=== PATIENT | female | born 1950 | race Caucasian/White ===

== ENCOUNTER 2023-03-29 20:49 | Inpatient (IN) ==
--- OUTSIDE RECORDS SUMMARY | 2023-03-29 20:54 | External Medical Summary | Summary of Care ---
Author Name Unknown Organization [facility] Address [address] [place] [address] Phone [phone] Care Team Providers Care Pharmacovigilance Safety Expert Name Role Phone Ishaan Gomez MD Primary Care Provide r Reason for Visit * Auth/Cert Specialty Diagnoses / Procedures Referred By Contalisa t Referred To Contact Diagnoses History of colonic polyps History of colonic polyps [Z86.010] Procedures COLONOSCOPY WITH SUBMUCOSAL DISSECTION (ESD) Colonoscopy with Submucosal Dissection (ESD) Referral ID Status Reason Start Date Expiration Date Visits Re quested Visits Authorized [id number] Encounter Details Date Type Department Care Team (Latest Contact Info) Description 03/06/2023 6:08 AM EDT - 03/06/2023 1:40 PM EDT Hospital Encounter OR [facility], Operating Room, [facility] - 4th Floor [address] [facility] [place] [address] Fátima Lopez MD [address] [facility] [place] [address] Various: BRYON MASON Discharge Disposition: Home - Self Care Allergies No known active allergiesdocumented as of this encounter (statuses as of 03/07/2023) Medications Medication Sig Dispensed Refills Start Date End Date Status omeprazole (PRILOSEC) 20 MG CPDR 0 04/07/2017 Active aspirin enteric coated 81 MG TBEC Take 1 Tablet by mouth in the morning. 100 Tab 3 05/14/2017 Active Albuterol Sulfate HFA 108 (90 Base) MCG/ACT Inhalation Aerosol SolutionIndication s:COPD, moderate (HCC) Inhale 2 Puffs by mouth every 4 hours as needed for Wheezing. 18 g 5 10/11/2022 Active Citalopram Hydrobromide 40 MG Oral Tablet (CeleXA)Indication s:Anxiety Take 1 Tablet by mouth in the morning. 30 Tablet 5 10/11/2022 Active traZODone HCl 50 MG Oral Tablet (Desyrel)Indicatio ns:Insomnia, unspecified type Take 1 Tablet by mouth at bedtime as needed for Sleep. 30 Tablet 0 10/11/2022 Active Sutab 4651-109-098 MG Oral Tablet (Sodium Sulfate-Mag Sulfate-KCl) Take according to colonoscopy prep instructions. 24 Tablet 0 11/07/2022 Active Trelegy Ellipta 200-62.5-25 MCG/ACT Aerosol Powder Breath Activated (Fluticasone-Umecl idinium-Vilanterol )Indications:COPD, moderate (HCC) INHALE 1 PUFF BY MOUTH DAILY IN THE AM 60 Blister Dosing Unit 2 01/21/2023 Active documented as of this encounter (statuses as of 03/07/2023) Active Problems Problem Noted Date Diagnosed Date Hepatic steatosis 11/08/2022 Alcohol abuse 10/11/2022 Anxiety 10/11/2022 COPD, moderate 10/11/2022 Insomnia 10/11/2022 Generalized anxiety disorder 11/24/2010 Tobacco use disorder 11/25/2007 documented as of this encounter (statuses as of 03/07/2023) Resolved Problems Problem Noted Date Diagnosed Date Resolved Date Alcohol dependence 10/27/2010 2 Overview: ICD-10 update of inactive term NO KNOWN PROBLEMS 10/10/2007 01/26/2019 documented as of this encounter (statuses as of 03/07/2023) Immunizations Name Administration Dates Next Due COVID-19 mRNA, LNP-s, No Pre serve, 2-Dose Series (Moderna) 07/11/2020,06/13/2020 Pneumococcal Polysaccharide PPV23 (Pneumovax) TDAP (age 11 and older)(Adacel) 02/23/2008 documented as of this encounter Social History Tobacco Use Types Packs/Day Years Used Date Smoking Tobacco: Every Day Cigarettes 1 53 Smokeless Tobacco: Never Alcohol Use Standard Drinks/Week Comments Yes 6 (1 standard drink = 0.6 oz pur e alcohol) daily PHQ-2 Answer Date Recorded PHQ-2 Score 0 01/29/2019 Hunger Vital Sign Answer Date Recorded Worried About Running Out of Food in the Last Ye ar Never true 12/21/2020 Ran Out of Food in the Last Year Never true 12/21/2020 Sex and Gender Information Value Date Recorded Sex Assigned at Female 02/24/2023 9:14 PM EDT Gender Identity Female 02/24/2023 9:14 PM EDT Sexual Orientation Straight 02/24/2023 9: 14 PM EDT Job Start Date Occupation Industry Not on file Not on file Not on file documented as of this encounter Last Filed Vital Signs Vital Sign Reading Time Taken Comments Blood Pressure 120/57 03/06/2023 1:28 PM EDT Pulse 80 03/06/2023 1:28 PM EDT Temperature 36.3 C (97.3 F) 03/06/2023 1:28 PM ED T Respiratory Rate 19 03/06/2023 1:28 PM EDT Oxygen Saturation 98% 03/06/2023 1:28 PM EDT Inhaled Oxygen Concentration - - Weight 43.5 kg (96 lb) 03/06/2023 7:18 AM EDT Height 152.4 cm (5') 03/06/2023 7:18 AM EDT Body Mass Index 18.75 03/06/2023 7:18 AM EDT documented in this encounter H&P Notes * Fátima Lopez MD - 03/06/2023 8:03 AM EDT Endoscopy Pre-Procedure Assessment Name: Donna Brooke Date: 03/06/2023 Time: 8:03 AM Procedure(s): Colonoscopy; with Indication(s) of resection of colon polyp Endoscopy Pre-Procedure Assessment: Prior to the procedure, the patient was identified. The patient's history, medications and allergies were reviewed as per the Anesthesia Assessment. The patient is competent. The risks and benefits of the proposed procedure and the planned sedation were discussed with the patient. All questions were answered and informed consent for the procedure was obtained. BP 157/73 | Pulse 92 | Temp 36.5 C (97.7 F) (Temporal Artery) | Resp 18 | Ht 1.524 m (5') | Wt 43.5 kg (96 lb) | SpO2 100% | BMI 18.75 kg/m | BSA 1.36 m Review of patient's allergies indicates: No Known Allergies Prior to Admission medications Medication Sig Last Dose Discont. Trelegy Ellipta 200-62.5-25 MCG/ACT Aerosol Powder Breath Activated (Twtwsjoeulx-Ejmcnatyfdlv-Ewfvbxtaec) INHALE 1 PUFF BY MOUTH DAILY IN THE AM 03/05/2023 Sutab 3811-182-947 MG Oral Tablet (Sodium Sulfate-Mag Sulfate-KCl) Take according to colonoscopy prep instructions. 03/05/2023 Citalopram Hydrobromide 40 MG Oral Tablet (CeleXA) Take 1 Tablet by mouth in the morning. 03/05/2023 traZODone HCl 50 MG Oral Tablet (Desyrel) Take 1 Tablet by mouth at bedtime as needed for Sleep. Past Month aspirin enteric coated 81 MG TBEC Take 1 Tablet by mouth in the morning. 03/05/2023 omeprazole (PRILOSEC) 20 MG CPDR 03/05/2023 Chantix Starting Month Mauricio 0.5 MG X 11 & 1 MG X 42 Tablet Therapy Pack (Varenicline Tartrate (Starter)) As directed in the box Patient not taking: Reported on 03/06/2023 Not Taking Albuterol Sulfate HFA 108 (90 Base) MCG/ACT Inhalation Aerosol Solution Inhale 2 Puffs by mouth every 4 hours as needed for Wheezing. Over 30 Days Physical Exam: Mental Status Examination: alert and oriented. Airway Examination: normal oropharyngeal airway and neck mobility. Respiratory Examination: clear to auscultation. CV Examination: Regular rate and rythm, no murmurs. ASA Grade: III - A patient with severe systemic disease. After reviewing the risks and benefits, the patient was deemed in satisfactory condition to undergothe procedure. The anesthesia plan was to use general anesthesia. Patient was explained in detail regarding risks, benefits, limitations and alternatives of the above endoscopic procedure. Risks of intravenous sedation used for procedure were also explained. Risks include, but not limited to perforation, bleeding, infection, respiratory distress, cardiac arrest and . Risk of acute pancreatitis and necrosis if ERCP is done. Patient is also aware about the possibility of missed lesion. Patient's questions were answered. The patient verbalized understandingthe information and agreed to undergo the procedure. Discussed with the patient that he/she is at an explicit higher risk for complications in comparison to other patients Fátima Lopez MD 03/06/2023 documented in this encounter Procedure Notes * Willem Tinajero MD - 03/06/2023 8:16 AM EDTAssociated Order(s): COLONOSCOPY [facility] Patient Name: Donna Brooke Procedure Date: 03/06/2023 8:16 AM Date of : 1950 Admit Type: Outpatient Note Status: Finalized Date of : 1950 Admit Type: Outpatient Age: 72 Room: OR 5 Gender: Female Note Status: Finalized Procedure: Colonoscopy Indications: Therapeutic procedure for colon polyps Providers: Fátima Lopez MD (Doctor), Ninoska Urbina RN Referring MD: Willem Tinajero MD, Ishaan [facility] Medicines: General Anesthesia, Cipro 400 mg IV Complications: No immediate complications. Procedure: Pre-Anesthesia Assessment: - Prior to the procedure, a History and Physical was performed, and patient medications, allergies and sensitivities were reviewed. The patient's tolerance of previous anesthesia was reviewed. - The risks and benefits of the procedure and the sedation options and risks were discussed with the patient. All questions were answered and informed consent was obtained. - Patient identification and proposed procedure were verified prior to the procedure by the physician and the nurse. The procedure was verified in the procedure room. - Pre-procedure physical examination revealed no contraindications to sedation. After I obtained informed consent, the scope was passed under direct vision. All instruments were visually inspected immediately before and after removal from the patient to ensure they are fully intact. Throughout the procedure, the patient's blood pressure, pulse, and oxygen saturations were monitored continuously. The [id number] Colonoscope ([id number]) was introduced through the anus and advanced to the cecum, identified by appendiceal orifice and ileocecal valve. The colonoscopy was performed without difficulty. The patient tolerated the procedure well. The quality of the bowel preparation was good. Findings & Specimens: A 60 mm polyp was found in the ascending colon. The polyp was flat, sessile, Josette classification IIa (superficial, elevated) and non-granular lateral spreading and found to be Kudo Pit Pattern Type IV(as viewed with Narrow Band Imaging). Preparations were made for endoscopic submucosal dissection. DiLumen was used. Chromoscopy with indigo carmine using irrigation chromoendoscopy technique was done to travis the borders of the lesion. Demarcation of the lesion was performed to clearly identify boundaries of the lesion. 70 mL of saline with indigo carmine was injected with adequate lift of the lesion from the muscularis propria. A circumferential incision around the lesion into the submucosa was performed with a 1.5mm Pro knife. The lesion was then dissected from the underlying deep layers with the electrocautery knife and retrieved with a Barrera net. Rubber band and clip for traction was used. Resection and retrieval were complete. The decision was made to use sutures to close a defect after mucosal resection. The endoscope was removed, the OverStitch device was attached to the proximal and distal ends of the endoscope. The device was loaded with 2.0 polypropylene suture. A total of one sutures in a running fashion were placed with cinches on both ends. Excellent tissue approximation was noted. Verification of patient identification for the specimen was done by the physician and nurse using the patient's name and date. The pathology specimen was placed into Bottle A. Impression: - One 60 mm polyp in the ascending colon, removed with endoscopic submucosal dissection. Resected and retrieved. Endoscopic suturing performed to close the defect. Recommendation: - Discharge patient to home. - Await pathology results. - Repeat colonoscopy for surveillance based on pathology results. - Full liquid diet today, then advance as tolerated to soft diet for 2 days. - No aspirin, ibuprofen, naproxen, or other non-steroidal anti-inflammatory drugs for 5 days. - Return to referring physician. Fátima Lopez MD 03/06/2023 10:33:25 AM This report has been signed electronically. Estimated Blood Loss: Estimated blood loss: none. documented in this encounter Nursing Notes * Gemma Guardado RN - 03/06/2023 10:10 AM EDT Colonoscopy with ESD completed in [facility] OR. Pt alisson procedure well. Sedated by [employer]. See anesthesia record for VS and medications given. Abd soft. Airway patent. Pt to recovery on L side with HOB elevated. Report to recovery room nurse. Specimen and location verified with physician. Bedside cleaning done by Charles Urbina RN. * Gemma Guardado RN - 03/06/2023 9:44 AM EDT Room temperature decreased to [address] Lopez's request. * Sandra Castañeda RN - 03/05/2023 2:08 PM EDT Called received from endo office. It is okay that she did not stop ASA just to hold morning of . Called patient and let her know. * Munira Melendez RN - 03/05/2023 1:56 PM EDT Pt states she did not stop her ASA as instructed; last dose was 03/04. Pt and daughter instructed to call Dr Lopez office to report no hold on ASA; this nurse contacted office at [phone] to make them aware pt did not stop ASA. Gemma (office) will make Dr. Lopez aware. documented in this encounter Miscellaneous Notes * Pt Handout (on AVS) - Araceli Silver RN - 03/06/2023 10:43 AM EDT Images from the original note were not included. [id number] Soft Diet Your healthcare provider has prescribed a soft diet. This means eating foods that are soft, low in fiber, and easy to digest. This diet is for people with digestive problems. This should not be confused with a soft diet that is prescribed for people with issues chewing and swallowing. A soft diet provides foods that are easy to chew and swallow. It will reduce or prevent stomach pain or discomfort. Foods should be bite-sized and very soft or moist. Follow your healthcare provider?s specific instructions about what foods and drinks you may have. The general guidelines below can help you get started on this diet. Beverages OK: Milk, tea, coffee, fruit juices, carbonated beverages, nutrition shakes, and drinks (Note: Thinliquids may be hard to swallow. They may need to be thickened.) Don't have: All are OK, unless they need to be thickened Breads and crackers OK: Refined white, wheat, or seedless rye bread; kerwin or soda crackers that have been moistened; plain rolls or bagels; very soft tortillas Don't have: Whole-grain breads, rolls, or bagels with nuts, raisins, or seeds; crackers, croutons, taco shells Cereals and grains OK: Cooked cereals, plain dry cereals that have been moistened, plain macaroni, spaghetti, noodles,rice Don't have: Whole-grain cereals and granola, or cereals containing bran, raisins, seeds or nuts; coconut; brown or wild rice Desserts and sweets OK: Moist cake; soft fruit pie with bottom crust only; soft cookies moistened in milk or other liquid; gelatin, custard, pudding, plain ice cream, plain sherbet, sugar, honey, clear jelly Don't have: Pastries, desserts, and ice cream that have nuts, coconut, seeds, or dried fruit; popcorn; chips of any kind, including potato chips and tortilla chips; jam, marmalade Eggs and cheese OK: Poached, soft boiled, or scrambled eggs; cottage cheese, ricotta cheese, cream cheese, cheese sauces, or cheese melted in other dishes Don't have: Gosper fried eggs, cheese slices and cubes Fruits OK: Avocado, banana, baked peeled apple, applesauce, peeled ripe peaches or pears, canned fruit (apricots, cherries, peaches, pears), melons Don't have: Raw apple, dried fruits, coconut, corby, pineapple, grapes, fruit mitchel, fruit snacks Meat and fish OK: All fresh meat, poultry, or fish that is cooked until tender Don't have: Meat, fish, or poultry that is fried; tough or stringy meat, including ashton, sausage, bratwurst, jerky, corned beef Other protein foods OK: Tofu, baked beans, Don't have: Deep-fried tofu; crunchy peanut or other nut or seed butters; nuts or seeds that are whole or chopped Soups OK: All soups, but they may need to be thickened. Thin liquid may be too hard to swallow. Don't have: Soups made with stringy meat pieces or chunky vegetables Vegetables OK: Peeled and well-cooked potatoes or sweet potatoes; fresh, cooked, canned, or frozen vegetables without seeds, skin, or coarse fiber Don't have: Raw vegetables, deep-fried vegetables (such as tempura), and corn Last Reviewed Date: 12/04/202119995663-1947 [employer]. All rights reserved. This information is not intended as a substitute for professional medical care. Always follow your healthcare professional's instructions. * Pt Handout (on AVS) - Araceli Silver RN - 03/06/2023 10:41 AM EDT Images from the original note were not included. [id number] Full Liquid Diet A full liquid diet is a middle step between a clear liquid diet and eating solid foods. A clear liquid diet allows only liquids you can see through. A full liquid diet allows thicker liquid foods, aslisted below. It can be anything that is liquid at room temperature. The full liquid diet may be used before or after surgery. Or it may be used if you have a digestive illness. It's also used beforesome medical tests. It's easy to digest and leaves little food in the stomach and intestines. A full liquid diet meets calorie and protein needs for your body with liquids only. If it's to be used for more than 5 days, your healthcare provider or dietitian may also order high-protein, high-calorie liquid supplements. These will give you extra vitamins and minerals. You may include the itemsbelow on a full liquid diet. Adults Adults should drink a total of 2 to 3 quarts of liquid per day. It may be easier to drink small frequent servings rather than a few large ones. People with severe kidney or heart disease may need to limit the amount of fluid they take in. Check with your provider. Cereals and soups. Creamy hot breakfast cereals (wheat or rice) thinned with milk, pureed soups (including pureed meats, bland vegetables, and white potatoes), tomato puree. Desserts. Gelatin, whipped topping, custard-style yogurt, pudding, custard, plain ice cream, sherbet, sorbet, frozen fruit juice bars. Drinks. Coffee, tea, cream, milk, milkshakes, fruit and vegetable juices, sodas, mineral water (plain or flavored), liquid gelatin, electrolyte replacement sports drinks. Other items. Salt, mild-flavored seasonings, chocolate flavoring, gravy, margarine, sugar, syrup, jelly, honey, hard candy (to suck on). Children Follow the healthcare provider?s instructions. Young children who are eating solid foods may be able to have the items listed above without problems. Be sure to follow these safety measures: Don't give hard candies to young children. The candies may cause choking. Children under 1 year old. Don't give cow's milk or honey. It may cause illness. Children under 2 years old. Ask your child?s provider if you should supplement your child?s dietwith oral rehydration solutions, which have electrolytes. You can buy these drinks at pharmacies and grocery stores. You don?t need a prescription. Children over 1 year old. Limit milk to 2 or 3 cups per day. Too much milk can make your child less hungry for other foods. Last Reviewed Date: 10/04/202119995751-5988 [employer]. All rights reserved. This information is not intended as a substitute for professional medical care. Always follow your healthcare professional's instructions. documented in this encounter Plan of Treatment Upcoming Encounters Date Type Department Care Team (Late st Contact Info) Description 04/08/2023 4:20 PM EST Office Visit Family Medicine [address] [place] [phone] Ishaan Gomez MD [address] [place] [address] [place] [id number] 04/11/2023 10:30 AM EST Office Visit Ophthalmology, [facility] [address] [place] [address] Herberth Welsh DO [address] [place] [address] Pending Results Name Type Priority Associated Diagnoses Date /Time SURGICAL PATHOLOGY Pathology Routine 2022 10:09 AM EDT Scheduled Orders Name Type Priority Associated Diagnoses Orde r Schedule SURGICAL PATHOLOGY Pathology Routine One Ti me for 1 Occurrences starting 03/06/2023 until 03/06/2023, 1 completed Health Maintenance Due Date Last Done Comments DISCUSS TOBACCO CESSATION (REFER TO SMARTSET #[id number]) 1950 DXA Scan 1950 Alpha-1 Antitrypsin 1970 Hepatitis C Screening 1970 Zoster Vaccines (1 of 2) 1971 Cologuard 1997 Fecal Occult Blood Test 1997 Sigmoidoscopy 1997 LUNG CANCER SCREENING - USE SMARTSET [id number] 2002 Pneumococcal Vaccine: 65+ Years (2 - PCV) 06/27/2013 06/27/2012 Mammogram 03/01/2016 03/01/2015, 02/04, 02/17/2013, Additional history exists DTaP,Tdap,and Td Vaccines (2 - Td or Tdap) 02/22/2018 02/23/2008 Depression Screening 01/30/2020 01/29/2019 COVID-19 Vaccine (3 - Moderna risk series) 08/08/2020 07/11/2020, 06/13/2020 Influenza Vaccine (FLU shot) (#1) 2023 O2 ASSESSMENT COMPLETED IN PAST YEAR FOR COPD 03/06/2024 03/06/2023 Lipid Panel 10/13/2027 10/12/2022, 07/05, 01/26/2008 Colonoscopy 03/06/2033 03/06/2023, 10/04, 10/15/2022 Colorectal Cancer Screening 03/06/2033 GARDASIL-HPV IMMUNIZATION SERIES Aged Out No longer eligible based on patient's age to complete this topic Hepatitis B Aged Out No longer eligi ble based on patient's age to complete this topic MENINGOCOCCAL (MENACTRA/MENVEO) Aged Out No longer eligible based on patient's age to complete this topic documented as of this encounter Medical Devices Implanted Type Area Lumber Piler Device Identifier Shelf Expiration Date Model / Serial / Lot Duraclip 11mm Repositionable - [id number] Implanted:Qty: 1 on 03/06/2023 by Fátima Lopez MD at OR [facility] Colon [email or web address] [id number] 07/05/2024 [id number] / / [id number] documented as of this encounter Procedures Procedure Name Priority Date/Time Associated Diagnosis Comments GLUCOSE METER, POINT OF CARE [facility] 03/06/2023 10:44 AM EDT COLONOSCOPY 03/06/2023 8:16 AM EDT GLUCOSE METER, POINT OF CARE [facility] 03/06/2023 7:34 AM EDT documented in this encounter Results * GLUCOSE METER, POINT OF CARE (03/06/2023 10:44 AM EDT) Glucose Meter 94 70 - 120 mg/dL 03/06/2023 10:47 AM EDT [facility] Blood Whole blood specimen / Unknown 03/06/2023 10:44 AM EDT 03/06/2023 10:47 AM EDT Fátima Lopez MD LAB POINT OF CARE T EST DOCKED DEVICE UNSOLICITED RESULTS [facility] [address] [place] [address] * COLONOSCOPY (03/06/2023 8:16 AM EDT) 03/06/2023 8:16 AM EDT Narrative Procedure Note Willem Tinajero MD - 03/06/2023 8:16 AM EDT [facility] Patient Name: Donna Brooke Procedure Date: 03/06/2023 8:16 AM Date of : 1950 Admit Type: Outpatient Note Status:Finalized Date of : 1950 Admit Type: Outpatient Age: 72 Room: OR 5 Gender: Female Note Status: Finalized Procedure: Colonoscopy Indications: Therapeutic procedure for colon polyps Providers: Fátima Lopez MD (Doctor), Ninoska Urbina RN Referring MD: Willem Tinajero MD, Ishaan Gomez Medicines: General Anesthesia, Cipro 400 mg IV Complications: No immediate complications. Procedure: Pre-Anesthesia Assessment: - Prior to the procedure, a History and Physicalwas performed, and patient medications, allergies and sensitivities werereviewed. The patient's tolerance of previous anesthesia was reviewed. - The risks and benefits of the procedure and thesedation options and risks were discussed with the patient. All questions wereanswered and informed consent was obtained. - Patient identification and proposed procedurewere verified prior to the procedure by the physician and the nurse. The procedure wasverified in the procedure room. - Pre-procedure physical examination revealed nocontraindications to sedation. After I obtained informed consent, the scope waspassed under direct vision. All instruments were visually inspected immediatelybefore and after removal from the patient to ensure they are fully intact. Throughout the procedure, the patient's bloodpressure, pulse, and oxygen saturations were monitored continuously. The [id number] ([id number]) was introduced through the anus and advanced to the cecum,identified by appendiceal orifice and ileocecal valve. The colonoscopy was performedwithout difficulty. The patient tolerated the procedure well. The quality of thebowel preparation was good. Findings & Specimens: A 60 mm polyp was found in the ascending colon. The polyp was flat,sessile, Josette classification IIa (superficial, elevated) and non-granular lateral spreading and foundto be Kudo Pit Pattern Type IV (as viewed with Narrow Band Imaging). Preparations were made forendoscopic submucosal dissection. DiLumen was used. Chromoscopy with indigo carmine using irrigationchromoendoscopy technique was done to travis the borders of the lesion. Demarcation of the lesion was performed toclearly identify boundaries of the lesion. 70 mL of saline with indigo carmine was injected withadequate lift of the lesion from the muscularis propria. A circumferential incision around the lesion intothe submucosa was performed with a 1.5mm Pro knife. The lesion was then dissected from the underlyingdeep layers with the electrocautery knife and retrieved with a Barrera net. Rubber band andclip for traction was used. Resection and retrieval were complete. The decision was made to usesutures to close a defect after mucosal resection. The endoscope was removed, the OverStitch devicewas attached to the proximal and distal ends of the endoscope. The device was loaded with 2.0polypropylene suture. A total of one sutures in a running fashion were placed with cinches on both ends.Excellent tissue approximation was noted. Verification of patient identification for the specimen wasdone by the physician and nurse using the patient's name and date. The pathology specimen wasplaced into Bottle A. Impression: - One 60 mm polyp in the ascending colon, removedwith endoscopic submucosal dissection. Resected and retrieved. Endoscopicsuturing performed to close the defect. Recommendation: - Discharge patient to home. - Await pathology results. - Repeat colonoscopy for surveillance based onpathology results. - Full liquid diet today, then advance as toleratedto soft diet for 2 days. - No aspirin, ibuprofen, naproxen, or othernon-steroidal anti-inflammatory drugs for 5 days. - Return to referring physician. Fátima Lopez MD 03/06/2023 10:33:25 AM This report has been signed electronically. Estimated Blood Loss: Estimated blood loss: none. Willem Tinajero MD GASTRO LOWER * (ABNORMAL) GLUCOSE METER, POINT OF CARE (03/06/2023 7:34 AM EDT) Glucose Meter 68(L) 70 - 120 mg/dL 03/06/2023 7:40 AM EDT [facility] Blood Whole blood specimen / Unknown 03/06/2023 7:34 AM EDT 03/06/2023 7:40 AM EDT Fátima Lopez MD LAB POINT OF CARE T EST DOCKED DEVICE UNSOLICITED RESULTS [facility] [address] [place] [address] documented in this encounter Administered Medications Inactive Administered Medications - up to 3 most recent administrations Medication Order MAR Action Action Date Dose Rate Site albuterol-ipratropium (Duoneb) inhalation solution 3 mL 3 mL, Nebulizer, ONCE, On Sat03/06/23 at 0830, For 1 dose, 3 mL = 0.5 mg ipratropium/ 2.5 mg albuterol, Pre-Op Given 03/06/2023 8:01 AM EDT 3 mL ciprofloxacin (Cipro) in D5W ivpb 400 mg IV Piggyback, 400 mg, ONCE, 1 dose, On Sat03/06/23 at 0845, Administer over 60 Minutes, PROTECT FROM LIGHT New Bag 03/06/2023 8:11 AM EDT 400 mg 200 mL/hr isolyte-S pH 7.4 infusion Intravenous, at 10 mL/hr, Plasma-LYTE 148, isolyte-S, and isolyte-S pH 7.4 are considered equivalent - including for MAR barcode scanning., CONTINUOUS, Starting on Sat03/06/23 at 0815, Until Sat03/06/23 at 1740, Pre-Op Restarted 03/06/2023 8:28 AM EDT Continue from Pre-Op 03/06/2023 8:13 AM EDT 10 mL/hr New Bag 03/06/2023 7:35 AM EDT 10 mL/hr documented in this encounter Active and Recently Administered Medications Times are shown in EDT. Scheduled Medication Order 03/04/2023 03/05/2023 03/06/2023 albuterol-ipratropium (Duoneb) inhalation solution 3 mL (COMPLETED) 3 mL, Nebulizer, ONCE, On Sat03/06/23 at 0830, For 1 dose, 3 mL = 0.5 mg ipratropium/ 2.5 mg albuterol, Pre-Op 0801 (Given - Provid er: Padmini Doss, CHIEF ENGINEER PRODUCTION) ciprofloxacin (Cipro) in D5W ivpb 400 mg (COMPLETED) IV Piggyback, 400 mg, ONCE, 1 dose, On Sat03/06/23 at 0845, Administer over 60 Minutes, PROTECT FROM LIGHT 0811 (New Bag - Prov ider: Araceli Silver, RN) Continuous Medication Order 03/04/2023 03/05/2023 03/06/2023 isolyte-S pH 7.4 infusion Intravenous, at 10 mL/hr, Plasma-LYTE 148, isolyte-S, and isolyte-S pH 7.4 are considered equivalent - including for MAR barcode scanning., CONTINUOUS, Starting on Sat03/06/23 at 0815, Until Sat03/06/23 at 1740, Pre-Op 0735 (New Bag - Prov ider: Araceli Silver, NA)0813 (Continue from Pre-Op - Provider: Latesha Liu CRNA)0827 (Paused - Provider: Latesha Liu CRNA - Comment: Switch to gravity)0828 (Restarted - Provider: Latesha Liu CRNA)0941 (Anes Intra-Op Fluid - Provider: Latesha Liu CRNA) documented in this encounter Care Teams Pharmacovigilance Safety Expert Relationship Specialty Start Date End Date Ishaan Gomez MD [address] [place] [address] [place] [phone] PCP - General Family Medicine 10/12/22 documented as of this encounter"
--- OUTSIDE RECORDS SUMMARY | 2023-03-29 20:54 | External Medical Summary | Summary of Care ---
Author Name Unknown Organization [facility] Address [address] [place] [address] Phone [phone] Care Team Providers Care Art Gallery Internship Name Role Phone Ishaan Gomez MD Primary Care Provide r Reason for Visit * Reason Onset Date Comments Order Request 03/22/2023 Encounter Details Date Type Department Care Team ([facility] st Contact Info) Description 03/22/2023 Telephone Family Medicine [address] [phone] Ishaan Gomez MD [address] [place] [address] [place] [address] Order Request Allergies No known active allergiesdocumented as of this encounter (statuses as of 03/26/2023) Medications Medication Sig Dispensed Refills Start Date [...] Sleep. 30 Tablet 0 10/11/2022 Active Sutab 5346-700-590 MG Oral Tablet (Sodium Sulfate-Mag Sulfate-KCl) Take according to colonoscopy prep instructions. 24 Tablet 0 11/07/2022 Active Chantix Starting Month Mauricio 0.5 MG X 11 & 1 MG X 42 Tablet Therapy Pack (Varenicline Tartrate (Starter))Indicati ons:Tobacco use disorder As directed in the box 1 Each 0 11/19/2022 Active Additional Information Patient not taking.Reported on 03/06/2023 Trelegy Ellipta 200-62.5-25 MCG/ACT Aerosol Powder Breath Activated (Fluticasone-Umecl idinium-Vilanterol )Indications:COPD, moderate (HCC) INHALE 1 PUFF BY MOUTH DAILY IN THE AM 60 Blister Dosing Unit 2 01/21/2023 Active Hospital, Clinic, or Other Facility Administered Medication Ordered Dose Route Frequency Start Date End Date Status Albuterol Sulfate (Proventil) (2.5 MG/3ML) 0.083% inhalation solution 2.5 mgIndications:COPD, moderate (HCC) 2.5 mg NEBULIZER ONCE PRN 10/11/2022 10/11/2023 Active bevaCIZumab (Avastin) inj 1.25 mgIndications: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 1.25 mg IZ PRN 01/21/2023 01/21/2024 Active ROPivacaine (Naropin) inj 1.5 mgIndications: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 1.5 mg IJ PRN 01/21/2023 01/21/2024 Active documented as of this encounter (statuses as of 03/26/2023) Active Problems Problem Noted Date Diagnosed Date Hepatic steatosis 11/08/2022 Alcohol abuse 10/11/2022 Anxiety 10/11/2022 COPD, moderate 10/11/2022 Insomnia 10/11/2022 Generalized anxiety disorder 11/24/2010 Tobacco use disorder 11/25/2007 documented as of this encounter (statuses as of 03/26/2023) Resolved Problems Problem Noted Date Diagnosed Date Resolved Date Alcohol dependence 10/27/2010 2 Overview: ICD-10 update of inactive term NO KNOWN PROBLEMS 10/10/2007 01/26/2019 documented as of this encounter (statuses as of 03/26/2023) Immunizations Name Administration Dates Next Due COVID-19 [...] on file documented as of this encounter Miscellaneous Notes * Telephone Encounter - Flor Strickland LPN - 03/26/2023 1:11 PM EST Noted. * Telephone Encounter - Moon Lechuga OSA - 03/22/2023 3:14 PM EST Anew plan of care will be faxed this coming week adding nursing back on. Please sign and fax back to [phone]. documented in this encounter Plan of Treatment Upcoming Encounters Date Type Department Care Team (Late st Contact Info) Description 04/08/2023 4:20 PM EST Office Visit Family Medicine [facility] [place] [phone] Ishaan Gomez MD [address] [place] [address] [place] [id number] 04/11/2023 10:30 AM EST Office Visit Ophthalmology, [facility] [address] [place] [address] Herberth Welsh DO [address] [place] [address] Scheduled Procedures Name Priority Associated Diagnoses Date/Ti me COLONOSCOPY FLEXIBLE PROXIMA L DIAGNOSTIC Recall History of colonic polyps Health Maintenance Due Date Last Done Comments DISCUSS TOBACCO CESSATION (REFER TO SMARTSET #0938) 1950 DXA Scan 1950 Alpha-1 Antitrypsin 1970 Hepatitis C Screening 1970 Zoster Vaccines (1 of 2) 1971 LUNG CANCER SCREENING - USE SMARTSET 50973 2002 Pneumococcal Vaccine: 65+ Years (2 - PCV) 06/27/2013 06/27/2012 Mammogram 03/01/2016 03/01/2015, 02/04, 02/17/2013, Additional history exists DTaP,Tdap,and Td Vaccines (2 - Td or Tdap) 02/22/2018 02/23/2008 Depression Screening 01/30/2020 01/29/2019 COVID-19 Vaccine (3 - Moderna risk series) 08/08/2020 07/11/2020, 06/13/2020 Influenza Vaccine (FLU shot) (#1) 2023 COLONOSCOPY-ANNUAL AGES 18-100 03/06/2024 03/06/2023, 10/15/2022, 10/15/2022 O2 ASSESSMENT COMPLETED IN PAST YEAR FOR COPD 03/06/2024 03/06/2023 Lipid Panel 10/13/2027 10/12/2022, 07/05, 01/26/2008 Colonoscopy Discontinued 03/06/2023, 10/04, 10/15/2022 Colorectal Cancer Screening Discontinued Cologuard Discontinued Fecal Occult Blood Test Discontinued GARDASIL-HPV IMMUNIZATION SERIES Aged Out No longer eligible based on patient's age to complete this topic Hepatitis B Aged Out No longer eligi ble based on patient's age to complete this topic MENINGOCOCCAL (MENACTRA/MENVEO) Aged Out No longer eligible based on patient's age to complete this topic Sigmoidoscopy Discontinued documented as of this encounter Medical Devices Implanted Type Area Fire Lieutenant Device Identifier Shelf Expiration Date Model / Serial / Lot Duraclip 11mm Repositionable - [id number] Implanted:Qty: 1 on 03/06/2023 by Fátima Lopez MD at OR [facility] Colon Met[employer]ana LICHA [id number] 07/05/2024 [id number] / / [id number] documented as of this encounter Care Teams Art Gallery Internship Relationship Specialty Start Date End Date Ishaan Gomez MD [address] [place] [address] [place] [phone] PCP - General Family Medicine 10/12/22 documented as of this encounter
--- OUTSIDE RECORDS SUMMARY | 2023-03-29 20:54 | External Medical Summary | Summary of Care ---
Author Name Unknown Organization [facility] Address [address] [facility] [address] Phone [phone] Care Team Providers Care Jute Bag Clipper Name Role Phone Ishaan Gomez MD Primary Care Provide r Reason for Visit * Reason Onset Date Comments Home Health 01/22/2023 Fall 01/22/2023 Encounter Details Date Type Department Care Team Description 01/22/2023 Telephone Family Medicine [address] [place] [address] Ishaan Gomez MD [address] [place] [address] [place] [phone] Home Health; Fall Allergies No known active allergiesdocumented as of this encounter (statuses as of 01/23/2023) Medications Medication Sig Dispensed Refills Start Date [...] Sleep. 30 Tablet 0 10/11/2022 Active Sutab 4357-639-307 MG Oral Tablet (Sodium Sulfate-Mag Sulfate-KCl) Take according to colonoscopy prep instructions. 24 Tablet 0 11/07/2022 Active Chantix Starting Month Mauricio 0.5 MG X 11 & 1 MG X 42 Tablet Therapy Pack (Varenicline Tartrate (Starter))Indicati ons:Tobacco use disorder As directed in the box 1 Each 0 11/19/2022 Active Trelegy Ellipta 200-62.5-25 MCG/ACT Aerosol Powder [...] as of this encounter (statuses as of 01/23/2023) Active Problems Problem Noted Date Hepatic steatosis 11/08/2022 Alcohol abuse 10/11/2022 Anxiety 10/11/2022 COPD, moderate 10/11/2022 Insomnia 10/11/2022 Generalized anxiety disorder 11/24/2010 Tobacco use disorder 11/25/2007 documented as of this encounter (statuses as of 01/23/2023) Resolved Problems Problem Noted Date Resolved Date Alcohol dependence 10/27/2010 10/29/2011 Overview: ICD-10 update of inactive term NO KNOWN PROBLEMS 10/10/2007 01/26/2019 documented as of this encounter (statuses as of 01/23/2023) Immunizations Name Administration Dates Next Due COVID-19 [...] = 0.6 oz pur e alcohol) daily Food Insecurity Answer Date Recorded Within the past 12 months, y ou worried that your food would run out before you got money to buy more. Never true 01/29/2019 Within the past 12 months, t he food you bought just didn't last and you didn't have money to get more. Never true 01/29/2019 Sex Assigned at Date Recorded Not on file Job Start Date Occupation Industry Not on file Not on file Not on file documented as of this encounter Miscellaneous Notes * Telephone Encounter - Cande Greenwood LPN - 01/23/2023 9:50 AM EDT ED Follow Up GROUP TEACHER Documentation Did patient call the office before going to ER: Yes When was patient seen: 01/22/23 Which ED: [facility] What were they seen for: Fall What testing did they have done: ct scan and echocardiogram What was the diagnosis(s) at discharge? Fall with laceration to head ( left back ) 5 sutures placed Any new medications prescribed: No How is patient feeling today: Daughter is calling, she has not checked on pt yet today Does patient have concerns today: No Was patient scheduled for a follow up appointment: Yes, date 02/01/23 * Telephone Encounter - Valery García LPN - 01/22/2023 3:06 PM EDT Provider to address: fall Reason for Call: Home Health Contact: Telephone Call Contact Type: Information HH Concerns Elida PT, Calling from: Niraj Report/Concerns of: Fall Symptoms: dizziness Vitals: T 98.2 P 92 RR 18 BP 114/66 SP O2 97 Lung sounds clear, diminished Weight n/a Blood sugar n/a Narrative: Outcome: Fell last night. Watching football got up tripped over her walker and hit her head. Later on, going to bed. Went to bathroom. Fell and hit her head. Seeing her for balance and gait efforts. But patient was at the eye doctor and had 4 shots in her eye yesterday. Feels that threw her off. Gash is about 2 inches long. 1/4 inch deep, but not the whole length. Not bleeding. Has a little trouble with finger to nose and can't stand tandum. Patient has some dizziness. Off and on. Denies chest pain, sob. No other symptoms. Daughter will be bringing her to urgent care after done working. Call back patient with any advice or orders. Total Time including non face to face (minutes): 15 documented in this encounter Plan of Treatment Upcoming Encounters Date Type Specialty Care Team Description 02/01/2023 Office Visit Family Ishaan Boudreaux MD [address] [place] [address] [place] [phone] 02/28/2023 Office Visit Ophthalmology Herberth Welsh DO [address] [place] [address] 03/06/2023 Hospital Encounter Surgery Fátima Lopez MD [address] [place] [address] 03/06/2023 Surgery Surgery Fátima Lopez MD [address] [place] [address] Colonoscopy with Submucosal Dissection (ESD) 04/08/2023 Office Visit Family Ishaan Boudreaux MD [address] [place] [address] [place] [address] Scheduled Procedures Name Priority Associated Diagnoses Date/Ti me Colonoscopy with Submucosal Dissection (ESD) History of colonic polyps 03/06/2023 8:33 AM EDT Health Maintenance Due Date Last Done Comments DISCUSS TOBACCO CESSATION (REFER TO SMARTSET #2556) 1950 DXA Scan 1950 Alpha-1 Antitrypsin 1970 Hepatitis C Screening 1970 Zoster Vaccines (1 of 2) 1971 Cologuard 1997 Fecal Occult Blood Test 1997 Sigmoidoscopy 1997 LUNG CANCER SCREENING - USE SMARTSET 47107 2002 Pneumococcal Vaccine: 65+ Years (2 - PCV) 06/27/2013 06/27/2012 Mammogram 03/01/2016 03/01/2015, 02/04, 02/17/2013, Additional history exists DTaP,Tdap,and Td Vaccines (2 - Td or Tdap) 02/22/2018 02/23/2008 Depression Screening 01/30/2020 01/29/2019 COVID-19 Vaccine (3 - Moderna risk series) 08/08/2020 07/11/2020, 06/13/2020 Influenza Vaccine (FLU shot) (#1) 2023 O2 ASSESSMENT COMPLETED IN PAST YEAR FOR COPD 10/16/2023 10/15/2022 Lipid Panel 10/13/2027 10/12/2022, 07/05, 01/26/2008 Colonoscopy 10/15/2032 10/15/2022, 10/15/2022 Colorectal Cancer Screening 10/15/2032 GARDASIL-HPV IMMUNIZATION SERIES Aged Out No longer eligible based on patient's age to complete this topic Hepatitis B Aged Out No longer eligi ble based on patient's age to complete this topic MENINGOCOCCAL (MENACTRA/MENVEO) Aged Out No longer eligible based on patient's age to complete this topic documented as of this encounter Medical Devices Not on filedocumented as of this encounter Care Teams Jute Bag Clipper Relationship Specialty Start Date End Date Ishaan Gomez MD [address] [place] [address] [place] [phone] PCP - General Family Medicine 10/12/22 documented as of this encounter
--- OUTSIDE RECORDS SUMMARY | 2023-03-29 20:54 | External Medical Summary | Summary of Care ---
Author Name Unknown Organization [facility] Address [address] [place] [address] Phone [phone] Care Team Providers Care Land Development Project Manager Name Role Phone Ishaan Gomez MD Primary Care Provide r Reason for Visit * Reason Onset Date Comments Referral 02/28/2023 EPIC 178 Referra l Encounter Details Date Type Department Care Team ([facility] Contact Info) Description 02/28/2023 Telephone BEHAVIORAL HEALTH SAND MIXER OPERATOR [address] [place] [address] [facility] Referral (EPIC 178 Referral ) Allergies No known active allergiesdocumented as of this encounter (statuses as of 02/28/2023) Medications Medication Sig Dispensed Refills Start Date [...] Sleep. 30 Tablet 0 10/11/2022 Active Sutab [id number] MG Oral Tablet (Sodium Sulfate-Mag Sulfate-KCl) Take [...] as of this encounter (statuses as of 02/28/2023) Active Problems Problem Noted Date Diagnosed Date Hepatic steatosis 11/08/2022 Alcohol abuse 10/11/2022 Anxiety 10/11/2022 COPD, moderate 10/11/2022 Insomnia 10/11/2022 Generalized anxiety disorder 11/24/2010 Tobacco use disorder 11/25/2007 documented as of this encounter (statuses as of 02/28/2023) Resolved Problems Problem Noted Date Diagnosed Date Resolved Date Alcohol dependence 10/27/2010 2 Overview: ICD-10 update of inactive term NO KNOWN PROBLEMS 10/10/2007 01/26/2019 documented as of this encounter (statuses as of 02/28/2023) Immunizations Name Administration Dates Next Due COVID-19 [...] encounter Miscellaneous Notes * Telephone Encounter - MEGAN Velazquez - 02/28/2023 1:48 PM EDT Referring Provider: Rut Lorenzo DO [facility] Reason for referral: DX notes Alcohol abuse, reviewed note further, Wisam Majano [phone] sent MyG message to provider around concerns of mothers alcohol consumption, member is falling and becoming a danger to himself. With Family intervention member has agreed to have a home health attendant come into the home and to see an OP ALMA counselor, will not consider Rehab. Looking for virtual counseling as a first step. Referral is for [facility]/ [facility], member needing OP ALMA resources as well. Outcome of referral: Contacted wisam Majano at [phone], left VM with [facility] callback information we will attempt 2nd outreach on 03/05/23. Member can be directed to [facility] M- F 8am to5 pm at [phone] documented in this encounter Plan of Treatment Upcoming Encounters Date Type Department Care Team (Late st Contact Info) Description 03/06/2023 8:00 AM EDT Hospital Encounter [facility], Operating Room, [facility] - 4th Floor [address] [place] [address] Fátima Lopez MD [address] [place] [address] 03/06/2023 8:00 AM EDT - 03/06/2023 10:13 AM EDT Surgery OR [facility], Operating Room, [facility] - 4th Floor [address] [place] [address] Fátima Lopez MD [address] [place] [address] Colonoscopy with Submucosal Dissection (ESD) 04/08/2023 4:20 PM EST Office Visit Family Medicine [address] [place] [address] Ishaan Gomez MD [address] [place] [address] [place] [address] 04/11/2023 10:30 AM EST Office Visit Ophthalmology, [facility] [address] [place] [address] Herberth Welsh DO [address] [place] [address] Scheduled Procedures Name Priority Associated Diagnoses Date/Ti me Colonoscopy with Submucosal Dissection (ESD) History of colonic polyps 03/06/2023 8:00 AM EDT Health Maintenance Due Date Last Done Comments DISCUSS TOBACCO CESSATION (REFER TO SMARTSET #6637) 1950 DXA Scan 1952 Alpha-1 Antitrypsin 1970 Hepatitis C Screening 1970 Zoster Vaccines (1 of 2) 1971 Cologuard 1997 Fecal Occult Blood Test 1997 Sigmoidoscopy 1997 LUNG CANCER SCREENING - USE SMARTSET 53864 2002 Pneumococcal Vaccine: 65+ Years (2 - [...] filedocumented as of this encounter Care Teams Land Development Project Manager Relationship Specialty Start Date End Date Ihsaan Gomez MD [address] [place] [address] [place] [phone] PCP - General Family Medicine 10/12/22 documented as of this encounter
--- OUTSIDE RECORDS SUMMARY | 2023-03-29 20:54 | External Medical Summary | Summary of Care ---
Author Name Unknown Organization [facility] Address [address] [facility] [address] Phone [phone] Care Team Providers Care Rn Orthopedic Name Role Phone Ishaan Gomez MD Primary Care Provide r Reason for Visit * Reason Onset Date Comments FYI 01/21/2023 Encounter Details Date Type Department Care Team Description 01/21/2023 Telephone Ophthalmology, [facility] [address] [place] [address] Herberth Welsh DO [address] [place] [address] FY Allergies No known active allergiesdocumented as of this encounter (statuses as of 01/21/2023) Medications Medication Sig Dispensed Refills Start Date [...] Sleep. 30 Tablet 0 10/11/2022 Active Sutab 7727-944-924 MG Oral Tablet (Sodium Sulfate-Mag Sulfate-KCl) Take [...] mg NEBULIZER ONCE PRN 10/11/2022 10/11/2023 Active documented as of this encounter (statuses as of 01/21/2023) Active Problems Problem Noted Date Hepatic steatosis 11/08/2022 Alcohol abuse 10/11/2022 Anxiety 10/11/2022 COPD, moderate 10/11/2022 Insomnia 10/11/2022 Generalized anxiety disorder 11/24/2010 Tobacco use disorder 11/25/2007 documented as of this encounter (statuses as of 01/21/2023) Resolved Problems Problem Noted Date Resolved Date Alcohol dependence 10/27/2010 10/29/2011 Overview: ICD-10 update of inactive term NO KNOWN PROBLEMS 10/10/2007 01/26/2019 documented as of this encounter (statuses as of 01/21/2023) Immunizations Name Administration Dates Next Due COVID-19 [...] encounter Miscellaneous Notes * Telephone Encounter - TIFFANIE Aldana - 01/21/2023 2:08 PM EDT Patient did not want to schedule cataract evaluation with Dr. Abbasi at this time. She was given their phone number. Office notes sent to him for scheduling in the future when she is ready. TIFFANIE Aldana 01/21/2023 2:08 PM documented in this encounter Plan of Treatment Upcoming Encounters Date Type Specialty Care Team Description 02/28/2023 Office Visit Ophthalmology Herberth Welsh DO [address] [place] [address] 03/06/2023 Hospital Encounter Surgery Fátima Lopez MD [address] [place] [address] 03/06/2023 Surgery Surgery Fátima Lopez MD [address] [place] [address] Colonoscopy with Submucosal Dissection (ESD) 04/08/2023 Office Visit Family Medicine Ishaan Gomez MD [address] [place] [address] [place] [address] Scheduled Procedures Name Priority Associated Diagnoses Date/Ti me Colonoscopy with Submucosal Dissection (ESD) History of colonic polyps 03/06/2023 8:33 AM EDT Health Maintenance Due Date Last Done Comments DISCUSS TOBACCO CESSATION (REFER TO SMARTSET #3291) 1950 DXA Scan 1952 Alpha-1 Antitrypsin 1970 Hepatitis C Screening 1970 Cologuard 1997 Fecal Occult Blood Test 1997 Sigmoidoscopy 1997 LUNG CANCER SCREENING - USE SMARTSET 25777 2002 Zoster Vaccines (1 of 2) 2002 Pneumococcal Vaccine: 65+ Years (2 - PCV) 06/27/2013 06/27/2012 Mammogram 03/01/2016 03/01/2015, 02/04, 02/17/2013, Additional history exists DTaP,Tdap,and Td Vaccines (2 - Td or Tdap) 02/22/2018 02/23/2008 Depression Screening 01/30/2020 01/29/2019 COVID-19 Vaccine (3 - Moderna series) 09/05/2020 07/11/2020, 06/13/2020 Influenza Vaccine (FLU shot) (#1) [...] filedocumented as of this encounter Care Teams Rn Orthopedic Relationship Specialty Start Date End Date Ishaan Gomez MD [address] [place] [address] [place] [address] PCP - General Family Medicine 10/12/22 documented as of this encounter
--- OUTSIDE RECORDS SUMMARY | 2023-03-29 20:54 | External Medical Summary | Summary of Care ---
Author Name Unknown Organization [facility] Address [address] [place] [address] Phone [phone] Care Team Providers Care Director Retail Brand Development Name Role Phone Ishaan Gomez MD Primary Care Provide r Reason for Visit * Reason Comments eRx-Medication Refill Encounter Details Date Type Department Care Team Description 01/20/2023 Refill Family Medicine [address] [address] Ishaan Gomez MD [address] [place] [address] [place] [address] COPD, moderate (HCC) Allergies No known active allergiesdocumented as of this encounter (statuses as of 01/21/2023) Medications Medication Sig Dispensed Refills Start Date End Date Status omeprazole (PRILOSEC) 20 MG CPDR 0 7 Active aspirin enteric coated 81 MG TBEC Take 1 Tablet by mouth in the morning. 100 Tab 3 8 Active Albuterol Sulfate HFA 108 (90 Base) MCG/ACT Inhalation Aerosol SolutionIndicati ons:COPD, moderate (HCC) Inhale 2 Puffs by mouth every 4 hours as needed for Wheezing. 18 g 5 3 Active Citalopram Hydrobromide 40 MG Oral Tablet (CeleXA)Indicati ons:Anxiety Take 1 Tablet by mouth in the morning. 30 Tablet 5 3 Active traZODone HCl 50 MG Oral Tablet (Desyrel)Indicat ions:Insomnia, unspecified type Take 1 Tablet by mouth at bedtime as needed for Sleep. 30 Tablet 0 3 Active Sutab 9245-012-949 MG Oral Tablet (Sodium Sulfate-Mag Sulfate-KCl) Take according to colonoscopy prep instructions. 24 Tablet 0 3 Active Chantix Starting Month Mauricio 0.5 MG X 11 & 1 MG X 42 Tablet Therapy Pack (Varenicline Tartrate (Starter))Indica tions:Tobacco use disorder As directed in the box 1 Each 0 3 Active Trelegy Ellipta 200-62.5-25 MCG/ACT Aerosol Powder Breath Activated (Fluticasone-Ume clidinium-Vilant susy)Indications :COPD, moderate (HCC) INHALE 1 PUFF BY MOUTH DAILY IN THE AM 60 Blister Dosing Unit 2 3 Active Fluticasone-Salm eterol 100-50 MCG/ACT Inhalation Aerosol Powder Breath Activated (Advair Diskus) 0 3 01/22/20 23 Discontinued(Med ication/Dose Changed) Fluticasone-Umec lidin-Vilant 200-62.5-25 MCG/ACT Aerosol Powder Breath Activated (Trelegy Ellipta)Indicati ons:COPD, moderate (HCC) Inhale 1 Puff by mouth in the morning. 60 Blister Dosing Unit 2 3 01/22/20 23 Discontinued Hospital, Clinic, or Other Facility Administered Medication [...] Never Alcohol Use Standard Drinks/Week Comments Yes 0 (1 standard drink = 0.6 oz pur e alcohol) Food Insecurity Answer Date Recorded Within the [...] encounter Miscellaneous Notes * Telephone Encounter - Taras Brown RPh - 01/21/2023 1:50 PM EDTSigned Prescriptions: Disp Refills Trelegy Ellipta 200-62.5-25 MCG/ACT Aeroso*60 Bli*2 Sig: INHALE 1 PUFF BY MOUTH DAILY IN THE AMAuthorizing Provider: Markel GOMEZ User: TARAS BROWN documented in this encounter Plan of Treatment Upcoming Encounters Date Type Specialty Care Team Description 02/28/2023 Office Visit Ophthalmology Herberth Welsh, DO [address] [place] [address] 03/06/2023 Hospital Encounter Surgery Fátima Lopez MD [address] [place] [address] 03/06/2023 Surgery Surgery Fátima Lopez MD [address] [place] [address] Colonoscopy with Submucosal Dissection (ESD) 04/08/2023 Office Visit Family Medicine Ishaan Gomez MD [address] [place] [address] [place] [address] Scheduled Procedures Name Priority Associated Diagnoses Date/Ti me Colonoscopy with Submucosal Dissection (ESD) History of colonic polyps 03/06/2023 8:33 AM EDT Health Maintenance Due Date Last Done Comments DISCUSS TOBACCO CESSATION (REFER TO SMARTSET #3291) 1950 DXA Scan 1952 Alpha-1 Antitrypsin 1970 Hepatitis C Screening 1970 Cologuard 1997 Fecal Occult Blood Test 1997 Sigmoidoscopy 1997 LUNG CANCER SCREENING - USE SMARTSET 62789 2002 Zoster Vaccines (1 of 2) 2002 [...] Not on filedocumented as of this encounter Visit Diagnoses Diagnosis COPD, moderate (HCC) Chronic airway obstruction, not elsewhere classified History of colonic polyps Personal history of colonic polyps documented in this encounter Care Teams Director Retail Brand Development Relationship Specialty Start Date End Date Ishaan Gomez MD [address] [place] [address] [place] [address] PCP - General Family Medicine 10/12/22 documented as of this encounter
--- OUTSIDE RECORDS SUMMARY | 2023-03-29 20:54 | External Medical Summary | Summary of Care ---
Author Name Unknown Organization [facility] Address [address] [place] [place] [place] [address] Phone [phone] Care Team Providers Care Home Day Care Provider Name Role Phone Ishaan Gomez MD Primary Care Provide r Reason for Visit * Reason Comments Follow Up 4-6 week f/u; pt has no complaints since ADAM * Precert (Within 10 days (routine)) - Authorized Specialty Diagnoses / Procedures Referred By Gregory bowman Referred To Contact Ophthalmology Diagnoses Tributary (branch) retinal vein occlusion, left eye, with macular edema Procedures OH BEVACIZUMAB INJECTION OH INTRAVITREAL NJX PHARMACOLOGIC AGT SPX Herberth Welsh DO [address] [place] [address] Referral ID Status Reason Start Date Expiration Date V isits Requested Visits Authorized [id number] Authorized Precert 01/21/2023 05/05/2099 [id number] Encounter Details Date Type Department Care Team (Late st Contact Info) Description 02/28/2023 1:00 PM EDT Office Visit Ophthalmology, [facility] [address] [place] [address] Herberth Welsh DO [address] [place] [address] 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* Allergies No known active allergiesdocumented as of [...] Sleep. 30 Tablet 0 10/11/2022 Active Sutab [id number] MG Oral Tablet (Sodium Sulfate-Mag Sulfate-KCl) Take [...] on file documented as of this encounter Progress Notes * DO Jess Macdonald 02/28/2023 1:00 PM [address] [place] Nursing notes reviewed. Eye vitals reviewed. Mood and Affect: normal HPI: Donna Brooke is a 72 year old female who presents for evaluation of BRVO No other eye complaints. Denies significant pain. Base Eye Exam Visual Acuity (Snellen - Linear) Right Left Dist cc 20/40 +2 HMO Dist ph cc NI Tonometry Unable to obtain, pt kept eyes tightly closed Pupils Pupils Right PERRL Left PERRL Visual Kincaid Right Left Full Full Extraocular Movement Right Left Full, Ortho Full, Ortho Neuro/Psych Oriented x3: Yes Mood/Affect: Normal Dilation Both eyes: 0.5% Proparacaine @ 1:10 PM Dilation #2 Both eyes: 1.0% Mydriacyl, 2.5% Phenylephrine @ 1:12 PM Dilation Comments Patient cautioned that effects of dilation may last 2-7 hours dependant upon individual reaction. It was discussed that driving while dilated is not recommended. EXTERNAL: The ocular adnexae are unremarkable. SLE: Lids/Lashes: wnl OU Conjunctiva/Sclera: quiet OU Cornea: clear OU Anterior Chamber: deep and quiet OU Iris: normal OU; no NVI OU Lens: 3-4+NSC OU Dilated fundus exam OD: 02/28/2023 vitreous: clear optic nerve: 0.3, no edema/pallor/NVD macula: wn vessels: wnl periphery: wnl, no RT/RD Dilated fundus exam OS: vitreous: asteroid optic nerve: 0.3, no edema/pallor/NVD macula: heme vessels: inferior brvo periphery: inferior brvo, no RT/RD OCT Interpretation: OD: 02/28/2023: no irf/srf, no pvd OS: shrm, irf--improved A/P: 1. Branch Retinal Vein Occlusion OS -onset: unknown -+smoker -Avastin OS 01/21/23 -5 weeks 2. Cataracts OU -visually significant -retina stable for CE w/ Dr. Abbasi as scheduled; pt understands BCVA OS will be limited by underlying retinal pathology F/u 4-6 weeks, OCT OS -needs CE w/ Dr. Ayleen Welsh DO CC: Fariha Curyr, OD CC: PCP: Ishaan Gomez MD TIMEOUT PROCEDURE: correct patient identity-YES correct procedure and consent-YES verified side and site-YES correct patient position-YES all necessary equipment/prior studies present-YES reviewed special requirements of this patient-YES PROCEDURE: Intravitreal injection of Avastin 1.25mg OS INFORMED CONSENT: Patient is aware that this is an off-label use of Avastin and that Avastin is not FDA approved for this use. Risks, benefits and alternatives have been discussed with the patient. Risks include, but are not limited to: retinal tears, detachments, hemorrhage, glaucoma, infection, cataracts, need formore procedures and the potential risk of arterial thromboembolic events following use of intravitreal VEGF inhibitors defined as nonfatal stroke, nonfatal myocardial infarction or vascular . Patient is aware of these risks and consents to the procedure. DESCRIPTION OF PROCEDURE: The procedure site was confirmed. Topical proparacaine was applied to the surface of the eye after which subconjunctival anesthetic was administered. The area was prepped in the standard aseptic manner with 5% Betadine solution. An eyelid speculum was placed and 0.05 ml of a 25mg/ml solution of Avastin was injected 3.75 mm posterior to the limbus into the midvitreous cavity with a 30 gauge short needle. The Betadine was flushed from the eye, the eye speculum was removed and optic nerve perfusion was insured. The patient tolerated the procedure without difficulty and was given followup instructions and instructed to use ophthalmic ointment 3x/day as needed. Herberth Welsh DO, performed the procedure in its entirety. documented in this encounter Nursing Notes * ARAVIND Ge - 02/28/2023 1:33 PM EDT Donna Brooke to receive second Avastin 1.25mg Injection of the Left eye. Correct eye confirmed with patient and marked by Herberth Welsh DO Avastin 1.25mg lot # [id number] Exp. Date: 03/12/23 * ARAVIND Ge - 02/28/2023 1:05 PM EDT Donna Brooke is a 72 year old year old female who presents for BRVO OS. Last Office Visit: 01/21/2023 (in office), Visit date not found (telemedicine) Patient currently states no change in vision. Are you diabetic? No Do you drive? no OCT image(s) of both eyes acquired and filed/scanned into chart. documented in this encounter Plan of Treatment Upcoming Encounters Date Type Department Care Team (Late st Contact Info) Description 03/06/2023 8:00 AM EDT Hospital Encounter OR [facility], Operating Room, [facility] - 4th Floor [address] [place] [address] Fátima Lopez MD [address] [place] [address] 03/06/2023 8:00 AM EDT - 03/06/2023 10:13 AM EDT Surgery OR [facility], Operating Room, [facility] - 4th Floor [address] [place] [address] Fátima Lopez MD [address] [place] [address] Colonoscopy with Submucosal Dissection (ESD) 04/08/2023 4:20 PM EST Office Visit Family Medicine [address] [place] [address] Ishaan Gomez MD [address] [place] [address] [place] [address] 04/11/2023 10:30 AM EST Office Visit Ophthalmology, [facility] [address] [place] [address] Herberth Welsh DO [address] [place] [address] Scheduled Procedures Name Priority Associated Diagnoses Date/Ti me Colonoscopy with Submucosal Dissection (ESD) History of colonic polyps 03/06/2023 8:00 AM EDT Health Maintenance Due Date Last Done Comments DISCUSS TOBACCO CESSATION (REFER TO SMARTSET #9444) 1950 DXA Scan 1952 Alpha-1 Antitrypsin 1970 Hepatitis C Screening 1970 Zoster Vaccines (1 of 2) 1971 Cologuard 1997 Fecal Occult Blood Test 1997 Sigmoidoscopy 1997 LUNG CANCER SCREENING - USE SMARTSET 87532 2002 Pneumococcal Vaccine: 65+ Years (2 - [...] as of this encounter Visit Diagnoses Diagnosis 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- Primary History of colonic polyps Personal history of colonic polyps documented in this encounter Administered Medications Active Administered Medications - up to 3 most recent administrations Medication Order MAR Action Action Date Dose Rate Site bevaCIZumab (Avastin) inj 1.25 mg 1.25 mg, Intravitreal, PRN Other, Starting on Sat01/21/23 at 1429, Until Sat01/21/24 at 1428, For 365 days Given 02/28/2023 1:34 PM EDT 1.25 mg Eye Left Given 01/21/2023 2:59 PM EDT 1.25 mg Ey e Left ROPivacaine (Naropin) inj 1.5 mg 1.5 mg, Injection, PRN Other, Starting on Sat01/21/23 at 1429, Until Sat01/21/24 at 1428, For 365 days Given 02/28/2023 1:33 PM EDT 1.5 mg Eye Left Given 01/21/2023 3:00 PM EDT 1.5 mg Ey e Left documented in this encounter Care Teams Home Day Care Provider Relationship Specialty Start Date End Date Ishaan Gomez MD [address] [place] [address] [place] [address] PCP - General Family Medicine 10/12/22 documented as of this encounter
--- OUTSIDE RECORDS SUMMARY | 2023-03-29 20:54 | External Medical Summary | Summary of Care ---
Author Name Unknown Organization [facility] Address [address] [place] [address] Phone [phone] Care Team Providers Care Central Supply Technician Name Role Phone Ishaan Gomez MD Primary Care Provide r Reason for Referral * Evaluate & Treat - Unlimited Visits (Within 30 days (routine)) - Authorized Specialty Diagnoses / Procedures Referred By Gregory bowman Referred To Contact HOME CARE / Home Care Diagnoses History of recent fall Ishaan Gomez MD [address] [place] [address] [place] [address] Referral ID Status Reason Start Date Expiration Date Visits Requested Visits Authorized [id number] Authorized Specialty Services Required 3 999 [id number] Question Answer Referral Priority Within 30 days (routine) Where should this appointment be scheduled? External Comments Documentation of [id number] Encounter Addendum Patient Name: Donna Brooke I certify that this patient is under my care and that I, or a nurse practitioner or physician's community relations assistant working with me, had a [id number] encounter that meets the physician zqje-[id number] encounter requirements with this patient on: The encounter with the patient was in whole, or in part, for the following medical condition, which is the primary reason for home health care (List medical condition): Gait dysfunction I certify that, based on my findings, the following services are medically necessary home health services: Nursing, Physical Therapy, and OT To provide the following care/treatments: (All hospitalists not following the patient after discharge should complete this section): improvement of Ambulation Primary Care Physician to follow home care plan of care after discharge: My clinical findings support the need for the above services because: recent fall Further, I certify that my clinical findings support that this patient is homebound (i.e. Absences from home require considerable and taxing effort and are for medical reasons or caodaism services or infrequently or of short duration when for other reason) because: 02/01/23 Physician Signature: Date of Signature: Physician Printed Name: Ishaan Gomez MD Reason for Visit * Reason Onset Date Comments Home Health 03/19/2023 Encounter Details Date Type Department Care Team (Late st Contact Info) Description 03/19/2023 Telephone Family Medicine [address] [place] [address] Ishaan Gomez MD [address] [place] [address] [place] [address] Home Health Allergies No known active allergiesdocumented as of this encounter (statuses as of 03/20/2023) Medications Medication Sig Dispensed Refills Start Date [...] Sleep. 30 Tablet 0 10/11/2022 Active Sutab [id number] MG Oral Tablet (Sodium Sulfate-Mag Sulfate-KCl) Take [...] as of this encounter (statuses as of 03/20/2023) Active Problems Problem Noted Date Diagnosed Date Hepatic steatosis 11/08/2022 Alcohol abuse 10/11/2022 Anxiety 10/11/2022 COPD, moderate 10/11/2022 Insomnia 10/11/2022 Generalized anxiety disorder 11/24/2010 Tobacco use disorder 11/25/2007 documented as of this encounter (statuses as of 03/20/2023) Resolved Problems Problem Noted Date Diagnosed Date Resolved Date Alcohol dependence 10/27/2010 2 Overview: ICD-10 update of inactive term NO KNOWN PROBLEMS 10/10/2007 01/26/2019 documented as of this encounter (statuses as of 03/20/2023) Immunizations Name Administration Dates Next Due COVID-19 [...] encounter Miscellaneous Notes * Telephone Encounter - Ishaan Gomez MD - 03/20/2023 12:12 PM EST Home RN and OT ordered * Telephone Encounter - Cande Greenwood LPN - 03/19/2023 2:33 PM EST Concerns Latesha MONZON, Calling from: Niraj Report/Concerns of: Fall Symptoms: none Vitals: Done Available - HH has not seen patient since the fall, daughter called in and reported incident Narrative: Latesha states that patient is only receiving PT services at this time. She would like to add on Fci and OT for evals due to patient had a fall Saturday night, she was on the floor all night until her. daughter found her Saturday morning, no injuries noted. Daughter was able to assist patient off the floor. Patient told her that she was using her Rolator walker, sitting on the seat of it and scooting herself around when she slipped off it and fell to the floor. Daughter is going to look into getting patient life alert. Latesha is going to have PT assess patient for a wheelchair and call back with details for a DME orderto be placed. Patient has an upcoming appt with PCP on 04/08/2023 for office note to be done for need of wheel chair [place] to add on fci and OT for evals Please advise Call back Latesha with any advice or orders at [phone] Please fax new orders to [phone] documented in this encounter Plan of Treatment Upcoming Encounters Date Type Department Care Team (Late st Contact Info) Description 04/08/2023 4:20 PM EST Office Visit Family Medicine [address] [place] [address] Ishaan Gomez MD [address] [place] [address] [place] [phone] 04/11/2023 10:30 AM EST Office Visit Ophthalmology, [facility] [address] [place] [address] Herberth Welsh, [address] [place] [address] Scheduled Procedures Name Priority Associated Diagnoses Date/Ti me COLONOSCOPY FLEXIBLE PROXIMA L DIAGNOSTIC Recall History of colonic polyps Scheduled Referrals Name Type Priority Associated Diagnoses Orde r Schedule HOME HEALTH REFERRAL OP Referral Within 30 days (routine) History of recent fall Ordered: 03/20/2023 Health Maintenance Due Date Last Done Comments DISCUSS TOBACCO CESSATION (REFER TO SMARTSET #6944) 1950 DXA Scan 1952 Alpha-1 Antitrypsin 1970 Hepatitis C Screening 1970 Zoster Vaccines (1 of 2) 1971 LUNG CANCER SCREENING - USE SMARTSET 69597 2002 Pneumococcal Vaccine: 65+ Years (2 - [...] this encounter Medical Devices Implanted Type Area Program Clerk Device Identifier Shelf Expiration Date Model / Serial / Lot Duraclip 11mm Repositionable - [id number] Implanted:Qty: 1 on 03/06/2023 by Fátmia Lopez MD at OR [facility] LICHA [id number] 07/05/2024 [id number] / / [id number] documented as of this encounter Visit Diagnoses Diagnosis History of recent fall- Primary documented in this encounter Care Teams Central Supply Technician Relationship Specialty Start Date End Date Ishaan Gomez MD [address] [place] [address] [place] [id number] PCP - General Family Medicine 10/12/22 documented as of this encounter
--- OUTSIDE RECORDS SUMMARY | 2023-03-29 20:54 | External Medical Summary | Summary of Care ---
Author Name Unknown Organization [facility] Address [address] [place] [address] Phone [phone] Care Team Providers Care Engine Repair Supervisor Name Role Phone Ishaan Gomez MD Primary Care Provide r Reason for Visit * Reason Onset Date Comments Home Health 03/29/2023 Encounter Details Date Type Department Care Team (Late st Contact Info) Description 03/29/2023 Telephone Family Medicine [address] [address] Ishaan Gomez MD [address] [place] [address] [place] [address] Home Health Allergies No known active allergiesdocumented as of this encounter (statuses as of 03/29/2023) Medications Medication Sig Dispensed Refills Start Date [...] Sleep. 30 Tablet 0 10/11/2022 Active Sutab 0241-759-636 MG Oral Tablet (Sodium Sulfate-Mag Sulfate-KCl) Take [...] as of this encounter (statuses as of 03/29/2023) Active Problems Problem Noted Date Diagnosed Date Hepatic steatosis 11/08/2022 Alcohol abuse 10/11/2022 Anxiety 10/11/2022 COPD, moderate 10/11/2022 Insomnia 10/11/2022 Generalized anxiety disorder 11/24/2010 Tobacco use disorder 11/25/2007 documented as of this encounter (statuses as of 03/29/2023) Resolved Problems Problem Noted Date Diagnosed Date Resolved Date Alcohol dependence 10/27/2010 2 Overview: ICD-10 update of inactive term NO KNOWN PROBLEMS 10/10/2007 01/26/2019 documented as of this encounter (statuses as of 03/29/2023) Immunizations Name Administration Dates Next Due COVID-19 [...] Telephone Encounter - Ishaan Gomez MD - 03/29/2023 4:41 PM EST If pt does not have any BEST, Nausea/Vomiting or dizziness I recommend a clinic visit - if any symptoms then ER visit * Telephone Encounter - Juliette Clinton LPN - 03/29/2023 4:26 PM EST Concerns darryl PT, Calling from: Niraj Report/Concerns of: Fall Symptoms: none Vitals: T97.7 P88 RR18 BP 102/60 SP O2 93 RA Lung sounds diminished pt is smoking Narrative: pt had a fall at 3:45 today, she fell on her right side. She was moving her laptop out to the kitchen table. Darryl believes the laptop was still plugged into the wall so when cord caught it threw her off balance. No injury, she denies hitting her head. No change in ROM or ambulation. Caregiver was able to get her up off the floor. Pt has been having lightheadedness with standing. All pt drinks is coffee and beer, no water. Pt reports she drinks coffee until 3 or 4pm then switches tobeer. She has at least 6 beers a day. Call back Ashley with any advice or orders at [phone] documented in this encounter Plan of Treatment Upcoming Encounters Date Type Department Care Team (Late st Contact Info) Description 04/08/2023 4:20 PM EST Office Visit Family Medicine [address] [place] [address] Ishaan Gomez MD [address] [place] [address] [place] [address] 04/11/2023 10:30 AM EST Office Visit Ophthalmology, [facility] [address] [place] [address] Herberth Welsh DO [address] [place] [address] Scheduled Procedures Name Priority Associated Diagnoses Date/Ti me COLONOSCOPY FLEXIBLE PROXIMA L DIAGNOSTIC Recall History of colonic polyps Health Maintenance Due Date Last Done Comments DISCUSS TOBACCO CESSATION (REFER TO SMARTSET #3291) 1952 DXA Scan 1952 Alpha-1 Antitrypsin 1970 Hepatitis C Screening 1970 Zoster Vaccines (1 of 2) 1971 LUNG CANCER SCREENING - USE SMARTSET 42113 2002 Pneumococcal Vaccine: 65+ Years (2 - [...] this encounter Medical Devices Implanted Type Area Ict Trainer Device Identifier Shelf Expiration Date Model / Serial / Lot Duraclip 11mm Repositionable - [id number] Implanted:Qty: 1 on 03/06/2023 by Fátima Lopez MD at OR [facility] Colon hoohbe LICHA [id number] 07/05/2024 [id number] / / [id number] documented as of this encounter Care Teams Engine Repair Supervisor Relationship Specialty Start Date End Date Ishaan Gomez MD [address] [place] [address] [place] [phone] PCP - General Family Medicine 10/12/22 documented as of this encounter
--- OUTSIDE RECORDS SUMMARY | 2023-03-29 20:54 | External Medical Summary | Summary of Care ---
Author Name Unknown Organization [facility] Address [address] [place] [place] [address] Phone [phone] Care Team Providers Care Chrome Worker Name Role Phone Ishaan Gomez MD Primary Care Provide r Reason for Referral * Precert (Within 10 days (routine)) - Authorized Specialty Diagnoses / Procedures Referred By Gregory bowman Referred To Contact Ophthalmology Diagnoses 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 Procedures INJECTION OF EYE DRUG Herberth Welsh DO [address] [place] [address] Referral ID Status Reason Start Date Expiration Date V isits Requested Visits Authorized [id number] Authorized Precert 01/21/2023 999 999 Reason for Visit * Reason Comments NEW PATIENT " I can't see, its b lurry and cloudy especially with my left eye" BRVO OS Dr. Curry Encounter Details Date Type Department Care Team Description 01/21/2023 Office Visit Ophthalmology, [facility] [address] [place] [address] Herberth Welsh DO [address] [place] [address] 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*; Mixed type age-related cataract, both eyes; Asteroid hyalosis of left eye; Retinal edema Allergies No known active allergiesdocumented as of [...] Sleep. 30 Tablet 0 3 Active Sutab [id number] MG Oral Tablet (Sodium Sulfate-Mag Sulfate-KCl) Take according to colonoscopy prep instructions. 24 Tablet 0 3 Active Chantix Starting Month Mauricio 0.5 MG X 11 & 1 MG X 42 Tablet Therapy Pack (Varenicline Tartrate (Starter))Indica tions:Tobacco use disorder As directed in the box 1 Each 0 3 Active Fluticasone-Salm eterol 100-50 MCG/ACT Inhalation [...] Day Cigarettes 1 53 Smokeless Tobacco: Never Tobacco Cessation:Ready to Q uit: No; Counseling Given: No Alcohol Use Standard Drinks/Week Comments Yes 6 [...] as of this encounter Progress Notes * Herberth Welsh, - 01/21/2023 12:45 PM EDT [facility] [place] Nursing notes reviewed. Eye vitals reviewed. Mood and Affect: normal HPI: Donna Brooke is a 72 year old female who presents for evaluation of BRVO CC: 'my vision is blurry' Vision: decreased Location (of CC): OS Quality/Severity: moderate Duration: months-year Timing: gradual Context: nonspecific Associated Signs/Symptoms: none Modifying Factors: none No other eye complaints. Denies significant pain. Base Eye Exam Visual Acuity (Snellen - Linear) Right Left Dist sc 20/50 -1 CF at 3' Dist ph sc 20/40 Tonometry (Tonopen, 12:50 PM) Right Left Pressure 7 8 Pupils Pupils Light Shape React APD Right PERRL 3 Round Brisk None Left PERRL 4 Irregular Slow None Visual Kincaid (Counting fingers) Right Left Full Full Extraocular Movement Right Left Full Full Neuro/Psych Oriented x3: Yes Dilation Both eyes: 0.5% Proparacaine @ 12:50 PM Dilation #2 Both eyes: 1.0% Mydriacyl, 2.5% Phenylephrine @ 12:50 PM Dilation Comments Patient cautioned that effects of dilation may last 2-7 hours dependant upon individual reaction. It was discussed that driving while dilated is not recommended. EXTERNAL: The ocular adnexae are unremarkable. SLE: Lids/Lashes: wnl OU Conjunctiva/Sclera: quiet OU Cornea: clear OU Anterior Chamber: deep and quiet OU Iris: normal OU; no NVI OU Lens: 3-4+NSC OU Dilated fundus exam OD: vitreous: clear optic nerve: 0.3, no edema/pallor/NVD macula: wn vessels: wnl periphery: wnl, no RT/RD Dilated fundus exam OS: vitreous: asteroid optic nerve: 0.3, no edema/pallor/NVD macula: heme vessels: inferior brvo periphery: inferior brvo, no RT/RD OCT Interpretation: OD: no irf/srf, no pvd OS: shrm, irf A/P: 1. Branch Retinal Vein Occlusion OS -onset: unknown -+smoker -Avastin today 2. Cataracts OU -visually significant -retina stable for CE w/ Dr. Abbasi as scheduled F/u 4-6 weeks, OCT OU Herberth Welsh DO CC: Fariha Curry, OD CC: PCP: Ishaan Gomez MD TIMEOUT [...] documented in this encounter Nursing Notes * Celia Gallego RN - 01/21/2023 1:38 PM EDT Donna Brooke to receive first Avastin 1.25mg Injection of the Left eye. Correct eye confirmed with patient and marked by Herberth Welsh DO Avastin 1.25mg lot # [id number] Exp. Date: 02/19/23 * Celia Gallego RN - 01/21/2023 12:53 PM EDT Donna Brooke is a 72 year old year old female referred by Dr. Curry to evaluate for possible BRVOOS. Patient's name preference, 'Donna'. Patient currently states " I can't see, its blurry and cloudy especially with my left eye" Have you ever had any major surgery of serious injury of or around the eyes- no Are you diabetic? no FAMILY HISTORY: Family History Problem Relation Age of Onset Arthritis Mother Eye Problems Father cataracts Other (Prostate Cancer [Other]) Father Other (Hyperlipidemia [Other]) Father Alzheimers No Past Hx Sister No Past Hx Brother No Past Hx Daughter No Past Hx Son SOCIAL HISTORY: Social History Tobacco Use Smoking status: Every Day Packs/day: 1.00 Years: 53.00 Pack years: 53.00 Types: Cigarettes Smokeless tobacco: Never Substance Use Topics Alcohol use: Yes Alcohol/week: 6.0 standard drinks Types: 6 12 oz of beer per week Comment: daily Drug use: Never PMH: Past Medical History: Diagnosis Date Alcohol dependence, pending assessment 10/27/2010 Hepatic steatosis 11/01/2022 Patient Active Problem List Diagnosis Code Tobacco use disorder F17.200 Generalized anxiety disorder F41.1 Alcohol abuse F10.10 Anxiety F41.9 COPD, moderate (HCC) J44.9 Insomnia G47.00 Hepatic steatosis K76.0 History obtained from: Patient Do you drive? yes OCT image(s) of both eyes acquired and filed/scanned into chart. documented in this encounter Plan of Treatment Upcoming Encounters Date Type Specialty Care Team Description 02/28/2023 Office Visit Ophthalmology Herberth Welsh DO [address] [place] [address] 03/06/2023 Hospital Encounter Surgery Fátima Lopez MD [address] [place] [address] 03/06/2023 Surgery Surgery Fátima Lopez MD [address] [place] [address] Colonoscopy with Submucosal Dissection (ESD) 04/08/2023 Office Visit Family Medicine Ishaan Gomez MD [address] [place] [address] [place] [address] Scheduled Orders Name Type Priority Associated Diagnoses Orde r Schedule FUNDUS PHOTOGRAPHY Procedures Routine 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 Ordered: 01/21/2023 RETINA SCAN DIAGNOSTIC IMAGE, POSTERIOR Procedures Routine 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 Ordered: 01/21/2023 INJECTION OF EYE DRUG Procedures Routine 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 Ordered: 01/21/2023 Scheduled Procedures Name Priority Associated Diagnoses Date/Ti me Colonoscopy with Submucosal Dissection (ESD) History of colonic polyps 03/06/2023 8:33 AM EDT Health Maintenance Due Date Last Done Comments DISCUSS TOBACCO CESSATION (REFER TO SMARTSET #3291) 1950 DXA Scan 1952 Alpha-1 Antitrypsin 1970 Hepatitis C Screening 1970 Cologuard 1997 Fecal Occult Blood Test 1997 Sigmoidoscopy 1997 LUNG CANCER SCREENING - USE SMARTSET 65298 2002 Zoster Vaccines (1 of 2) 2002 [...] of left eye with macular edema- Primary Mixed type age-related cataract, 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
--- OUTSIDE RECORDS SUMMARY | 2023-03-29 20:54 | External Medical Summary | Summary of Care ---
Author Name Unknown Organization [facility] Address [address] [facility] [place] [address] Phone [phone] Care Team Providers Care Missing Persons Investigator Name Role Phone Ishaan Gomez MD Primary Care Provide r Reason for Visit * Reason Onset Date Comments Precert Not Needed 01/21/2023 Encounter Details Date Type Department Care Team Description 01/21/2023 Telephone Ophthalmology, [facility] [address] [place] [address] Herberth Welsh DO [address] [place] [address] Precert Not Needed Allergies No known active allergiesdocumented as of [...] Sleep. 30 Tablet 0 10/11/2022 Active Sutab 4079-849-208 MG Oral Tablet (Sodium Sulfate-Mag Sulfate-KCl) Take [...] Telephone Encounter - TIFFANIE Aldana - 01/21/2023 1:41 PM EDT New Medication Insurance: Medicare Provider: Herberth Welsh DO Tax ID: [id number] Office Address: [address] [place] [address] [place] [address] Office Office Drug Name/CPT: Avastin ICD 10: H34.8320 Dosage: 1.25mg Eye Treated: Left Frequency: 4-6wks Prior Eye medications received: None Specialty Pharmacy/Buy and bill? Office stock documented in this encounter Plan of Treatment Upcoming Encounters Date Type Specialty Care Team Description 02/28/2023 Office Visit Ophthalmology Herberth Welsh DO [address] [place] [address] [place] [address] 03/06/2023 Hospital Encounter Surgery Fátima Lopez MD [address] [place] [address] 03/06/2023 Surgery Surgery Fátima Lopez MD [address] [place] [address] Colonoscopy with Submucosal Dissection (ESD) 04/08/2023 Office Visit Family Medicine Ishaan Gomez MD [address] [place] [address] [place] [address] Scheduled Procedures Name Priority Associated Diagnoses Date/Ti me Colonoscopy with Submucosal Dissection (ESD) History of colonic polyps 03/06/2023 8:33 AM EDT Health Maintenance Due Date Last Done Comments DISCUSS TOBACCO CESSATION (REFER TO SMARTSET #3312) 1952 DXA Scan 1952 Alpha-1 Antitrypsin 1970 Hepatitis C Screening 1970 Cologuard 1997 Fecal Occult Blood Test 1997 Sigmoidoscopy 1997 LUNG CANCER SCREENING - USE SMARTSET 55089 2002 Zoster Vaccines (1 of 2) 2002 [...] COPD 10/16/2023 10/15/2022 Lipid Panel 10/13/2027 10/12/2022, 03/2 05/2022, 01/26/2008 Colonoscopy 10/15/2032 10/15/2022, 10/15/2022 Colorectal Cancer [...] filedocumented as of this encounter Care Teams Missing Persons Investigator Relationship Specialty Start Date End Date Ishaan Gomez MD [address] [place] [address] [place] [address] PCP - General Family Medicine 10/12/22 documented as of this encounter
--- OUTSIDE RECORDS SUMMARY | 2023-03-29 20:54 | External Medical Summary | Summary of Care ---
Author Name Unknown Organization [facility] Address [address] [place] [address] Phone [phone] Care Team Providers Care Manager Of Compliance Name Role Phone Ishaan Gomez MD Primary Care Provide r Reason for Referral * Evaluate & Treat - Unlimited Visits (Within 30 days (routine)) - Authorized Specialty Diagnoses / Procedures Referred By Gregory bowman Referred To Contact HOME CARE / Home Care Diagnoses History of recent fall Ishaan Gomez MD [address] [place] [address] [place] [address] Referral ID Status Reason Start Date Expiration Date Visits Requested Visits Authorized [id number] Authorized Specialty Services Required 3 999 999 Question Answer Referral Priority Within 30 days (routine) Where should this appointment be scheduled? External Comments Documentation of Kjrn-at-Xkvp Encounter Addendum Patient Name: Donna Brooke I certify that this patient is under my care and that I, or a nurse practitioner or physician's home health assistant working with me, had a [id number] encounter that meets the physician epyh-jo-evkz encounter requirements with this patient on: The [...] Contact Info) Description 03/19/2023 Telephone Family Medicine [address] [place] [address] Ishaan Gomez MD [address] [place] [address] [place] [address] Home Health Allergies No [...] Sleep. 30 Tablet 0 10/11/2022 Active Sutab [id number] MG Oral Tablet (Sodium Sulfate-Mag Sulfate-KCl) Take [...] encounter Miscellaneous Notes * Telephone Encounter - Rose Marie Valverde LPN - 03/20/2023 3:18 PM EST Order faxed. * Telephone Encounter - Ishaan Gomez MD - 03/20/2023 12:12 PM EST Home RN and OT ordered * Telephone Encounter - Cande Greenwood LPN - 03/19/2023 2:33 PM EST HH Concerns Latesha RN, Calling from: Niraj Report/Concerns of: Fall Symptoms: none Vitals: Done Available - HH has not seen patient since the fall, daughter called in and reported incident Narrative: Latesha states that patient is only receiving PT services at this time. She would like to add on Senior Living and OT for evals due to patient [...] of wheel chair Ok to add on group home and OT for evals Please advise Call back Latesha with any advice or orders at [phone] Please fax new orders to [phone] documented in this encounter Plan of Treatment Upcoming Encounters Date Type Department Care Team (Late st Contact Info) Description 04/08/2023 4:20 PM EST Office Visit Family Medicine [address] [place] [address] Ishaan Gomez MD [address] [place] [address] [place] [address] 04/11/2023 10:30 AM EST Office Visit Ophthalmology, [facility] [address] [place] [address] Herberth Welsh DO [address] [place] [address] Scheduled Procedures Name Priority Associated Diagnoses Date/Ti me COLONOSCOPY FLEXIBLE PROXIMA L DIAGNOSTIC Recall History of colonic polyps Scheduled Referrals Name Type Priority Associated Diagnoses Orde r Schedule HOME HEALTH REFERRAL OP Referral Within 30 days (routine) History of recent fall Ordered: 03/20/2023 Health Maintenance Due Date Last Done Comments DISCUSS TOBACCO CESSATION (REFER TO SMARTSET #2446) 1950 DXA Scan 1952 Alpha-1 Antitrypsin 1970 Hepatitis C Screening 1970 Zoster Vaccines (1 of 2) 1971 LUNG CANCER SCREENING - USE SMARTSET 52079 2002 Pneumococcal Vaccine: 65+ Years (2 - [...] this encounter Medical Devices Implanted Type Area Chicken Boner Device Identifier Shelf Expiration Date Model / Serial / Lot Duraclip 11mm Repositionable - [id number] Implanted:Qty: 1 on 03/06/2023 by Fátima Lopez MD at OR [facility] Mero[employer] LICHA [id number] 07/05/2024 [id number] / / [id number] documented as of this encounter Visit Diagnoses Diagnosis History of recent fall- Primary documented in this encounter Care Teams Manager Of Compliance Relationship Specialty Start Date End Date Ishaan Gomez MD [address] [place] [address] [place] [address] PCP - General Family Medicine 10/12/22 documented as of this encounter
--- OUTSIDE RECORDS SUMMARY | 2023-03-29 20:54 | External Medical Summary | Summary of Care ---
Author Name Unknown Organization [facility] Address [address] [place] [address] Phone [phone] Care Team Providers Care Senior Government Program Analyst Name Role Phone Ishaan Gomez MD Primary Care Provide r Reason for Visit * Reason Onset Date Comments case management 03/07/2023 Encounter Details Date Type Department Care Team (Late st Contact Info) Description 03/07/2023 Financial Systems Analyst Telephone Care Coordination [address] [place], [place] [phone] Sherry Christianson LCSW case management Allergies No known active allergiesdocumented as of [...] Sleep. 30 Tablet 0 10/11/2022 Active Sutab [id number] MG Oral Tablet (Sodium Sulfate-Mag Sulfate-KCl) Take according to colonoscopy prep instructions. 24 Tablet 0 11/07/2022 Active Chantix Starting Month Mauricio 0.5 MG X 11 & 1 MG X 42 Tablet Therapy Pack (Varenicline Tartrate (Starter))Indicati ons:Tobacco use disorder As directed in the box 1 Each 0 11/19/2022 Active Additional Information Patient not taking.Reported on 03/06/2023 Vimal Ellipta 200-62.5-25 MCG/ACT Aerosol Powder Breath Activated [...] encounter Miscellaneous Notes * Telephone Encounter - Sherry Christianson LCSW - 03/07/2023 3:58 PM EDT AC Referral UTx1 Called [phone] Called [phone] Follow-up Routine Attempted Phone Call First Attempt Call Outcome Left Voicemail/Message Plan To attempt another outreach Sherry Christianson LCSW Behavioral Health Financial Systems Analyst - [facility] [facility] [phone] [email or web address] documented in this encounter Plan of Treatment Upcoming Encounters Date Type Department Care Team (Late st Contact Info) Description 04/08/2023 4:20 PM EST Office Visit Family [address] [address] Ishaan Gomez MD [address] [place] [address] [place] [address] 04/11/2023 10:30 AM EST Office Visit Ophthalmology, [facility] [address] [place] [address] Herberth Welsh, [address] [place] [address] Health Maintenance Due Date Last Done Comments DISCUSS TOBACCO CESSATION (REFER TO SMARTSET #7750) 1952 DXA Scan 1952 Alpha-1 Antitrypsin 1970 Hepatitis C Screening 1970 Zoster Vaccines (1 of 2) 1971 Cologuard 1997 Fecal Occult Blood Test 1997 Sigmoidoscopy 1997 LUNG CANCER SCREENING - USE SMARTSET 84311 2002 Pneumococcal Vaccine: 65+ Years (2 - [...] this encounter Medical Devices Implanted Type Area Viscose Department Worker Device Identifier Shelf Expiration Date Model / Serial / Lot Duraclip 11mm Repositionable - [id number] Implanted:Qty: 1 on 03/06/2023 by Fátima Lopez MD at [facility] [employer] [facility] [id number] 07/05/2024 [id number] / / [id number] documented as of this encounter Care Teams Senior Government Program Analyst Relationship Specialty Start Date End Date Ishaan Gomez MD [address] [place] [address] [place] [address] PCP - General Family Medicine 10/12/22 documented as of this encounter
--- OUTSIDE RECORDS SUMMARY | 2023-03-29 20:54 | External Medical Summary ---
Author Name Unknown Address Unknown Organization : Laboratory Report Ordering Provider Test Date Status SILAS FOSTER 03/06/2023 07:34:17 Final Observation Date Value Abnormality Reference (Units ) Status Glucose Point of Care 03/06/2023 07:34:17 68 Below low normal 70-120 (mg/dL) Final Performing Location
--- OUTSIDE RECORDS SUMMARY | 2023-03-29 20:54 | External Medical Summary | Summary of Care ---
Author Name Unknown Organization [facility] Address [address] [place] [address] Phone [phone] Care Team Providers Care Rotary Cutter Feeder Name Role Phone Ishaan Gomez MD Primary Care Provide r Reason for Visit * Reason Comments Hospital Follow-Up Encounter Details Date Type Department Care Team Description 02/01/2023 Office Visit Family Medicine [address] [phone] Ishaan Gomez MD [address] [place] [address] [place] [address] Fall, subsequent encounter*; Laceration of scalp, subsequent encounter; Encounter for removal of sutures Allergies No known active allergiesdocumented as of this encounter (statuses as of 02/01/2023) Medications Medication Sig Dispensed Refills Start Date [...] Sleep. 30 Tablet 0 10/11/2022 Active Sutab 7743-568-775 MG Oral Tablet (Sodium Sulfate-Mag Sulfate-KCl) Take [...] as of this encounter (statuses as of 02/01/2023) Active Problems Problem Noted Date Hepatic steatosis 11/08/2022 Alcohol abuse 10/11/2022 Anxiety 10/11/2022 COPD, moderate 10/11/2022 Insomnia 10/11/2022 Generalized anxiety disorder 11/24/2010 Tobacco use disorder 11/25/2007 documented as of this encounter (statuses as of 02/01/2023) Resolved Problems Problem Noted Date Resolved Date Alcohol dependence 10/27/2010 10/29/2011 Overview: ICD-10 update of inactive term NO KNOWN PROBLEMS 10/10/2007 01/26/2019 documented as of this encounter (statuses as of 02/01/2023) Immunizations Name Administration Dates Next Due COVID-19 mRNA, LNP-s, No Pre serve, 2-Dose Series (Moderna) 07/11/2020,06/13/2020 Pneumococcal Polysaccharide PPV23 (Pneumovax) TDAP (age 11 and older)(Adacel) 02/23/2008 documented as of this encounter Social History Tobacco Use Types Packs/Day Years Used Date Smoking Tobacco: Every Day Cigarettes 1 53 Smokeless Tobacco: Never Tobacco Cessation:Ready to Q uit: No; Counseling Given: Yes Alcohol Use Standard Drinks/Week Comments Yes 6 [...] Sign Reading Time Taken Comments Blood Pressure 122/88 02/01/2023 3:49 PM EDT Pulse 102 02/01/2023 3:49 PM EDT Temperature 36.8 C (98.2 F) 02/01/2023 3:49 PM ED T Respiratory Rate 16 02/01/2023 3:49 PM EDT Oxygen Saturation 97% 02/01/2023 3:49 PM EDT Inhaled Oxygen Concentration - - Weight 43.7 kg (96 lb 6.4 oz) 02/01/2023 3:49 PM EDT Height 150 cm (4' 11.06") 02/01/2023 3:49 PM EDT Body Mass Index 19.43 02/01/2023 3:49 PM EDT documented in this encounter Progress Notes * Ishaan Gomez MD - 02/01/2023 3:52 PM EDTAssociated Order(s): Staple Removal Post-Procedure Diagnose(s): Encounter for removal of sutures; Laceration of scalp, subsequent encounter Subjective: HPI: Donna Brooke is a 72 year old female with hx of ETOH abuse, COPD, anxiety, GERD, Colonic polyp, Insomnia seen for for Pt went to ER on 01/22/23 - after scalp laceration -- happened after a fall from ETOH consumption - CT head and C spine: no acute finding - pt had 5 juve placed Today: - denied vomiting, nausea - denied any BEST - eating well - still drinking 1 pitcher a day Patient Active Problem List Diagnosis Code Tobacco use disorder F17.200 Generalized anxiety disorder F41.1 Alcohol abuse F10.10 Anxiety F41.9 COPD, moderate (HCC) J44.9 Insomnia G47.00 Hepatic steatosis K76.0 Current Outpatient Medications Medication Sig Dispense Refill omeprazole (PRILOSEC) 20 MG CPDR aspirin enteric coated 81 MG TBEC Take 1 Tablet by mouth in the morning. 100 Tab 3 Albuterol Sulfate HFA 108 (90 Base) MCG/ACT Inhalation Aerosol Solution Inhale 2 Puffs by mouth every 4 hours as needed for Wheezing. 18 g 5 Citalopram Hydrobromide 40 MG Oral Tablet (CeleXA) Take 1 Tablet by mouth in the morning. 30 Tablet5 traZODone HCl 50 MG Oral Tablet (Desyrel) Take 1 Tablet by mouth at bedtime as needed for Sleep. 30Tablet 0 Sutab 6066-656-875 MG Oral Tablet (Sodium Sulfate-Mag Sulfate-KCl) Take according to colonoscopy prep instructions. 24 Tablet 0 Chantix Starting Month Mauricio 0.5 MG X 11 & 1 MG X 42 Tablet Therapy Pack (Varenicline Tartrate (Starter)) As directed in the box 1 Each 0 Trelegy Ellipta 200-62.5-25 MCG/ACT Aerosol Powder Breath Activated (Pwulwyzmjby-Wrcfgmqkaciu-Ftemdqbswf) INHALE 1 PUFF BY MOUTH DAILY IN THE AM 60 Blister Dosing Unit 2 Current Facility-Administered Medications Medication Dose Route Frequency Provider Last Rate Last Admin Albuterol Sulfate (Proventil) (2.5 MG/3ML) 0.083% inhalation solution 2.5 mg 2.5 mg Nebulizer Once PRN Ishaan Gomez MD 2.5 mg at 11/16/22 1303 bevaCIZumab (Avastin) inj 1.25 mg 1.25 mg Intravitreal PRN Herberth Welsh DO 1.25 mg at 01/21/23 1459 ROPivacaine (Naropin) inj 1.5 mg 1.5 mg Injection PRN Herberth Welsh, DO 1.5 mg at 01/21/23 1500 Past Medical History: Diagnosis Date Alcohol dependence, pending assessment 10/27/2010 Hepatic steatosis 11/01/2022 Past Surgical History: Procedure Laterality Date COLONOSCOPY, DIAGNOSTIC (RECTUM) 10/15/2022 benign adenomatous polyps, diverticulosis, poor prep / COLONOSCOPY FLEXIBLE PROXIMAL DIAGNOSTIC performed by Willem Tinajero MD at ENDOSCOPY [facility] INFORMATION 1979 D&E. perforated part of her uterus and pulled out part of her bowel. INJECTION OF EYE DRUG Left 01/21/2023 # 1 Avastin OS, Dr. Welsh OTHER (INFORMATION) ACT [address] Welsh (01-21-23) OTHER (INFORMATION) AVASTIN OU CONSENT SIGNED Dr. Welsh/Ash (exp 01/22/24) REMOVE TONSILS & ADENOIDS, UNDER 12 US ABDOMEN LIMITED 11/01/2022 hepatic steatosis Review of patient's allergies indicates: No Known Allergies Family History Problem Relation Age of Onset Arthritis Mother Eye Problems Father cataracts Other (Prostate Cancer [Other]) Father Other (Hyperlipidemia [Other]) Father Alzheimers No Past Hx Sister No Past Hx Brother No Past Hx Daughter No Past Hx Son Social History Tobacco Use Smoking status: Every Day Packs/day: 1.00 Years: 53.00 Pack years: 53.00 Types: Cigarettes Smokeless tobacco: Never Substance Use Topics Alcohol use: Yes Alcohol/week: 6.0 standard drinks Types: 6 12 oz of beer per week Comment: daily Vaping/E-Cigarette Use Vaping/E-Cigarette Substances Vaping/E-Cigarette Devices ROS: -Per HPI OBJECTIVE: BP 122/88 | Pulse 102 | Temp 36.8 C (98.2 F) (Tympanic) | Resp 16 | Ht 1.5 m (4' 11.06") | Wt 43.7 kg (96 lb 6.4 oz) | SpO2 97% | BMI 19.43 kg/m | BSA 1.35 m PHYSICAL EXAM: MSK: no TTP of the C spine Scalp: laceration healing well, 5 juve removed ASSESSMENT/PLAN: Reviewed the ER notes, CT head and CT C spine Fall, subsequent encounter (Primary) &Laceration of scalp, subsequent encounter - pt is doing well - no s/s of concussion - pt continues to drink ETOH ---- not interested in rehab Encounter for removal of sutures - removed all the juve (#5) - pt tolerated the procedure well Staple Removal Date/Time: 02/01/2023 4:10 PM Performed by: Ishaan Gomez MD Authorized by: Ishaan Gomez MD Body area: head/neck Location details: scalp Wound Appearance: clean [place] Removed: 5 Patient tolerance: patient tolerated the procedure well with no immediate complications Ishaan Gomez MD 02/01/2023 Ishaan Gomez MD Family medicine, [address] [address] documented in this encounter Nursing Notes * Kaelyn Cheng LPN - 02/01/2023 3:49 PM EDT Pt here for ER follow up and to have juve removed No concerns noted documented in this encounter Plan of Treatment Upcoming Encounters Date Type Specialty Care Team Description 02/28/2023 Office Visit Ophthalmology Herberth Welsh, [address] [place] [address] 03/06/2023 Hospital Encounter Surgery Fátima Lopez MD [address] [place] [address] 03/06/2023 Surgery Surgery Fátima Lopez MD [address] [place] [address] Colonoscopy with Submucosal Dissection (ESD) 04/08/2023 Office Visit Family Medicine Ishaan Gomez MD [address] [place] [address] [place] [address] Scheduled Procedures Name Priority Associated Diagnoses Date/Ti [...] 1997 LUNG CANCER SCREENING - USE SMARTSET 74695 2002 Pneumococcal Vaccine: 65+ Years (2 - PCV) 06/27/2013 06/27/2012 Mammogram 03/01/2016 03/01/2015, 02/04, 02/17/2013, Additional history exists DTaP,Tdap,and Td Vaccines (2 - Td or Tdap) 02/22/2018 02/23/2008 Depression Screening 01/30/2020 01/29/2019 COVID-19 Vaccine (3 - Moderna risk series) 08/08/2020 07/11/2020, 06/13/2020 Influenza Vaccine (FLU shot) (#1) 2023 O2 ASSESSMENT COMPLETED IN PAST YEAR FOR COPD 10/16/2023 10/15/2022 Lipid Panel 10/13/2027 10/12/2022, 03/05/2022, 01/26/2008 Colonoscopy 10/15/2032 10/15/2022, 10/15/2022 Colorectal Cancer [...] Not on filedocumented as of this encounter Procedures Procedure Name Priority Date/Time Associated Diagnosis Comments PROCDOC SUTURE REMOVAL Routine 02/01/2023 4:10 PM EDT Laceration of scalp, subsequent encounter Encounter for removal of sutures documented in this encounter Results * Staple Removal (02/01/2023 4:10 PM EDT) Narrative Ishaan Gomez MD - 02/01/2023 4:10 PM EDT Ishaan Gomez MD 02/01/2023 4:11 PM Staple Removal Date/Time: 02/01/2023 4:10 PM Performed by: Ishaan Gomez MD Authorized by: Ishaan Gomez MD Body area: head/neck Location details: scalp Wound Appearance: clean Juve Removed: 5 Patient tolerance: patient tolerated the procedure well with no immediate complications Ishaan Gomez MD PROCDOC FORM documented in this encounter Visit Diagnoses Diagnosis Fall, subsequent encounter- Primary Laceration of scalp, subsequent encounter Encounter for removal of sutures History of colonic polyps Personal history of colonic polyps documented in this encounter Care Teams Rotary Cutter Feeder Relationship Specialty Start Date End Date Ishaan Gomez MD [address] [place] [address] [place] [address] PCP - General Family Medicine 10/12/22 documented as of this encounter
--- OUTSIDE RECORDS SUMMARY | 2023-03-29 20:54 | External Medical Summary | Summary of Care ---
Author Name Unknown Organization [facility] Address [address] [place] [address] Phone [phone] Care Team Providers Care Special Police Name Role Phone Ishaan Gomez MD Primary Care Provide r Reason for Visit * Reason Onset Date Comments case management 03/12/2023 Encounter Details Date Type Department Care Team (Late st Contact Info) Description 03/12/2023 Real Estate Services Coordinator Telephone Care Coordination [address], [place] [id number] Sherry Christianson, RECTANGULAR T[employer]OPER [address] [place] [address] case management Allergies No known active allergiesdocumented as of this encounter (statuses as of 03/12/2023) Medications Medication Sig Dispensed Refills Start Date [...] Sleep. 30 Tablet 0 10/11/2022 Active Sutab 8562-190-363 MG Oral Tablet (Sodium Sulfate-Mag Sulfate-KCl) Take [...] as of this encounter (statuses as of 03/12/2023) Active Problems Problem Noted Date Diagnosed Date Hepatic steatosis 11/08/2022 Alcohol abuse 10/11/2022 Anxiety 10/11/2022 COPD, moderate 10/11/2022 Insomnia 10/11/2022 Generalized anxiety disorder 11/24/2010 Tobacco use disorder 11/25/2007 documented as of this encounter (statuses as of 03/12/2023) Resolved Problems Problem Noted Date Diagnosed Date Resolved Date Alcohol dependence 10/27/2010 2 Overview: ICD-10 update of inactive term NO KNOWN PROBLEMS 10/10/2007 01/26/2019 documented as of this encounter (statuses as of 03/12/2023) Immunizations Name Administration Dates Next Due COVID-19 [...] Telephone Encounter - Sherry Christianson LCSW - 03/12/2023 2:52 PM EST AC [facility] Called [phone] Called [phone] Called son Melecio [phone] Follow-up Routine Attempted Phone Call Second Attempt Call Outcome Left Voicemail/Message Plan To attempt another outreach Sherry Christianson LCSW Behavioral Health Real Estate Services Coordinator - Anay (she, her, hers) [facility] Plan Behavioral Health [phone] documented in this encounter Plan of Treatment Upcoming Encounters Date Type Department Care Team (Late st Contact Info) Description 04/08/2023 4:20 PM EST Office Visit Family Medicine [address] [place] [phone] Ishaan Gomez MD [address] [place] [address] [place] [address] 04/11/2023 10:30 AM EST Office Visit Ophthalmology, [facility] [address] [place] [address] Herberth Welsh DO [address] [place] [address] Health Maintenance Due Date Last Done Comments DISCUSS TOBACCO CESSATION (REFER TO SMARTSET #2517) 1952 DXA Scan 1952 Alpha-1 Antitrypsin 1970 Hepatitis C Screening 1970 Zoster Vaccines (1 of 2) 1971 Cologuard 1997 Fecal Occult Blood Test 1997 Sigmoidoscopy 1997 LUNG CANCER SCREENING - USE SMARTSET 76354 2002 Pneumococcal Vaccine: 65+ Years (2 - [...] this encounter Medical Devices Implanted Type Area Meat Boner Device Identifier Shelf Expiration Date Model / Serial / Lot Duraclip 11mm Repositionable - [id number] Implanted:Qty: 1 on 03/06/2023 by Fátima Lopez MD at Pending sale to [facility] [employer] [facility] [id number] 07/05/2024 [id number] / / [id number] documented as of this encounter Care Teams Special Police Relationship Specialty Start Date End Date Ishaan Gomez MD [address] [place] [address] [place] [phone] PCP - General Family Medicine 10/12/22 documented as of this encounter
--- OUTSIDE RECORDS SUMMARY | 2023-03-29 20:54 | External Medical Summary | Summary of Care ---
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 Curry Encounter Details Date Type Department Care Team Description 01/21/2023 Office Visit Ophthalmology, [facility] [address] [place] [address] Herberth Welsh DO [address] [place] [address] Branch retinal vein occlusion of left eye [...] Sleep. 30 Tablet 0 3 Active Sutab [id number] MG Oral Tablet (Sodium Sulfate-Mag Sulfate-KCl) Take [...] - 01/21/2023 12:45 PM EDT [facility] [place] Nursing notes reviewed. Eye vitals reviewed. [...] Herberth Welsh DO Avastin 1.25mg lot # [id number] Exp. Date: 02/19/23 * Celia Gallego RN [...] Welsh DO [address] [place] [address] 03/06/2023 Hospital Encounter Surgery Fátima Lopez MD [address] [place] [address] 03/06/2023 Surgery Surgery Fátima Lopez MD [address] [place] [address] Colonoscopy with Submucosal Dissection (ESD) 04/08/2023 Office Visit Family Medicine Ishaan Gomez MD [address] [place] [address] [place] [address] Scheduled Orders Name Type Priority Associated Diagnoses [...] 1997 LUNG CANCER SCREENING - USE SMARTSET 48623 2002 Zoster Vaccines (1 of 2) 2002 [...] Sat01/21/24 at 1428, For 365 days Given 01/21/2023 2:59 PM EDT 1.25 mg Eye Left ROPivacaine (Naropin) inj 1.5 mg 1.5 mg, Injection, PRN Other, Starting on Sat01/21/23 at 1429, Until Sat01/21/24 at 1428, For 365 days Given 01/21/2023 3:00 PM EDT 1.5 mg Eye Left documented in this encounter Care Teams Cellophane Press Operator Relationship Specialty Start Date End Date Ishaan Gomez MD [address] [place] [address] [place] [address] PCP - General Family Medicine 10/12/22 documented as of this encounter
--- OUTSIDE RECORDS SUMMARY | 2023-03-29 20:54 | External Medical Summary | Summary of Care ---
Author Name Unknown Organization [facility] Address [address] [place] [address] Phone [phone] Care Team Providers Care Retention Manager Name Role Phone Ishaan Gomez MD Primary Care Provide r Reason for Visit * Reason Onset Date Comments FYI 02/28/2023 Encounter Details Date Type Department Care Team (Late st Contact Info) Description 02/28/2023 Telephone Ophthalmology, [facility] [address] [place] [address] Herberth Welsh, [address] [place] [address] FYI Allergies No known active allergiesdocumented as of [...] Sleep. 30 Tablet 0 10/11/2022 Active Sutab [id number] MG Oral Tablet (Sodium Sulfate-Mag Sulfate-KCl) Take [...] * Telephone Encounter - TIFFANIE Aldana - 02/28/2023 1:53 PM EDT Patient scheduled to see Dr. Jean-Paul Abbasi for a cataract evaluation on Saturday05/17/23 @ 11:30am on [employer]. Patient aware and agreeable. TIFFANIE Aldana 02/28/2023 1:57 PM documented in this encounter Plan of Treatment Upcoming Encounters Date Type Department Care Team (Late st Contact Info) Description 03/06/2023 8:00 AM EDT Hospital Encounter OR GL, Operating Room, [facility] - 4th Floor [address] [place] [address] [place] [phone] Fátima Lopez MD [address] [place] [address] 03/06/2023 8:00 AM EDT - 03/06/2023 10:13 AM EDT Surgery OR GL, Operating Room, [facility] - 4th Floor [address] [place] [address] Fátima Lopez MD [address] [place] [address] Colonoscopy with Submucosal Dissection (ESD) 04/08/2023 4:20 PM EST Office Visit Family [address] [place] [phone] Ishaan Gomez MD [address] [place] [address] [place] [address] 04/11/2023 10:30 AM EST Office Visit Ophthalmology, [facility] [address] [place] [address] Herberth Welsh DO [address] [place] [address] Scheduled Procedures Name Priority Associated Diagnoses Date/Ti [...] 1997 LUNG CANCER SCREENING - USE SMARTSET 20968 2002 Pneumococcal Vaccine: 65+ Years (2 - [...] filedocumented as of this encounter Care Teams Retention Manager Relationship Specialty Start Date End Date Ishaan Gomez MD [address] [place] [address] [place] [phone] PCP - General Family Medicine 10/12/22 documented as of this encounter
--- OUTSIDE RECORDS SUMMARY | 2023-03-29 20:54 | External Medical Summary | Summary of Care ---
Author Name Unknown Organization [facility] Address [address] [facility] [address] Phone [phone] Care Team Providers Care Farmworker Dairy Name Role Phone Ishaan Gomez MD Primary Care Provide r Reason for Visit * Reason Onset Date Comments Home Health 01/22/2023 Fall 01/22/2023 Encounter Details Date Type Department Care Team Description 01/22/2023 Telephone Family Medicine [address] [place] [phone] Ishaan Gomez MD [address] [place] [address] [place] [phone] Home Health; Fall Allergies No known active [...] Sleep. 30 Tablet 0 10/11/2022 Active Sutab [id number] MG Oral Tablet (Sodium Sulfate-Mag Sulfate-KCl) Take [...] Telephone Encounter - Ishaan Gomez MD - 01/23/2023 10:40 AM EDT Noted and will address the fall during clinic visit * Telephone Encounter - Cande Greenwood LPN - 01/23/2023 9:50 AM EDT ED Follow Up WATER SOFTENER INSTALLER Documentation Did patient call the office before going to ER: Yes When was patient seen: 01/22/23 Which ED: [facility] What were they seen for: Fall What [...] Team Description 02/01/2023 Office Visit Family Medicine Ishaan Gomez MD [address] [place] [address] [place] [phone] 02/28/2023 Office Visit Ophthalmology Herberth Welsh DO [address] [place] [address] 03/06/2023 Hospital Encounter Surgery Fátima Lopez MD [address] [place] [address] 03/06/2023 Surgery Surgery Fátima Lopez MD [address] [place] [address] Colonoscopy with Submucosal Dissection (ESD) 04/08/2023 Office Visit Family Medicine Ishaan Gomez MD [address] [place] [address] [place] [address] Scheduled Procedures Name Priority Associated Diagnoses Date/Ti [...] 1997 LUNG CANCER SCREENING - USE SMARTSET 65556 2002 Pneumococcal Vaccine: 65+ Years (2 - PCV) 06/27/2013 06/27/2012 Mammogram 03/01/2016 03/01/2015, 02/04, 02/17/2013, Additional history exists DTaP,Tdap,and Td Vaccines (2 - Td or Tdap) 02/22/2018 02/23/2008 Depression Screening 01/30/2020 01/29/2019 COVID-19 Vaccine (3 - Moderna risk series) 08/08/2020 07/11/2020, 06/13/2020 Influenza Vaccine (FLU shot) (#1) 2023 O2 ASSESSMENT COMPLETED IN PAST YEAR FOR COPD 10/16/2023 10/15/2022 Lipid Panel 10/13/2027 10/12/2022, /05/2022, 01/26/2008 Colonoscopy 10/15/2032 10/15/2022, 10/15/2022 Colorectal Cancer [...] filedocumented as of this encounter Care Teams Farmworker Dairy Relationship Specialty Start Date End Date Ishaan Gomez MD [address] [place] [address] [place] [address] PCP - General Family Medicine 10/12/22 documented as of this encounter
--- OUTSIDE RECORDS SUMMARY | 2023-03-29 20:54 | External Medical Summary | Summary of Care ---
Author Name Unknown Organization [facility] Address [address] [place] [address] Phone [phone] Care Team Providers Care Diamond Mounter Name Role Phone Ishaan Gomez MD Primary Care Provide r Reason for Visit * Reason Onset Date Comments Referral 02/28/2023 EPIC 178 Referra l Encounter Details Date Type Department Care Team ([facility] Contact Info) Description 02/28/2023 Telephone BEHAVIORAL HEALTH VEGETABLE [employer]ARMING SUPERVISOR [address] [place] [address] [facility] Referral (EPIC 178 Referral ) Allergies No [...] Sleep. 30 Tablet 0 10/11/2022 Active Sutab 3817-201-451 MG Oral Tablet (Sodium Sulfate-Mag Sulfate-KCl) Take [...] Telephone Encounter - MEGAN Velazquez - 02/28/2023 3:43 PM EDT Did speak to wisam Majano Callback: [phone], did speak to him directly, he stated they would like OP ALMA counselor telehealth option preferred will do Medicare provider search, telehealth only and email to him at: email: [email or web address] was interested in AC/ CRS referral as well, will place on behalf , closing referral member can be directed to [facility] M- F 8am to 5pm at [phone] * Telephone Encounter - MEGAN Velazquez - 02/28/2023 1:48 PM EDT Referring Provider: Rut Lorenzo DO [facility] Reason for referral: DX notes Alcohol abuse, reviewed note further, Wisam Majano [phone] sent MyG message to provider around concerns of mothers alcohol consumption, member is falling and becoming a danger to himself. With Family intervention member has agreed to have a personal care home administrator come into the home and to see an OP ALMA counselor, will not consider Rehab. Looking for virtual counseling as a first step. Referral is for [facility]/ AC, member needing OP ALMA resources as well. Outcome of referral: Contacted son Melecio at [phone], left VM with [facility] callback information we will attempt 2nd outreach on 03/05/23. Member can be directed to [facility] M- F 8am to5 pm at [phone] documented in this encounter Plan of Treatment Upcoming Encounters Date Type Department Care Team (Late st Contact Info) Description 03/06/2023 8:00 AM EDT Hospital Encounter OR [facility], Operating Room, [facility] Floor [address] [place] [address] Fátima Lopez MD [address] [place] [address] 03/06/2023 8:00 AM EDT - 03/06/2023 10:13 AM EDT Surgery OR [facility], Operating Room, [facility] Floor [address] [place] [address] Fátima Lopez MD [address] [place] [address] Colonoscopy with Submucosal Dissection (ESD) 04/08/2023 4:20 PM EST Office Visit Family [address] [place] [phone] Ishaan Gomez MD [address] [place] [address] [place] [address] 04/11/2023 10:30 AM EST Office Visit Ophthalmology, [facility] [address] [place] [address] Herberth Welsh, DO [address] [place] [address] Scheduled Procedures Name Priority Associated Diagnoses Date/Ti me Colonoscopy with Submucosal Dissection (ESD) History of colonic polyps 03/06/2023 8:00 AM EDT Health Maintenance Due Date Last Done Comments DISCUSS TOBACCO CESSATION (REFER TO SMARTSET #9001) 1950 DXA Scan 1952 Alpha-1 Antitrypsin 1970 Hepatitis C Screening 1970 Zoster Vaccines (1 of 2) 1971 Cologuard 1997 Fecal Occult Blood Test 1997 Sigmoidoscopy 1997 LUNG CANCER SCREENING - USE SMARTSET 18099 2002 Pneumococcal Vaccine: 65+ Years (2 - [...] filedocumented as of this encounter Care Teams Diamond Mounter Relationship Specialty Start Date End Date Ishaan Gomez MD [address] [place] [address] [place] [phone] PCP - General Family Medicine 10/12/22 documented as of this encounter
--- OUTSIDE RECORDS SUMMARY | 2023-03-29 20:54 | External Medical Summary ---
Author Name Unknown Address Unknown Organization : Laboratory Report Ordering Provider Test Date Status SILAS FOSTER 03/06/2023 10:44:41 Final Observation Date Value Abnormality Reference (Units ) Status Glucose Point of Care 03/06/2023 10:44:41 94 70-120 (mg/dL) Final Performing Location
--- OUTSIDE RECORDS SUMMARY | 2023-03-29 20:54 | External Medical Summary | Summary of Care ---
Author Name Unknown Organization [facility] Address [address] [place] [facility] [place] [address] Phone [phone] Care Team Providers Care Ballistics Expert Forensic Name Role Phone Ishaan Gomez MD Primary Care Provide r Reason for Visit * Reason Comments Follow Up 4-6 week f/u; pt has no complaints since ADAM * Precert (Within 10 days (routine)) - Authorized Specialty Diagnoses / Procedures Referred By Gregory bowman Referred To Contact Ophthalmology Diagnoses Tributary (branch) retinal vein occlusion, left eye, with macular edema Procedures MI BEVACIZUMAB INJECTION MI INTRAVITREAL NJX PHARMACOLOGIC AGT SPX Herberth Welsh DO [address] [place] [address] Referral ID Status Reason Start Date Expiration Date V isits Requested Visits Authorized [id number] Authorized Precert 01/21/2023 05/05/2099 [id number] Encounter Details Date Type Department Care Team (Late st Contact Info) Description 02/28/2023 1:00 PM EDT Office Visit Ophthalmology, [facility] [address] [place] [address] Herberth Welsh DO [address] [place] [address] 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* Allergies No known active allergiesdocumented as of this encounter (statuses as of 03/04/2023) Medications Medication Sig Dispensed Refills Start Date [...] Sleep. 30 Tablet 0 10/11/2022 Active Sutab [id number] MG Oral Tablet (Sodium Sulfate-Mag Sulfate-KCl) Take [...] as of this encounter (statuses as of 03/04/2023) Active Problems Problem Noted Date Diagnosed Date Hepatic steatosis 11/08/2022 Alcohol abuse 10/11/2022 Anxiety 10/11/2022 COPD, moderate 10/11/2022 Insomnia 10/11/2022 Generalized anxiety disorder 11/24/2010 Tobacco use disorder 11/25/2007 documented as of this encounter (statuses as of 03/04/2023) Resolved Problems Problem Noted Date Diagnosed Date Resolved Date Alcohol dependence 10/27/2010 2 Overview: ICD-10 update of inactive term NO KNOWN PROBLEMS 10/10/2007 01/26/2019 documented as of this encounter (statuses as of 03/04/2023) Immunizations Name Administration Dates Next Due COVID-19 [...] of this encounter Progress Notes * Herberth Welsh DO - 02/28/2023 1:00 PM EDT [facility] [place] Nursing [...] w/ Dr. Ayleen Welsh DO CC: Fariha Curry, OD CC: [...] documented in this encounter Nursing Notes * Leora Griffin MED ASSIST - 02/28/2023 1:33 PM EDT Donna Brooke to receive second Avastin 1.25mg Injection of the Left eye. Correct eye confirmed with patient and marked by Herberth Welsh DO Avastin 1.25mg lot # [id number] Exp. Date: 03/12/23 * Leora Griffin MED ASSIST - 02/28/2023 1:05 PM EDT Donna Brooke [...] 03/06/2023 8:00 AM EDT Hospital Encounter OR [facility], Operating Room, [facility] - 4th Floor [address] [place] [address] Fátima Lopez MD [address] [place] [address] 03/06/2023 8:00 AM EDT - 03/06/2023 10:13 AM EDT Surgery OR [facility], Operating Room, [facility] - 4th Floor [address] [place] [address] Fátima Lopez MD [address] [place] [address] Colonoscopy with Submucosal Dissection (ESD) 04/08/2023 4:20 PM EST Office Visit Family Medicine [address] [place] [phone] Ishaan Gomez MD [address] [place] [address] [place] [address] 04/11/2023 10:30 AM EST Office Visit Ophthalmology, [facility] [address] [place] [address] Herberth Welsh DO [address] [place] [address] Scheduled Procedures Name Priority Associated Diagnoses Date/Ti me Colonoscopy with Submucosal Dissection (ESD) History of colonic polyps 03/06/2023 8:00 AM EDT Health Maintenance Due Date Last Done Comments DISCUSS TOBACCO CESSATION (REFER TO SMARTSET #9849) 1950 DXA Scan 1952 Alpha-1 Antitrypsin 1970 Hepatitis C Screening 1970 Zoster Vaccines (1 of 2) 1971 Cologuard 1997 Fecal Occult Blood Test 1997 Sigmoidoscopy 1997 LUNG CANCER SCREENING - USE SMARTSET 89171 2002 Pneumococcal Vaccine: 65+ Years (2 - [...] 1.25 mg, Intravitreal, PRN Other, Starting on 01/21/23 at 1429, Until Tu01/21/24 at 1428, For 365 days Given 02/28/2023 1:34 PM EDT 1.25 mg Eye Left Given 01/21/2023 2:59 PM EDT 1.25 mg Ey e Left ROPivacaine (Naropin) inj 1.5 mg 1.5 mg, Injection, PRN Other, Starting on 01/21/23 at 1429, Until Sat01/21/24 at 1428, For 365 days Given 02/28/2023 1:33 PM EDT 1.5 mg Eye Left Given 01/21/2023 3:00 PM EDT 1.5 mg Ey e Left documented in this encounter Care Teams Ballistics Expert Forensic Relationship Specialty Start Date End Date Ishaan Gomez MD [address] [place] [address] [place] [address] PCP - General Family Medicine 10/12/22 documented as of this encounter
--- OUTSIDE RECORDS SUMMARY | 2023-03-29 20:55 | External Medical Summary | Summary of Care ---
Author Name Unknown Organization [facility] Address [address] [place] [address] Phone [phone] Care Team Providers Care Color Checker Roving Or Yarn Name Role Phone Ishaan Gomez MD Primary Care Provide r Reason for Visit * Reason Comments Re-Check Encounter Details Date Type Department Care Team Description 01/03/2023 Office Visit Family Medicine [address] [phone] Ishaan Gomez MD [address] [place] [address] [place] [phone] Pain of left lower leg*; COPD, moderate (HCC); Anxiety; Other insomnia Allergies No known active allergiesdocumented as of this encounter (statuses as of 01/03/2023) Medications Medication Sig Dispensed Refills Start Date End Date Status omeprazole (PRILOSEC) 20 MG CPDR 0 04/07/2017 Active aspirin enteric coated 81 MG TBEC Take 1 Tablet by mouth in the morning. 100 Tab 3 05/14/2017 Active Fluticasone-Salmet susy 100-50 MCG/ACT Inhalation Aerosol Powder Breath Activated (Advair Diskus) 0 08/20/2022 Active Albuterol Sulfate HFA 108 (90 Base) MCG/ACT Inhalation Aerosol SolutionIndication s:COPD, moderate (HCC) Inhale 2 Puffs by mouth every 4 hours as needed for Wheezing. 18 g 5 10/11/2022 Active Fluticasone-Umecli din-Vilant 200-62.5-25 MCG/ACT Aerosol Powder Breath Activated (Trelegy Ellipta)Indication s:COPD, moderate (HCC) Inhale 1 Puff by mouth in the morning. 60 Blister Dosing Unit 2 10/11/2022 Active Citalopram Hydrobromide 40 MG Oral Tablet (CeleXA)Indication s:Anxiety Take 1 Tablet by mouth in the morning. 30 Tablet 5 10/11/2022 Active traZODone HCl 50 MG Oral Tablet (Desyrel)Indicatio ns:Insomnia, unspecified type Take 1 Tablet by mouth at bedtime as needed for Sleep. 30 Tablet 0 10/11/2022 Active Sutab 1736-146-501 MG Oral Tablet (Sodium Sulfate-Mag Sulfate-KCl) Take according to colonoscopy prep instructions. 24 Tablet 0 11/07/2022 Active Chantix Starting Month Mauricio 0.5 MG X 11 & 1 MG X 42 Tablet Therapy Pack (Varenicline Tartrate (Starter))Indicati ons:Tobacco use disorder As directed in the box 1 Each 0 11/19/2022 Active Hospital, Clinic, or Other Facility Administered Medication Ordered Dose Route Frequency Start Date End Date Status Albuterol Sulfate (Proventil) (2.5 MG/3ML) 0.083% inhalation solution 2.5 mgIndications:COPD, moderate (HCC) 2.5 mg NEBULIZER ONCE PRN 10/11/2022 10/11/2023 Active documented as of this encounter (statuses as of 01/03/2023) Active Problems Problem Noted Date Hepatic steatosis 11/08/2022 Alcohol abuse 10/11/2022 Anxiety 10/11/2022 COPD, moderate 10/11/2022 Insomnia 10/11/2022 Generalized anxiety disorder 11/24/2010 Tobacco use disorder 11/25/2007 documented as of this encounter (statuses as of 01/03/2023) Resolved Problems Problem Noted Date Resolved Date Alcohol dependence 10/27/2010 10/29/2011 Overview: ICD-10 update of inactive term NO KNOWN PROBLEMS 10/10/2007 01/26/2019 documented as of this encounter (statuses as of 01/03/2023) Immunizations Name Administration Dates Next Due COVID-19 [...] Yes Alcohol Use Standard Drinks/Week Comments Yes 0 [...] Sign Reading Time Taken Comments Blood Pressure 108/82 01/03/2023 3:57 PM EDT Pulse 92 01/03/2023 3:57 PM EDT Temperature 36.9 C (98.4 F) 01/03/2023 3:57 PM ED T Respiratory Rate 16 01/03/2023 3:57 PM EDT Oxygen Saturation - - Inhaled Oxygen Concentration - - Weight 43.5 kg (95 lb 12.8 oz) 01/03/2023 3:57 P M EDT Height 150 cm (4' 11.06") 01/03/2023 3:57 PM EDT Body Mass Index 19.31 01/03/2023 3:57 PM EDT documented in this encounter Progress Notes * Ishaan Gomez MD - 01/03/2023 4:04 PM EDT Subjective: HPI: Donna Brooke is a 72 year old female with hx of ETOH abuse, COPD, anxiety, GERD, Colonic polyp, Insomnia seen for for For 1 month - pt is having intermittent tightness in the L calf - denied any swelling - pt is getting PT at home ---- only notices tighness after PT session COPD: - on advair - breathing as been better Anxiety: - on celexa - doing better Takes prn trazodone for insomnia Still drinking 1 pitcher of beer/day Patient Active Problem List Diagnosis Code Tobacco use disorder F17.200 Generalized anxiety disorder F41.1 Alcohol abuse F10.10 Anxiety F41.9 COPD, moderate (HCC) J44.9 Insomnia G47.00 Hepatic steatosis K76.0 Current Outpatient Medications Medication Sig Dispense Refill omeprazole (PRILOSEC) 20 MG CPDR aspirin enteric coated 81 MG TBEC Take 1 Tablet by mouth in the morning. 100 Tab 3 Fluticasone-Salmeterol 100-50 MCG/ACT Inhalation Aerosol Powder Breath Activated (Advair Diskus) Albuterol Sulfate HFA 108 (90 Base) MCG/ACT Inhalation Aerosol Solution Inhale 2 Puffs by mouth every 4 hours as needed for Wheezing. 18 g 5 Hfkskraelag-Fyxsmyvyx-Aycbuy 200-62.5-25 MCG/ACT Aerosol Powder Breath Activated (Trelegy Ellipta) Inhale 1 Puff by mouth in the morning. 60 Blister Dosing Unit 2 Citalopram Hydrobromide 40 MG Oral Tablet (CeleXA) Take 1 Tablet by mouth in the morning. 30 Tablet5 traZODone HCl 50 MG Oral Tablet (Desyrel) Take 1 Tablet by mouth at bedtime as needed for Sleep. 30Tablet 0 Sutab 7257-543-309 MG Oral Tablet (Sodium Sulfate-Mag Sulfate-KCl) Take according to colonoscopy prep instructions. 24 Tablet 0 Chantix Starting Month Mauricio 0.5 MG X 11 & 1 MG X 42 Tablet Therapy Pack (Varenicline Tartrate (Starter)) As directed in the box 1 Each 0 Current Facility-Administered Medications Medication Dose Route Frequency Provider Last Rate Last Admin Albuterol Sulfate (Proventil) (2.5 MG/3ML) 0.083% inhalation solution 2.5 mg 2.5 mg Nebulizer Once PRN Ishaan Gomez MD 2.5 mg at 11/16/22 1303 Past Medical History: Diagnosis Date Alcohol dependence, pending assessment 10/27/2010 Hepatic steatosis 11/01/2022 Past Surgical History: Procedure Laterality Date COLONOSCOPY, DIAGNOSTIC (RECTUM) 10/15/2022 benign adenomatous polyps, diverticulosis, poor prep / COLONOSCOPY FLEXIBLE PROXIMAL DIAGNOSTIC performed by Willem Tinajero MD at ENDOSCOPY [facility] INFORMATION 1979 D&E. perforated part of her uterus and pulled out part of her bowel. REMOVE TONSILS & ADENOIDS, UNDER 12 US ABDOMEN LIMITED 11/01/2022 hepatic steatosis Review of patient's allergies indicates: No Known Allergies Family History Problem Relation Age of Onset Arthritis Mother Other (Prostate Cancer [Other]) Father Other (Hyperlipidemia [Other]) Father Alzheimers No Past Hx Brother No Past Hx Sister No Past Hx Daughter No Past Hx Son Social History Tobacco Use Smoking status: Every Day Packs/day: 1.00 Years: 53.00 Pack years: 53.00 Types: Cigarettes Smokeless tobacco: Never Substance Use Topics Alcohol use: Yes Vaping/E-Cigarette Use Vaping/E-Cigarette Substances Vaping/E-Cigarette Devices ROS: -Per HPI OBJECTIVE: BP 108/82 | Pulse 92 | Temp 36.9 C (98.4 F) (Tympanic) | Resp 16 | Ht 1.5 m (4' 11.06") | Wt 43.5 kg (95 lb 12.8 oz) | BMI 19.31 kg/m | BSA 1.35 m PHYSICAL EXAM: MSK: Trace b/l LE pitting edema, no warmth to touch of the b/l LE, no erythema ASSESSMENT/PLAN: Pain of left lower leg (Primary) - 2/2 muscle fatigue from walking/PT - not suspecting DVT - recommended frequent stretching COPD, moderate (HCC) - stable on current inhaler Anxiety & Other insomnia - stable on current meds Follow Up: Return in about 3 months (around 04/04/2023). Ishaan Gomez MD Family medicine, [address] [address] documented in this encounter Nursing Notes * Kaelyn Cheng LPN - 01/03/2023 3:54 PM EDT Pt was 13 minutes late to appointment Pt here for check up No concerns noted documented in this encounter Plan of Treatment Upcoming Encounters Date Type Specialty Care Team Description 01/21/2023 Office Visit Ophthalmology Herberth Welsh DO [address] [place] [address] 03/06/2023 Hospital Encounter Surgery Fátima Lopez MD [address] [place] [address] 03/06/2023 Surgery Surgery Fátima Lopez MD [address] [place] [address] Colonoscopy with Submucosal Dissection (ESD) 04/08/2023 Office Visit Family Medicine Ishaan Gomez MD [address] [place] [address] [place] [address] Scheduled Procedures Name Priority Associated Diagnoses Date/Ti me Colonoscopy with Submucosal Dissection (ESD) History of colonic polyps 03/06/2023 8:33 AM EDT Health Maintenance Due Date Last Done Comments DISCUSS TOBACCO CESSATION (REFER TO SMARTSET #4105) 1950 DXA Scan 1950 Alpha-1 Antitrypsin 1970 Hepatitis C Screening 1970 Cologuard 1997 Fecal Occult Blood Test 1997 Sigmoidoscopy 1997 LUNG CANCER SCREENING - USE SMARTSET 33617 2002 Zoster Vaccines (1 of 2) 2002 Pneumococcal Vaccine: 65+ Years (2 - PCV) 06/27/2013 06/27/2012 Mammogram 03/01/2016 03/01/2015, 02/04, 02/17/2013, Additional history exists DTaP,Tdap,and Td Vaccines (2 - Td or Tdap) 02/22/2018 02/23/2008 Depression Screening, Annual for Pts 12 and Over 01/30/2020 01/29/2019 COVID-19 Vaccine (3 - Moderna [...] as of this encounter Visit Diagnoses Diagnosis Pain of left lower leg- Primary Pain in limb COPD, moderate (HCC) Chronic airway obstruction, not elsewhere classified Anxiety Anxiety state, unspecified Other insomnia History of colonic polyps Personal history of colonic polyps documented in this encounter Care Teams Color Checker Roving Or Yarn Relationship Specialty Start Date End Date Ishaan Gomez MD [address] [place] [address] [place] [address] PCP - General Family Medicine 10/12/22 documented as of this encounter
--- OUTSIDE RECORDS SUMMARY | 2023-03-29 20:55 | External Medical Summary | Summary of Care ---
Author Name Unknown Organization [facility] Address [address] [place] [address] Phone [phone] Care Team Providers Care Counselor At Law Name Role Phone Ishaan Gomez MD Primary Care Provide r Reason for Visit * Reason Onset Date Comments Appointment 10/15/2022 Dissection of la rge ascending colon polyp. Encounter Details Date Type Department Care Team Description 10/15/2022 Telephone Gastroenterology, [facility] [address] [place] [address] Willem Tinajero MD [address] [place] [address] Appointment (Dissection of large ascending... Allergies No known active allergiesdocumented as of this encounter (statuses as of 10/31/2022) Medications Medication Sig Dispensed Refills Start Date End Date Status omeprazole (PRILOSEC) 20 MG CPDR 0 04/07/2017 Active aspirin enteric coated 81 MG TBEC Take 1 Tablet by mouth in the morning. 100 Tab 3 05/14/2017 Active Fluticasone-Salmeter ol 100-50 MCG/ACT Inhalation Aerosol Powder Breath Activated (Advair Diskus) 0 08/20/2022 Active Albuterol Sulfate HFA 108 (90 Base) MCG/ACT Inhalation Aerosol SolutionIndications: COPD, moderate (HCC) Inhale 2 Puffs by mouth every 4 hours as needed for Wheezing. 18 g 5 10/11/2022 Active Fluticasone-Umeclidi n-Vilant 200-62.5-25 MCG/ACT Aerosol Powder Breath Activated (Trelegy Ellipta)Indications: COPD, moderate (HCC) Inhale 1 Puff by mouth in the morning. 60 Blister Dosing Unit 2 10/11/2022 Active Citalopram Hydrobromide 40 MG Oral Tablet (CeleXA)Indications: Anxiety Take 1 Tablet by mouth in the morning. 30 Tablet 5 10/11/2022 Active traZODone HCl 50 MG Oral Tablet (Desyrel)Indications :Insomnia, unspecified type Take 1 Tablet by mouth at bedtime as needed for Sleep. 30 Tablet 0 10/11/2022 Active documented as of this encounter (statuses as of 10/31/2022) Active Problems Problem Noted Date Alcohol abuse 10/11/2022 Anxiety 10/11/2022 COPD, moderate 10/11/2022 Insomnia 10/11/2022 Generalized anxiety disorder 11/24/2010 Tobacco use disorder 11/25/2007 documented as of this encounter (statuses as of 10/31/2022) Resolved Problems Problem Noted Date Resolved Date Alcohol dependence 10/27/2010 10/29/2011 Overview: ICD-10 update of inactive term NO KNOWN PROBLEMS 10/10/2007 01/26/2019 documented as of this encounter (statuses as of 10/31/2022) Immunizations Name Administration Dates Next Due COVID-19 mRNA, LNP-s, No Pre serve, 2-Dose Series (Moderna) 07/11/2020,06/13/2020 Pneumococcal Polysaccharide PPV23 (Pneumovax) TDAP (age 11 and older)(Adacel) 02/23/2008 documented as of this encounter Social History Tobacco Use Types Packs/Day Years Used Date Smoking Tobacco: Every Day Cigarettes 0.5 40 Smokeless Tobacco: Never Alcohol Use Standard Drinks/Week [...] encounter Miscellaneous Notes * Telephone Encounter - Fátima Lopez MD - 10/31/2022 8:02 AM EDT We have many other preps that we can do for her instead of Miralax prep. Please call her and offer her Suprep or Sutab prep. Please let me know if she agrees and I will send it to her pharmacy. If she wants me to talk to her I am happy to do so. * Telephone Encounter - TIFFANIE Patel - 10/30/2022 11:49 AM EDT Called pt to move up 03/06 ESD. She wanted to cancel due to not wanting to do miralax prep. I told her we can try a alternative prep. Please advise. * Telephone Encounter - TIFFANIE Butler - 10/17/2022 9:09 AM EDT Pt scheduled TIFFANIE Butler 10/17/2022 9:09 AM * Telephone Encounter - TIFFANIE Patel - 10/16/2022 9:24 AM EDT lmm for pt to call back. * Telephone Encounter - Fátima Lopez MD - 10/16/2022 8:21 AM EDT Please schedule colonoscopy with me at [facility] for ESD of colon polyp, time per average, next available. 2 days prep. * Telephone Encounter - TIFFANIE Patel - 10/16/2022 8:[address] Lopez, please review and advise * Telephone Encounter - Jocy Og - 10/15/2022 2:37 PM EDT Irena from post endo called to see about having patient scheduled in [place] with Jessica for Recommendation:- Await pathology results. - I will refer for endoscopic dissection of large ascending colon polyp. Patient will need a 2 day prep for this procedure. documented in this encounter Plan of Treatment Upcoming Encounters Date Type Specialty Care Team Description 11/01/2022 Office Visit Family Medicine Ishaan Gomez MD [address] [place] [address] [place] [address] 11/16/2022 Pulm[facility]ostic [facility], [facility] [address] [place] [address] 03/06/2023 Hospital Encounter Surgery Fátima Lopez MD [address] [place] [address] 03/06/2023 Surgery Surgery Fátima Lopez MD [address] [address] Colonoscopy with Submucosal Dissection (ESD) Scheduled Procedures Name Priority Associated Diagnoses Date/Ti me Colonoscopy with Submucosal Dissection (ESD) History of colonic polyps 03/06/2023 9:14 AM EDT Health Maintenance Due Date Last Done Comments DISCUSS TOBACCO CESSATION (REFER TO SMARTSET #3291) 1950 DXA Scan 1950 Alpha-1 Antitrypsin 1970 Hepatitis C Screening 1970 Cologuard 1997 Fecal Occult Blood Test 1997 Sigmoidoscopy 1997 LUNG CANCER SCREENING - USE SMARTSET 10777 2002 Zoster Vaccines (1 of 2) 2002 Pneumococcal Vaccine: 65+ Years (2 - PCV) 06/27/2013 06/27/2012 Mammogram 03/01/2016 03/01/2015, 02/04, 02/17/2013, Additional history exists DTaP,Tdap,and Td Vaccines (2 - Td or Tdap) 02/22/2018 02/23/2008 Depression Screening, Annual for Pts 12 and Over 01/30/2020 01/29/2019 COVID-19 Vaccine (3 - Moderna series) 09/05/2020 07/11/2020, 06/13/2020 *COPD SEVERITY VERIFIED BY PFT 10/13/2022 Influenza Vaccine (FLU shot) (Season Ended) 2023 O2 ASSESSMENT COMPLETED IN PAST YEAR [...] filedocumented as of this encounter Care Teams Counselor At Law Relationship Specialty Start Date End Date Ishaan Gomez MD [address] [place] [address] [place] [address] PCP - General Family Medicine 10/12/22 documented as of this encounter
--- OUTSIDE RECORDS SUMMARY | 2023-03-29 20:55 | External Medical Summary | Summary of Care ---
Author Name Unknown Organization [facility] Address [address] [place] [address] Phone [phone] Care Team Providers Care Electric System Operator Name Role Phone Ishaan Gomez MD Primary Care Provide r Reason for Visit * Reason Onset Date Comments Appointment 10/15/2022 Dissection of la rge ascending colon polyp. Encounter Details Date Type Department Care Team Description 10/15/2022 Telephone Gastroenterology, [facility] [address] [place] [address] Willem Tinajero MD [address] [place] [address] Appointment (Dissection of large ascending... Allergies No known active allergiesdocumented as of this encounter (statuses as of 10/17/2022) Medications Medication Sig Dispensed Refills Start Date [...] as of this encounter (statuses as of 10/17/2022) Active Problems Problem Noted Date Alcohol abuse 10/11/2022 Anxiety 10/11/2022 COPD, moderate 10/11/2022 Insomnia 10/11/2022 Generalized anxiety disorder 11/24/2010 Tobacco use disorder 11/25/2007 documented as of this encounter (statuses as of 10/17/2022) Resolved Problems Problem Noted Date Resolved Date Alcohol dependence 10/27/2010 10/29/2011 Overview: ICD-10 update of inactive term NO KNOWN PROBLEMS 10/10/2007 01/26/2019 documented as of this encounter (statuses as of 10/17/2022) Immunizations Name Administration Dates Next Due COVID-19 [...] Miscellaneous Notes * Telephone Encounter - TIFFANIE Butler - 10/17/2022 9:09 AM EDT Pt scheduled TIFFANIE Butler 10/17/2022 9:09 AM * Telephone Encounter - TIFFANIE Patel - 10/16/2022 9:24 AM EDT lmm for pt to call back. * Telephone Encounter - Fátima Lopez MD - 10/16/2022 8:21 AM EDT Please schedule colonoscopy with me at [facility] for ESD of colon polyp, time per average, next available. 2 days prep. * Telephone Encounter - TIFFANIE Patel - 10/16/2022 8:[address] Lopez, please review and advise * Telephone Encounter - Jocy Foley - 10/15/2022 2:37 PM EDT Irena from post end[facility] called to see about having patient scheduled in [place] with Jessica for Recommendation:- Await pathology results. - I will refer for endoscopic dissection of large ascending colon polyp. Patient will need a 2 day prep for this procedure. documented in this encounter Plan of Treatment Upcoming Encounters Date Type Specialty Care Team Description 11/01/2022 Office Visit Family Medicine Ishaan Gomez MD [address] [place] [address] [place] [address] 11/16/2022 [facility] [address] [place] [address] 03/06/2023 Hospital Encounter Surgery Fátima Lopez MD [address] [place] [address] 03/06/2023 Surgery Surgery Fátima Lopez MD [address] [place] [address] Colonoscopy with Submucosal Dissection (ESD) Scheduled Procedures [...] 1997 LUNG CANCER SCREENING - USE SMARTSET 68563 2002 Zoster Vaccines (1 of 2) 2002 [...] filedocumented as of this encounter Care Teams Electric System Operator Relationship Specialty Start Date End Date Ishaan Gomez MD [address] [place] [address] [place] [address] PCP - General Family Medicine 10/12/22 documented as of this encounter
--- OUTSIDE RECORDS SUMMARY | 2023-03-29 20:55 | External Medical Summary | Summary of Care ---
Author Name Unknown Organization [facility] Address [address] [place] [address] Phone [phone] Care Team Providers Care Screen Room Operator Name Role Phone Ishaan Gomez MD Primary Care Provide r Reason for Visit * Reason Onset Date Comments Med Request 11/19/2022 Encounter Details Date Type Department Care Team Description 11/19/2022 Telephone Family Medicine [address] [place] [address] Ishaan Gomez MD [address] [place] [address] [place] [id number] Med Request Allergies No known active allergiesdocumented as of this encounter (statuses as of 11/19/2022) Medications Medication Sig Dispensed Refills Start Date [...] Sleep. 30 Tablet 0 10/11/2022 Active Sutab [id number] MG Oral Tablet (Sodium Sulfate-Mag Sulfate-KCl) Take [...] as of this encounter (statuses as of 11/19/2022) Active Problems Problem Noted Date Hepatic steatosis 11/08/2022 Alcohol abuse 10/11/2022 Anxiety 10/11/2022 COPD, moderate 10/11/2022 Insomnia 10/11/2022 Generalized anxiety disorder 11/24/2010 Tobacco use disorder 11/25/2007 documented as of this encounter (statuses as of 11/19/2022) Resolved Problems Problem Noted Date Resolved Date Alcohol dependence 10/27/2010 10/29/2011 Overview: ICD-10 update of inactive term NO KNOWN PROBLEMS 10/10/2007 01/26/2019 documented as of this encounter (statuses as of 11/19/2022) Immunizations Name Administration Dates Next Due COVID-19 [...] encounter Miscellaneous Notes * Telephone Encounter - Lashonda Cloud RN - 11/19/2022 5:02 PM EDT Pt aware * Telephone Encounter - Ishaan Gomez MD - 11/19/2022 3:30 PM EDT chantix sent - please advised the pt that she should not be using alcohol with chantix * Telephone Encounter - TIFFANIE Dukes - 11/19/2022 11:28 AM EDT Patient requesting medication for smoking cessation. She states she has tried everything OTC and nothing seems to help her. She would like to quit. Please advise: [phone] documented in this encounter Plan of Treatment Upcoming Encounters Date Type Specialty Care Team Description 01/03/2023 Office Visit Family Medicine Ishaan Gomez MD [address] [place] [address] [place] [address] 03/06/2023 Hospital Encounter Surgery Fátima Lopez MD [address] [place] [address] 03/06/2023 Surgery Surgery Fátima Lopez MD [address] [place] [address] Colonoscopy with Submucosal Dissection (ESD) Scheduled Procedures [...] 1997 LUNG CANCER SCREENING - USE SMARTSET 36982 2002 Zoster Vaccines (1 of 2) 2002 [...] as of this encounter Visit Diagnoses Diagnosis Tobacco use disorder- Primary History of colonic polyps Personal history of colonic polyps documented in this encounter Care Teams Screen Room Operator Relationship Specialty Start Date End Date Ishaan Gomez MD [address] [place] [address] [place] [address] PCP - General Family Medicine 10/12/22 documented as of this encounter
--- OUTSIDE RECORDS SUMMARY | 2023-03-29 20:55 | External Medical Summary | Summary of Care ---
Author Name Unknown Organization [facility] Address [address] [place] [address] Phone [phone] Care Team Providers Care Automobile Accessories Salesperson Name Role Phone Ishaan Gomez MD Primary Care Provide r Reason for Visit * Reason Comments Re-Check Encounter Details Date Type Department Care Team Description 11/01/2022 Office Visit Family Medicine [address] [address] Ishaan Gomez MD [address] [place] [address] [place] [address] Alcohol abuse*; Elevated liver enzymes; Polyp of colon, unspecified part of colon, unspecified type; Hyponatremia Allergies No known active allergiesdocumented as of this encounter (statuses as of 11/01/2022) Medications Medication Sig Dispensed Refills Start Date [...] for Sleep. 30 Tablet 0 10/11/2022 Active Hospital, Clinic, or Other Facility Administered Medication Ordered Dose Route Frequency Start Date End Date Status Albuterol Sulfate (Proventil) (2.5 MG/3ML) 0.083% inhalation solution 2.5 mgIndications:COPD, moderate (HCC) 2.5 mg NEBULIZER ONCE PRN 10/11/2022 10/11/2023 Active documented as of this encounter (statuses as of 11/01/2022) Active Problems Problem Noted Date Alcohol abuse 10/11/2022 Anxiety 10/11/2022 COPD, moderate 10/11/2022 Insomnia 10/11/2022 Generalized anxiety disorder 11/24/2010 Tobacco use disorder 11/25/2007 documented as of this encounter (statuses as of 11/01/2022) Resolved Problems Problem Noted Date Resolved Date Alcohol dependence 10/27/2010 10/29/2011 Overview: ICD-10 update of inactive term NO KNOWN PROBLEMS 10/10/2007 01/26/2019 documented as of this encounter (statuses as of 11/01/2022) Immunizations Name Administration Dates Next Due COVID-19 mRNA, LNP-s, No Pre serve, 2-Dose Series (Moderna) 07/11/2020,06/13/2020 Pneumococcal Polysaccharide PPV23 (Pneumovax) TDAP (age 11 and older)(Adacel) 02/23/2008 documented as of this encounter Social History Tobacco Use Types Packs/Day Years Used Date Smoking Tobacco: Every Day Cigarettes 0.5 40 Smokeless Tobacco: Never Tobacco Cessation:Ready to Q [...] Sign Reading Time Taken Comments Blood Pressure 110/72 11/01/2022 4:14 PM EDT Pulse 106 11/01/2022 4:14 PM EDT Temperature 37.2 C (99 F) 11/01/2022 4:14 PM EDT Respiratory Rate 16 11/01/2022 4:14 PM EDT Oxygen Saturation 96% 11/01/2022 4:14 PM EDT Inhaled Oxygen Concentration - - Weight 46.5 kg (102 lb 9.6 oz) 11/01/2022 4:14 P M EDT Height 152.4 cm (5') 11/01/2022 4:14 PM EDT Body Mass Index 20.04 11/01/2022 4:14 PM EDT documented in this encounter Progress Notes * Ishaan Gomez MD - 11/01/2022 4:09 PM EDT Subjective: HPI: Donna Brooke is a 72 year old female with hx of ETOH abuse, COPD, anxiety, GERD, Colonic polyp seen for for HypoNa+: - pt is a daily ETOH drinker - still drinking pitcher of beer and 2 shots - pt does not want to go to rehab Colonic polyps: - there was a One 40 mm polyp in the ascending colon ---- sched to undergo colonoscopy again on 03/2023 - denied any constipation Patient Active Problem List Diagnosis Code Tobacco use disorder F17.200 Generalized anxiety disorder F41.1 Alcohol abuse F10.10 Anxiety F41.9 COPD, moderate (HCC) J44.9 Insomnia G47.00 Current Outpatient Medications Medication Sig Dispense Refill omeprazole (PRILOSEC) 20 MG CPDR aspirin enteric coated 81 MG TBEC Take 1 Tablet by mouth in the morning. 100 Tab 3 Fluticasone-Salmeterol 100-50 MCG/ACT Inhalation Aerosol Powder Breath Activated (Advair Diskus) Albuterol Sulfate HFA 108 (90 Base) MCG/ACT Inhalation Aerosol Solution Inhale 2 Puffs by mouthevery 4 hours as needed for Wheezing. 18 g 5 Gzgclhghskk-Vemuiexdo-Qozrsw 200-62.5-25 MCG/ACT Aerosol Powder Breath Activated (Trelegy Ellipta) Inhale 1 Puff by mouth in the morning. 60 Blister Dosing Unit 2 Citalopram Hydrobromide 40 MG Oral Tablet (CeleXA) Take 1 Tablet by mouth in the morning. 30 Tablet 5 traZODone HCl 50 MG Oral Tablet (Desyrel) Take 1 Tablet by mouth at bedtime as needed for Sleep. 30 Tablet 0 Current Facility-Administered Medications Medication Dose Route Frequency Provider Last Rate Last Admin Albuterol Sulfate (Proventil) (2.5 MG/3ML) 0.083% inhalation solution 2.5 mg 2.5 mg Nebulizer Once PRN Ishaan Gomez MD Past Medical History: Diagnosis Date Alcohol dependence, pending assessment 10/27/2010 Past Surgical History: Procedure Laterality Date COLONOSCOPY, DIAGNOSTIC (RECTUM) 10/15/2022 benign adenomatous polyps, diverticulosis, poor prep / COLONOSCOPY FLEXIBLE PROXIMAL DIAGNOSTIC performed by Willem Tinajero MD at [facility] 1979 D&E. perforated part of her uterus and pulled out part of her bowel. REMOVE TONSILS & ADENOIDS, UNDER 12 Review of patient's allergies indicates: No Known Allergies Family History Problem Relation Age of Onset Arthritis Mother Other (Prostate Cancer [Other]) Father Other (Hyperlipidemia [Other]) Father Alzheimers No Past Hx Brother No Past Hx Sister No Past Hx Daughter No Past Hx Son Social History Tobacco Use Smoking status: Every Day Packs/day: 0.50 Years: 40.00 Pack years: 20.00 Types: Cigarettes Smokeless tobacco: Never Substance Use Topics Alcohol use: Yes Vaping/E-Cigarette Use Vaping/E-Cigarette Substances Vaping/E-Cigarette Devices RECENT LABS: Results for orders placed or performed during the hospital encounter of 10/15/22 SURGICAL PATHOLOGY Result Value Ref Range Final Diagnosis A. Colon, cecum, polyp, polypectomy: Tubular adenoma. B. Colon, polyp removed from 60 cm proximal to anus, polypectomy: Tubular adenoma. C. Colon, polyp removed from 50 cm proximal to anus, polypectomy: Tubular adenoma. D. Colon, polyp removed from 40 cm proximal to anus, polypectomy: Tubular adenoma. Gross Description A. Colon, Cecum. Polyp, colon Received in formalin with a container labeled with "Donna Edwardo", "[id number]" and "1950" and "polyp cecum". Received is a fragment of burgess tissue measuring 0.9 cm in greatest dimension. Specimenis bisected and entirely submitted in cassette A1. Gross By: MIN B. Colon, Unspecified. Polyp, colon Received in formalin with a container labeled with "Donna Edwardo", "[id number]" and "1950" and "polyp removed from 60 cm proximal to anus". Received are multiple fragments of burgess tissue measuringfrom 0.2 up to 0.3 cm in greatest dimension. Also present is debris. Specimen is entirely submittedin cassette B1. Gross By: MIN C. Colon, Unspecified. Polyp, colon Received in formalin with a container labeled with "Donna Edwardo", "[id number]" and "1950" and "polyp removed from 50 cm proximal to anus". Received are multiple fragments of burgess tissue measuringfrom 0.4 up to 0.6 cm in greatest dimension. Specimen is entirely submitted in cassette C1. Gross By: MIN D. Colon, Unspecified. Polyp, colon Received in formalin with a container labeled with "Donna Edwardo", "[id number]" and "1950" and "polyp removed from 40 cm proximal to anus". Received is a fragment of burgess tissue measuring 0.4 cm in greatest dimension. Also present is debris. Specimen is entirely submitted in cassette D1. Gross By: MIN Sign Out Location Pathologist sign out performed at [facility] [address] [place] [address] [place] [address]. Photographic images and diagrams represent dawkins findings in this case; they are not intended to replace a complete review of the final diagnostic report. The following statement applies to Flow Cytometry, Histology, In situ Hybridization Assays and Molecular Genetics. This test was developed and performed at [facility] [address] and its performance characteristics determined by [facility] [employer]. It has not been cleared or approved by the U.S. Food and Drug Administration. The FDA has determined that such clearance or approval is not necessary. This test is used for clinical purposes. It should not be regarded as investigationalor for research. Special stains, including histochemical stains, and studies using immunologic and HOLLIE methodology (where applicable) are performed with appropriate positive and negative control reactions. ROS: -Per HPI OBJECTIVE: BP 110/72 | Pulse 106 | Temp 37.2 C (99 F) (Tympanic) | Resp 16 | Ht 1.524 m (5') | Wt 46.5 kg (102 lb 9.6 oz) | SpO2 96% | BMI 20.04 kg/m | BSA 1.4 m PHYSICAL EXAM: Vitals are reviewed General:. NAD, well developed HEENT:. Normal Conjunctiva, EOMI MSK:. Normal gait Psych:. AAOx3, normal affect ASSESSMENT/PLAN: Encouraged the pt to consider rehab - will repeat CMP today - hypoNa+ is 2/2 excess beer intake Sched to get colonscopy in 03/2023 Due to elevated LFTs with excess ETOH intake will get abd US Alcohol abuse (Primary) - COMPREHENSIVE METABOLIC PANEL Elevated liver enzymes - US ABDOMEN LIMITED Polyp of colon, unspecified part of colon, unspecified type Hyponatremia Follow Up: Return in about 2 months (around 01/01/2023). Ishaan Gomez MD Family medicine, [address] [address] documented in this encounter Nursing Notes * Kaelyn Cheng LPN - 11/01/2022 4:11 PM EDT Pt here for check up Pt here with sister Would like PT to come more often - only coming once a week - has [facility] Having lack of energy - wondering a medication for "pep" Not eating much at all - only had a bowl of soup last night documented in this encounter Plan of Treatment Upcoming Encounters Date Type Specialty Care Team Description 11/05/2022 Imaging Radiology 11/16/2022 [facility] [address] [address] 01/03/2023 Office Visit Family Medicine Ishaan Gomez MD [address] [place] [address] [place] [address] 03/06/2023 Hospital Encounter Surgery Fátima Lopez MD [address] [place] [address] 03/06/2023 Surgery Surgery Fátima Lopez MD [address] [place] [address] Colonoscopy with Submucosal Dissection (ESD) Pending Results Name Type Priority Associated Diagnoses Date /Time COMPREHENSIVE METABOLIC PANEL Lab Routine Alcohol abuse 11/01/2022 4:31 PM EDT Scheduled Orders Name Type Priority Associated Diagnoses Orde r Schedule US ABDOMEN LIMITED Medical Imaging Routine Elevated liver enzymes Ordered: 11/01/2022 Scheduled Procedures Name Priority Associated Diagnoses Date/Ti me Colonoscopy with Submucosal Dissection (ESD) History of colonic polyps 03/06/2023 9:14 AM EDT Health Maintenance Due Date Last Done Comments DISCUSS TOBACCO CESSATION (REFER TO SMARTSET #3291) 1950 DXA Scan 1950 Alpha-1 Antitrypsin 1970 Hepatitis C Screening 1970 Cologuard 1997 Fecal Occult Blood Test 1997 Sigmoidoscopy 1997 LUNG CANCER SCREENING - USE SMARTSET 09790 2002 Zoster Vaccines (1 of 2) 2002 [...] as of this encounter Visit Diagnoses Diagnosis Alcohol abuse- Primary Alcohol abuse, unspecified Elevated liver enzymes Nonspecific elevation of levels of transaminase or lactic acid dehydrogenase (LDH) Polyp of colon, unspecified part of colon, unspecified type Hyponatremia Hyposmolality and/or hyponatremia History of colonic polyps Personal history of colonic polyps documented in this encounter Care Teams Automobile Accessories Salesperson Relationship Specialty Start Date End Date Ishaan Gomez MD [address] [place] [address] [place] [address] PCP - General Family Medicine 10/12/22 documented as of this encounter
--- OUTSIDE RECORDS SUMMARY | 2023-03-29 20:55 | External Medical Summary | Summary of Care ---
Author Name Unknown Organization [facility] Address [address] [place] [address] Phone [phone] Care Team Providers Care Sand Filler Name Role Phone Ishaan Gomez MD Primary Care Provide r Reason for Visit * Reason Onset Date Comments Appointment 10/15/2022 Dissection of la rge ascending colon polyp. Encounter Details Date Type Department Care Team Description 10/15/2022 Telephone Gastroenterology, [facility] [address] [place] [address] Willem Tinajero MD [address] [place] [address] Appointment (Dissection of large ascending... Allergies No known active allergiesdocumented as of this encounter (statuses as of 10/16/2022) Medications Medication Sig Dispensed Refills Start Date [...] as of this encounter (statuses as of 10/16/2022) Active Problems Problem Noted Date Alcohol abuse 10/11/2022 Anxiety 10/11/2022 COPD, moderate 10/11/2022 Insomnia 10/11/2022 Generalized anxiety disorder 11/24/2010 Tobacco use disorder 11/25/2007 documented as of this encounter (statuses as of 10/16/2022) Resolved Problems Problem Noted Date Resolved Date Alcohol dependence 10/27/2010 10/29/2011 Overview: ICD-10 update of inactive term NO KNOWN PROBLEMS 10/10/2007 01/26/2019 documented as of this encounter (statuses as of 10/16/2022) Immunizations Name Administration Dates Next Due COVID-19 [...] EDT Please schedule colonoscopy with me at [facility] for ESD of colon polyp, time per average, next available. 2 days prep. * Telephone Encounter - TIFFANIE Patel - 10/16/2022 8:[address] Lopez, please review and advise * Telephone Encounter - Jocy Foley - 10/15/2022 2:37 PM EDT Irena from post endo called to see about having patient scheduled in [place] with Jessica for Recommendation:- Await pathology results. - I will refer for endoscopic dissection of large ascending colon polyp. Patient will need a 2 day prep for this procedure. documented in this encounter Plan of Treatment Upcoming Encounters Date Type Specialty Care Team Description 11/01/2022 Office Visit Family Medicine Ishaan Gomez MD [address] [place] [address] [place] [address] 11/16/2022 [facility]ostic [facility], [facility] [address] [facility] [place] [address] Health Maintenance Due Date Last Done Comments DISCUSS TOBACCO CESSATION (REFER TO SMARTSET #3291) 1950 DXA Scan 1950 Alpha-1 Antitrypsin 1970 Hepatitis C Screening 1970 Cologuard 1997 Fecal Occult Blood Test 1997 Sigmoidoscopy 1997 LUNG CANCER SCREENING - USE SMARTSET 14490 2002 Zoster Vaccines (1 of 2) 2002 [...] Panel 10/13/2027 10/12/2022, 07/05, 01/26/2008 Colonoscopy 10/15/2032 10/15/2022 Colorectal Cancer Screening 10/15/2032 GARDASIL-HPV IMMUNIZATION [...] filedocumented as of this encounter Care Teams Sand Filler Relationship Specialty Start Date End Date Ishaan Gomez MD [address] [place] [address] [place] [address] PCP - General Family Medicine 10/12/22 documented as of this encounter
--- OUTSIDE RECORDS SUMMARY | 2023-03-29 20:55 | External Medical Summary | Summary of Care ---
Author Name Unknown Organization [facility] Address [address] [place] [address] Phone [phone] Care Team Providers Care Highway Patrol Commander Name Role Phone Ishaan Gomez MD Primary Care Provide r Reason for Visit * Auth/Cert Specialty Diagnoses / Procedures Referred By Contalisa t Referred To Contact Diagnoses Screen for colon cancer Screen for colon cancer [Z12.11] Procedures COLONOSCOPY, DIAGNOSTIC (RECTUM) COLONOSCOPY FLEXIBLE PROXIMAL DIAGNOSTIC Referral ID Status Reason Start Date Expiration Date Visits Re quested Visits Authorized [id number] Encounter Details Date Type Department Care Team Description 10/15/2022 Hospital Encounter [facility]O [facility], Endoscopy Room [facility] [address] [place] [address] Willem Tinajero MD [address] [place] [address] Colonoscopy Allergies No known active allergiesdocumented as of [...] Sign Reading Time Taken Comments Blood Pressure 130/58 10/15/2022 1:57 PM EDT Pulse 86 10/15/2022 1:57 PM EDT Temperature 36.4 C (97.6 F) 10/15/2022 1:57 PM ED T Respiratory Rate 13 10/15/2022 1:57 PM EDT Oxygen Saturation 100% 10/15/2022 1:57 PM EDT Inhaled Oxygen Concentration - - Weight 49 kg (108 lb) 10/12/2022 2:12 PM EDT Height 152.4 cm (5') 10/12/2022 2:12 PM EDT Body Mass Index 21.09 10/12/2022 2:12 PM EDT documented in this encounter H&P Notes * Willem Tinajero MD - 10/15/2022 12:52 PM EDT Procedure(s): Colonoscopy; with Indication(s) of average risk screening Endoscopy Pre-Procedure Assessment: Prior to the procedure, the patient was identified. The patient's history, medications and allergies were reviewed as per the Anesthesia Assessment. The patient is competent. The risks and benefits of the proposed procedure and the planned sedation were discussed with the patient. All questions were answered and informed consent for the procedure was obtained. BP 162/74 | Pulse 85 | Temp 36.7 C (98 F) | Resp 16 | Ht 1.524 m (5') | Wt 49 kg (108 lb) | SpO2 96% | BMI 21.09 kg/m | BSA 1.44 m Physical Exam: Mental Status Examination: alert and oriented. Airway Examination: normal oropharyngeal airway and neck mobility. Respiratory Examination: clear to auscultation. CV Examination: normal. ASA Grade: III - A patient with severe systemic disease. Patient was explained in detail regarding risks, benefits, limitations and alternatives of the above endoscopic procedure. Risks of intravenous sedation used for procedure were also explained. Risks include, but not limited to perforation, bleeding, infection, respiratory distress, cardiac arrest and . Patient is also aware about the possibility of missed lesions. Patient's questions were answered. The patient verbalized understanding of the information and agreed to undergo the procedure. After reviewing the risks and benefits, the patient was deemed in satisfactory condition to undergothe procedure. The anesthesia plan is to use general anesthesia. documented in this encounter Procedure Notes * Ishaan Gomez MD - 10/15/2022 1:04 PM EDTAssociated Order(s): COLONOSCOPY [facility] Patient Name: Donna Brooke Procedure Date: 10/15/2022 1:04 PM Date of : 1950 Admit Type: Outpatient Note Status: Finalized Date of : 1950 Admit Type: Outpatient Age: 72 Room: Endo 3 Gender: Female Note Status: Finalized Procedure: Colonoscopy Indications: Screening for colorectal malignant neoplasm Providers: Willem Tinajero MD (Doctor), Hao Lam CRNA (Anesthesia Staff) Referring MD: Ishaan Gomez (Referring MD) Medicines: See the Anesthesia note for documentation of the administered medications Complications: No immediate complications. Procedure: Pre-Anesthesia Assessment: - - Patient identification and proposed procedure were verified prior to the procedure by the physician and the nurse. The procedure was verified in the procedure area. - Prior to the procedure, a History and Physical was performed, and patient medications, allergies and sensitivities were reviewed. The patient's tolerance of previous anesthesia was reviewed. - The risks and benefits of the procedure and the sedation options and risks were discussed with the patient. All questions were answered and informed consent was obtained. After I obtained informed consent, the scope was passed under direct vision. All instruments were visually inspected immediately before and after removal from the patient to ensure they are fully intact. Throughout the procedure, the patient's blood pressure, pulse, and oxygen saturations were monitored continuously. The [id number] Colonoscope ([id number]) was introduced through the anus and advanced to the cecum, identified by appendiceal orifice and ileocecal valve. The colonoscopy was performed without difficulty. The patient tolerated the procedure well. The quality of the bowel preparation was poor. Findings & Specimens: The perianal and digital rectal examinations were normal. An 8 mm polyp was found in the cecum. The polyp was sessile. The polyp was removed with a hot snare. Resection and retrieval were complete. Verification of patient identification for the specimen was done by the physician and nurse using the patient's name and medical record number. Estimated blood losswas minimal. A 40 mm polyp was found in the ascending colon. The polyp was carpet-like. It was not removed sinceit will require endoscopic dissection. A 10 mm polyp was found at 60 cm proximal to the anus. The polyp was sessile. The polyp was removed with a hot snare. Resection and retrieval were complete. Verification of patient identification forthe specimen was done by the physician and nurse using the patient's name and medical record number. Estimated blood loss was minimal. An 8 mm polyp was found at 50 cm proximal to the anus. The polyp was sessile. The polyp was removed with a hot snare. Resection and retrieval were complete. Verification of patient identification forthe specimen was done by the physician and nurse using the patient's name and medical record number. Estimated blood loss was minimal. A 20 mm polyp was found at 40 cm proximal to the anus. The polyp was semi- sessile. The polyp was removed with a hot snare. The polyp was removed with a piecemeal technique using a hot snare. Resection and retrieval were complete. Verification of patient identification for the specimen was done by the physician and nurse using the patient's name and medical record number. Estimated blood loss was minimal. Multiple small-mouthed diverticula were found in the sigmoid colon. The exam was otherwise without abnormality on direct and retroflexion views. Impression: - Preparation of the colon was poor. - One 8 mm polyp in the cecum, removed with a hot snare. Resected and retrieved. - One 40 mm polyp in the ascending colon (not removed) - One 10 mm polyp at 60 cm proximal to the anus, removed with a hot snare. Resected and retrieved. - One 8 mm polyp at 50 cm proximal to the anus, removed with a hot snare. Resected and retrieved. - One 20 mm polyp at 40 cm proximal to the anus, removed with a hot snare and removed piecemeal using a hot snare. Resected and retrieved. - Diverticulosis in the sigmoid colon. - The examination was otherwise normal on direct and retroflexion views. Recommendation: - Await pathology results. - I will refer for endoscopic dissection of large ascending colon polyp. - Discharge patient to home. Willem Tinajero MD 10/15/2022 1:51:44 PM This report has been signed electronically. documented in this encounter Nursing Notes * Irena Sheikh RN - 10/15/2022 2:32 PM EDT Word Processing Specialist called GI scheduling office and spoke with Letty who stated that she would ensure pt's follow-up procedure for dissection with Dr. Lopez gets scheduled in [place]. Patient and patient's son aware to call in in a few days if they do not receive a call from GI scheduling before that time. * Irena Sheikh RN - 10/15/2022 2:30 PM EDT Patient is alert, denies pain and is tolerating po fluids prior to discharge. Dr. Amisha Godinez has been to bedside to assess pt IV site which was leaking when pt arrived to postop area- newspaper writer applied pressure dressing and instructed patient to call with any signs or symptoms of infection- pt verbalizedunderstanding. Pt son at bedside. Patient and her son have been visited by Dr. Tinajero. Patient and pt son have received and demonstrates understanding of discharge instructions and pt has verbalized readiness for discharge. Patient is transported via w/c to private auto accompanied by endo staff. * Nahomi Cuevas RN - 10/15/2022 1:43 PM EDT See anesthesia record for medication administered during procedure. Nahomi Cuevas RN Specimen(s) and location(s) verified with physician post procedure 1:43 PM Nahomi Cuevas RN Pre cleaning of scope at the bedside started by diamond powder technician. Pt tolerated her colonoscopy with polypectomies well. Abdominal pressure was used during the procedure to assist with advancement of the scope under the direction of Dr. Tinajero, pt tolerated this well also. Escorted to the PACU lying quietly on her left side. * Irena Sheikh RN - 10/15/2022 1:42 PM EDT Patient transferred to post endo s/p colonoscopy. Patient sleeping comfortably Respirations are even and unlabored on room air. NSR in the 70s on the monitor. Abdomen soft and non distended. Vital signs stable. * Irena Sheikh RN - 10/15/2022 1:42 PM EDT Patient transferred to post endo s/p colonoscopy. Patient sleeping comfortably Respirations are even and unlabored on room air. NSR in the 70s on the monitor. Abdomen soft and non distended. Vital signs stable. documented in this encounter Plan of Treatment Upcoming Encounters Date Type Specialty Care Team Description 11/01/2022 Office Visit Family Medicine Ishaan Gomez MD [address] [place] [address] [place] [address] 11/16/2022 [facility], [facility] [address] [facility] [place] [address] Pending Results Name Type Priority Associated Diagnoses Date /Time SURGICAL PATHOLOGY Pathology Routine Screen for colon cancer 10/15/2022 1:49 PM EDT Scheduled Orders Name Type Priority Associated Diagnoses Orde r Schedule SURGICAL PATHOLOGY Pathology Routine Screen for colon cancer Release Upon Ordering for 1 Occurrences starting 10/15/2022, 1 completed Health Maintenance Due Date Last Done Comments DISCUSS TOBACCO CESSATION (REFER TO SMARTSET #3291) 1950 DXA Scan 1950 Alpha-1 Antitrypsin 1970 Hepatitis C Screening 1970 Cologuard 1997 Fecal Occult Blood Test 1997 Sigmoidoscopy 1997 LUNG CANCER SCREENING - USE SMARTSET 75183 2002 Zoster Vaccines (1 of 2) 2002 [...] Procedure Name Priority Date/Time Associated Diagnosis Comments COLONOSCOPY 10/15/2022 1:04 PM EDT documented in this encounter Results * COLONOSCOPY (10/15/2022 1:04 PM EDT) 10/15/2022 1:04 PM EDT Procedure Note Ishaan Gomez MD - 10/15/2022 1:04 PM EDT [facility] Patient Name: Donna Brooke Procedure Date: 10/15/2022 1:04 PM Date of : 1950 Admit Type: Outpatient Note Status:Finalized Date of : 1950 Admit Type: Outpatient Age: 72 Room: Endo 3 Gender: Female Note Status: Finalized Procedure: Colonoscopy Indications: Screening for colorectal malignant neoplasm Providers: Willem Tinajero MD (Doctor), Hao Lam CRNA (Anesthesia Staff) Referring MD: Ishaan Gomez (Referring MD) Medicines: See the Anesthesia note for documentation of theadministered medications Complications: No immediate complications. Procedure: Pre-Anesthesia Assessment: - - Patient identification and proposed procedurewere verified prior to the procedure by the physician and the nurse. Theprocedure was verified in the procedure area. - Prior to the procedure, a History and Physicalwas performed, and patient medications, allergies and sensitivities werereviewed. The patient's tolerance of previous anesthesia was reviewed. - The risks and benefits of the procedure and thesedation options and risks were discussed with the patient. All questions wereanswered and informed consent was obtained. After I obtained informed consent, the scope waspassed under direct vision. All instruments were visually inspected immediatelybefore and after removal from the patient to ensure they are fully intact. Throughout the procedure, the patient's bloodpressure, pulse, and oxygen saturations were monitored continuously. The [id number] ([id number]) was introduced through the anus and advanced to the cecum,identified by appendiceal orifice and ileocecal valve. The colonoscopy was performedwithout difficulty. The patient tolerated the procedure well. The quality of thebowel preparation was poor. Findings & Specimens: The perianal and digital rectal examinations were normal. An 8 mm polyp was found in the cecum. The polyp was sessile. Thepolyp was removed with a hot snare. Resection and retrieval were complete. Verification of patientidentification for the specimen was done by the physician and nurse using the patient's name and medicalrecord number. Estimated blood loss was minimal. A 40 mm polyp was found in the ascending colon. The polyp wascarpet-like. It was not removed since it will require endoscopic dissection. A 10 mm polyp was found at 60 cm proximal to the anus. The polyp wassessile. The polyp was removed with a hot snare. Resection and retrieval were complete. Verificationof patient identification for the specimen was done by the physician and nurse using the patient's nameand medical record number. Estimated blood loss was minimal. An 8 mm polyp was found at 50 cm proximal to the anus. The polyp wassessile. The polyp was removed with a hot snare. Resection and retrieval were complete. Verificationof patient identification for the specimen was done by the physician and nurse using the patient's nameand medical record number. Estimated blood loss was minimal. A 20 mm polyp was found at 40 cm proximal to the anus. The polyp wassemi- sessile. The polyp was removed with a hot snare. The polyp was removed with a piecemealtechnique using a hot snare. Resection and retrieval were complete. Verification of patient identificationfor the specimen was done by the physician and nurse using the patient's name and medical recordnumber. Estimated blood loss was minimal. Multiple small-mouthed diverticula were found in the sigmoid colon. The exam was otherwise without abnormality on direct and retroflexionviews. Impression: - Preparation of the colon was poor. - One 8 mm polyp in the cecum, removed with a hotsnare. Resected and retrieved. - One 40 mm polyp in the ascending colon (notremoved) - One 10 mm polyp at 60 cm proximal to the anus,removed with a hot snare. Resected and retrieved. - One 8 mm polyp at 50 cm proximal to the anus,removed with a hot snare. Resected and retrieved. - One 20 mm polyp at 40 cm proximal to the anus,removed with a hot snare and removed piecemeal using a hot snare. Resected andretrieved. - Diverticulosis in the sigmoid colon. - The examination was otherwise normal on directand retroflexion views. Recommendation: - Await pathology results. - I will refer for endoscopic dissection of largeascending colon polyp. - Discharge patient to home. Willem Tinajero MD 10/15/2022 1:51:44 PM This report has been signed electronically. Ishaan Gomez MD [facility] documented in this encounter Visit Diagnoses Diagnosis Screen for colon cancer Special screening for malignant neoplasms, colon documented in this encounter Administered Medications Inactive Administered Medications - up to 3 most recent administrations Medication Order MAR Action Action Date Dose Rate Site isolyte-S pH 7.4 infusion Intravenous, at 100 mL/hr, Plasma-LYTE 148, isolyte-S, and isolyte-S pH 7.4 are considered equivalent - including for MAR barcode scanning., CONTINUOUS, Starting on Sat10/15/22 at 1300, Until Sat10/15/22 at 1904, Pre-Op Continue from Pre-Op 10/15/2022 1:00 PM EDT 100 mL/hr New Bag 10/15/2022 12:45 PM EDT 100 mL/hr documented in this encounter Active and Recently Administered Medications Times are shown in EDT. Continuous Medication Order 10/13/2022 10/14/2022 10/15/2022 isolyte-S pH 7.4 infusion Intravenous, at 100 mL/hr, Plasma-LYTE 148, isolyte-S, and isolyte-S pH 7.4 are considered equivalent - including for MAR barcode scanning., CONTINUOUS, Starting on Sat10/15/22 at 1300, Until Sat10/15/22 at 1904, Pre-Op 1245 (New Bag - Prov ider: Laura Medellin RN)1300 (Continue from Pre-Op - Provider: DARELL Levine)1339 (Anes Intra-Op Fluid - Provider: DARELL Levine) documented in this encounter Care Teams Highway Patrol Commander Relationship Specialty Start Date End Date Ishaan Gomez MD [address] [place] [address] [place] [address] PCP - General Family Medicine 10/12/22 documented as of this encounter"
--- OUTSIDE RECORDS SUMMARY | 2023-03-29 20:55 | External Medical Summary | Summary of Care ---
Author Name Unknown Organization [facility] Address [address] [place] [address] Phone [phone] Care Team Providers Care Batch Unit Treater Name Role Phone Ishaan Gomez MD Primary Care Provide r Reason for Visit * Reason Onset Date Comments Fall 12/24/2022 Elida calling f rom PTLamar Healy Encounter Details Date Type Department Care Team Description 12/24/2022 Telephone Family Medicine [address] [phone] Ishaan Gomez MD [address] [place] [address] [place] [address] Fall (Elida calling from PT. Niraj CARMEN) Allergies No known active allergiesdocumented as of this encounter (statuses as of 12/24/2022) Medications Medication Sig Dispensed Refills Start Date [...] Sleep. 30 Tablet 0 10/11/2022 Active Sutab 0356-298-637 MG Oral Tablet (Sodium Sulfate-Mag Sulfate-KCl) Take [...] as of this encounter (statuses as of 12/24/2022) Active Problems Problem Noted Date Hepatic steatosis 11/08/2022 Alcohol abuse 10/11/2022 Anxiety 10/11/2022 COPD, moderate 10/11/2022 Insomnia 10/11/2022 Generalized anxiety disorder 11/24/2010 Tobacco use disorder 11/25/2007 documented as of this encounter (statuses as of 12/24/2022) Resolved Problems Problem Noted Date Resolved Date Alcohol dependence 10/27/2010 10/29/2011 Overview: ICD-10 update of inactive term NO KNOWN PROBLEMS 10/10/2007 01/26/2019 documented as of this encounter (statuses as of 12/24/2022) Immunizations Name Administration Dates Next Due COVID-19 [...] Telephone Encounter - Ishaan Gomez MD - 12/24/2022 5:22 PM EDT Continue PT - if continues to have falls then clinic visit * Telephone Encounter - Valery García LPN - 12/24/2022 4:05 PM EDT Provider to address: message Reason for Call: No chief complaint on file. Contact: Telephone Call Contact Type: Information Outcome:HH Concerns Elida calling from PT Calling from: [facility] Report/Concerns of: Fall Symptoms: None. Narrative - FYI. Patient was walking yesterday, carrying a picture, knees buckled and she went flying. No injury. She almost fell 2 times today. Said she feels like her legs are getting weak. She diddo therapy. Participated. Took breaks, but did well. Generalized weakness. She does have a walker. Patient doesn't use it in the house. Feels she is good to go short distances and the PT does agree. Doesn't understand what is happening. Call back with any advice or orders at patients number [phone] Total Time including non face to face (minutes): 10 documented in this encounter Plan of Treatment Upcoming Encounters Date Type Specialty Care Team Description 01/03/2023 Office Visit Family Medicine Ishaan Gomez MD [address] [place] [address] [place] [address] 01/21/2023 Office Visit Ophthalmology [facility] Welsh, [address] [place] [address] 03/06/2023 Hospital Encounter Surgery Fátima Lopez MD [address] [place] [address] 03/06/2023 Surgery Surgery Fátima Lopez MD [address] [place] [address] Colonoscopy with Submucosal Dissection (ESD) Scheduled Procedures Name Priority Associated Diagnoses Date/Ti me Colonoscopy with Submucosal Dissection (ESD) History of colonic polyps 03/06/2023 8:33 AM EDT Health Maintenance Due Date Last Done Comments DISCUSS TOBACCO CESSATION (REFER TO SMARTSET #1151) 1950 DXA Scan 1950 Alpha-1 Antitrypsin 1970 Hepatitis C Screening 1970 Cologuard 1997 Fecal Occult Blood Test 1997 Sigmoidoscopy 1997 LUNG CANCER SCREENING - USE SMARTSET 09229 2002 Zoster Vaccines (1 of 2) 2002 [...] filedocumented as of this encounter Care Teams Batch Unit Treater Relationship Specialty Start Date End Date Ishaan Gomez MD [address] [place] [address] [place] [address] PCP - General Family Medicine 10/12/22 documented as of this encounter
--- OUTSIDE RECORDS SUMMARY | 2023-03-29 20:55 | External Medical Summary | Summary of Care ---
Author Name Unknown Organization [facility] Address [address] [place] [address] Phone [phone] Care Team Providers Care Packer And Carry Out Name Role Phone Ishaan Gomez MD Primary Care Provide r Reason for Visit * Reason Onset Date Comments Appointment 10/15/2022 Dissection of la rge ascending colon polyp. Encounter Details Date Type Department Care Team Description 10/15/2022 Telephone Gastroenterology, [facility] [address] [place] [address] Willem Tinajero MD [address] [place] [address] Appointment (Dissection of large ascending... Allergies No known active allergiesdocumented as of this encounter (statuses as of 11/07/2022) Medications Medication Sig Dispensed Refills Start Date [...] Sleep. 30 Tablet 0 10/11/2022 Active Sutab 6710-295-669 MG Oral Tablet (Sodium Sulfate-Mag Sulfate-KCl) Take according to colonoscopy prep instructions. 24 Tablet 0 11/07/2022 Active documented as of this encounter (statuses as of 11/07/2022) Active Problems Problem Noted Date Alcohol abuse 10/11/2022 Anxiety 10/11/2022 COPD, moderate 10/11/2022 Insomnia 10/11/2022 Generalized anxiety disorder 11/24/2010 Tobacco use disorder 11/25/2007 documented as of this encounter (statuses as of 11/07/2022) Resolved Problems Problem Noted Date Resolved Date Alcohol dependence 10/27/2010 10/29/2011 Overview: ICD-10 update of inactive term NO KNOWN PROBLEMS 10/10/2007 01/26/2019 documented as of this encounter (statuses as of 11/07/2022) Immunizations Name Administration Dates Next Due COVID-19 [...] as of this encounter Miscellaneous Notes * Addendum Note - Fátima Rosen MD - 11/07/2022 3:49 PM EDTAddended by: FÁTIMA ROSEN on: 11/07/2022 03:49 PM Modules accepted: Orders * Telephone Encounter - Fátima Rosen MD - 11/07/2022 3:49 PM EDT Script signed. * Addendum Note - Beka Hightower RN - 11/07/2022 9:28 AM EDTAddended by: BEKA HIGHTOWER on: 11/07/2022 09:28 AM Modules accepted: Orders * Telephone Encounter - Beka Hightower RN - 11/07/2022 9:27 AM EDT Called and spoke with Danny, the patients daughter. She is agreeable to the Sutab prep, advised this may cost 100-200$ as insurance typically doesn't cover the cost. They are aware, would still like it to be prescribed and they will speak with their pharmacy. Pended script. * Telephone Encounter - TIFFANIE Patel - 10/31/2022 8:34 AM EDT lmm * Telephone Encounter - Fátima Rosen MD - 10/31/2022 8:02 AM EDT We [...] call back. * Telephone Encounter - Fátima Rosen MD - 10/16/2022 8:21 AM EDT Please schedule colonoscopy with me at [facility] for ESD of colon polyp, time per average, next available. 2 days prep. * Telephone Encounter - TIFFANIE Patel - 10/16/2022 8:[address] Rosen, please review and advise * Telephone Encounter - Jocy Herreraanan - 10/15/2022 2:37 PM EDT Irena from post endo called to see about having patient scheduled in [place] with Jessica for Recommendation:- Await pathology results. - I will refer for endoscopic dissection of large ascending colon polyp. Patient will need a 2 day prep for this procedure. documented in this encounter Plan of Treatment Upcoming Encounters Date Type Specialty Care Team Description 11/16/2022 [facility], [facility] [address] [place] [address] 01/03/2023 Office Visit Family Medicine Ishaan Gomez MD [address] [place] [address] [place] [address] 03/06/2023 Hospital Encounter Surgery Fátima Rosen MD [address] [place] [address] 03/06/2023 Surgery Surgery Fátima Rosen MD [address] [place] [address] Colonoscopy with Submucosal Dissection (ESD) Scheduled Procedures [...] 1997 LUNG CANCER SCREENING - USE SMARTSET 34624 2002 Zoster Vaccines (1 of 2) 2002 Pneumococcal Vaccine: 65+ Years (2 - PCV) 06/27/2013 06/27/2012 Mammogram 03/01/2016 03/01/2015, 02/04, 02/17/2013, Additional history exists DTaP,Tdap,and Td Vaccines (2 - Td or Tdap) 02/22/2018 02/23/2008 Depression Screening, Annual for Pts 12 and Over 01/30/2020 01/29/2019 COVID-19 Vaccine (3 - Moderna series) 09/05/2020 07/11/2020, 06/13/2020 *COPD SEVERITY VERIFIED BY PFT 10/13/2022 Influenza Vaccine (FLU shot) (#1) 2023 O2 [...] filedocumented as of this encounter Care Teams Packer And Carry Out Relationship Specialty Start Date End Date Ishaan Gomez MD [address] [place] [address] [place] [address] PCP - General Family Medicine 10/12/22 documented as of this encounter
--- OUTSIDE RECORDS SUMMARY | 2023-03-29 20:55 | External Medical Summary | Summary of Care ---
Author Name Unknown Organization [facility] Address [address] [place] [address] Phone [phone] Care Team Providers Care Dumpster Operator Name Role Phone Ishaan Gomez MD Primary Care Provide r Reason for Visit * Reason Comments Pulmonary Function Test Spirogram with ahmet carcamo Encounter Details Date Type Department Care Team Description 11/16/2022 PulmDiagnostic Ancillary [address] [place] [address] [place], [facility] [address] [place] [address] COPD, moderate (HCC)* Allergies No known active allergiesdocumented as of this encounter (statuses as of 11/16/2022) Medications Medication Sig Dispensed Refills Start Date [...] Sleep. 30 Tablet 0 10/11/2022 Active Sutab 6443-812-330 MG Oral Tablet (Sodium Sulfate-Mag Sulfate-KCl) Take according to colonoscopy prep instructions. 24 Tablet 0 11/07/2022 Active Hospital, Clinic, or Other Facility Administered Medication Ordered Dose Route Frequency Start Date End Date Status Albuterol Sulfate (Proventil) (2.5 MG/3ML) 0.083% inhalation solution 2.5 mgIndications:COPD, moderate (HCC) 2.5 mg NEBULIZER ONCE PRN 10/11/2022 10/11/2023 Active documented as of this encounter (statuses as of 11/16/2022) Active Problems Problem Noted Date Hepatic steatosis 11/08/2022 Alcohol abuse 10/11/2022 Anxiety 10/11/2022 COPD, moderate 10/11/2022 Insomnia 10/11/2022 Generalized anxiety disorder 11/24/2010 Tobacco use disorder 11/25/2007 documented as of this encounter (statuses as of 11/16/2022) Resolved Problems Problem Noted Date Resolved Date Alcohol dependence 10/27/2010 10/29/2011 Overview: ICD-10 update of inactive term NO KNOWN PROBLEMS 10/10/2007 01/26/2019 documented as of this encounter (statuses as of 11/16/2022) Immunizations Name Administration Dates Next Due COVID-19 [...] Sign Reading Time Taken Comments Blood Pressure - - Pulse - - Temperature - - Respiratory Rate - - Oxygen Saturation - - Inhaled Oxygen Concentration - - Weight 45.8 kg (100 lb 15.5 oz) 11/16/2022 1:16 PM EDT Height 150 cm (4' 11.06") 11/16/2022 1:16 PM EDT Body Mass Index 20.36 11/16/2022 1:16 PM EDT documented in this encounter Nursing Notes * Thuy Harris RRT - 11/16/2022 1:19 PM EDT Donna Brooke was identified by name, Date of : (1950), and . Vitals were obtained for testing. Body mass index is 20.36 kg/m. Pt has a 1 ppd for 53 years smoking history. Pt is a retired pharmacy tech. Spirometry performed before and after a slow volume nebulizer treatment of 0.5ml of albuterol in 3 ml of NSS. Administrations This Visit Albuterol Sulfate (Proventil) (2.5 MG/3ML) 0.083% inhalation solution 2.5 mg Admin Date 11/16/2022 Action Given Dose 2.5 mg Route Nebulizer Administered By Thuy Harris RRT documented in this encounter Plan of Treatment Upcoming Encounters Date Type Specialty Care Team Description 01/03/2023 Office Visit Family Medicine Ishaan Gomez MD [address] [place] [address] [place] [address] 03/06/2023 Hospital Encounter Surgery Fátima Lopez MD [address] [place] [address] 03/06/2023 Surgery Surgery Fátima Lopez MD [address] [place] [address] Colonoscopy with Submucosal Dissection (ESD) Scheduled Procedures [...] 1997 LUNG CANCER SCREENING - USE SMARTSET 79868 2002 Zoster Vaccines (1 of 2) 2002 [...] this encounter Visit Diagnoses Diagnosis COPD, moderate (HCC)- Primary Chronic airway obstruction, not elsewhere classified History of colonic polyps Personal history of colonic polyps documented in this encounter Administered Medications Active Administered Medications - up to 3 most recent administrations Medication Order MAR Action Action Date Dose Rate Site Albuterol Sulfate (Proventil) (2.5 MG/3ML) 0.083% inhalation solution 2.5 mg 2.5 mg, Nebulizer, ONCE PRN Other, Testing, Starting on Suni 10/11/22 at 1634, Until Sat10/11/23 at 1633, For 365 days, Only one type of albuterol product should be administered (Nebulizer or Inhaler). Please select and document on the appropriate albuterol product order. Given 11/16/2022 1:03 PM EDT 2.5 mg documented in this encounter Care Teams Dumpster Operator Relationship Specialty Start Date End Date Ishaan Gomez MD [address] [place] [address] [place] [address] PCP - General Family Medicine 10/12/22 documented as of this encounter
--- OUTSIDE RECORDS SUMMARY | 2023-03-29 20:55 | External Medical Summary | Summary of Care ---
Author Name Unknown Organization [facility] Address [address] [place] [address] Phone [phone] Care Team Providers Care Spinning Frame Tender Name Role Phone Ishaan Gomez MD Primary Care Provide r Reason for Visit * Reason Onset Date Comments Appointment 10/15/2022 Dissection of la rge ascending colon polyp. Encounter Details Date Type Department Care Team Description 10/15/2022 Telephone Gastroenterology, [facility] [address] [place] [address] Willem Tinajero MD [address] [place] [address] Appointment (Dissection of large ascending... Allergies No [...] Miscellaneous Notes * Telephone Encounter - TIFFANIE Patel - 10/16/2022 8:[address] Lopez, please review and advise * Telephone Encounter - Jocy Foley - 10/15/2022 2:37 PM EDT Irena from post end[facility] called to see about having patient scheduled in [place] with Jessica for Recommendation:- Await pathology results. - I will refer for endoscopic dissection of large ascending colon polyp. Patient will need a 2 day prep for this procedure. documented in this encounter Plan of Treatment Upcoming Encounters Date Type Specialty Care Team Description 11/01/2022 Office Visit Family Medicine Ishaan Gomez MD [address] [place] [address] [place] [address] 11/16/2022 [facility], [facility] [address] [facility] [place] [address] Health Maintenance Due Date Last Done Comments DISCUSS TOBACCO CESSATION (REFER TO SMARTSET #3291) 1950 DXA Scan 1950 Alpha-1 Antitrypsin 1970 Hepatitis C Screening 1970 Cologuard 1997 Fecal Occult Blood Test 1997 Sigmoidoscopy 1997 LUNG CANCER SCREENING - USE SMARTSET 19484 2002 Zoster Vaccines (1 of 2) 2002 [...] COPD 10/16/2023 10/15/2022 Lipid Panel 10/13/2027 10/12/2022, 0305/2022, 01/26/2008 Colonoscopy 10/15/2032 10/15/2022 Colorectal Cancer Screening [...] filedocumented as of this encounter Care Teams Spinning Frame Tender Relationship Specialty Start Date End Date Ishaan Gomez MD [address] [place] [address] [place] [address] PCP - General Family Medicine 10/12/22 documented as of this encounter
--- OUTSIDE RECORDS SUMMARY | 2023-03-29 20:55 | External Medical Summary | Summary of Care ---
Author Name Unknown Organization [facility] Address [address] [place] [address] Phone [phone] Care Team Providers Care Conveyor Man Name Role Phone Ishaan Gomez MD Primary Care Provide r Reason for Visit * Reason Onset Date Comments Appointment 10/15/2022 Dissection of la rge ascending colon polyp. Encounter Details Date Type Department Care Team Description 10/15/2022 Telephone Gastroenterology, [facility] [address] [place] [address] Willem Tinaejro MD [address] [place] [address] Appointment (Dissection of large ascending... Allergies No [...] Sleep. 30 Tablet 0 10/11/2022 Active Sutab [id number] MG Oral Tablet (Sodium Sulfate-Mag Sulfate-KCl) Take [...] encounter Miscellaneous Notes * Telephone Encounter - Beka Hightower RN - 11/07/2022 4:07 PM EDT Called patients daughter Danny and informed. * Addendum Note - Fátima Rosen MD [...] EDT Please schedule colonoscopy with me at [facility] for ESD of colon polyp, time per average, next available. 2 days prep. * Telephone Encounter - TIFFANIE Patel - 10/16/2022 8:[address] Rosen, please review and advise * Telephone Encounter - Jocy Foley - 10/15/2022 2:37 PM EDT Irena from [facility] end[facility] called to see about having patient scheduled in [place] with Jessica for Recommendation:- Await pathology results. - I will refer for endoscopic dissection of large ascending colon polyp. Patient will need a 2 day prep for this procedure. documented in this encounter Plan of Treatment Upcoming Encounters Date Type Specialty Care Team Description 11/16/2022 [facility], [facility] [address] [address] 01/03/2023 Office Visit Family Medicine Ishaan Gomez MD [address] [place] [address] [place] [address] 03/06/2023 Hospital Encounter Surgery Fátima Rosen MD [address] [place] [address] 03/06/2023 Surgery Surgery Fátima Rosen MD [address] [address] Colonoscopy with Submucosal Dissection (ESD) Scheduled Procedures [...] 1997 LUNG CANCER SCREENING - USE SMARTSET 86454 2002 Zoster Vaccines (1 of 2) 2002 [...] filedocumented as of this encounter Care Teams Conveyor Man Relationship Specialty Start Date End Date Ishaan Gomez MD [address] [place] [address] [place] [address] PCP - General Family Medicine 10/12/22 documented as of this encounter
--- OUTSIDE RECORDS SUMMARY | 2023-03-29 20:55 | External Medical Summary | Summary of Care ---
Author Name Unknown Organization [facility] Address [address] [place] [address] Phone [phone] Care Team Providers Care Communications Supervisor Name Role Phone Ishaan Gomez MD Primary Care Provide r Reason for Visit * Reason Onset Date Comments Appointment 10/15/2022 Dissection of la rge ascending colon polyp. Encounter Details Date Type Department Care Team Description 10/15/2022 Telephone Gastroenterology, [facility] [address] [place] [address] Willem Tinajero MD [address] [place] [address] Appointment (Dissection of large ascending... Allergies No known active allergiesdocumented as of this encounter (statuses as of 10/24/2022) Medications Medication Sig Dispensed Refills Start Date [...] as of this encounter (statuses as of 10/24/2022) Active Problems Problem Noted Date Alcohol abuse 10/11/2022 Anxiety 10/11/2022 COPD, moderate 10/11/2022 Insomnia 10/11/2022 Generalized anxiety disorder 11/24/2010 Tobacco use disorder 11/25/2007 documented as of this encounter (statuses as of 10/24/2022) Resolved Problems Problem Noted Date Resolved Date Alcohol dependence 10/27/2010 10/29/2011 Overview: ICD-10 update of inactive term NO KNOWN PROBLEMS 10/10/2007 01/26/2019 documented as of this encounter (statuses as of 10/24/2022) Immunizations Name Administration Dates Next Due COVID-19 [...] EDT Please schedule colonoscopy with me at [facility] for ESD of colon polyp, time per average, next available. 2 days prep. * Telephone Encounter - TIFFANIE Patel - 10/16/2022 8:[address] Lopez, please review and advise * Telephone Encounter - Jocy Foley - 10/15/2022 2:37 PM EDT Irena from post end[facility] called to see about having patient scheduled in [place] with Jessica for Recommendation:- Await pathology results. - I will refer for endoscopic dissection of large ascending colon polyp. Patient will need a 2 day prep for this procedure. documented in this encounter Plan of Treatment Upcoming Encounters Date Type Specialty Care Team Description 11/01/2022 Office Visit Family Medicine Ishaan Gomez MD [address] [place] [address] [place] [address] 11/16/2022 [facility], [facility] [address] [place] [address] 03/06/2023 Hospital Encounter Surgery Fátima Lopez MD [address] [place] [address] 03/06/2023 Surgery Surgery Fátima Lopez MD [address] [place] [address] Colonoscopy with Submucosal Dissection (ESD) Scheduled Procedures [...] 1997 LUNG CANCER SCREENING - USE SMARTSET 68948 2002 Zoster Vaccines (1 of 2) 2002 [...] filedocumented as of this encounter Care Teams Communications Supervisor Relationship Specialty Start Date End Date Ishaan Gomez MD [address] [place] [address] [place] [address] PCP - General Family Medicine 10/12/22 documented as of this encounter
--- OUTSIDE RECORDS SUMMARY | 2023-03-29 20:55 | External Medical Summary | Summary of Care ---
Author Name Unknown Organization [facility] Address [address] [place] [address] Phone [phone] Care Team Providers Care Financial Planning Consultant Name Role Phone Ishaan Gomez MD Primary Care Provide r Reason for Visit * Reason Onset Date Comments Appointment 10/15/2022 Dissection of la rge ascending colon polyp. Encounter Details Date Type Department Care Team Description 10/15/2022 Telephone Gastroenterology, [facility] [address] [place] [address] Willem Tinajero MD [address] [place] [address] Appointment (Dissection of large ascending... Allergies No [...] EDT lmm * Telephone Encounter - Fátima Lopez MD [...] EDT Please schedule colonoscopy with me at [facility] for ESD of colon polyp, time per average, next available. 2 days prep. * Telephone Encounter - TIFFANIE Patel - 10/16/2022 8:[address] Lopez, please review and advise * Telephone Encounter - Jocy Foley - 10/15/2022 2:37 PM EDT Irena from post end[facility] called to see about having patient scheduled in [place] with Jessica for Recommendation:- Await pathology results. - I will refer for endoscopic dissection of large ascending colon polyp. Patient will need a 2 day prep for this procedure. documented in this encounter Plan of Treatment Upcoming Encounters Date Type Specialty Care Team Description 11/01/2022 Office Visit Family Medicine Ishaan Gomez MD [address] [place] [address] [place] [address] 11/16/2022 [facility], t [address] [place] [address] 03/06/2023 Hospital Encounter Surgery Fátima Lopez MD [address] [place] [address] 03/06/2023 Surgery Surgery Fátima Lopez MD [address] [place] [address] Colonoscopy with Submucosal Dissection (ESD) Scheduled Procedures [...] 1997 LUNG CANCER SCREENING - USE SMARTSET 73223 2002 Zoster Vaccines (1 of 2) 2002 [...] filedocumented as of this encounter Care Teams Financial Planning Consultant Relationship Specialty Start Date End Date Ishaan Gomez MD [address] [place] [address] [place] [address] PCP - General Family Medicine 10/12/22 documented as of this encounter
--- OUTSIDE RECORDS SUMMARY | 2023-03-29 20:55 | External Medical Summary | Summary of Care ---
Author Name Unknown Organization [facility] Address [address] [place] [address] Phone [phone] Care Team Providers Care Spd Manager Name Role Phone Ishaan Gomez MD Primary Care Provide r Reason for Visit * Reason Onset Date Comments Fall 12/24/2022 Kevin calling f rom PTLamar Healy Encounter Details Date Type Department Care Team Description 12/24/2022 Telephone Family Medicine [address] [address] Ishaan Gomez MD [address] [place] [address] [place] [address] Fall (Kevin calling from PT. Niraj CARMEN) Allergies No known active allergiesdocumented as of this encounter (statuses as of 12/25/2022) Medications Medication Sig Dispensed Refills Start Date [...] Sleep. 30 Tablet 0 10/11/2022 Active Sutab [id number] MG Oral Tablet (Sodium Sulfate-Mag Sulfate-KCl) Take [...] as of this encounter (statuses as of 12/25/2022) Active Problems Problem Noted Date Hepatic steatosis 11/08/2022 Alcohol abuse 10/11/2022 Anxiety 10/11/2022 COPD, moderate 10/11/2022 Insomnia 10/11/2022 Generalized anxiety disorder 11/24/2010 Tobacco use disorder 11/25/2007 documented as of this encounter (statuses as of 12/25/2022) Resolved Problems Problem Noted Date Resolved Date Alcohol dependence 10/27/2010 10/29/2011 Overview: ICD-10 update of inactive term NO KNOWN PROBLEMS 10/10/2007 01/26/2019 documented as of this encounter (statuses as of 12/25/2022) Immunizations Name Administration Dates Next Due COVID-19 [...] Encounter - Rose Marie Valverde LPN - 12/25/2022 2:31 PM EDT Provider to address: Pt and kevin notified, both verbalized understanding. Reason for Call: Fall (Kevin calling from PT. Niraj [facility]) Contact: Telephone Call Contact Type: Follow-up Outcome: Total Time including non face to face (minutes): 10 * Telephone Encounter - Ishaan Gomez MD - 12/24/2022 5:22 PM EDT Continue PT - if continues to have falls then clinic visit * Telephone Encounter - Valery García LPN - 12/24/2022 4:05 PM EDT Provider to address: message Reason for Call: No chief complaint on file. Contact: Telephone Call Contact Type: Information Outcome:HH Concerns Kevin calling from PT Calling from: Niraj Report/Concerns of: Fall Symptoms: None. Narrative - [...] any advice or orders at patients number [phone] Total Time including non face to face (minutes): 10 documented in this encounter Plan of Treatment Upcoming Encounters Date Type Specialty Care Team Description 01/03/2023 Office Visit Family Medicine Ishaan Gomez MD [address] [place] [address] [place] [address] 01/21/2023 Office Visit Ophthalmology [facility], [address] [place] [address] 03/06/2023 Hospital Encounter Surgery Fátima Lopez MD [address] [place] [address] 03/06/2023 Surgery Surgery Fátima Lopez MD [address] [place] [address] Colonoscopy with Submucosal Dissection (ESD) Scheduled Procedures Name Priority Associated Diagnoses Date/Ti mo Colonoscopy with Submucosal Dissection (ESD) History of colonic polyps 03/06/2023 8:33 AM EDT Health Maintenance Due Date Last Done Comments DISCUSS TOBACCO CESSATION (REFER TO SMARTSET #3291) 1950 DXA Scan 1950 Alpha-1 Antitrypsin 1970 Hepatitis C Screening 1970 Cologuard 1997 Fecal Occult Blood Test 1997 Sigmoidoscopy 1997 LUNG CANCER SCREENING - USE SMARTSET 63460 2002 Zoster Vaccines (1 of 2) 2002 [...] filedocumented as of this encounter Care Teams Spd Manager Relationship Specialty Start Date End Date Ishaan Gomez MD [address] [place] [address] [place] [address] PCP - General Family Medicine 10/12/22 documented as of this encounter
--- OUTSIDE RECORDS SUMMARY | 2023-03-29 20:55 | External Medical Summary | Summary of Care ---
Author Name Unknown Organization [facility] Address [address] [place] [address] Phone [phone] Care Team Providers Care Boatwright Name Role Phone Ishaan Gomez MD Primary Care Provide r Reason for Visit * Reason Comments Outpatient Testing Encounter Details Date Type Department Care Team Description 11/01/2022 Laboratory Laboratory [address] [place] [address] [place] [address] Arrived Allergies No known active allergiesdocumented as of [...] on file documented as of this encounter Plan of Treatment Upcoming Encounters Date Type Specialty Care Team Description 11/05/2022 Imaging Radiology 11/16/2022 [facility], [facility] [address] [place] [address] 01/03/2023 Office Visit Family Medicine Ishaan Gomez MD [address] [place] [address] [place] [address] 03/06/2023 Hospital Encounter Surgery Fátima Lopez MD [address] [place] [address] 03/06/2023 Surgery Surgery Fátima Lopez MD [address] [place] [address] Colonoscopy with Submucosal Dissection (ESD) Scheduled Procedures [...] 1997 LUNG CANCER SCREENING - USE SMARTSET 50441 2002 Zoster Vaccines (1 of 2) 2002 [...] Panel 10/13/2027 10/12/2022, 0305/2022, 01/26/2008 Colonoscopy 10/15/2032 10/15/2022, 10/15/2022 Colorectal Cancer [...] filedocumented as of this encounter Care Teams Boatwright Relationship Specialty Start Date End Date Ishaan Gomez MD [address] [place] [address] [place] [address] PCP - General Family Medicine 10/12/22 documented as of this encounter
--- OUTSIDE RECORDS SUMMARY | 2023-03-29 20:55 | External Medical Summary ---
Author Name Unknown Address Unknown Organization [id number]:[facility] - [address] [place] [facility] [place] [address] Laboratory Report Ordering Provider Test Date Status JUDIE VILLANUEVA 11/01/2022 16:31:41 Kamilah l Observation Date Value Abnormality Reference (Units ) Status BUN 11/01/2022 16:31:41 5 Below low normal 6-20 (mg/dL) Final Creatinine 11/01/2022 16:31:41 0.7 0.5-1.0 (mg/dL) Final Glomerular filtration rate/1.73 sq M.predicted [Volume Rate/Area] in Serum, Plasma or Blood by Creatinine-based formula (CKD-EPI) 11/01/2022 16:31:41 >90 >=60 (mL/min) Final eGFR is calculated based on the CKD-EPI 2020 equation SODIUM 11/01/2022 16:31:41 136 135-146 (m mol/L) Final Potassium 11/01/2022 16:31:41 3.2 Below low normal 3.5 -5.1 (mmol/L) Final Cl 11/01/2022 16:31:41 96 Below low normal 98- 107 (mmol/L) Final CO2 11/01/2022 16:31:41 25 22-32 (mmo l/L) Final Anion gap 11/01/2022 16:31:41 15 7-15 (mmol /L) Final Glucose 11/01/2022 16:31:41 91 70-120 (mg /dL) Final Albumin 11/01/2022 16:31:41 3.2 Below low normal 3.8 -5.0 (g/dL) Final AST (Aspartate aminotransferase) 11/01/2022 16:31:41 28 10-35 (U/L) Fin al Alk Phos 11/01/2022 16:31:41 152 Above high normal 35 -130 (U/L) Final Bilirubin, Total 11/01/2022 16:31:41 0.3 <=1 .2 (mg/dL) Final Calcium 11/01/2022 16:31:41 8.3 Below low normal 8.4 -10.2 (mg/dL) Final Protein 11/01/2022 16:31:41 6.4 6.0-8.3 (g /dL) Final ALT (Alanine aminotransferase) 11/01/2022 16:31:41 18 10-35 (U/L) Hao aviles Performing Location [facility] - [address] [facility] [address]
--- OUTSIDE RECORDS SUMMARY | 2023-03-29 20:55 | External Medical Summary | Summary of Care ---
Author Name Unknown Organization [facility] Address [address] [place] [address] Phone [phone] Care Team Providers Care Msws Name Role Phone Ishaan Gomez MD Primary Care Provide r Reason for Visit * Reason Onset Date Comments Med Request 11/19/2022 Encounter Details Date Type Department Care Team Description 11/19/2022 Telephone Family Medicine [address] [place] [address] Ishaan Gomez MD [address] [place] [address] [place] [id number] Med Request Allergies No known active allergiesdocumented [...] Sleep. 30 Tablet 0 10/11/2022 Active Sutab 9422-584-375 MG Oral Tablet (Sodium Sulfate-Mag Sulfate-KCl) Take [...] She would like to quit. Please advise: [phone] documented in this encounter Plan of Treatment Upcoming Encounters Date Type Specialty Care Team Description 01/03/2023 Office Visit Family Medicine Ishaan Gomez MD [address] [place] [address] [place] [address] 03/06/2023 Hospital Encounter Surgery Fátima Lopez MD [address] [facility] [place] [address] 03/06/2023 Surgery Surgery Fátima Lopez MD [address] [place] [address] Colonoscopy with Submucosal Dissection (ESD) Scheduled Procedures Name Priority Associated Diagnoses Date/Ti me Colonoscopy with Submucosal Dissection (ESD) History of colonic polyps 03/06/2023 8:33 AM EDT Health Maintenance Due Date Last Done Comments DISCUSS TOBACCO CESSATION (REFER TO SMARTSET #8711) 1950 DXA Scan 1952 Alpha-1 Antitrypsin 1970 Hepatitis C Screening 1970 Cologuard 1997 Fecal Occult Blood Test 1997 Sigmoidoscopy 1997 LUNG CANCER SCREENING - USE SMARTSET 33519 2002 Zoster Vaccines (1 of 2) 2002 [...] polyps documented in this encounter Care Teams Msws Relationship Specialty Start Date End Date Ishaan Gomez MD [address] [place] [address] [place] [address] PCP - General Family Medicine 10/12/22 documented as of this encounter
--- OUTSIDE RECORDS SUMMARY | 2023-03-29 20:55 | External Medical Summary | Summary of Care ---
Author Name Unknown Organization [facility] Address [address] [place] [address] Phone [phone] Care Team Providers Care Food Safety Scientist Name Role Phone Ishaan Gomez MD Primary Care Provide r Reason for Visit * Reason Onset Date Comments Appointment 10/15/2022 Dissection of la rge ascending colon polyp. Encounter Details Date Type Department Care Team Description 10/15/2022 Telephone Gastroenterology, [facility] [address] [place] [address] Willem Tinajero MD [address] [place] [address] Appointment (Dissection of large ascending... Allergies No [...] EDT Please schedule colonoscopy with me at [facility] for ESD of colon polyp, time per average, next available. 2 days prep. * Telephone Encounter - TIFFANIE Patel - 10/16/2022 8:[address] Lopez, please review and advise * Telephone Encounter - Jocy Folye - 10/15/2022 2:37 PM EDT Irena from [facility] called to see about having patient scheduled in [place] with Jessica for Recommendation:- Await pathology results. - I will refer for endoscopic dissection of large ascending colon polyp. Patient will need a 2 day prep for this procedure. documented in this encounter Plan of Treatment Upcoming Encounters Date Type Specialty Care Team Description 11/01/2022 Office Visit Family Medicine Ishaan Gomez MD [address] [place] [address] [place] [phone] 11/16/2022 [facility], [facility] [address] [facility] [place] [address] Health Maintenance Due Date Last Done Comments DISCUSS TOBACCO CESSATION (REFER TO SMARTSET #3291) 1950 DXA Scan 1952 Alpha-1 Antitrypsin 1970 Hepatitis C Screening 1970 Cologuard 1997 Fecal Occult Blood Test 1997 Sigmoidoscopy 1997 LUNG CANCER SCREENING - USE SMARTSET 58340 2002 Zoster Vaccines (1 of 2) 2002 [...] filedocumented as of this encounter Care Teams Food Safety Scientist Relationship Specialty Start Date End Date Ishaan Gomez MD [address] [place] [address] [place] [address] PCP - General Family Medicine 10/12/22 documented as of this encounter
--- OUTSIDE RECORDS SUMMARY | 2023-03-29 20:55 | External Medical Summary | Summary of Care ---
Author Name Unknown Organization [facility] Address [address] [place] [address] Phone [phone] Care Team Providers Care Wire Drawing Machine Tender Name Role Phone Ishaan Gomez MD Primary Care Provide r Reason for Visit * Reason Onset Date Comments Appointment 10/15/2022 Dissection of la rge ascending colon polyp. Encounter Details Date Type Department Care Team Description 10/15/2022 Telephone Gastroenterology, [facility] [address] [place] [address] Willem Tinajero MD [address] [place] [address] Appointment (Dissection of large ascending... Allergies No known active allergiesdocumented as of this encounter (statuses as of 10/30/2022) Medications Medication Sig Dispensed Refills Start Date [...] as of this encounter (statuses as of 10/30/2022) Active Problems Problem Noted Date Alcohol abuse 10/11/2022 Anxiety 10/11/2022 COPD, moderate 10/11/2022 Insomnia 10/11/2022 Generalized anxiety disorder 11/24/2010 Tobacco use disorder 11/25/2007 documented as of this encounter (statuses as of 10/30/2022) Resolved Problems Problem Noted Date Resolved Date Alcohol dependence 10/27/2010 10/29/2011 Overview: ICD-10 update of inactive term NO KNOWN PROBLEMS 10/10/2007 01/26/2019 documented as of this encounter (statuses as of 10/30/2022) Immunizations Name Administration Dates Next Due COVID-19 [...] EDT Please schedule colonoscopy with me at [facility] for ESD of colon polyp, time per average, next available. 2 days prep. * Telephone Encounter - TIFFANIE Patel - 10/16/2022 8:[address] Lopez, please review and advise * Telephone Encounter - Jocy Foley - 10/15/2022 2:37 PM EDT Irena from [facility] called to see about having patient scheduled in [place] with Jessica for Recommendation:- Await pathology results. - I will refer for endoscopic dissection of large ascending colon polyp. Patient will need a 2 day prep for this procedure. documented in this encounter Plan of Treatment Upcoming Encounters Date Type Specialty Care Team Description 11/01/2022 Office Visit Family Medicine Ishaan Gomez MD [address] [place] [address] [place] [address] 11/16/2022 [facility] [address] [place] [address] 03/06/2023 Hospital Encounter Surgery Fátima Lopez MD [address] [place] [address] 03/06/2023 Surgery Surgery Fátima Lopez MD [address] [place] [address] Colonoscopy with Submucosal Dissection (ESD) Scheduled Procedures Name Priority Associated Diagnoses Date/Ti me Colonoscopy with Submucosal Dissection (ESD) History of colonic polyps 03/06/2023 9:14 AM EDT Health Maintenance Due Date Last Done Comments DISCUSS TOBACCO CESSATION (REFER TO SMARTSET #7131) 1950 DXA Scan 1952 Alpha-1 Antitrypsin 1970 Hepatitis C Screening 1970 Cologuard 1997 Fecal Occult Blood Test 1997 Sigmoidoscopy 1997 LUNG CANCER SCREENING - USE SMARTSET 31034 2002 Zoster Vaccines (1 of 2) 2002 [...] filedocumented as of this encounter Care Teams Wire Drawing Machine Tender Relationship Specialty Start Date End Date Ishaan Gomez MD [address] [place] [address] [place] [address] PCP - General Family Medicine 10/12/22 documented as of this encounter
--- OUTSIDE RECORDS SUMMARY | 2023-03-29 20:55 | External Medical Summary | Summary of Care ---
Author Name Unknown Organization [facility] Address [address] [place] [address] Phone [phone] Care Team Providers Care Social Media Intern Name Role Phone Ishaan Gomez MD Primary Care Provide r Reason for Visit * Reason Comments eRx-Medication Refill Encounter Details Date Type Department Care Team Description 01/20/2023 Refill Family Medicine [address] [address] Ishaan Gomez MD [address] [place] [address] [place] [address] COPD, moderate (HCC) Allergies No known active [...] Sleep. 30 Tablet 0 3 Active Sutab 3578-943-285 MG Oral Tablet (Sodium Sulfate-Mag Sulfate-KCl) Take [...] Encounters Date Type Specialty Care Team Description 03/06/2023 Hospital Encounter Surgery Fátima Lopez MD [address] [place] [address] 03/06/2023 Surgery Surgery Fátima Lopez MD [address] [place] [address] Colonoscopy with Submucosal Dissection (ESD) 04/08/2023 Office Visit Family Medicine Ishaan Gomez MD [address] [place] [address] [place] [address] Scheduled Procedures Name Priority Associated Diagnoses Date/Ti me Colonoscopy with Submucosal Dissection (ESD) History of colonic polyps 03/06/2023 8:33 AM EDT Health Maintenance Due Date Last Done Comments DISCUSS TOBACCO CESSATION (REFER TO SMARTSET #1161) 1950 DXA Scan 1952 Alpha-1 Antitrypsin 1970 Hepatitis C Screening 1970 Cologuard 1997 Fecal Occult Blood Test 1997 Sigmoidoscopy 1997 LUNG CANCER SCREENING - USE SMARTSET 68397 2002 Zoster Vaccines (1 of 2) 2002 [...] polyps documented in this encounter Care Teams Social Media Intern Relationship Specialty Start Date End Date Ishaan Gomez MD [address] [place] [address] [place] [phone] PCP - General Family Medicine 10/12/22 documented as of this encounter
--- OUTSIDE RECORDS SUMMARY | 2023-03-29 20:55 | External Medical Summary | Summary of Care ---
Author Name Unknown Organization [facility] Address [address] [place] [address] Phone [phone] Care Team Providers Care Dermatopathologist Name Role Phone Ishaan Gomez MD Primary Care Provide r Reason for Visit * Reason Onset Date Comments Appointment 10/15/2022 Dissection of la rge ascending colon polyp. Encounter Details Date Type Department Care Team Description 10/15/2022 Telephone Gastroenterology, [facility] [address] [place] [address] Willem Tinajero MD [address] [place] [address] Appointment (Dissection of large ascending... Allergies No [...] encounter Miscellaneous Notes * Addendum Note - Beka Hightower RN [...] colonoscopy with me at [facility] for ESD of colon polyp, time per average, next available. 2 days prep. * Telephone Encounter - TIFFANIE Patel - 10/16/2022 8:[address] Lopez, please review and advise * Telephone Encounter - Jocy Foley - 10/15/2022 2:37 PM EDT Irena from [facility] called to see about having patient scheduled in [place] with Jessica for Recommendation:- Await pathology results. - I will refer for endoscopic dissection of large ascending colon polyp. Patient will need a 2 day prep for this procedure. documented in this encounter Plan of Treatment Upcoming Encounters Date Type Specialty Care Team Description 11/16/2022 [facility] [address] [facility] [place] [address] 01/03/2023 Office Visit Family Medicine Ishaan Gomez MD [address] [place] [address] [place] [address] 03/06/2023 Hospital Encounter Surgery Fátima Lopez MD [address] [place] [address] 03/06/2023 Surgery Surgery Fátima Lopez MD [address] [place] [address] Colonoscopy with Submucosal Dissection (ESD) Scheduled Procedures [...] 1997 LUNG CANCER SCREENING - USE SMARTSET 22416 2002 Zoster Vaccines (1 of 2) 2002 [...] filedocumented as of this encounter Care Teams Dermatopathologist Relationship Specialty Start Date End Date Ishaan Gomez MD [address] [place] [address] [place] [phone] PCP - General Family Medicine 10/12/22 documented as of this encounter
--- OUTSIDE RECORDS SUMMARY | 2023-03-29 20:55 | External Medical Summary | Summary of Care ---
Author Name Unknown Organization [facility] Address [address] [place] [address] Phone [phone] Care Team Providers Care Shadow Graph Weight Operator Name Role Phone Ishaan Gomez MD Primary Care Provide r Reason for Visit * Reason Onset Date Comments Health Maintenance 10/17/2022 Encounter Details Date Type Department Care Team Description 10/17/2022 Telephone Family Medicine [address] [place] [address] Ishaan Gomez MD [address] [place] [address] [place] [phone] Health Maintenance Allergies No known active allergiesdocumented as of [...] encounter Miscellaneous Notes * Telephone Encounter - Kimberlyn Reaves LPN - 10/17/2022 10:57 AM EDT Care Gaps Comprehensive Care Outreach Last Office/Telemedicine Visit: 10/11/2022 (in office), Visit date not found (telemedicine) Next Office Visit: 11/01/2022 Hemoglobin AIC Results: Lab Results Component Value Date/Time HEMOGLOBIN A1C - [facility] 4.7 10/12/2022 01:26 PM Reviewed Health Maintenance below: Health Maintenance Topic Date Due DXA Scan Never done DISCUSS TOBACCO CESSATION (REFER TO SMARTSET #2220) Never done Alpha-1 Antitrypsin Never done Hepatitis C Screening Never done LUNG CANCER SCREENING - USE SMARTSET 37280 Never done Zoster Vaccines (1 of 2) Never done Pneumococcal Vaccine: 65+ Years (2 - PCV) 06/27/2013 Mammogram 03/01/2016 DTaP,Tdap,and Td Vaccines (2 - Td or Tdap) 02/22/2018 Depression Screening, Annual for Pts 12 and Over 01/30/2020 COVID-19 Vaccine (3 - Moderna series) 09/05/2020 *COPD SEVERITY VERIFIED BY PFT Never done Influenza Vaccine (FLU shot) (Season Ended) 2023 dexa declined Mamm declined Care Gap Outreach Action Taken: Spoke to patient documented in this encounter Plan of Treatment Upcoming Encounters Date Type Specialty Care Team Description 11/01/2022 Office Visit Family Medicine Ishaan Gomez MD [address] [place] [address] [place] [address] 11/16/2022 [facility] [place] [address] 03/06/2023 Hospital Encounter Surgery Fáitma Lopez MD [address] [place] [address] 03/06/2023 Surgery Surgery Fátima Lopez MD [address] [place] [address] Colonoscopy with Submucosal Dissection (ESD) Scheduled Procedures [...] 1997 LUNG CANCER SCREENING - USE SMARTSET 82388 2002 Zoster Vaccines (1 of 2) 2002 [...] filedocumented as of this encounter Care Teams Shadow Graph Weight Operator Relationship Specialty Start Date End Date Ishaan Gomez MD [address] [place] [address] [place] [address] PCP - General Family Medicine 10/12/22 documented as of this encounter
--- OUTSIDE RECORDS SUMMARY | 2023-03-29 20:56 | External Medical Summary | Summary of Care ---
Author Name Unknown Organization [facility] Address [address] [place] [address] Phone [phone] Care Team Providers Care Top Closer Name Role Phone Unavailable Primary Care Provider Unavailabl e Reason for Visit * Reason Onset Date Comments Appointment 10/12/2022 Colonoscopy Encounter Details Date Type Department Care Team Description 10/12/2022 Telephone [address] [phone] Ishaan Gomez MD [address] [place] [address] [place] [address] Appointment (Colonoscopy ) Allergies No known active allergiesdocumented as of this encounter (statuses as of 10/12/2022) Medications Medication Sig Dispensed Refills Start Date End Date Status omeprazole (PRILOSEC) 20 MG CPDR 0 04/07/2017 Active aspirin enteric coated 81 MG TBEC Take 1 Tab by mouth daily. 100 Tab 3 05/14/2017 Active Fluticasone-Salmeter ol [...] as of this encounter (statuses as of 10/12/2022) Active Problems Problem Noted Date Alcohol abuse 10/11/2022 Anxiety 10/11/2022 COPD, moderate 10/11/2022 Insomnia 10/11/2022 Generalized anxiety disorder 11/24/2010 Tobacco use disorder 11/25/2007 documented as of this encounter (statuses as of 10/12/2022) Resolved Problems Problem Noted Date Resolved Date Alcohol dependence 10/27/2010 10/29/2011 Overview: ICD-10 update of inactive term NO KNOWN PROBLEMS 10/10/2007 01/26/2019 documented as of this encounter (statuses as of 10/12/2022) Immunizations Name Administration Dates Next Due COVID-19 [...] Miscellaneous Notes * Telephone Encounter - TIFFANIE Márquez - 10/12/2022 9:56 AM EDT [facility] asking pt to return call to schedule procedure. * Telephone Encounter - TIFFANIE Cleary - 10/12/2022 8:00 AM EDT Donna needs scheduled for colonoscopy for: Screen for colon cancer [Z12.11] documented in this encounter Plan of Treatment Upcoming Encounters Date Type Specialty Care Team Description 11/01/2022 Office Visit Family Medicine Ishaan Gomez MD [address] [place] [address] [place] [address] Health Maintenance Due Date Last Done Comments DISCUSS TOBACCO CESSATION (REFER TO SMARTSET #2547) 1950 DXA Scan 1952 Alpha-1 Antitrypsin 1970 Hepatitis C Screening 1970 Cologuard 1997 Colonoscopy 1997 Colorectal Cancer Screening 1997 Fecal Occult Blood Test 1997 Sigmoidoscopy 1997 LUNG CANCER SCREENING - USE SMARTSET 01756 2002 Zoster Vaccines (1 of 2) 2002 Pneumococcal Vaccine: 65+ Years (2 - PCV) 06/27/2013 06/27/2012 Mammogram 03/01/2016 03/01/2015, 02/04, 02/17/2013, Additional history exists DTaP,Tdap,and Td Vaccines (2 - Td or Tdap) 02/22/2018 02/23/2008 Depression Screening, Annual for Pts 12 and Over 01/30/2020 01/29/2019 COVID-19 Vaccine (3 - Moderna series) 09/05/2020 07/11/2020, 06/13/2020 Influenza Vaccine (FLU shot) (Season Ended) 2023 O2 ASSESSMENT COMPLETED IN PAST YEAR FOR COPD 10/12/2023 10/11/2022 Lipid Panel 07/25/2027 07/24/2022, 01/26/2008 GARDASIL-HPV IMMUNIZATION SERIES Aged Out No longer [...]
--- OUTSIDE RECORDS SUMMARY | 2023-03-29 20:56 | External Medical Summary | Summary of Care ---
Author Name Unknown Organization [facility] Address [address] [place] [address] Phone [phone] Care Team Providers Care Outside B2B Sales Name Role Phone Ishaan Gomez MD Primary Care Provide r Reason for Visit * Reason Onset Date Comments Home Health 10/12/2022 Encounter Details Date Type Department Care Team Description 10/12/2022 Telephone Family Medicine [address] [place] [address] Ishaan Gomez MD [address] [place] [address] [place] [address] Home Health Allergies No known active allergiesdocumented as of this encounter (statuses as of 10/15/2022) Medications Medication Sig Dispensed Refills Start Date [...] as of this encounter (statuses as of 10/15/2022) Active Problems Problem Noted Date Alcohol abuse 10/11/2022 Anxiety 10/11/2022 COPD, moderate 10/11/2022 Insomnia 10/11/2022 Generalized anxiety disorder 11/24/2010 Tobacco use disorder 11/25/2007 documented as of this encounter (statuses as of 10/15/2022) Resolved Problems Problem Noted Date Resolved Date Alcohol dependence 10/27/2010 10/29/2011 Overview: ICD-10 update of inactive term NO KNOWN PROBLEMS 10/10/2007 01/26/2019 documented as of this encounter (statuses as of 10/15/2022) Immunizations Name Administration Dates Next Due COVID-19 [...] encounter Miscellaneous Notes * Telephone Encounter - Juliette Clinton LPN - 10/15/2022 12:08 PM EDT Latesha from [facility] calling. Admission for services was completed on Saturday and orders will be sent to be signed. * Telephone Encounter - Rizwana Delarosa LPN - 10/12/2022 10:38 AM EDT Cheryl calling from [facility] Patient has referral for PT/OT only. [facility] has a Respiratory Recovery Breathing Program and with her having COPD they want to add jail on to her. Verbal give to add halfway as patient is up to date on her visits. They will fax orders to the office to have [facility] 10/13/2022 for [facility] documented in this encounter Plan of Treatment Upcoming Encounters Date Type Specialty Care Team Description 11/01/2022 Office Visit Family Medicine Ishaan Gomez MD [address] [place] [address] [place] [address] 11/16/2022 [facility] [address] [facility] [place] [address] Scheduled Procedures Name Priority Associated Diagnoses Date/Ti me COLONOSCOPY FLEXIBLE PROXIMAL DIAGNOSTIC Screen for colon cancer 10/15/2022 1:00 PM EDT Health Maintenance Due Date Last Done Comments DISCUSS TOBACCO CESSATION (REFER TO SMARTSET #3291) 1950 DXA Scan 1952 Alpha-1 Antitrypsin 1970 Hepatitis C Screening 1970 Cologuard 1997 Colonoscopy 1997 Colorectal Cancer Screening 1997 Fecal Occult Blood Test 1997 Sigmoidoscopy 1997 LUNG CANCER SCREENING - USE SMARTSET 79799 2002 Zoster Vaccines (1 of 2) 2002 [...] YEAR FOR COPD 10/12/2023 10/11/2022 Lipid Panel 10/13/2027 10/12/2022, 07/05, 01/26/2008 GARDASIL-HPV IMMUNIZATION SERIES Aged Out No [...] filedocumented as of this encounter Care Teams Outside B2B Sales Relationship Specialty Start Date End Date Ishaan Gomez MD [address] [place] [address] [place] [address] PCP - General Family Medicine 10/12/22 documented as of this encounter
--- OUTSIDE RECORDS SUMMARY | 2023-03-29 20:56 | External Medical Summary | Summary of Care ---
Author Name Unknown Organization [facility] Address [address] [place] [address] Phone [phone] Care Team Providers Care Shipping And Receiving Weigher Name Role Phone Ishaan Gomez MD Primary Care Provide r Reason for Visit * Reason Onset Date Comments Appointment 10/15/2022 Dissection of la rge ascending colon polyp. Encounter Details Date Type Department Care Team Description 10/15/2022 Telephone Gastroenterology, [facility] [address] [place] [address] Willem Tinajero MD [address] [place] [address] Appointment (Dissection of large ascending... Allergies No known active allergiesdocumented as of this encounter (statuses as of 10/15/2022) Medications Medication Sig Dispensed Refills Start Date End Date Status omeprazole (PRILOSEC) 20 MG CPDR 0 04/07/2017 Suspended aspirin enteric coated 81 MG TBEC Take 1 Tablet by mouth in the morning. 100 Tab 3 05/14/2017 Suspended Fluticasone-Salmet susy 100-50 MCG/ACT Inhalation Aerosol Powder Breath Activated (Advair Diskus) 0 08/20/2022 Suspended Albuterol Sulfate HFA 108 (90 Base) MCG/ACT Inhalation Aerosol SolutionIndication s:COPD, moderate (HCC) Inhale 2 Puffs by mouth every 4 hours as needed for Wheezing. 18 g 5 10/11/2022 Suspended Additional Information Fluticasone-Umecli din-Vilant 200-62.5-25 MCG/ACT Aerosol Powder Breath Activated (Trelegy Ellipta)Indication s:COPD, moderate (HCC) Inhale 1 Puff by mouth in the morning. 60 Blister Dosing Unit 2 10/11/2022 Suspended Additional Information Citalopram Hydrobromide 40 MG Oral Tablet (CeleXA)Indication s:Anxiety Take 1 Tablet by mouth in the morning. 30 Tablet 5 10/11/2022 Suspended Additional Information traZODone HCl 50 MG Oral Tablet (Desyrel)Indicatio ns:Insomnia, unspecified type Take 1 Tablet by mouth at bedtime as needed for Sleep. 30 Tablet 0 10/11/2022 Suspended Additional Information documented as of this encounter (statuses as [...] encounter Miscellaneous Notes * Telephone Encounter - Jocy Herreraanan - 10/15/2022 2:37 PM EDT Irena from post endo called to see about having patient scheduled in [place] with Jessica for Recommendation:- Await pathology results. - I will refer for endoscopic dissection of large ascending colon polyp. Patient will need a 2 day prep for this procedure. documented in this encounter Plan of Treatment Upcoming Encounters Date Type Specialty Care Team Description 11/01/2022 Office Visit Family Medicine Ishaan Gomez MD [address] [place] [address] [place] [address] 11/16/2022 PulmDiagnostic [facility]illary [facility], Pft [address] [facility] [place] [address] Scheduled Procedures Name Priority Associated Diagnoses Date/Ti me COLONOSCOPY FLEXIBLE PROXIMAL DIAGNOSTIC Screen for colon cancer 10/15/2022 1:01 PM EDT Health Maintenance Due Date Last Done Comments DISCUSS TOBACCO CESSATION (REFER TO SMARTSET #6351) 1950 DXA Scan 1952 Alpha-1 Antitrypsin 1970 Hepatitis C Screening 1970 Cologuard 1997 Fecal Occult Blood Test 1997 Sigmoidoscopy 1997 LUNG CANCER SCREENING - USE SMARTSET 99714 2002 Zoster Vaccines (1 of 2) 2002 [...] 10/11/2022 Lipid Panel 10/13/2027 10/12/2022, 07/05, 01/26/2008 Colonoscopy [...] filedocumented as of this encounter Care Teams Shipping And Receiving Weigher Relationship Specialty Start Date End Date Ishaan Gomez MD [address] [place] [address] [place] [address] PCP - General Family Medicine 10/12/22 documented as of this encounter
--- OUTSIDE RECORDS SUMMARY | 2023-03-29 20:56 | External Medical Summary | Summary of Care ---
Author Name Unknown Organization [facility] Address [address] [place] [address] Phone [phone] Care Team Providers Care Field Captain Name Role Phone Unavailable Primary Care Provider Unavailabl e Reason for Referral * Evaluate & Treat - Unlimited Visits (Within 30 days (routine)) - Authorized Specialty Diagnoses / Procedures Referred By Contalisa bowman Referred To Contact HOME CARE / Home Care Diagnoses Ambulatory dysfunction Ishaan Gomez MD [address] [place] [address] [place] [address] Referral ID Status Reason Start Date Expiration Date Visits Requested Visits Authorized [id number] Authorized Specialty Services Required 10/11/2022 999 999 Question Answer Referral Priority Within 30 days (routine) Comments Documentation of Wnmi-aw-Hqwt Encounter Addendum Patient Name: Donna Brooke I certify that this patient is under my care and that I, or a nurse practitioner or physician's perinatal breastfeeding assistant working with me, had a agvs-fr-vwwz encounter that meets the physician mzlc-bs-lejw encounter requirements with this patient on: 10/11/22 The encounter with the patient was in whole, or in part, for the following medical condition, which is the primary reason for home health care (List medical condition): Gait dysfunction I certify that, based on my findings, the following services are medically necessary home health services: Physical Therapy/ OT To provide the following care/treatments: (All hospitalists not following the patient after discharge should complete this section): Primary Care Physician to follow home care plan of care after discharge: My clinical findings support the need for the above services because: ambulatory dysfunction Further, I certify that my clinical findings support that this patient is homebound (i.e. Absences from home require considerable and taxing effort and are for medical reasons or sabianist services or infrequently or of short duration when for other reason) because: Physician Signature: Date of Signature: Physician Printed Name: Ishaan Gomez MD * Ancillary Services (Within 30 days (routine)) - Authorized Specialty Diagnoses / Procedures Referred By Gregory bowman Referred To Contact Gastroenterology Diagnoses Screen for colon cancer Ishaan Gomez MD [address] [place] [address] [place] [address] Referral ID Status Reason Start Date Expiration Date Visits Requested Visits Authorized [id number] Authorized Ancillary Services Required 10/11/2022 999 999 Question Answer Referral Priority Within 30 days (routine) Comments ALERT: Do not order for pediatric patients (18 years or younger). Cancel off screen and order PEDS GASTROENTEROLOGY CONSULT (Type: 1 visit only-Evaluate and Treat) The following Pt. Instructions are available: - Gastro Colonoscopy Prep Instructions [[id number]] - Gastro Colonoscopy Prep Instructions (Mongolian Version) [[id number]] Go to the Pt. Instructions section within the Visit Navigator to access. Colonoscopy ASGE Guidelines: Average risk screening (begin at age 50, 10 year intervals) ADDITIONAL INFORMATION 1. Is the patient on Coumadin? No 2. Is the patient on Pradaxa? No Reason for Visit * Reason Comments Re-Check Encounter Details Date Type Department Care Team Description 10/11/2022 Office Visit Family Medicine [address] [place] [phone] Ishaan Gomez MD [address] [place] [address] [place] [phone] COPD, moderate (HCC)*; GENERALIZED ANXIETY DIS; Anxiety; Alcohol abuse; Screen for colon cancer; Screening for diabetes mellitus; Screening for lipid disorders; Insomnia, unspecified type; Elevated glucose; Ambulatory dysfunction; Sunburn Allergies No known active allergiesdocumented as of this encounter (statuses as of 10/11/2022) Medications Medication Sig Dispensed Refills Start Date End Date Status omeprazole (PRILOSEC) 20 MG CPDR 0 04/07/2017 Active aspirin enteric coated 81 MG TBEC Take 1 Tab by mouth daily. 100 Tab 3 05/14/2017 Active Fluticasone-Salmet susy [...] for Sleep. 30 Tablet 0 10/11/2022 Active Calcium 600-200 MG-UNIT TABS Take by mouth. 0 3 Discontinue d(Medicatio n List Clean Up) Citalopram Hydrobromide 20 MG Oral Tablet (CeleXA)Indication s:Generalized anxiety disorder TAKE ONE TABLET BY MOUTH EVERY DAY 90 Tablet 0 02/23/2022 3 Discontinue d(Medicatio n/Dose Changed) Hospital, Clinic, or Other Facility Administered Medication Ordered Dose Route Frequency Start Date End Date Status Albuterol Sulfate (Proventil) (2.5 MG/3ML) 0.083% inhalation solution 2.5 mgIndications:COPD, moderate (HCC) 2.5 mg NEBULIZER ONCE PRN 10/11/2022 10/11/2023 Active documented as of this encounter (statuses as of 10/11/2022) Active Problems Problem Noted Date Alcohol abuse 10/11/2022 Anxiety 10/11/2022 COPD, moderate 10/11/2022 Insomnia 10/11/2022 Generalized anxiety disorder 11/24/2010 Tobacco use disorder 11/25/2007 documented as of this encounter (statuses as of 10/11/2022) Resolved Problems Problem Noted Date Resolved Date Alcohol dependence 10/27/2010 10/29/2011 Overview: ICD-10 update of inactive term NO KNOWN PROBLEMS 10/10/2007 01/26/2019 documented as of this encounter (statuses as of 10/11/2022) Immunizations Name Administration Dates Next Due COVID-19 [...] Sign Reading Time Taken Comments Blood Pressure 120/70 10/11/2022 4:20 PM EDT Pulse 110 10/11/2022 4:20 PM EDT Temperature 35.8 C (96.5 F) 10/11/2022 4:20 PM ED T Respiratory Rate 16 10/11/2022 4:20 PM EDT Oxygen Saturation 93% 10/11/2022 4:20 PM EDT Inhaled Oxygen Concentration - - Weight 50.1 kg (110 lb 6.4 oz) 10/11/2022 4:20 P M EDT Height 152.4 cm (5') 10/11/2022 4:20 PM EDT Body Mass Index 21.56 10/11/2022 4:20 PM EDT documented in this encounter Progress Notes * Ishaan Gomez MD - 10/11/2022 4:20 PM EDT Subjective: HPI: Donna Brooke is a 72 year old female seen with hx of ETOH abuse, COPD, anxiety, GERD seen for for Here with son Pt is having ambulatory difficulty - had to rest often while walking - would like disability parking placard form completed - would like home PT/OT Recently suffered b/l hand and legs sunburn - currently on abx - healing well COPD: - on advair daily --- was on trelegy in the past - per pt trelegy helped a lot - SOB was better with it - intermittent wheezing - does not have rescue inhaler Anxiety: - was on Celexa 40mg daily ---- was doing well - currently on celexa 20mg daily - having increased anxiety symptoms Having both hard and loose stool - for 6 months - denied any blood in the stool - only drinks 2 cups of water Alcohol abuse: - drinks 1 pitcher of beer per day PMH: COPD, Anxiety, DJD, GERD Social: lives by herself - smokes daily ---- trying to decrease the amount Patient Active Problem List Diagnosis Code Tobacco use disorder F17.200 Generalized anxiety disorder F41.1 Alcohol abuse F10.10 Anxiety F41.9 COPD, moderate (HCC) J44.9 Insomnia G47.00 Current Outpatient Medications Medication Sig Dispense Refill omeprazole (PRILOSEC) 20 MG CPDR aspirin enteric coated 81 MG TBEC Take 1 Tab by mouth daily. 100 Tab 3 Fluticasone-Salmeterol 100-50 MCG/ACT Inhalation Aerosol Powder Breath Activated (Advair Diskus) Albuterol Sulfate HFA 108 (90 Base) MCG/ACT Inhalation Aerosol Solution Inhale 2 Puffs by mouthevery 4 hours as needed for Wheezing. 18 g 5 Vvliainlczj-Ofcnrsfud-Enwnka 200-62.5-25 MCG/ACT Aerosol Powder Breath Activated (Trelegy [...] 10/27/2010 Past Surgical History: Procedure Laterality Date INFORMATION 1979 D&E. perforated part of her [...] LABS: Results for orders placed or performed in visit on 10/10/22 CHEMISTRY-OUTSIDE Result Value Ref Range Not all results display below - see scan for full detail CREATININE-OUTSIDE LAB 0.61 0.57 - 1.00 MG/DL EGFR-OUTSIDE LAB 96 POTASSIUM-OUTSIDE LAB 4.5 3.5 - 5.2 MMOL/L GLUCOSE-OUTSIDE LAB 78 70 - 99 MG/DL HOURS FASTING TRIGLYCERIDES-OUTSIDE LAB 65 0 - 149 MG/DL CHOLESTEROL-OUTSIDE LAB 242 (A) 100 - 199 MG/DL HDL-OUTSIDE LAB 137 CHOL/HDL RATIO-OUTSIDE LAB LDL (CALCULATED)-OUTSIDE LAB 94 0 - 99 MG/DL LDL (DIRECT MEASURE)-OUTSIDE LAB HEMOGLOBIN, [id number]-[id number] LAB 5.0 4.8 - 5.6 % PHOSPHORUS-OUTSIDE LAB PTH-OUTSIDE LAB MICROALBUMIN RATIO-OUTSIDE LAB PROTEIN, UA-OUTSIDE LAB HEMOGLOBIN-OUTSIDE LAB 13.0 11.1 - 15.9 G/DL TSH WITH FREE T4 IF INDICATED Result Value Ref Range TSH W/REFLEX TO FT4 0.634 0.450 - 4.500 UIU/ML ROS: -Per HPI OBJECTIVE: BP 120/70 | Pulse 110 | Temp 35.8 C (96.5 F) (Tympanic) | Resp 16 | Ht 1.524 m (5') | Wt 50.1 kg (110 lb 6.4 oz) | SpO2 93% | BMI 21.56 kg/m | BSA 1.46 m PHYSICAL EXAM: Vitals are reviewed General:. NAD, well developed HEENT:. Normal Conjunctiva, EOMI Cardiac:. Normal S1, S2, no murmur Lungs:. CTA, no wheezing or crackles Psych:. AAOx3, normal affect ASSESSMENT/PLAN: Advised the pt to decrease ETOH intake - pt currently not interested in rehab Increased the celexa dose -- pt wants to try celexa 40mg daily Metamucil daily for constipation Sunburn area healing well Parking placard form completed RTC in 1 month Pt would benefit from home PT/OT - order signed COPD, moderate (HCC) (Primary) - Albuterol Sulfate HFA 108 (90 Base) MCG/ACT Inhalation Aerosol Solution; Inhale 2 Puffs by mouth every 4 hours as needed for Wheezing. - Cjavahvsaci-Wcekjmdog-Nxlolg 200-62.5-25 MCG/ACT Aerosol Powder Breath Activated (Trelegy Ellipta); Inhale 1 Puff by mouth in the morning. - SPIROMETRY B/A BRONCHODILATOR - Albuterol Sulfate (Proventil) (2.5 MG/3ML) 0.083% inhalation solution 2.5 mg GENERALIZED ANXIETY DIS Anxiety - Citalopram Hydrobromide 40 MG Oral Tablet (CeleXA); Take 1 Tablet by mouth in the morning. Alcohol abuse - CBC WITH WBC DIFFERENTIAL - COMPREHENSIVE METABOLIC PANEL - ALBUMIN / CREATININE RATIO, URINE Screen for colon cancer - COLONOSCOPY, GI REFERRAL OP Screening for diabetes mellitus - HEMOGLOBIN A1C Screening for lipid disorders - LIPID PANEL WITHOUT DIRECT LDL Insomnia, unspecified type - traZODone HCl 50 MG Oral Tablet (Desyrel); Take 1 Tablet by mouth at bedtime as needed for Sleep. Elevated glucose - HEMOGLOBIN A1C Ambulatory dysfunction - HOME HEALTH REFERRAL OP Sunburn Follow Up: Return in about 4 weeks (around 11/08/2022). I spent a total of 40-54 minutes (exact time 45 mins) on the date of service in preparation, delivery, and documentation of the care provided to Donna Brooke excluding any time spent in the performance of separately billed services. Ishaan Gomez MD Family medicine[address] [place] [address] documented in this encounter Nursing Notes * Kaelyn Cheng LPN - 10/11/2022 4:16 PM EDT Pt here to establish Here with son Wanting to talk about increasing Celexa - was on 40 mg then felt better, dropped back down to 20 mg- now not helping Had Trelegy inhaler previously - really liked this inhaler but it was too expensive Was given Advair instead - no help Has really bad COPD Having trouble breathing Having weakness and trouble mobilizing Starting to develop restless legs or neurological twitch in both legs Having trouble sleeping due to this Has tried Melatonin - no help - tried one night Having lack of appetite Having incontinence with BM x several months - getting worse documented in this encounter Plan of Treatment Upcoming Encounters Date Type Specialty Care Team Description 11/01/2022 Office Visit Family Medicine Ishaan Gomez MD [address] [place] [address] [place] [address] Scheduled Orders Name Type Priority Associated Diagnoses Orde r Schedule CBC WITH WBC DIFFERENTIAL Lab Routine Alcohol abuse Ordered: 10/11/2022 HEMOGLOBIN A1C Lab Routine Screening for diabetes mellitus Elevated glucose Ordered: 10/11/2022 LIPID PANEL WITHOUT DIRECT LDL Lab Routine Screening for lipid disorders Ordered: 10/11/2022 COMPREHENSIVE METABOLIC PANEL Lab Routine Alcohol abuse Ordered: 10/11/2022 ALBUMIN / CREATININE RATIO, URINE Lab Routine Alcohol abuse Ordered: 10/11/2022 SPIROMETRY B/A BRONCHODILATOR Procedures Routine COPD, moderate (HCC) Ordered: 10/11/2022 Scheduled Referrals Name Type Priority Associated Diagnoses Orde r Schedule COLONOSCOPY, GI REFERRAL OP Referral Within 30 days (routine) Screen for colon cancer Ordered: 10/11/2022 HOME HEALTH REFERRAL OP Referral Within 30 days (routine) Ambulatory dysfunction Ordered: 10/11/2022 Health Maintenance Due Date Last Done Comments DISCUSS TOBACCO CESSATION (REFER TO SMARTSET #6636) 1950 DXA Scan 1952 Alpha-1 Antitrypsin 1970 Hepatitis C Screening 1970 Cologuard 1997 Colonoscopy 1997 Colorectal Cancer Screening 1997 Fecal Occult Blood Test 1997 Sigmoidoscopy 1997 LUNG CANCER SCREENING - USE SMARTSET 21436 2002 Zoster Vaccines (1 of 2) 2002 Pneumococcal Vaccine: 65+ Years (2 - PCV) 06/27/2013 06/27/2012 Mammogram 03/01/2016 03/01/2015, 02/04, 02/17/2013, Additional history exists DTaP,Tdap,and Td Vaccines (2 - Td or Tdap) 02/22/2018 02/23/2008 Depression Screening, Annual for Pts 12 and Over 01/30/2020 01/29/2019 COVID-19 Vaccine (3 - Booster for Moderna series) 09/05/2020 07/11/2020, 06/13/2020 Influenza Vaccine (FLU shot) (Season Ended) 2023 O2 ASSESSMENT COMPLETED IN PAST YEAR FOR COPD 01/23/2023 01/23/2022 Lipid Panel 07/25/2027 07/24/2022, 01/26/2008 GARDASIL-HPV IMMUNIZATION [...] Primary Chronic airway obstruction, not elsewhere classified GENERALIZED ANXIETY DIS Generalized anxiety disorder Anxiety Anxiety state, unspecified Alcohol abuse Alcohol abuse, unspecified Screen for colon cancer Special screening for malignant neoplasms, colon Screening for diabetes mellitus Screening for lipid disorders Insomnia, unspecified type Elevated glucose Other abnormal glucose Ambulatory dysfunction Sunburn documented in this encounter"
--- OUTSIDE RECORDS SUMMARY | 2023-03-29 20:56 | External Medical Summary | Summary of Care ---
Author Name Unknown Organization [facility] Address [address] [place] [address] Phone [phone] Care Team Providers Care Fast Food Crew Member Name Role Phone Unavailable Primary Care Provider Unavailabl e Reason for Visit * Reason Onset Date Comments Appointment 10/12/2022 Colonoscopy Encounter Details Date Type Department Care Team Description 10/12/2022 Telephone Family [address] [phone] Ishaan Gomez MD [address] [place] [address] [place] [address] Appointment (Colonoscopy ) Allergies No known active [...] Miscellaneous Notes * Telephone Encounter - TIFFANIE Cleary - 10/12/2022 8:00 AM EDT Donna needs scheduled for colonoscopy for: Screen for colon cancer [Z12.11] documented in this encounter Plan of Treatment Upcoming Encounters Date Type Specialty Care Team Description 11/01/2022 Office Visit Family Medicine Ishaan Gomez MD [address] [place] [address] [place] [address] Health Maintenance Due Date Last Done Comments DISCUSS TOBACCO CESSATION (REFER TO SMARTSET #3291) 1950 DXA Scan 1952 Alpha-1 Antitrypsin 1970 Hepatitis C Screening 1970 Cologuard 1997 Colonoscopy 1997 Colorectal Cancer Screening 1997 Fecal Occult Blood Test 1997 Sigmoidoscopy 1997 LUNG CANCER SCREENING - USE SMARTSET 25625 2002 Zoster Vaccines (1 of 2) 2002 [...]
--- OUTSIDE RECORDS SUMMARY | 2023-03-29 20:56 | External Medical Summary ---
Author Name Unknown Address Unknown Organization K[facility] [place] [address] [facility] [address] Laboratory Report Ordering Provider Test Date Status MOI VILLANUEVAMAILE 10/12/2022 13:26:41 Kamilah l Observation Date Value Abnormality Reference (Units ) Status HbA1C 10/12/2022 13:26:41 4.7 4.0-5.6 (% ) Final The use of HbA1c to monitor glycemic status is based on normal hemoglobin and HbA composition. This test should not be used in patients with abnormal hemoglobin that affects the half life of the red blood cell or the in vivo glycation rates. Glucose, estimated average 10/12/2022 13:26:41 88 <126 (mg/dL) Final Performing Location [facility] [place] [address] [facility] [address]
--- OUTSIDE RECORDS SUMMARY | 2023-03-29 20:56 | External Medical Summary | Summary of Care ---
Author Name Unknown Organization [facility] Address [address] [place] [address] Phone [phone] Care Team Providers Care Volunteer Services Specialist Name Role Phone Ishaan Gomez MD Primary Care Provide r Reason for Visit * Reason Onset Date Comments Abnormal Test Results 10/15/2022 Encounter Details Date Type Department Care Team Description 10/15/2022 Telephone Family Medicine [address] [phone] Ishaan Gomez MD [address] [place] [address] [place] [phone] Abnormal Test Results Allergies No known active allergiesdocumented as of [...] Telephone Encounter - Ishaan Gomez MD - 10/15/2022 4:57 PM EDT Called and left a VM - Low Na+ and elevated Alk phos are likely 2/2 ETOH abuse - will repeat the CMP during clinic visit on 11/01 documented in this encounter Plan of Treatment Upcoming Encounters Date Type Specialty Care Team Description 11/01/2022 Office Visit Family Medicine Ishaan Gomez MD [address] [place] [address] [place] [address] 11/16/2022 PulmDiagnostic [facility]illary [facility], Pft [address] [facility] [place] [address] Scheduled Procedures Name Priority Associated Diagnoses Date/Ti me COLONOSCOPY FLEXIBLE PROXIMAL DIAGNOSTIC Screen for colon cancer 10/15/2022 1:01 PM EDT Health Maintenance Due Date Last Done Comments DISCUSS TOBACCO CESSATION (REFER TO SMARTSET #3291) 1950 DXA Scan 1952 Alpha-1 Antitrypsin 1970 Hepatitis C Screening 1970 Cologuard 1997 Fecal Occult Blood Test 1997 Sigmoidoscopy 1997 LUNG CANCER SCREENING - USE SMARTSET 20297 2002 Zoster Vaccines (1 of 2) 2002 [...] COMPLETED IN PAST YEAR FOR COPD 10/12/2023 10/15/2022 Lipid Panel 10/13/2027 10/12/2022, 0305/2022, 01/26/2008 [...] filedocumented as of this encounter Care Teams Volunteer Services Specialist Relationship Specialty Start Date End Date Ishaan Gomez MD [address] [place] [address] [place] [address] PCP - General Family Medicine 10/12/22 documented as of this encounter
--- OUTSIDE RECORDS SUMMARY | 2023-03-29 20:56 | External Medical Summary ---
Author Name Unknown Address Unknown Organization K01:[facility] [place] [address] [facility] [address] Laboratory Report Ordering Provider Test Date Status JUDIE VILLANUEVA 10/12/2022 13:26:41 Kamilah l Observation Date Value Abnormality Reference (Units ) Status SYNC LEUKOCYTES IN BLOOD BY AUTOMATED COUNT 10/12/2022 13:26:41 6.71 4.00-10.80 (K/uL) Final Segs 10/12/2022 13:26:41 73.0 40.0-75.0 (%) Final Lymphs % 10/12/2022 13:26:41 16.2 Below low normal 18.0-42.0 (%) Final Monos 10/12/2022 13:26:41 9.1 1.0-11.0 (%) Final Eosinophils 10/12/2022 13:26:41 0.9 0.0-6.0 (%) Final Basos 10/12/2022 13:26:41 0.4 0.0-2.0 (%) Final Immature Granulocyte, Percent 10/12/2022 13:26:41 0.4 0.0-2.0 (%) Final Absolute Segs 10/12/2022 13:26:41 4.89 1.80-7.70 (K/uL) Final Lymphs, absolute 10/12/2022 13:26:41 1.09 1.00-4.80 (K/ul) Final Monos, Abs 10/12/2022 13:26:41 0.61 0.00-1.10 (K/uL) Final Eos, Abs 10/12/2022 13:26:41 0.06 0.00-0.70 (K/uL) Final Basos, Abs 10/12/2022 13:26:41 0.03 0.00-0.20 (K/uL) Final Immature Granulocytes, Number 10/12/2022 13:26:41 0.03 0.00-0.20 (K/uL) Final Performing Location [facility] [place] [facility] [place] [address]
--- OUTSIDE RECORDS SUMMARY | 2023-03-29 20:56 | External Medical Summary | Summary of Care ---
Author Name Unknown Organization [facility] Address [address] [place] [address] Phone [phone] Care Team Providers Care Furniture Builder Name Role Phone Ishaan Gomez MD Primary Care Provide r Reason for Visit * Reason Comments Outpatient Testing Encounter Details Date Type Department Care Team Description 10/12/2022 Laboratory Laboratory [address] [place] [phone] [place] [address] Arrived Allergies No known active allergiesdocumented as [...] Encounters Date Type Specialty Care Team Description 10/15/2022 Hospital Encounter Endoscopy Willem Tinajero MD [address] [place] [address] 10/15/2022 Surgery Endoscopy Willem Tinajero MD [address] [place] [address] COLONOSCOPY FLEXIBLE PROXIMAL DIAGNOSTIC 11/01/2022 Office Visit Family Medicine Ishaan Gomez MD [address] [place] [address] [place] [address] 11/16/2022 [facility] [address] [place] [address] Scheduled Procedures Name Priority Associated Diagnoses Date/Ti me COLONOSCOPY FLEXIBLE PROXIMAL DIAGNOSTIC Screen for colon cancer 10/15/2022 1:00 PM EDT Health Maintenance Due Date Last Done Comments DISCUSS TOBACCO CESSATION (REFER TO SMARTSET #4737) 1950 DXA Scan 1950 Alpha-1 Antitrypsin 1970 Hepatitis C Screening 1970 Cologuard 1997 Colonoscopy 1997 Colorectal Cancer Screening 1997 Fecal Occult Blood Test 1997 Sigmoidoscopy 1997 LUNG CANCER SCREENING - USE SMARTSET 07569 2002 Zoster Vaccines (1 of 2) 2002 [...] filedocumented as of this encounter Care Teams Furniture Builder Relationship Specialty Start Date End Date Ishaan Gomez MD [address] [place] [address] [place] [address] PCP - General Family Medicine 10/12/22 documented as of this encounter
--- OUTSIDE RECORDS SUMMARY | 2023-03-29 20:56 | External Medical Summary ---
Author Name Unknown Address Unknown Organization [id number]:LAB[facility]ATORY [facility] [place] - [address] [place] [facility] [place] [address] Laboratory Report Ordering Provider Test Date Status JUDIE VILLANUEVA 10/12/2022 13:26:41 Kamilah l Observation Date Value Abnormality Reference (Units ) Status BUN 10/12/2022 13:26:41 6 6-20 (mg/dL) Final Creatinine 10/12/2022 13:26:41 0.9 0.5-1.0 (mg/dL) Final Glomerular filtration rate/1.73 sq M.predicted [Volume Rate/Area] in Serum, Plasma or Blood by Creatinine-based formula (CKD-EPI) 10/12/2022 13:26:41 71 >=60 (mL/min) Final eGFR is calculated based on the CKD-EPI 2020 equation SODIUM 10/12/2022 13:26:41 131 Below low normal 135 -146 (mmol/L) Final Potassium 10/12/2022 13:26:41 4.0 3.5-5.1 (m mol/L) Final Cl 10/12/2022 13:26:41 96 Below low normal 98- 107 (mmol/L) Final CO2 10/12/2022 13:26:41 19 Below low normal 22- 32 (mmol/L) Final Anion gap 10/12/2022 13:26:41 16 Above high normal 7- 15 (mmol/L) Final Glucose 10/12/2022 13:26:41 80 70-120 (mg /dL) Final Albumin 10/12/2022 13:26:41 3.4 Below low normal 3.8 -5.0 (g/dL) Final AST (Aspartate aminotransferase) 10/12/2022 13:26:41 35 10-35 (U/L) Fin al Alk Phos 10/12/2022 13:26:41 149 Above high normal 35 -130 (U/L) Final Bilirubin, Total 10/12/2022 13:26:41 0.3 <=1 .2 (mg/dL) Final Calcium 10/12/2022 13:26:41 8.9 8.4-10.2 ( mg/dL) Final Protein 10/12/2022 13:26:41 6.3 6.0-8.3 (g /dL) Final ALT (Alanine aminotransferase) 10/12/2022 13:26:41 18 10-35 (U/L) Hao aviles Performing Location LABORATORY [facility] [place] - [address] [facility] [address]
--- OUTSIDE RECORDS SUMMARY | 2023-03-29 20:56 | External Medical Summary ---
Author Name Unknown Address Unknown Organization [id number]:LABORATORY [facility] [place] - [facility] [place] [address] Laboratory Report Ordering Provider Test Date Status JUDIE VILLANUEVA 10/12/2022 13:26:41 Kamilah l Normal: <30 mg/g creatinine< br/>High: 30-300 mg/g creatinine
Very High: >300 mg/g creatinine
Nephrotic: >2200 mg/g creatinine Observation Date Value Abnormality Reference (Units ) Status Albumin, Urine 10/12/2022 13:26:41 <1.20 (mg/dL) Final Creatinine, Urine 10/12/2022 13:26:41 102 (mg/dL) Final Albumin/Creatinine [Mass Ratio] in Urine 10/12/2022 13:26:41 <12 <30 (mg/g Creat) Final Performing Location LABORATORY [facility] [place] - [facility] [address]
--- OUTSIDE RECORDS SUMMARY | 2023-03-29 20:56 | External Medical Summary | Summary of Care ---
Author Name Unknown Organization [facility] Address [address] [place] [address] Phone [phone] Care Team Providers Care Station Helper Name Role Phone Unavailable Primary Care Provider Unavailabl e Reason for Visit * Reason Onset Date Comments Home Health 10/12/2022 Encounter Details Date Type Department Care Team Description 10/12/2022 Telephone Family [address] [place] [id number] Ishaan Gomez MD [address] [place] [address] [place] [address] Home Health Allergies No known active allergiesdocumented [...] encounter Miscellaneous Notes * Telephone Encounter - Rizwana Delarosa LPN - 10/12/2022 10:38 AM EDT Cheryl calling from [facility] Patient has [facility] and with her having COPD they want to add usp on to her. Verbal give to add [facility] as patient is up to date on her visits. They will fax orders to the office to have signed Davinazemil will see patient tomorrow 10/13/2022 for Long-Term documented in this encounter Plan of Treatment Upcoming Encounters Date Type Specialty Care Team Description 10/15/2022 Hospital Encounter Endoscopy Willem Tinajero MD [address] [place] [address] 10/15/2022 Surgery Endoscopy Willem Tinajero MD [address] [place] [address] COLONOSCOPY FLEXIBLE PROXIMAL DIAGNOSTIC 11/01/2022 Office Visit Family Medicine Ishaan Gomez MD [address] [place] [address] [place] [address] 11/16/2022 [facility] [address] [place] [address] Scheduled Procedures Name Priority Associated Diagnoses Date/Ti me COLONOSCOPY FLEXIBLE PROXIMAL DIAGNOSTIC Screen for colon cancer 10/15/2022 1:00 PM EDT Health Maintenance Due Date Last Done Comments DISCUSS TOBACCO CESSATION (REFER TO SMARTSET #3999) 1950 DXA Scan 1952 Alpha-1 Antitrypsin 1970 Hepatitis C Screening 1970 Cologuard 1997 Colonoscopy 1997 Colorectal Cancer Screening 1997 Fecal Occult Blood Test 1997 Sigmoidoscopy 1997 LUNG CANCER SCREENING - USE SMARTSET 36100 2002 Zoster Vaccines (1 of 2) 2002 [...]
--- OUTSIDE RECORDS SUMMARY | 2023-03-29 20:56 | External Medical Summary ---
Author Name Unknown Address Unknown Organization [id number]:LABORATORY [facility] [place] - [address] [facility] [address] Laboratory Report Ordering Provider Test Date Status JUDIE VILLANUEVA 10/12/2022 13:26:41 Kamilah l Observation Date Value Abnormality Reference (Units ) Status WBC, Total 10/12/2022 13:26:41 6.71 4.00-10.80 (K/uL) Final RBC 10/12/2022 13:26:41 3.63 3.85-5.15 (M/uL) Final Hemoglobin 10/12/2022 13:26:41 12.8 12.0-15.3 (g/dL) Final HCT 10/12/2022 13:26:41 37.6 36.0-45.2 (%) Final MCV 10/12/2022 13:26:41 103.6 81.5-97.5 (fL) Final MCH 10/12/2022 13:26:41 35.3 27.0-34.0 (pg) Final MCHC 10/12/2022 13:26:41 34.0 32.0-36.0 (g/dL) Final RDW 10/12/2022 13:26:41 13.5 11.5-15.5 (%) Final Platelets 10/12/2022 13:26:41 347 140-400 (K/uL) Final MPV 10/12/2022 13:26:41 9.1 6.6-11.1 (fL) Final Nucleated erythrocytes/100 leukocytes [Ratio] in Blood by Automated count 10/12/2022 13:26:41 0 <=0 (/100 WBCs) Final Performing Location LABORATORY C - [address] [facility] [address]
--- OUTSIDE RECORDS SUMMARY | 2023-03-29 20:56 | External Medical Summary | Summary of Care ---
Author Name Unknown Organization [facility] Address [address] [place] [place] [address] Phone [phone] Care Team Providers Care Smalltalk Developer Name Role Phone Unavailable Primary Care Provider Unavailabl e Reason for Visit * Reason Onset Date Comments FYI 10/11/2022 Encounter Details Date Type Department Care Team Description 10/11/2022 Telephone Family Medicine [address] [place] [phone] Ishaan Gomez MD [address] [place] [address] [place] [address] FYI Allergies No known active allergiesdocumented as of this encounter (statuses as of 10/11/2022) Medications Medication Sig Dispensed Refills Start Date End Date Status omeprazole (PRILOSEC) 20 MG CPDR 0 04/07/2017 Active aspirin enteric coated 81 MG TBEC Take 1 Tab by mouth daily. 100 Tab 3 05/14/2017 Active Calcium 600-200 MG-UNIT TABS Take by mouth. 0 Active Citalopram Hydrobromide 20 MG Oral Tablet (CeleXA)Indications:Ge neralized anxiety disorder TAKE ONE TABLET BY MOUTH EVERY DAY 90 Tablet 0 02/23/2022 Active documented as of this encounter (statuses as of 10/11/2022) Active Problems Problem Noted Date Generalized anxiety disorder 11/24/2010 Tobacco use disorder [...] Miscellaneous Notes * Telephone Encounter - TIFFANIE Garg - 10/11/2022 9:17 AM EDT Melecio calling to make sure the medical records were received by previous physician, informed theywere received. documented in this encounter Plan of Treatment Upcoming Encounters Date Type Specialty Care Team Description 10/11/2022 Office Visit Family Medicine Ishaan Gomez MD [address] [place] [address] [place] [address] Health Maintenance Due Date Last Done Comments DXA Scan 1950 Hepatitis C Screening 1970 Cologuard 1997 Colonoscopy 1997 Colorectal Cancer Screening 1997 Fecal Occult Blood Test 1997 Sigmoidoscopy 1997 LUNG CANCER SCREENING - USE SMARTSET 57025 2002 Zoster Vaccines (1 of 2) 2002 Pneumococcal Vaccine: 65+ Years (2 - PCV) 06/27/2013 06/27/2012 Mammogram 03/01/2016 03/01/2015, 02/04, 02/17/2013, Additional history exists DTaP,Tdap,and Td Vaccines (2 - Td or Tdap) 02/22/2018 02/23/2008 Depression Screening, Annual for Pts 12 and Over 01/30/2020 01/29/2019 COVID-19 Vaccine (3 - Booster for Moderna series) 09/05/2020 07/11/2020, 06/13/2020 Influenza Vaccine (FLU shot) (Season Ended) 2023 Lipid Panel 07/25/2027 07/24/2022, 01/26/2008 GARDASIL-HPV IMMUNIZATION [...]
--- OUTSIDE RECORDS SUMMARY | 2023-03-29 20:56 | External Medical Summary | Summary of Care ---
Author Name Unknown Organization [facility] Address [address] [place] [facility] [address] Phone [phone] Care Team Providers Care Artillery Maintenance Supervisor Name Role Phone Unavailable Primary Care Provider Unavailabl e Encounter Details Date Type Department Care Team Description 10/10/2022 Orders Only Family Medicine [address] [place] [phone] Ishaan Gomez MD [address] [place] [address] [place] [address] Allergies No known active allergiesdocumented as of this encounter (statuses as of 10/10/2022) Medications Medication Sig Dispensed Refills Start Date [...] as of this encounter (statuses as of 10/10/2022) Active Problems Problem Noted Date Generalized anxiety disorder 11/24/2010 Tobacco use disorder 11/25/2007 documented as of this encounter (statuses as of 10/10/2022) Resolved Problems Problem Noted Date Resolved Date Alcohol dependence 10/27/2010 10/29/2011 Overview: ICD-10 update of inactive term NO KNOWN PROBLEMS 10/10/2007 01/26/2019 documented as of this encounter (statuses as of 10/10/2022) Immunizations Name Administration Dates Next Due COVID-19 [...] Office Visit Family Medicine Ishaan Gomez MD [address] [place] [address] [place] [address] Health Maintenance Due Date Last Done Comments DXA Scan 1952 Hepatitis C Screening 1970 Cologuard 1997 Colonoscopy 1997 Colorectal Cancer Screening 1997 Fecal Occult Blood Test 1997 Sigmoidoscopy 1997 LUNG CANCER SCREENING - USE SMARTSET 30210 2002 Zoster Vaccines (1 of 2) 2002 Lipid Panel 01/25/2013 07/24/2022, 01/26/2008 Pneumococcal Vaccine: 65+ Years (2 - PCV) 06/27/2013 06/27/2012 Mammogram 03/01/2016 03/01/2015, 02/04, 02/17/2013, Additional history exists DTaP,Tdap,and Td Vaccines (2 - Td or Tdap) 02/22/2018 02/23/2008 Depression Screening, Annual for Pts 12 and Over 01/30/2020 01/29/2019 COVID-19 Vaccine (3 - Booster for Moderna series) 09/05/2020 07/11/2020, 06/13/2020 Influenza Vaccine (FLU shot) (Season Ended) 2023 GARDASIL-HPV IMMUNIZATION SERIES Aged Out No longer [...] Procedure Name Priority Date/Time Associated Diagnosis Comments XR CHEST 2 VIEWS Routine 07/24/2022 TSH WITH FREE T4 IF INDICATED Routine 07/24/2022 CHEMISTRY-OUTSIDE Routine 07/24/2022 documented in this encounter Results * TSH WITH FREE T4 IF INDICATED (07/24/2022) TSH W/REFLEX TO FT4 0.634 0.450 - 4.500 UIU/ML OUTSIDE LAB (SEE SCANNED REPORT) Blood Venous blood specimen / Unknown 07/24/2022 History Per Patient LAB BLOOD ORDERABLES OUTSIDE LAB (SEE SCANNED REPORT) * (ABNORMAL) CHEMISTRY-OUTSIDE (07/24/2022) Not all results display below - see scan for full detail OUTSIDE LAB (SEE SCANNED REPORT) Comment:SCAN INCL: VIT D, BEST 1C,LIPID PANEL,UA,CMP,CBCD CREATININE-OUTSID E LAB 0.61 0.57 - 1.00 MG/DL OUTSIDE LAB (SEE SCANNED REPORT) EGFR-OUTSIDE LAB 96 OUT SIDE LAB (SEE SCANNED REPORT) POTASSIUM-OUTSIDE LAB 4.5 3.5 - 5.2 MMOL/L OUTSIDE LAB (SEE SCANNED REPORT) GLUCOSE-OUTSIDE LAB 78 70 - 99 MG/DL OUTSIDE LAB (SEE SCANNED REPORT) HOURS FASTING OUTSID E LAB (SEE SCANNED REPORT) TRIGLYCERIDES-OUT SIDE LAB 65 0 - 149 MG/DL OUTSIDE LAB (SEE SCANNED REPORT) CHOLESTEROL-OUTSI DE LAB 242(A) 100 - 199 MG/DL OUTSIDE LAB (SEE SCANNED REPORT) HDL-OUTSIDE LAB 137 OUTS [facility] (SEE SCANNED REPORT) CHOL/HDL RATIO-OUTSIDE LAB OUTSIDE LA B (SEE SCANNED REPORT) LDL (CALCULATED)-OUTS [facility] 94 0 - 99 MG/DL OUTSIDE LAB (SEE SCANNED REPORT) LDL (DIRECT MEASURE)-OUTSIDE LAB OUTSIDE LAB (SEE SCANNED REPORT) HEMOGLOBIN, [id number] LAB 5.0 4.8 - 5.6 % OUTSIDE LAB (SEE SCANNED REPORT) PHOSPHORUS-OUTSID E LAB OUTSIDE LAB (SEE SCANNED REPORT) PTH-OUTSIDE LAB OUTS [facility] (SEE SCANNED REPORT) MICROALBUMIN RATIO-OUTSIDE LAB OUTSIDE LA B (SEE SCANNED REPORT) PROTEIN, UA-OUTSIDE LAB OUTSIDE LAB (SEE SCANNED REPORT) HEMOGLOBIN-OUTSID E LAB 13.0 11.1 - 15.9 G/DL OUTSIDE LAB (SEE SCANNED REPORT) 07/24/2022 History Per Patient LABORATORY OUTSIDE LAB (SEE SCANNED REPORT) * XR CHEST 2 VIEWS (07/24/2022) Anatomical Region Laterality Modality Chest Other 07/24/2022 History Per Patient RADIOLOGY (RAD GENER AL) documented in this encounter
--- OUTSIDE RECORDS SUMMARY | 2023-03-29 20:56 | External Medical Summary ---
Author Name Unknown Address Unknown Organization K01:[facility]ORY [facility] [place] [address] [facility] [address] Laboratory Report Ordering Provider Test Date Status JUDIE VILLANUEVA 10/12/2022 13:26:41 Kamilah l Observation Date Value Abnormality Reference (Units ) Status Triglyceride 10/12/2022 13:26:41 80 <=174 ( mg/dL) Final Triglyceride Reference Range s (mg/dL):
<150 Acceptable
150-174 Borderline high
175-499 High
>=500 Very high Cholesterol 10/12/2022 13:26:41 202 Above high normal <200 (mg/dL) Final Total Cholesterol Reference Ranges (mg/dL):
<200 Desirable
200-239 Borderline high
>=240 High HDL 10/12/2022 13:26:41 141 >49 (mg/dL ) Final HDL Cholesterol Reference Ra nges (mg/dL):
>=60 High (Desirable)
<50 Low (Undesirable) For Females
<40 Low (Undesirable) For Males NON-HDL CHOLESTEROL 10/12/2022 13:26:41 61 <=159 (mg/dL) Final Non-HDL Cholesterol Referenc e Range (mg/dL):
<100 Target level for high risk ASCVD patient
<130 Optimal for general population
130-159 Near optimal for general population
160-189 Borderline High
190-219 High
>=220 Very High LDL, (calculated) 10/12/2022 13:26:41 45 <= 129 (mg/dL) Final LDL Cholesterol Reference Ra nges (mg/dL):
<70 Target level for high risk ASCVD patient
<100 Optimal for general population
100-129 Near optimal for general population
130-159 Borderline high
160-189 High
>=190 Very high Performing Location LAB[facility]ORY [facility] [place] [address] [facility] [address]
--- NOTE | 2023-03-29 20:59 | Emergency Department Note ---
Impression & Plan Fall, Closed fracture of left clavicle, Marijuana use, Acute hyponatremia, Hypokalemia, Hypomagnesemia ED Provider Note NAME: ARRON HERRON AGE: 72 SEX: F : 1950 ARRIVES VIA: Ambulance INFORMANT: Patient, EMS ED PROVIDER(S): Alfredito Campos DO CHIEF COMPLAINT: Fall HPI: The patient is a 72-year-old female who presented to the emergency department for an evaluation after a fall. The patient normally ambulates with a walker. She fell with her walker. She was unable to stand and she called 911. Initially they were called out for lift assist but the patient was found to be hypotensive and her oxygen saturation did not read properly. The paramedics thought that she was hypoxic but also stated that the patient was very cold and her hands were mottled. The patient himself does not offer many complaints. She complains of generalized weakness. She states that she continues to use tobacco products. She denies having any back pain or hip pain. ROS: See above HPI for pertinent positives & negatives. A total of 10 systems reviewed and were otherwise negative. PAST MEDICAL HISTORY: See Below PAST SURGICAL HISTORY: See Below FAMILY HISTORY: See Below SOCIAL HISTORY: See Below HOME MEDICATIONS: See Below ALLERGIES: See Below VITALS: See Below PHYSICAL EXAMINATION: GENERAL: The patient is awake and alert. She is somewhat listless and slow to answer questions EYES: The conjunctivae are clear. The pupils are round and reactive. EARS, NOSE, MOUTH AND THROAT: The nose is without any evidence of any deformity. NECK: The neck is nontender and supple. RESPIRATORY: Diminished breath sounds are noted throughout. Scattered rhonchi were noted in all lung alanis. There is no conversational dyspnea. CARDIOVASCULAR: Regular rate and rhythm noted there no murmurs rubs or gallops normal S1 normal S2. GASTROINTESTINAL: The abdomen is soft. Abdomen is nontender. BACK: No midline tenderness or or step-off noted range of motion in flexion extension as well as rotation no signs of muscle spasm noted MUSCULOSKELETAL/EXTREMITIES: There is no evidence of gross deformity full range of motion is noted in the hips and shoulders. SKIN: Skin was cool and dry. Trace pedal edema was noted bilaterally. Venous stasis changes were noted throughout. NEUROLOGIC: Patient is awake and oriented x3. Strength was symmetric but diminished. MEDICAL DECISION MAKING: The patient is a 72-year-old female who presented to the emergency department by ambulance. The patient had a fall while she was walking with her walker. The patient arrived via ambulance. The patient did not have any specific complaints of any trauma. She did complain of significant dizziness. She was having trouble ambulating. The patient was treated with potassium and magnesium replacement. She was also treated with a small fluid bolus. I discussed the patient's laboratory and radiographic studies with her. She was found to have a clavicle fracture on x-ray. She was feeling much better and initially wished to go home. She tried to ambulate but became very dizzy again. I am unsure if this is related to her marijuana use. She also admits to alcohol use. Given her social status at this time I do not feel the patient would be safe for discharge. For this reason I will discuss her condition with the on-call [facility] Triage Nursing notes reviewed. Prior medical records reviewed Vital Signs: reviewed and remarkable for no significant abnormalities Differential diagnosis: Infection, dehydration, metabolic abnormality, hypo/hyperglycemia, electrolyte disturbance, anemia, hypoxia, cardiac sources, intracerebral event, toxicologic, neurologic, as well as other pathologies. ER treatment provided: See below Diagnostics interpreted by me: ECG: EKG was obtained in the emergency department. My interpretation is sinus tachycardia at 105 bpm. There is no ectopy. Nonspecific inferior ST depressions were noted. This was compared to a tracing from January 22, 2023. No changes were noted Cardiac Monitoring: An order was placed for continuous cardiac monitoring. The monitor shows a rate of 89 bpm with sinus rhythm Laboratory studies: As stated above and show below. Imaging studies: See below. Radiographic imaging was reviewed by myself Consultation(s): I discussed this case with Dr. Banegas who is on-call for the [facility] group. Past Med/Surg History Medical History (Updated 03/29/23 @ 23:54 by Alfredito Campos DO) Arthritis Right hand fracture Family History Other No significant family history Social History Smoking Status: Current every day smoker Tobacco Type: Cigarettes Preferred Language: Tunisian marital status: / Current Living Situation: Alone current occupational status: retired Feels Safe at Home: Yes Allergies Allergies Allergy/AdvReac Type Severity Reaction Status Date / Time No Known Allergies Allergy Verified 03/29/23 21:51 Home Meds Home Medications Medication Instructions Recorded Confirmed ibuprofen 600 mg tablet 600 mg PO TID PRN Pain 05/11/18 03/29/23 albuterol sulfate 90 mcg/actuation 1 inh inhalation DIRECTED PRN 03/29/23 03/29/23 aerosol inhaler Shortness Of Breath Or Wheezing citalopram 40 mg tablet 40 mg PO DAILY 03/29/23 03/29/23 fluticasone fur. 200 mcg-umeclid 1 inh inhalation DAILY 03/29/23 03/29/23 62.5 mcg-vilant 25 mcg inhalat.powder (Trelegy Ellipta) Results & Data (ED) Vital Signs Vital Signs - 24 hr 03/29/23 20:54 03/29/23 20:54 03/29/23 21:12 Temperature 36.3 C L 36.3 C L Temperature Source Rectal Rectal Pulse Rate 105 H 102 H Pulse Rate [Apical] Pulse Rhythm Regular Regular Pulse Rhythm [Apical] Pulse Strength Normal Pulse Strength [Apical] Respiratory Rate 17 15 Respiratory Effort / Characteristics Non-Labored Spontaneous Respiratory Depth Normal Respiratory Pattern Regular Blood Pressure 123/70 Blood Pressure [Left Arm] Blood Pressure Mean 87 Blood Pressure Mean [Left Arm] Blood Pressure Position Semi-fowlers Blood Pressure Position [Left Arm] Pulse Oximetry 99 99 99 Oxygen Delivery Method Room Air Room Air Room Air Sepsis Recent Fever Within 48 Hours No Sepsis New/Unexplained Change in Mental Status No Sepsis Action Taken by Nursing No Action Required 03/29/23 21:29 03/29/23 22:57 03/29/23 23:47 Temperature Temperature Source Pulse Rate 95 H Pulse Rate [Apical] 95 H 88 Pulse Rhythm Pulse Rhythm [Apical] Regular Regular Pulse Strength Pulse Strength [Apical] Normal Normal Respiratory Rate 19 20 Respiratory Effort / Characteristics Non-Labored Spontaneous Non-Labored Spontaneous Respiratory Depth Normal Normal Respiratory Pattern Regular Blood Pressure Blood Pressure [Left Arm] 144/81 H 130/69 Blood Pressure Mean Blood Pressure Mean [Left Arm] 102 89 Blood Pressure Position Blood Pressure Position [Left Arm] Semi-fowlers Pulse Oximetry 99 99 Oxygen Delivery Method Room Air Room Air Sepsis Recent Fever Within 48 Hours Sepsis New/Unexplained Change in Mental Status Sepsis Action Taken by Nursing 03/30/23 00:14 03/30/23 01:07 Temperature Temperature Source Pulse Rate Pulse Rate [Apical] 89 88 Pulse Rhythm Pulse Rhythm [Apical] Regular Regular Pulse Strength Pulse Strength [Apical] Normal Normal Respiratory Rate 16 16 Respiratory Effort / Characteristics Non-Labored Spontaneous Non-Labored Spontaneous Respiratory Depth Normal Normal Respiratory Pattern Regular Blood Pressure Blood Pressure [Left Arm] 139/76 148/79 H Blood Pressure Mean Blood Pressure Mean [Left Arm] 97 102 Blood Pressure Position Blood Pressure Position [Left Arm] Pulse Oximetry 100 95 Oxygen Delivery Method Room Air Room Air Sepsis Recent Fever Within 48 Hours Sepsis New/Unexplained Change in Mental Status Sepsis Action Taken by Half-Way Medications Current Medication List: was personally reviewed by me Laboratory Data Attestation: I reviewed the patient's lab results. 03/29/23 21:20 03/29/23 21:20 Lab Results 03/29/23 03/29/23 Range/Units 21:12 21:20 WBC 8.23 (4.8-10.8) K/ul RBC 4.04 L (4.20-5.40) M/uL Hgb 12.8 (12.0-16.0) g/dl Hct 35.9 L (37.0-47.0) % MCV 88.9 (80.0-100.0) fL MCH 31.7 (25.0-34.0) pg MCHC 35.7 (32.0-36.0) g/dL RDW Std Deviation 43.1 (36.4-46.3) fL RDW Coeff of Kartik 13.2 (11.5-14.5) % Plt Count 290 (130-400) K/uL MPV 9.3 L (9.4-12.4) fL Immature Gran % (Auto) 0.2 % Neut % (Auto) 73.6 % Lymph % (Auto) 18.7 % Cook % (Auto) 7.0 % Eos % (Auto) 0.1 % Baso % (Auto) 0.4 % Neut # (Auto) 6.05 (1.40-6.50) K/uL Lymph # (Auto) 1.54 (1.20-3.40) K/uL Cook # (Auto) 0.58 (0.11-0.59) K/uL Eos # (Auto) 0.01 (0.00-0.50) K/uL Baso # (Auto) 0.03 (0.00-0.20) K/uL Immature Gran # (Auto) 0.02 (0.01-0.20) K/uL PT 10.9 (9.0-12.0) Seconds INR 1.0 (0.9-1.1) APTT 27.2 (21.0-31.0) Seconds PTT Ratio 1.0 VBG pH 7.39 (7.36-7.41) VBG pCO2 45 (38-50) mmHg VBG pO2 28 mmHg VBG HCO3 27 mmol/L VBG O2 Saturation < 60.0 % VBG Base Excess 1.7 mEq/L Sodium 131 L (136-145) mmol/L Potassium 3.1 L (3.5-5.1) mmol/L Chloride 97 L (98-107) mmol/L Carbon Dioxide 24 (21-32) mmol/L Anion Gap 10 (3-11) BUN 7 (6-23) mg/dl Creatinine 0.64 (0.6-1.2) mg/dl Est Cr Clr Drug Dosing 58.8 ml/min Est GFR ( Amer) 104.8 ml/min Est GFR (Non-Af Amer) 90.4 ml/min BUN/Creatinine Ratio 10.9 (10-20) Glucose 106 H (70-99(Fasting)) mg/dl Calcium 8.3 L (8.6-10.3) mg/dl Magnesium 1.4 L (1.7-2.4) mg/dl Total Bilirubin 0.5 (0.2-1.0) mg/dl AST 25 (13-39) U/L ALT 19 (7-52) U/L Alkaline Phosphatase 134 H (34-104) U/L Total Creatine Kinase 68 (26-192) U/L Troponin I High Sens 7.0 (0-14) pg/ml Total Protein 6.4 (6.0-8.3) gm/dl Albumin 2.6 L (3.4-5.0) gm/dl Globulin 3.8 (2.5-4.0) gm/dl Albumin/Globulin Ratio 0.7 L (0.9-2) TSH 1.617 (0.300-4.500) uIu/ml Urine Color Yellow Urine Appearance Clear (Clear) Urine pH 6.0 (4.5-7.5) Ur Specific [place] 1.008 (1.000-1.030) Urine Protein Negative (Negative) Urine Glucose (UA) Negative (Negative) Urine Ketones Negative (Negative) Urine Blood Negative (Negative) Urine Nitrite Negative (Negative) Urine Bilirubin Negative (Negative) Urine Urobilinogen Negative (Negative) Ur Leukocyte Esterase Negative (Negative) Urine Opiates Screen Neg (Neg) Ur Methadone, Qual Neg (Neg) Urine Barbiturates Neg (Neg) Ur Phencyclidine (PCP) Neg (Neg) U Amphetamin/Meth Scrn Neg (Neg) MDMA (Ecstasy) Screen Neg (Neg) U Benzodiazepines Scrn Neg (Neg) Ur Cocaine Metabolite Neg (Neg) U Marijuana (THC) Screen Pos H (Neg) Ethyl Alcohol mg/dL < 10.0 (<10.0) mg/dl Administered Medications Discontinued Medications Sodium Chloride (Nss) 500 mls @ 999 mls/hr IV .Q31M AUGUSTINE Stop: 03/29/23 21:30 Last Infusion: 03/29/23 21:58 Dose: Infused Documented By: Admin: 03/29/23 21:21 Dose: 999 mls/hr Documented By: MJ Magnesium Sulfate/Dextrose (Magnesium Sulfate / D5w) 1 gm in 100 mls @ 100 mls/hr IV NOW STA Stop: 03/29/23 23:29 Last Infusion: 03/30/23 00:03 Dose: Infused Documented By: Admin: 03/29/23 22:54 Dose: 100 mls/hr Documented By: MJ Thiamine HCl 200 mg/ Sodium (Chloride) 52 mls @ 210 mls/hr IV NOW STA Stop: 03/29/23 22:44 Last Infusion: 03/29/23 23:10 Dose: Infused Documented By: Admin: 03/29/23 22:50 Dose: 210 mls/hr Documented By: MJ Potassium Chloride (Potassium Chloride 10 Meq Tabcr) 20 meq PO NOW STA Stop: 03/29/23 22:31 Last Admin: 03/29/23 22:53 Dose: 20 meq Documented By: MJ Imaging Data Attestation: I personally reviewed and interpreted this imaging study as follows: My Impression: CT of the brain was obtained in the emergency department. My interpretation is no intracranial hemorrhage or mass effect, final report below. 1 view chest x-ray was obtained in the emergency department. My interpretation is no free air or definite infiltrate, final report below. Radiologist's Impression: Cervical Spine CT 03/29/23 20:57 Exam(s): CT C SPINE EXAM: CT Cervical Spine Without Intravenous Contrast CLINICAL HISTORY: Reason for exam: fall. TECHNIQUE: Axial computed tomography images of the cervical spine without intravenous contrast. CTDI is 37.87 mGy and DLP is 624.41 mGy-cm. Automated exposure control was utilized for the study. A dose lowering technique was utilized adhering to the principles of ALARA. COMPARISON: January 22, 2023 CT. FINDINGS: Vertebrae: Advanced multilevel degenerative arthropathy of the facet joints. Minimal anterior spondylolisthesis of C4 on C5 and C5 on C6. No acute fracture. Discs/spinal canal/neural foramina: Degenerative disc disease, most pronounced at C6/C7. No spinal canal stenosis. Soft tissues: Unremarkable. IMPRESSION: No acute findings in the cervical spine. Electronically signed by: Josef Serna MD 03/29/23 23:52 PM Chest X-Ray 03/29/23 20:57 XR chest 1V portable HISTORY: weakness COMPARISON: None. FINDINGS: No pneumothorax. No pleural effusions. The cardiac silhouette is normal in size. No focal lung consolidations to suggest a pneumonia. No evidence for pulmonary edema. There is an acute distal left clavicle fracture. IMPRESSION: Acute distal left clavicle fracture. No pneumothorax. ACT 112: Negative or not required by law. Electronically signed by: Martin Hall M.D. 03/29/2023 9:[address] 03/29/23 20:57 Exam(s): CT HEAD Without Contrast EXAM: CT Head Without Intravenous Contrast CLINICAL HISTORY: Reason for exam: fall. TECHNIQUE: Axial computed tomography images of the head/brain without intravenous contrast. CTDI is 37.87 mGy and DLP is 624.41 mGy-cm. Automated exposure control was utilized for the study. A dose lowering technique was utilized adhering to the principles of ALARA. COMPARISON: March 24, 2023 FINDINGS: Brain: Generalized cerebral volume loss and chronic small vessel ischemic changes in the white matter. No acute edema, hemorrhage or abnormal mass-effect. No extra-axial collection. Ventricles: Unremarkable. No ventriculomegaly. Bones/joints: Unremarkable. No acute fracture. Soft tissues: Unremarkable. Sinuses: Unremarkable as visualized. No acute sinusitis. Mastoid air cells: Unremarkable as visualized. No mastoid effusion. IMPRESSION: No acute findings in the head/brain. Electronically signed by: Josef Serna MD 03/29/23 23:49 PM Discharge Plan Visit Data Chief Complaint: Fall Stated Complaint: FELL EARLIER - WANTS EVAL ED Provider: Alfredito Campos Discharge Problem: Fall, Closed fracture of left clavicle, Marijuana use, Acute hyponatremia, Hypokalemia, Hypomagnesemia Patient Disposition: Being Evaluated by Hospitalist Condition: Good Discharge Instructions Krames/Other Patient Handouts: ED Mechanical Fall Activity Restrictions/Additional Instructions: Medications as prescribed. Continue to use Tylenol and ibuprofen as directed for pain. Call the orthopedic physician to schedule a follow-up appointment. Return to the emergency department immediately if symptoms change worsen or the need arises. Forms Stand Alone Forms: [facility] [employer], Important Visit Information Prescriptions Prescriptions: No Action ibuprofen 600 mg Tablet 600 mg PO TID PRN (Reason: Pain) citalopram 40 mg tablet 40 mg PO DAILY albuterol sulfate 90 mcg/actuation HFA aerosol inhaler 1 inh INHALATION DIRECTED PRN (Reason: Shortness Of Breath Or Wheezing) Trelegy Ellipta 200-62.5-25 mcg blister with device 1 inh INHALATION DAILY Referrals Referrals: Himanshu Sanders MD [Physician] - Ishaan Gomez MD [Primary Care Provider] - Discharge Problem: Fall Qualifiers: Encounter type: initial encounter Qualified Code(s): W19.XXXA - Unspecified fall, initial encounter Closed fracture of left clavicle Qualifiers: Encounter type: initial encounter Clavicle location: lateral end Fracture alignment: displaced Qualified Code(s): S42.032A - Displaced fracture of lateral end of left clavicle, initial encounter for closed fracture
[2023-03-29] MEDS ORDERED: SODIUM CHLORIDE 0.9% 500 ML IV SCH (21:00)
[2023-03-29 21:28] LABS: Basophils # (auto) 0.03 K/uL (0.00-0.20); Basophils % (auto) 0.4 %; Eosinophils # (auto) 0.01 K/uL (0.00-0.50); Eosinophils % (auto) 0.1 %; Hematocrit (blood only) 35.9 % (37.0-47.0); Hemoglobin 12.8 g/dl (12.0-16.0); Immature Granulocytes # (auto) 0.02 K/uL (0.01-0.20); Immature Granulocytes % (auto) 0.2 %; Lymphocytes # (auto) 1.54 K/uL (1.20-3.40); Lymphocytes % (auto) 18.7 %; Mean Corpuscular Hemoglobin 31.7 pg (25.0-34.0); Mean Corpuscular Hgb Conc 35.7 g/dL (32.0-36.0); Mean Corpuscular Volume 88.9 fL (80.0-100.0); Mean Platelet Volume 9.3 fL (9.4-12.4); Monocytes # (auto) 0.58 K/uL (0.11-0.59); Neutrophils # (auto) 6.05 K/uL (1.40-6.50); Neutrophils % (auto) 73.6 %; Platelet Count 290 K/uL (130-400); RDW Coefficient of Variation 13.2 % (11.5-14.5); RDW Standard Deviation 43.1 fL (36.4-46.3); Red Blood Count 4.04 M/uL (4.20-5.40); White Blood Count 8.23 K/ul (4.8-10.8)
[2023-03-29 21:31] LABS: Base Excess VBG 1.7 mEq/L; HCO3 VBG 27 mmol/L; Oxygen Saturation VBG < 60.0 %; PCO2 VBG 45 mmHg (38-50); PO2 VBG 28 mmHg; pH VBG 7.39 (7.36-7.41)
[2023-03-29 21:33] LABS: Appearance Urine Clear (Clear); Bilirubin Urine Negative (Negative); Blood Urine Negative (Negative); Color Urine Yellow; Glucose Urine UA Negative (Negative); Ketones Urine Negative (Negative); Leukocyte Esterase Urine Negative (Negative); Nitrite Urine Negative (Negative); Protein Urine Negative (Negative); Specific Gravity Urine 1.008 (1.000-1.030); Urobilinogen Urine Negative (Negative)
--- NOTE | 2023-03-29 21:36 | XRay Report ---
XR chest 1V portable HISTORY: weakness COMPARISON: None. FINDINGS: No pneumothorax. No pleural effusions. The cardiac silhouette is normal in size. No focal l nanda consolidations to suggest a pneumonia. No evidence for pulmonary edema. There is an acute distal left clavicle fracture. IMPRESSION: Acute distal left clavicle fracture. No pneumothorax. ACT 112: Negative or not required by law. Electronically signed by: Martin Hall M.D. 03/29/2023 9:35 PM
[2023-03-29 21:39] LABS: Partial Thromboplastin Time 27.2 Seconds (21.0-31.0); Prothrombin Time 10.9 Seconds (9.0-12.0)
[2023-03-29 22:09] LABS: Amphetamines+Metham, Urine Neg (Neg); Barbiturates, Urine Neg (Neg); Benzodiazepine, Urine Neg (Neg); Cocaine, Urine Neg (Neg); MDMA (Ecstacy), Urine Neg (Neg); Marijuana, Urine Pos (Neg); Methadone, Urine Neg (Neg); Opiate, Urine Neg (Neg); Phencyclidine, Urine Neg (Neg)
[2023-03-29 22:10] LABS: Thyroid Stimulating Hormone 1.617 uIu/ml (0.300-4.500)
[2023-03-29 22:11] LABS: Albumin Level 2.6 gm/dl (3.4-5.0); Bilirubin,Total 0.5 mg/dl (0.2-1.0); Calcium 8.3 mg/dl (8.6-10.3); Magnesium 1.4 mg/dl (1.7-2.4); Potassium 3.1 mmol/L (3.5-5.1)
[2023-03-29 22:17] LABS: Albumin Globulin Ratio 0.7 (0.9-2); BUN Creatinine Ratio 10.9 (10-20); Creatinine Clr Calc Pharmacy 58.8 ml/min; Est GFR (African American) 104.8 ml/min; Est GFR (Non-African American) 90.4 ml/min; Globulin 3.8 gm/dl (2.5-4.0); Total Protein 6.4 gm/dl (6.0-8.3)
[2023-03-29] MEDS ORDERED: POTASSIUM CHLORIDE 10 MEQ TABCR PO STA (22:30)
[2023-03-29] MEDS ORDERED: THIAMINE HCL 200 MG in SODIUM CHLORIDE 0.9% 50 ML IV STA (22:30)
[2023-03-29] MEDS ORDERED: MAGNESIUM SULFATE / D5W 1 GM/100 ML BAG IV STA (22:30)
--- NOTE | 2023-03-29 23:51 | CT Scan Report ---
Exam(s): CT HEAD Without Contrast EXAM: CT Head Without Intravenous Contrast CLINICAL HISTORY: Reason for exam: fall. TECHNIQUE: Axial computed tomography images of the head/brain without intravenous contrast. CTDI is 37.87 mGy and DLP is 624.41 mGy-cm. Automated exposure control was utilized for the study. A dose lowering technique was utilized adhering to the principles of ALARA. COMPARISON: March 24, 2023 FINDINGS: Brain: Generalized cerebral volume loss and chronic small vessel ischemic changes in the white matter. No acute edema, hemorrhage or abnormal mass-effect. No extra-axial collection. Ventricles: Unremarkable. No ventriculomegaly. Bones/joints: Unremarkable. No acute fracture. Soft tissues: Unremarkable. Sinuses: Unremarkable as visualized. No acute sinusitis. Mastoid air cells: Unremarkable as visualized. No mastoid effusion. IMPRESSION: No acute findings in the head/brain. Electronically signed by: Josef Serna MD 03/29/23 23:49 PM
--- NOTE | 2023-03-29 23:53 | CT Scan Report ---
Exam(s): CT C SPINE EXAM: CT Cervical Spine Without Intravenous Contrast CLINICAL HISTORY: Reason for exam: fall. TECHNIQUE: Axial computed tomography images of the cervical spine without intravenous contrast. CTDI is 37.87 mGy and DLP is 624.41 mGy-cm. Automated exposure control was utilized for the study. A dose lowering technique was utilized adhering to the principles of ALARA. COMPARISON: January 22, 2023 CT. FINDINGS: Vertebrae: Advanced multilevel degenerative arthropathy of the facet joints. Minimal anterior spondylolisthesis of C4 on C5 and C5 on C6. No acute fracture. Discs/spinal canal/neural foramina: Degenerative disc disease, most pronounced at C6/C7. No spinal canal stenosis. Soft tissues: Unremarkable. IMPRESSION: No acute findings in the cervical spine. Electronically signed by: Josef Serna MD 03/29/23 23:52 PM
[2023-03-30] MEDS ORDERED: POTASSIUM CHLORIDE CRTAB 20 MEQ TABCR PO STA ×2 (03:26→19:11)
[2023-03-30] MEDS ORDERED: MAGNESIUM SULFATE / D5W 1 GM/100 ML BAG IV ONE (03:26)
[2023-03-30] MEDS ORDERED: ALBUTEROL HFA 8 GM INHALER INH PRN (05:12)
[2023-03-30] MEDS ORDERED: GABAPENTIN 400 MG CAP PO ONE (05:12)
[2023-03-30] MEDS ORDERED: NITROGLYCERIN SL 0.4 MG/TAB TAB SL PRN (05:12)
[2023-03-30] MEDS ORDERED: LORazepam 1 MG in SYRINGE 0.5 ML IV PRN (05:12)
[2023-03-30] MEDS ORDERED: LORazepam 3 MG in SYRINGE 1.5 ML IV PRN (05:12)
[2023-03-30] MEDS ORDERED: SODIUM CHLORIDE 0.9% 1,000 ML IV SCH (05:12)
[2023-03-30] MEDS ORDERED: POLYETHYLENE (MIRALAX) 17 GM PACK PO PRN (05:12)
[2023-03-30] MEDS ORDERED: Ativan IV Alcohol Withdrawal--Active Protocol IV PRN (05:12)
[2023-03-30] MEDS ORDERED: GABAPENTIN 800MG ALCOHOL WITHDRAWAL LOAD PO STA (05:12)
[2023-03-30] MEDS ORDERED: LORazepam 2 MG in SYRINGE 1 ML IV PRN (05:12)
--- NOTE | 2023-03-30 05:41 | History & Physical Report ---
Date of Service March 30, 2023 Assessment & Plan (1) Fall: Plan: 72-year-old female with past med significant for COPD moderate, hepatic steatosis, ongoing tobacco abuse, generalized anxiety disorder, ongoing alcohol abuse lives at home alone and ambulates with walker presents with fall. Fall Ambulatory dysfunction Frequent falling as per patient Ongoing alcoholism Acute distal left clavicle fracture Will consult orthopedics PT OT when stable Hypomagnesia and hypokalemia We will replace Follow repeat labs COPD Ongoing tobacco abuse-needs counseling Have mild wheezing on exam We will continue home inhalers Will place on DuoNebs close monitor Alcoholism Banana bag Thiamine and folic acid Will place on gabapentin alcohol withdrawal protocol with IV Ativan as needed Close monitor for withdrawal symptoms Generalized disorder On citalopram DVT prophylaxis SCDs Heparin subcu Disposition Med/telemetry Full code Addendum: On the floor patient suddenly became unresponsive and lost pulse. Code blue was activated.Cpr was started and a dose of epinephrine was given and patient pulse came back. But she was still having agonal breathing and was intubated and transferred to ICU. CTA chest was done and was ok. Repeat ct head was done and was ok. Daughter and son were called and notified.Appreciate critical care help. Admission and Anticipated Discharge Date Admission Date: March 30, 2023 History of Present Illness Chief Complaint: S/p fall Primary Care Provider: Ishaan Gomez MD 72-year-old female with past med significant for COPD moderate, hepatic steatosis, ongoing tobacco abuse, generalized anxiety disorder, ongoing alcohol abuse lives at home alone and ambulates with walker presents with fall. Patient states she is falling frequently. She states she hit her head on the left side but no loss of consciousness. She was not able to get up and EMS was called. She says daughter lives close by. Currently denies any headache. No blurred visions. No earache. No sore throat. Has chronic cough. Denies any fevers. Denies chest pain or shortness of breath. No nausea. No abdominal pain. Appetite is okay. Normal bowel and bladder movements. No swelling in the legs. States she is smoking 1 pack of cigarettes daily for many years. Says drinks alcohol 6 beers daily.Marijuana screen was positive and daughter says she didn't smoked marijuana in the past ,this is something new. Past medical history. As mentioned above Past surgical history. Colonoscopy. D and E. Tonsillectomy adenoidectomy. Social history. Smoking 1 pack a day for last 53 years. Drinks alcohol 6 beers daily. No drug use as per [facility]. Family history. Mother had arthritis. Father had cataracts. Alzheimer's. Prostate cancer. Allergies Allergy/AdvReac Type Severity Reaction Status Date / Time No Known Allergies Allergy Verified 03/29/23 21:51 Home Medications Medication Instructions Recorded Confirmed Type ibuprofen 600 mg tablet 600 mg PO TID PRN Pain 05/11/18 03/29/23 History albuterol sulfate 90 mcg/actuation 1 inh inhalation DIRECTED PRN 03/29/23 03/29/23 History aerosol inhaler Shortness Of Breath Or Wheezing citalopram 40 mg tablet 40 mg PO DAILY 03/29/23 03/29/23 History fluticasone fur. 200 mcg-umeclid 1 inh inhalation DAILY 03/29/23 03/29/23 History 62.5 mcg-vilant 25 mcg inhalat.powder (Trelegy Ellipta) Past Med/Surg History Medical History (Updated 03/29/23 @ 23:54 by Alfredito Campos DO) Arthritis Right hand fracture Family History Other No significant family history Social History Smoking Status: Current every day smoker Tobacco Type: Cigarettes Second Hand Exposure: No; Do You Dip or Chew Tobacco: No; Tobacco Cessation Education Requested by Patient: No Hx Alcohol Use: Yes Alcohol type: beer Hx Substance Use: Yes Last Used Substance: Days (ago) Preferred Language: [place] Islander Communication Ability: Effective Signaler Required: No Beliefs That Will Affect Care: None marital status: / Current Living Situation: Alone current occupational status: retired Other Information That Helps Us Care for You: No Feels Safe at Home: Yes Safety Concerns: Feels Safe At This Time Assistive Devices: Cane, Glasses and Walker Review of Systems Review of Systems: All systems reviewed & are unremarkable except as noted in HPI & below Physical Exam Physical Exam: General- Not in distress Head- atraumatic Eyes- PERRL. ENT- oropharynx clear Neck- supple, no JVD. Lungs- clear to auscultation , mild b/l wheezing present. no crackles. Heart- regular rhythm; no murmur, no gallop. Abdomen- normal bowel sounds, soft, nontender, no distension. Extremities- no pretibial edema, no erythema seen. Neuro- alert, oriented x 3; PERRL, no facial palsy; no dysarthria; moves extremities. Skin- warm & dry Results & Data Results & Data Vital Signs (Past 12 Hours) Vital Signs Temp Pulse Pulse Resp BP BP Pulse Ox 03/30/23 02:33 87 16 148/77 H 95 03/30/23 01:55 87 16 155/93 H 96 03/30/23 01:07 88 16 148/79 H 95 03/30/23 00:14 89 16 139/76 100 03/29/23 23:47 88 20 130/69 99 03/29/23 22:57 95 H 19 144/81 H 99 03/29/23 21:29 95 H 03/29/23 21:12 102 H 15 99 03/29/23 20:54 36.3 C L 99 03/29/23 20:54 36.3 C L 105 H 17 123/70 99 O2 Del Method 03/30/23 02:33 Room Air 03/30/23 01:55 Room Air 03/30/23 01:07 Room Air 03/30/23 00:14 Room Air 03/29/23 23:47 Room Air 03/29/23 22:57 Room Air 03/29/23 21:29 03/29/23 21:12 Room Air 03/29/23 20:54 Room Air 03/29/23 20:54 Room Air Diagnostic Findings Laboratory Results WBC 8.23 K/ul (4.8-10.8) 03/29/23 21:20 RBC 4.04 M/uL (4.20-5.40) L 03/29/23 21:20 Hgb 12.8 g/dl (12.0-16.0) 03/29/23 21:20 Hct 35.9 % (37.0-47.0) L 03/29/23 21:20 MCV 88.9 fL (80.0-100.0) 03/29/23 21:20 MCH 31.7 pg (25.0-34.0) 03/29/23 21:20 MCHC 35.7 g/dL (32.0-36.0) 03/29/23 21:20 RDW Std Deviation 43.1 fL (36.4-46.3) 03/29/23 21:20 RDW Coeff of Kartik 13.2 % (11.5-14.5) 03/29/23 21:20 Plt Count 290 K/uL (130-400) 03/29/23 21:20 MPV 9.3 fL (9.4-12.4) L 03/29/23 21:20 Immature Gran % (Auto) 0.2 % 03/29/23 21:20 Neut % (Auto) 73.6 % 03/29/23 21:20 Lymph % (Auto) 18.7 % 03/29/23 21:20 [place] % (Auto) 7.0 % 03/29/23 21:20 Eos % (Auto) 0.1 % 03/29/23 21:20 Baso % (Auto) 0.4 % 03/29/23 21:20 Neut # (Auto) 6.05 K/uL (1.40-6.50) 03/29/23 21:20 Lymph # (Auto) 1.54 K/uL (1.20-3.40) 03/29/23 21:20 [place] # (Auto) 0.58 K/uL (0.11-0.59) 03/29/23 21:20 Eos # (Auto) 0.01 K/uL (0.00-0.50) 03/29/23 21:20 Baso # (Auto) 0.03 K/uL (0.00-0.20) 03/29/23 21:20 Immature Gran # (Auto) 0.02 K/uL (0.01-0.20) 03/29/23 21:20 PT 10.9 Seconds (9.0-12.0) 03/29/23 21:20 INR 1.0 (0.9-1.1) 03/29/23:20 APTT 27.2 Seconds (21.0-31.0) 03/29/23 21:20 PTT Ratio 1.0 03/29/23 21:20 VBG pH 7.39 (7.36-7.41) 03/29/23 21:12 VBG pCO2 45 mmHg (38-50) 03/29/23 21:12 VBG pO2 28 mmHg 03/29/23 21:12 VBG HCO3 27 mmol/L 03/29/23 21:12 VBG O2 Saturation < 60.0 % 03/29/23 21:12 VBG Base Excess 1.7 mEq/L 03/29/23 21:12 Sodium 131 mmol/L (136-145) L 03/29/23 21:20 Potassium 3.1 mmol/L (3.5-5.1) L 03/29/23 21:20 Chloride 97 mmol/L (98-107) L 03/29/23 21:20 Carbon Dioxide 24 mmol/L (21-32) 03/29/23 21:20 Anion Gap 10 (3-11) 03/29/23 21:20 BUN 7 mg/dl (6-23) 03/29/23 21:20 Creatinine 0.64 mg/dl (0.6-1.2) 03/29/23 21:20 Est Cr Clr Drug Dosing 58.8 ml/min 03/29/23 21:20 Est GFR ( Amer) 104.8 ml/min 03/29/23 21:20 Est GFR (Non-Af Amer) 90.4 ml/min 03/29/23 21:20 BUN/Creatinine Ratio 10.9 (10-20) 03/29/23 21:20 Glucose 106 mg/dl (70-99(Fasting)) H 03/29/23 21:20 Calcium 8.3 mg/dl (8.6-10.3) L 03/29/23 21:20 Magnesium 1.4 mg/dl (1.7-2.4) L 03/29/23 21:20 Total Bilirubin 0.5 mg/dl (0.2-1.0) 03/29/23 21:20 AST 25 U/L (13-39) 03/29/23 21:20 ALT 19 U/L (7-52) 03/29/23 21:20 Alkaline Phosphatase 134 U/L (34-104) H 03/29/23 21:20 Total Creatine Kinase 68 U/L (26-192) 03/29/23 21:20 Troponin I High Sens 7.0 pg/ml (0-14) 03/29/23 21:20 Total Protein 6.4 gm/dl (6.0-8.3) 03/29/23 21:20 Albumin 2.6 gm/dl (3.4-5.0) L 03/29/23 21:20 Globulin 3.8 gm/dl (2.5-4.0) 03/29/23 21:20 Albumin/Globulin Ratio 0.7 (0.9-2) L 03/29/23 21:20 TSH 1.617 uIu/ml (0.300-4.500) 03/29/23 21:20 Urine Color Yellow 03/29/23 21:20 Urine Appearance Clear (Clear) 03/29/23 21:20 Urine pH 6.0 (4.5-7.5) 03/29/23 21:20 Ur Specific [place] 1.008 (1.000-1.030) 03/29/23 21:20 Urine Protein Negative (Negative) 03/29/23 21:20 Urine Glucose (UA) Negative (Negative) 03/29/23 21:20 Urine Ketones Negative (Negative) 03/29/23 21:20 Urine Blood Negative (Negative) 03/29/23 21:20 Urine Nitrite Negative (Negative) 03/29/23 21:20 Urine Bilirubin Negative (Negative) 03/29/23 21:20 Urine Urobilinogen Negative (Negative) 03/29/23 21:20 Ur Leukocyte Esterase Negative (Negative) 03/29/23 21:20 Urine Opiates Screen Neg (Neg) 03/29/23 21:20 Ur Methadone, Qual Neg (Neg) 03/29/23 21:20 Urine Barbiturates Neg (Neg) 03/29/23 21:20 Ur Phencyclidine (PCP) Neg (Neg) 03/29/23 21:20 U Amphetamin/Meth Scrn Neg (Neg) 03/29/23 21:20 MDMA (Ecstasy) Screen Neg (Neg) 03/29/23 21:20 U Benzodiazepines Scrn Neg (Neg) 03/29/23 21:20 Ur Cocaine Metabolite Neg (Neg) 03/29/23 21:20 U Marijuana (THC) Screen Pos (Neg) H 03/29/23 21:20 Ethyl Alcohol mg/dL < 10.0 mg/dl (<10.0) 03/29/23 21:[address] 03/29/23 20:57 Exam(s): CT C SPINE EXAM: CT Cervical Spine Without Intravenous Contrast CLINICAL HISTORY: Reason for exam: fall. TECHNIQUE: Axial computed tomography images of the cervical spine without intravenous contrast. CTDI is 37.87 mGy and DLP is 624.41 mGy-cm. Automated exposure control was utilized for the study. A dose lowering technique was utilized adhering to the principles of ALARA. COMPARISON: January 22, 2023 CT. FINDINGS: Vertebrae: Advanced multilevel degenerative arthropathy of the facet joints. Minimal anterior spondylolisthesis of C4 on C5 and C5 on C6. No acute fracture. Discs/spinal canal/neural foramina: Degenerative disc disease, most pronounced at C6/C7. No spinal canal stenosis. Soft tissues: Unremarkable. IMPRESSION: No acute findings in the cervical spine. Electronically signed by: Josef Serna MD 03/29/23 23:52 PM Chest X-Ray 03/29/23 20:57 XR chest 1V portable HISTORY: weakness COMPARISON: None. FINDINGS: No pneumothorax. No pleural effusions. The cardiac silhouette is normal in size. No focal lung consolidations to suggest a pneumonia. No evidence for pulmonary edema. There is an acute distal left clavicle fracture. IMPRESSION: Acute distal left clavicle fracture. No pneumothorax. ACT 112: Negative or not required by law. Electronically signed by: Martin Hall M.D. 03/29/2023 9:[address] 03/29/23 20:57 Exam(s): CT HEAD Without Contrast EXAM: CT Head Without Intravenous Contrast CLINICAL HISTORY: Reason for exam: fall. TECHNIQUE: Axial computed tomography images of the head/brain without intravenous contrast. CTDI is 37.87 mGy and DLP is 624.41 mGy-cm. Automated exposure control was utilized for the study. A dose lowering technique was utilized adhering to the principles of ALARA. COMPARISON: March 24, 2023 FINDINGS: Brain: Generalized cerebral volume loss and chronic small vessel ischemic changes in the white matter. No acute edema, hemorrhage or abnormal mass-effect. No extra-axial collection. Ventricles: Unremarkable. No ventriculomegaly. Bones/joints: Unremarkable. No acute fracture. Soft tissues: Unremarkable. Sinuses: Unremarkable as visualized. No acute sinusitis. Mastoid air cells: Unremarkable as visualized. No mastoid effusion. IMPRESSION: No acute findings in the head/brain. Electronically signed by: Josef Serna MD 03/29/23 23:49 PM ECG Additional Comments: ECG. Sinus tachycardia rate of 105. Nonspecific T wave abnormalities. Code Status & VTE Plan VTE Prophylaxis Plan VTE Prophylaxis will be ordered: Yes (1) Fall Encounter type: initial encounter Qualified Code(s): W19.XXXA - Unspecified fall, initial encounter
[2023-03-30] MEDS ORDERED: MULTI-VITAMIN INFUSION 10 ML, THIAMINE HCL 100 MG, FOLIC ACID 1 MG in SODIUM CHLORIDE 0... IV ONE (06:00)
[2023-03-30] MEDS ORDERED: RAPID SEQUENCE INDUCTION BAG ONE (06:28)
[2023-03-30] MEDS ORDERED: OPTIRAY 320 125ml IV ONE (06:48)
--- NOTE | 2023-03-30 07:02 | Procedure Note ---
Procedure Note Date of Service March 30, 2023 Note INTUBATION PROCEDURE NOTE: PROCEDURALIST: Jed BARRIENTOS ([facility]) Sedation and Paralytic/Monitor: DR. Sánchez Attending: JAYY Patient was evaluated and required intubation for Cardiac Arrest with return of ROSC. Sedative agent used: Etomidate 40mg Paralysis agent used: Rocuronium 40mg Emergent consent was implied as patient is full code The patient was prepared in the appropriate fashion. Sedation was achieved utilizing Etomidate and Rocuronium, per Dr. Sánchez's administration. The patient was easily ventilated using [id number] to achieve adequate oxygenation. A 7.5 [place] endotracheal tube was placed under direct visualization with glidescope to 24 cm at the lip. Tube was passed and advanced, then withdrawn as did not see pass cords however on withdrawl it was in the cords, the tube was then re-inserted back into the vocal cords. The stylette was removed and balloon was inflated with 10mL of air. Appropriate Colorimetric change was appreciated. Bilateral breath sounds were heard without air sounds in the abdomen. Dr. SÁNCHEZ was present for the entire procedure. X Post Intubation Chest X-ray confirms placement without pneumothorax. Patient tolerated the procedure well and there were no immediate complications. Coding CPT Codes Resuscitation - Resuscitation: 16017 Endotracheal Intubation, emergency ([id number]) [facility] [place] Procedure Codes (Charges) Resuscitation Resuscitation: 74173 Endotracheal Intubation, emergency
--- NOTE | 2023-03-30 07:04 | Procedure Note ---
Procedure Note Date of Service March 30, 2023 Note CODE BLUE I responded to a CODE BLUE on the floor. Upon my arrival, CPR was in progress and patient was being bagged. She had already been given 1 amp of epinephrine. At next pulse check patient did have a palpable pulse, was noted to be sinus tachycardia on the monitor. We continued respiratory and ventilatory support with a BVM. Upon discussion with the admitting hospitalist regarding her condition we did briefly review her past medical history and most recent labs. Patient given a bolus of IV fluids, 2 A of bicarb additionally, and preparations made for intubation. Patient given 40 mg of etomidate and 40 mg of rocuronium and intubated using video laryngoscopy with a 7.5 endotracheal tube. Tube visualized passing through the cords, condensation noted in the tube, chest rise and fall, and color capnography noted. I supervised the intubation performed by Jed Whaley, ICU-AVIATION OPERATIONS SPECIALIST. Patient continued to be sinus tachycardia in the 150s and 160s. No complications throughout the procedure, no episodes of hypoxia. Patient was normotensive following the procedure. Arrangements made for patient to be transferred to the intensive care unit following CAT scans. Coding
--- NOTE | 2023-03-30 07:11 | CT Scan Report ---
Exam(s): CTA CHEST EXAM: CT Angiography Chest With Intravenous Contrast CLINICAL HISTORY: Reason for exam: PE. TECHNIQUE: Axial computed tomographic angiography images of the chest with intravenous contrast. Automated exposure control was utilized for the study. A dose lowering technique was utilized adhering to the principles of ALARA. MIP reconstructed images were created and reviewed. COMPARISON: No relevant prior studies available. FINDINGS: Pulmonary arteries: Unremarkable. No pulmonary embolism. Aorta: No acute findings. No thoracic aortic aneurysm or dissection. Lungs: Emphysematous changes. Peripheral fibrotic changes. No acute infiltration or mass. Pleural space: Unremarkable. No significant effusion. No pneumothorax. Heart: Unremarkable. No cardiomegaly. No significant pericardial effusion. No evidence of RV dysfunction. Bones/joints: No acute fracture. No dislocation. Soft tissues: Unremarkable. Lymph nodes: Unremarkable. No enlarged lymph nodes. Tubes, lines and devices: The endotracheal tube appears to be just above the mae. IMPRESSION: No evidence of pulmonary emboli or acute cardiopulmonary process. Electronically signed by: Josef Serna MD 03/30/23 07:11 AM
[2023-03-30] MEDS: ALBUT/IPRATROP 3MG/0.5MG NEB 3 ML VIAL NEB SCH ×4 (07:25→19:48)
[2023-03-30] MEDS ORDERED: STAT IV Infusion **Titration per Protocol STA ×6 (07:29→22:40)
[2023-03-30] MEDS: dexMEDEtomidine 200 MCG/50 ML BAG IV SCH ×2 (07:41→13:19)
--- NOTE | 2023-03-30 07:41 | XRay Report ---
XR chest 1V portable HISTORY: evaluate ETT post intubation COMPARISON: 03/29/2023. FINDINGS: The endotracheal tube terminates 2.2 cm from the mae. A nasogastric tube enters the stom ach with the tip is looped back into the distal esophagus. Therefore, this should be repositioned. No pneumothorax. Chronic interstitial thickening persists. No new focal lung consolidations. There are calcifications within the aortic knob. A distal left clavicle fracture appears to be old. No acute fr actures identified. IMPRESSION: 1. The endotracheal tube terminates 2.2 cm from the mae. 2. Nasogastric tube enters the stomach with the tip looped back into the distal esophagus. Therefore, this should be repositioned. 3. This report was called/faxed to the referring physician following dictation. ACT 112: Negative or not required by law. Electronically signed by: Martin Hall M.D. 03/30/2023 7:38 AM
--- NOTE | 2023-03-30 07:43 | CT Scan Report ---
HEAD CT NONCONTRAST CT DOSE: HISTORY: Fall. Altered mental status. TECHNIQUE: Multiaxial CT images of the head were performed without the use of intravenous contrast. A utomated exposure control was utilized for this study. A dose lowering technique was utilized adheri ng to the principles of ALARA. Comparison: Head CT 03/29/2023. Findings: There is a small fluid level within the left sphenoid sinus. Endotracheal tube is partially visualized. The mastoid air cells are clear. The calvarium and skull base are intact. There is no ma ss, hematoma, midline shift, acute infarct. White matter hypodensity is nonspecific but suggestive of microvascular ischemic change. The ventricles and sulci demonstrate mild age-related involutional ch anges. Impression: 1. No acute intracranial hemorrhage or acute infarct. 2. Small fluid level within the left sphenoid sinus. ACT 112: Negative or not required by law. Electronically signed by: Martin Hall M.D. 03/30/2023 7:41 AM
--- NOTE | 2023-03-30 08:17 | Electrocardiogram Report ---
Test Reason : Blood Pressure : / mmHG Vent. Rate : 109 BPM Atrial Rate : 109 BPM P-R Int : 116 ms QRS Dur : 098 ms QT Int : 404 ms P-R-T Axes : 078 087 044 degrees QTc Int : 544 ms Sinus tachycardia with Premature atrial complexes Low voltage QRS Incomplete right bundle branch block Nonspecific ST abnormality Anterolateral leads Prolonged QT Abnormal ECG When compared with ECG of 29-MAR-2023 21:04, Premature atrial complexes are now Present Incomplete right bundle branch block is now Present Confirmed by Marcus Pinzon ([id number]) on 03/30/2023 8:17:19 AM Referred By: REFERRED SELF Confirmed By:Marcus Pinzon
--- NOTE | 2023-03-30 08:17 | Electrocardiogram Report ---
Test Reason : Blood Pressure : / mmHG Vent. Rate : 105 BPM Atrial Rate : 105 BPM P-R Int : 118 ms QRS Dur : 062 ms QT Int : 380 ms P-R-T Axes : 063 058 074 degrees QTc Int : 502 ms Sinus tachycardia Nonspecific ST abnormality Anterolateral leads Abnormal ECG When compared with ECG of 22-JAN-2023 17:13, Nonspecific ST abnormality now present Confirmed by Marcus Pinzon ([id number]) on 03/30/2023 8:16:48 AM Referred By: REFERRED SELF Confirmed By:Marcus Pinzon
--- NOTE | 2023-03-30 08:34 | Procedure Note ---
Procedure Note Date of Service March 30, 2023 Note CENTRAL LINE PROCEDURE NOTE: Procedure: Central Line Placement Provider: Sal Hoyt MD Indication: Central Drug Administration, Poor Venous Access, Multiple Lab Draws Necessary, etc. Anesthesia: Patient sedated Site: Left IJ Procedure was emergent. Patient is intubated on the ventilator. No family immediately available to provide consent. A time-out was completed verifying correct patient, procedure, site, positioning , and implants(s) or special equipment if applicable. Patients left neck was cleansed and draped in the typical sterile fashion using Chloraprep. An initial attempt was made to place the catheter in the subclavian position however the patient has sustained a clavicular fracture and landmarks were unreliable and we were unable to successfully navigate the needle underneath the clavicle. Approach was then changed to a left internal jugular approach. The Internal Jugular Vein and Carotid Artery were identified using ultrasound. The internal Jugular vein was cannulated under direct ultrasound guidance using an introducer needle on a syringe. Good venous blood return was maintained prior to removal of syringe from introducer needle. Using Seldinger Technique, a guide wire was advanced through the introducer needle without resistance. The introducer needle was removed and ultrasound images were obtained of the guide wire within the Internal Jugular Vein and saved to the patients medical record. A small incision was made in penetrating fashion at the guide wire insertion site utilizing an 11 blade scalpel. The dilator was advanced to the vessel without resistance. The dilator was exchanged for the triple lumen catheter which was advanced into the vessel without resistance. The guide wire was removed intact from the catheter without issue. Claves were placed on each catheter tip with confirmation of good blood flow from each lumen. Each port was easily flushed with sterile saline. The catheter was placed at the hub and sutured in place. BioPatch was applied to the catheter and a sterile Tegaderm dressing was applied over the catheter with careful attention to sterility. Patient tolerated procedure well. No immediate complications were met. Post procedure x-ray was completed, placement was appropriate and no pneumothorax was noted. Images obtained are saved for permanent record Procedural Ultrasound Guidance: Procedure Date: 03/30/2020 Indication: Vascular access Proceduralist: Sal Hoyt MD Artery AND Vein visualized: Yes Compressible Vein: Yes Guidewire or Short Catheter seen in vein prior to dilation: Yes Line confirmed in Vein with ultrasound: Yes Coding CPT Codes Tubes, Drains, and Vasc Access - Tubes, Drains, and Vasc Access: [id number] Place catheter in vein superior or inferior vena cava ([id number]) Tubes, Drains, and Vasc Access - Tubes, Drains, and Vasc Access: [id number] Ultrasound Guidance For Vascular ([id number]) [facility] [place] Procedure Codes (Charges) Tubes, Drains, and Vasc Access Procedure 1: Tubes, Drains, and Vasc Access: [id number] Place catheter in vein superior or inferior vena cava Procedure 2: Tubes, Drains, and Vasc Access: [id number] Ultrasound Guidance For Vascular
--- NOTE | 2023-03-30 08:35 | Procedure Note ---
Procedure Note Date of Service March 30, 2023 Note ARTERIAL LINE PROCEDURE NOTE: Procedure: Arterial Line Placement Provider: Sal Hoyt MD Indication: Monitoring on Pressors Anesthesia: None Procedure was emergent. Patient is intubated on the ventilator and unable to provide consent. No family immediately available. A time-out was completed verifying correct patient, procedure, site, positioning, and implant(s) or special equipment if applicable. Allens test was performed to ensure adequate perfusion. Patients right wrist was prepped and draped in the usual sterile fashion. Ultrasound guidance was used to aid needle placement. A 20g Arrow arterial line was introduced into the right radial artery. Catheter was threaded, and the needle was removed with appropriate blood return. Good waveform was observed. The patient tolerated the procedure well. Blood Loss: Minimal Complications: None Procedural Ultrasound Guidance: Procedure Date: Indication: Hemodynamic monitoring Artery Identified: YES Complications: NONE Patient tolerated procedure: WELL Coding CPT Codes Tubes, Drains, and Vasc Access - Tubes, Drains, and Vasc Access: [id number] Arterial Cath/Cannulation Sampling/Monitoring/Transfusion ([id number]) Tubes, Drains, and Vasc Access - Tubes, Drains, and Vasc Access: [id number] Ultrasound Guidance For Vascular ([id number]) [facility] [place] Procedure Codes (Charges) Tubes, Drains, and Vasc Access Procedure 1: Tubes, Drains, and Vasc Access: [id number] Arterial Cath/Cannulation Sampling/Monitoring/Transfusion Procedure 2: Tubes, Drains, and Vasc Access: [id number] Ultrasound Guidance For Vascular
--- NOTE | 2023-03-30 08:42 | Critical Care Consultation ---
Date of Consultation March 30, 2023 Assessment & Plan (1) Cardiac arrest: (2) Hypomagnesemia: (3) Hypokalemia: (4) Closed fracture of left clavicle: (5) Fall: (6) Cachexia: (7) Anemia: (8) Hyponatremia: (9) Alcohol abuse: (10) Tobacco abuse: (11) COPD (chronic obstructive pulmonary disease): (12) Interstitial lung disease: Plan Impression: 72-year-old female with multiple medical issues including alcohol abuse, tobacco abuse, COPD, and failure to thrive admitted with frequent falls and a clavicular fracture suffering cardiac arrest shortly after arrival to the floor. Report was initial rhythm was PEA and she had return of spontaneous circulation with epinephrine. Total downtime not well documented currently. She is hemodynamically stable and sedated on Precedex but was intubated due to ineffectual respirations. Etiology of arrest is unclear currently Recommendations: 1. Neurologic: At risk for alcohol withdrawal. Continue high-dose thiamine and folate. Continue Precedex. Will hold gabapentin. Hold outpatient Celexa. Imaging of the head unremarkable. If neurological status does not return to baseline, may consider additional evaluation including EEG, neurology consultation, and MRI of the brain. 2. Cardiovascular: Cardiac arrest, reported as PEA of unclear etiology. She did have some electrolyte abnormalities however these were being repleted. No evidence of PE. No pericardial tamponade or pneumothorax identified. Fat embolism possible however would be unusual with a clavicular fracture and is typically associated with long bone fractures. No evidence of right ventricular strain on [id number] echocardiogram. Supportive care would be standard for this entity. Will obtain echocardiogram and cardiology consultation. Check troponin and BNP. Given her findings on echocardiogram, a 1 L bolus of crystalloid will be administered and will follow heart rate and blood pressure. 3. Respiratory: Intubated due to ineffectual respirations and inability to protect airway. Await follow-up blood gas. The patient is not bronchospastic. Will use as needed bronchodilators. No indication for steroids. The patient has evidence of increased subpleural markings concerning for interstitial lung disease. MALENA rheumatoid factor and anti-CCP were checked about 2 years ago and were negative. She also has evidence of centrilobular emphysematous changes. Outpatient pulmonary follow-up with PFTs and follow-up imaging may be warranted. Holding oral and Arnuity for now 4. GI: N.p.o. for now. History of hepatic steatosis. Initial LFTs unremarkable with the exception of an elevated alk phos. Will trend for now if unable to liberate from ventilator in the next 12 to 18 hours, consider initiation of enteral tube feeding. PPI. 5. Renal: Multiple electrolyte abnormalities including hypocalcemia, hypokalemia, and hypomagnesemia. Initiate ICU electrolyte replacement protocol. 6. Endocrine: Glycemic control per protocol. TSH normal on presentation. 7. Heme-onc: Mild anemia. No evidence of acute blood loss but will follow at this point in time. DVT prophylaxis will be initiated with Lovenox. 8. ID: No current issues 9. Musculoskeletal: Clavicular fracture, Ortho consult pending. Patient was discussed on multidisciplinary rounds and with the bedside critical care nurse. Family will be updated when available. A total of 75 minutes in critical care time exclusive of procedures was spent in evaluation management and stabilization of this patient History of Present Illness Attending Physician: Inocencio Panchal MD History of Present Illness Asked by hospitalist to assist in evaluation management this patient status post cardiac arrest. History is obtained from discussion with the overnight critical care [facility] and review of the electronic medical record. The patient is intubated and unable to provide any history. No family immediately available. The patient is a 72-year-old female who presented to the emergency room yesterday evening. She has a history of alcohol abuse, tobacco abuse, COPD, and hepatic steatosis. She apparently has limited mobility at home and ambulates with the assistance of a walker. She has had frequent falls. She hit her head but did not experience loss of consciousness. She was unable to get up and EMS was activated. Patient was seen by the hospitalist service in the ER and admitted to the floor. She had a distal left clavicular fracture and electrolyte abnormalities including hypomagnesemia and hypokalemia. These were being repleted. She was given thiamine folate and placed on Neurontin and Ativan for alcohol withdrawal. Shortly after arriving to the floor patient became unresponsive and lost a pulse. CPR was initiated and the patient received epinephrine with return of spontaneous circulation. Her respirations were ineffectual and the patient was intubated and transferred to the ICU. CT angiogram was performed which demonstrated no evidence of PE but did show some subpleural increased interstitial markings. CT of the head was performed which demonstrated no acute abnormality. Labs are currently pending. She has been sedated on Precedex. I assessed the patient in the ICU with the LATRICIA and bedside critical care nurse. Central lines and arterial lines were placed. Bedside critical care ultrasound was performed. The right ventricle did not appear dilated. Left ventricular cavity. Hyperdynamic with obliteration of the cavity suggestive of potential hypovolemia. No pericardial effusion identified. Able to assess valvular function Allergies Allergy/AdvReac Type Severity Reaction Status Date / Time No Known Allergies Allergy Verified 03/29/23 21:51 Home Medications Medication Instructions Recorded Confirmed Type ibuprofen 600 mg tablet 600 mg PO TID PRN Pain 05/11/18 03/29/23 History albuterol sulfate 90 mcg/actuation 1 inh inhalation DIRECTED PRN 03/29/23 03/29/23 History aerosol inhaler Shortness Of Breath Or Wheezing citalopram 40 mg tablet 40 mg PO DAILY 03/29/23 03/29/23 History fluticasone fur. 200 mcg-umeclid 1 inh inhalation DAILY 03/29/23 03/29/23 History 62.5 mcg-vilant 25 mcg inhalat.powder (Trelegy Ellipta) Patient History Medical History (Updated 03/30/23 @ 08:45 by Sal Hoyt MD) Arthritis Right hand fracture Family History Other No significant family history Social History Smoking Status: Current every day smoker Tobacco Type: Cigarettes Second Hand Exposure: No; Do You Dip or Chew Tobacco: No; Tobacco Cessation Education Requested by Patient: No Hx Alcohol Use: Yes Alcohol type: beer Hx Substance Use: Yes Last Used Substance: Days (ago) Preferred Language: Maltese Communication Ability: Effective Machine Operator Required: No Beliefs That Will Affect Care: None marital status: / Current Living Situation: Alone current occupational status: retired Other Information That Helps Us Care for You: No Feels Safe at Home: Yes Safety Concerns: Feels Safe At This Time Assistive Devices: Cane, Glasses and Walker Review of Systems Review of Systems: Unobtainable due to endotracheal tube Physical Exam Constitutional: + cachectic and + mechanically ventilate d Neck: trachea midline, no thyromegaly Respiratory: normal respiratory effort, lungs clear to auscultation Cardiovascular: RRR, no murmur, no edema Gastrointestinal (Abdomen): normal bowel sounds, soft, nontender, no hepatosplenomegaly Musculoskeletal: Extremities: extremities normal to inspection Skin: no rashes, warm and dry Neurologic: Nonfocal exam Lymphatic: no cervical lymphadenopathy Results & Data Results & Data Vital Signs (Past 12 Hours) Vital Signs Temp Pulse Pulse Resp BP BP Pulse Ox 03/30/23 07:22 113 H 18 96 03/30/23 05:30 03/30/23 05:06 93 H 03/30/23 04:40 36.5 C 93 H 18 161/92 H 98 03/30/23 02:33 87 16 148/77 H 95 03/30/23 01:55 87 16 155/93 H 96 03/30/23 01:07 88 16 148/79 H 95 03/30/23 00:14 89 16 139/76 100 03/29/23 23:47 88 20 130/69 99 03/29/23 22:57 95 H 19 144/81 H 99 03/29/23 21:29 95 H 03/29/23 21:12 102 H 15 99 03/29/23 20:54 36.3 C L 99 03/29/23 20:54 36.3 C L 105 H 17 123/70 99 O2 Del Method FiO2 03/30/23 07:22 100 03/30/23 05:30 Room Air 03/30/23 05:06 03/30/23 04:40 Room Air 03/30/23 02:33 Room Air 03/30/23 01:55 Room Air 03/30/23 01:07 Room Air 03/30/23 00:14 Room Air 03/29/23 23:47 Room Air 03/29/23 22:57 Room Air 03/29/23 21:29 03/29/23 21:12 Room Air 03/29/23 20:54 Room Air 03/29/23 20:54 Room Air Critical Care Results & Data Vital Signs (Past 12 Hours) Vital Signs Temp Pulse Pulse Resp BP BP Pulse Ox 03/30/23 07:22 113 H 18 96 03/30/23 05:30 03/30/23 05:06 93 H 03/30/23 04:40 36.5 C 93 H 18 161/92 H 98 03/30/23 02:33 87 16 148/77 H 95 03/30/23 01:55 87 16 155/93 H 96 03/30/23 01:07 88 16 148/79 H 95 03/30/23 00:14 89 16 139/76 100 03/29/23 23:47 88 20 130/69 99 03/29/23 22:57 95 H 19 144/81 H 99 03/29/23 21:29 95 H 03/29/23 21:12 102 H 15 99 03/29/23 20:54 36.3 C L 99 03/29/23 20:54 36.3 C L 105 H 17 123/70 99 O2 Del Method FiO2 03/30/23 07:22 100 03/30/23 05:30 Room Air 03/30/23 05:06 03/30/23 04:40 Room Air 03/30/23 02:33 Room Air 03/30/23 01:55 Room Air 03/30/23 01:07 Room Air 03/30/23 00:14 Room Air 03/29/23 23:47 Room Air 03/29/23 22:57 Room Air 03/29/23 21:29 03/29/23 21:12 Room Air 03/29/23 20:54 Room Air 03/29/23 20:54 Room Air Lab & Micro Results (Past 24 Hours) RBC 3.34 M/uL (4.20-5.40) L 03/30/23 WBC 9.63 K/ul (4.8-10.8) 03/30/23 Hgb 10.6 g/dl (12.0-16.0) L 03/30/23 Hct 28.7 % (37.0-47.0) L 03/30/23 MCV 85.9 fL (80.0-100.0) 03/30/23 MCH 31.7 pg (25.0-34.0) 03/30/23 MCHC 36.9 g/dL (32.0-36.0) H 03/30/23 RDW Standard Deviation 41.6 fL (36.4-46.3) 03/30/23 RDW Coefficient of Variation 13.3 % (11.5-14.5) 03/30/23 Plt Count 223 K/uL (130-400) 03/30/23 MPV 9.3 fL (9.4-12.4) L 03/30/23 Neutrophils (%) (Auto) 86.3 % 03/30/23 Lymphocytes (%) (Auto) 10.2 % 03/30/23 Monocytes # (Auto) 0.27 K/uL (0.11-0.59) 03/30/23 Eosinophils # (Auto) 0.00 K/uL (0.00-0.50) 03/30/23 Immature Granulocyte % (Auto) 0.6 % 03/30/23 Neutrophils # (Auto) 8.31 K/uL (1.40-6.50) H 03/30/23 Lymphocytes # (Auto) 0.98 K/uL (1.20-3.40) L 03/30/23 Monocytes # (Auto) 0.27 K/uL (0.11-0.59) 03/30/23 Eosinophils # (Auto) 0.00 K/uL (0.00-0.50) 03/30/23 Basophils # (Auto) 0.01 K/uL (0.00-0.20) 03/30/23 Immature Granulocyte # (Auto) 0.06 K/uL (0.01-0.20) 3 Na 136 mmol/L (136-145) 03/30/23 K 2.9 mmol/L (3.5-5.1) L 03/30/23 Cl 104 mmol/L (98-107) 03/30/23 CO2 26 mmol/L (21-32) 03/30/23 Anion Gap 6 (3-11) 03/30/23 BUN 7 mg/dl (6-23) 03/30/23 Creatinine 0.50 mg/dl (0.6-1.2) L 03/30/23 Estimated GFR ( Amer) 113.7 ml/min 03/30/23 Estimated GFR (Non-Af Amer) 98.1 ml/min 03/30/23 BUN/Creatinine Ratio 14.0 (10-20) 03/30/23 Glu 161 mg/dl (70-99(Fasting)) H 03/30/23 Ca 6.8 mg/dl (8.6-10.3) L 03/30/23 Total Bilirubin 0.5 mg/dl (0.2-1.0) 03/30/23 Direct Bilirubin 0.1 mg/dl (0-0.2) 03/30/23 AST 47 U/L (13-39) H 03/30/23 ALT 23 U/L (7-52) 03/30/23 Alkaline Phosphatase 92 U/L (34-104) 03/30/23 TP 4.3 gm/dl (6.0-8.3) L 03/30/23 Albumin 1.7 gm/dl (3.4-5.0) L 03/30/23 Globulin 3.8 gm/dl (2.5-4.0) 03/29/23 Albumin/Globulin Ratio 0.7 (0.9-2) L 03/29/23 Mg 1.4 mg/dl (1.7-2.4) L 03/29/23 21:20 Calcium Level 6.8 mg/dl (8.6-10.3) L 03/30/23 08:22 Ionized Calcium 1.00 mmol/L (1.12-1.32) L 03/30/23 08:22 Prothromb Time International Ratio 1.0 (0.9-1.1) 03/29/23 21:2 0 Venous Blood pH 7.39 (7.36-7.41) 03/29/23 21:12 Venous Blood Partial Pressure CO2 45 mmHg (38-50) 03/29/23 21:1 2 Venous Blood Partial Pressure O2 28 mmHg 03/29/23 21:12 Venous Blood HCO3 27 mmol/L 03/29/23 21:12 Venous Blood Base Excess 1.7 mEq/L 03/29/23 21:12 Venous Blood Oxygen Saturation < 60.0 % 03/29/23 21:12 Diagnostic Findings (Past 24 Hours) Cervical Spine CT 03/29/23 20:57 Exam(s): CT C SPINE EXAM: CT Cervical Spine Without Intravenous Contrast CLINICAL HISTORY: Reason for exam: fall. TECHNIQUE: Axial computed tomography images of the cervical spine without intravenous contrast. CTDI is 37.87 mGy and DLP is 624.41 mGy-cm. Automated exposure control was utilized for the study. A dose lowering technique was utilized adhering to the principles of ALARA. COMPARISON: January 22, 2023 CT. FINDINGS: Vertebrae: Advanced multilevel degenerative arthropathy of the facet joints. Minimal anterior spondylolisthesis of C4 on C5 and C5 on C6. No acute fracture. Discs/spinal canal/neural foramina: Degenerative disc disease, most pronounced at C6/C7. No spinal canal stenosis. Soft tissues: Unremarkable. IMPRESSION: No acute findings in the cervical spine. Electronically signed by: Josef Serna MD 03/29/23 23:52 PM Chest X-Ray 03/29/23 20:57 XR chest 1V portable HISTORY: weakness COMPARISON: None. FINDINGS: No pneumothorax. No pleural effusions. The cardiac silhouette is normal in size. No focal lung consolidations to suggest a pneumonia. No evidence for pulmonary edema. There is an acute distal left clavicle fracture. IMPRESSION: Acute distal left clavicle fracture. No pneumothorax. ACT 112: Negative or not required by law. Electronically signed by: Martin Hall M.D. 03/29/2023 9:[address] 03/29/23 20:57 Exam(s): CT HEAD Without Contrast EXAM: CT Head Without Intravenous Contrast CLINICAL HISTORY: Reason for exam: fall. TECHNIQUE: Axial computed tomography images of the head/brain without intravenous contrast. CTDI is 37.87 mGy and DLP is 624.41 mGy-cm. Automated exposure control was utilized for the study. A dose lowering technique was utilized adhering to the principles of ALARA. COMPARISON: March 24, 2023 FINDINGS: Brain: Generalized cerebral volume loss and chronic small vessel ischemic changes in the white matter. No acute edema, hemorrhage or abnormal mass-effect. No extra-axial collection. Ventricles: Unremarkable. No ventriculomegaly. Bones/joints: Unremarkable. No acute fracture. Soft tissues: Unremarkable. Sinuses: Unremarkable as visualized. No acute sinusitis. Mastoid air cells: Unremarkable as visualized. No mastoid effusion. IMPRESSION: No acute findings in the head/brain. Electronically signed by: Josef Serna MD 03/29/23 23:[address] 03/30/23 06:[address] DOSE: HISTORY: Fall. Altered mental status. TECHNIQUE: Multiaxial CT images of the head were performed without the use of intravenous contrast. Automated exposure control was utilized for this study. A dose lowering technique was utilized adhering to the principles of ALARA. Comparison: Head CT 03/29/2023. Findings: There is a small fluid level within the left sphenoid sinus. Endotracheal tube is partially visualized. The mastoid air cells are clear. The calvarium and skull base are intact. There is no mass, hematoma, midline shift, acute infarct. White matter hypodensity is nonspecific but suggestive of microvascular ischemic change. The ventricles and sulci demonstrate mild age- related involutional changes. Impression: 1. No acute intracranial hemorrhage or acute infarct. 2. Small fluid level within the left sphenoid sinus. ACT 112: Negative or not required by law. Electronically signed by: Martin Hall M.D. 03/30/2023 7:41 AM Chest CTA 03/30/23 06:40 Exam(s): CTA CHEST EXAM: CT Angiography Chest With Intravenous Contrast CLINICAL HISTORY: Reason for exam: PE. TECHNIQUE: Axial computed tomographic angiography images of the chest with intravenous contrast. Automated exposure control was utilized for the study. A dose lowering technique was utilized adhering to the principles of ALARA. MIP reconstructed images were created and reviewed. COMPARISON: No relevant prior studies available. FINDINGS: Pulmonary arteries: Unremarkable. No pulmonary embolism. Aorta: No acute findings. No thoracic aortic aneurysm or dissection. Lungs: Emphysematous changes. Peripheral fibrotic changes. No acute infiltration or mass. Pleural space: Unremarkable. No significant effusion. No pneumothorax. Heart: Unremarkable. No cardiomegaly. No significant pericardial effusion. No evidence of RV dysfunction. Bones/joints: No acute fracture. No dislocation. Soft tissues: Unremarkable. Lymph nodes: Unremarkable. No enlarged lymph nodes. Tubes, lines and devices: The endotracheal tube appears to be just above the mae. IMPRESSION: No evidence of pulmonary emboli or acute cardiopulmonary process. Electronically signed by: Josef Serna MD 03/30/23 07:11 AM Chest X-Ray 03/30/23 07:02 XR chest 1V portable HISTORY: evaluate ETT post intubation COMPARISON: 03/29/2023. FINDINGS: The endotracheal tube terminates 2.2 cm from the mae. A nasogastric tube enters the stomach with the tip is looped back into the distal esophagus. Therefore, this should be repositioned. No pneumothorax. Chronic interstitial thickening persists. No new focal lung consolidations. There are calcifications within the aortic knob. A distal left clavicle fracture appears to be old. No acute fractures identified. IMPRESSION: 1. The endotracheal tube terminates 2.2 cm from the mae. 2. Nasogastric tube enters the stomach with the tip looped back into the distal esophagus. Therefore, this should be repositioned. 3. This report was called/faxed to the referring physician following dictation. ACT 112: Negative or not required by law. Electronically signed by: Martin Hall M.D. 03/30/2023 7:38 AM I & O Totals 24 Hours 03/29/23 03/30/23 03/31/23 06:59 06:59 06:59 Intake Total 752 / 752 Balance 752 / 752 Cumulative 03/29/23 20:35 thru 03/30/23 06:18 Intake Total 752 Balance 752 RT Ventilator Mngmt (Last Documented) Ventilator Ordered Settings Ventilator Support Mode Assist Control 03/30/23 07:22 Respiratory Rate 18 03/30/23 07:22 Ventilator Tidal Volume 325 03/30/23 07:22 Setting Minute Ventilation 5.2 03/30/23 07:22 Positive End Expiratory 5 03/30/23 07:22 Pressure Fraction of Inspired Oxygen 100 03/30/23 07:22 Ventilator - PT Measurements Respiratory Rate 18 Exhaled Tidal Volume 310 Minute Ventilation 5.2 Peak Inspiratory Airway 30 Pressure Plateau Pressure 15 Respiratory Cycle Inspiratory: 1:3.8 Expiratory Ratio Inspiratory Phase Time 0.7 Static Lung Compliance 31.00 Dynamic Lung Compliance 12.40 Normal Static Lung Compliance 42.00 Coding Level of Care Code 70876 CRITICAL CARE EA ADD 30M Diagnoses Cardiac arrest I46.9 Hypomagnesemia E83.42 Hypokalemia E87.6 Closed fracture of left clavicle S42.032A Clavicle location: lateral end Encounter type: initial encounter Fracture alignment: displaced Fall W19.XXXA Encounter type: initial encounter Cachexia R64 Anemia D64.9 Hyponatremia E87.1 Alcohol abuse F10.10 Tobacco abuse Z72.0 COPD (chronic obstructive pulmonary disease) J44.9 Interstitial lung disease J84.9 (4) Closed fracture of left clavicle Clavicle location: lateral end Encounter type: initial encounter Fracture alignment: displaced Qualified Code(s): S42.032A - Displaced fracture of lateral end of left clavicle, initial encounter for closed fracture (5) Fall Encounter type: initial encounter Qualified Code(s): W19.XXXA - Unspecified fall, initial encounter
[2023-03-30 08:44] LABS: Basophils # (auto) 0.01 K/uL (0.00-0.20); Basophils % (auto) 0.1 %; Hematocrit (blood only) 28.7 % (37.0-47.0); Hemoglobin 10.6 g/dl (12.0-16.0); Immature Granulocytes # (auto) 0.06 K/uL (0.01-0.20); Immature Granulocytes % (auto) 0.6 %; Lymphocytes # (auto) 0.98 K/uL (1.20-3.40); Lymphocytes % (auto) 10.2 %; Mean Corpuscular Hemoglobin 31.7 pg (25.0-34.0); Mean Corpuscular Hgb Conc 36.9 g/dL (32.0-36.0); Mean Corpuscular Volume 85.9 fL (80.0-100.0); Mean Platelet Volume 9.3 fL (9.4-12.4); Monocytes # (auto) 0.27 K/uL (0.11-0.59); Monocytes % (auto) 2.8 %; Neutrophils # (auto) 8.31 K/uL (1.40-6.50); Neutrophils % (auto) 86.3 %; Platelet Count 223 K/uL (130-400); RDW Coefficient of Variation 13.3 % (11.5-14.5); RDW Standard Deviation 41.6 fL (36.4-46.3); Red Blood Count 3.34 M/uL (4.20-5.40); White Blood Count 9.63 K/ul (4.8-10.8)
[2023-03-30 08:59] LABS: Albumin Level 1.7 gm/dl (3.4-5.0); Bilirubin Direct 0.1 mg/dl (0-0.2); Bilirubin,Total 0.5 mg/dl (0.2-1.0); Calcium 6.8 mg/dl (8.6-10.3); Creatinine Clr Calc Pharmacy 73.2 ml/min; Est GFR (African American) 113.7 ml/min; Est GFR (Non-African American) 98.1 ml/min; Potassium 2.9 mmol/L (3.5-5.1); Total Protein 4.3 gm/dl (6.0-8.3)
[2023-03-30] MEDS ORDERED: HEPARIN SOD 5,000 UNIT/0.5 ML VIAL SQ SCH (09:00)
[2023-03-30] MEDS ORDERED: UMECLIDINIUM/VILANTEROL 62.5/25MCG 7 PUFFS/INHALER INH SCH (09:00)
[2023-03-30] MEDS ORDERED: CITALOPRAM 40 MG TAB PO SCH (09:00)
[2023-03-30] MEDS ORDERED: FLUTICASONE FUROATE 200MCG 14 PUFFS/INHALER INH SCH (09:00)
[2023-03-30] MEDS ORDERED: NON-FORMULARY MEDICATION (Fluticasone-Umeclidin-Vilanter [Trelegy Ellipta] 200-62.5-25 mcg INH SCH (09:00)
[2023-03-30] MEDS ORDERED: THIAMINE HCL 100 MG TAB PO SCH (09:00)
[2023-03-30] MEDS ORDERED: FOLIC ACID 1 MG TAB PO SCH (09:00)
[2023-03-30 09:01] LABS: iSTAT Art Bld Gas pCO2 Correct 36 mmHg (35-46); iSTAT Art Bld Gas pH Corrected 7.444 (7.35-7.45); iSTAT Arterial Blood Gas HCO3 25 meg/L (19-24); iSTAT Arterial Blood Gas pCO2 39 mmHg (35-46); iSTAT Arterial Blood Gas pH 7.41 (7.35-7.45); iSTAT Arterial Blood Gas pO2 > 420 mmHg (80-95); iSTAT Arterial Blood Gas pO2 C 617; iSTAT Carbon Dioxide 26 mmol/L (24-31); iSTAT FiO2 100 %; iSTAT Hematocrit 27 % (37-47); iSTAT Hemoglobin 9.2 g/dl (12.0-16.0); iSTAT Potassium 2.6 mmol/L (3.3-5.0); iSTAT Site Art Line; iSTAT Sodium 136 mmol/L (135-144)
[2023-03-30 09:05] LABS: INR 1.2 (0.9-1.1); Prothrombin Time 13.2 Seconds (9.0-12.0)
[2023-03-30] MEDS: PLASMA-LYTE A 1,000 ML IV SCH ×2 (09:14→23:53)
[2023-03-30] MEDS ORDERED: Nursing to Pharmacy Communication SCH (09:30)
--- NOTE | 2023-03-30 09:40 | XRay Report ---
XR chest 1V portable HISTORY: Nasogastric tube repositioning. line placement COMPARISON: Chest 03/30/2023. FINDINGS: The nasogastric tube has been repositioned. The tip now terminates below the diaphragm. The tip is not included on this study. No pneumothorax. Chronic interstitial thickening persists. A left jugular central venous catheter terminates in the SVC. Endotracheal tube terminates approximately 1. 5 cm from the mae. IMPRESSION: 1. Satisfactory support line placement. 2. No pneumothorax. ACT 112: Negative or not required by law. Electronically signed by: Martin Hall M.D. 03/30/2023 9:38 AM
--- NOTE | 2023-03-30 10:35 | Orthopedic Consultation ---
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 History of this fracture is unknown, and it was discovered incidentally on chest x-ray. It is nondisplaced. This does not require any urgent surgical intervention. If the patient recovers from her acute illness, and she has some pain at this incidentally discovered chronic nonunion fracture site, she may follow-up in orthopedics clinic for further evaluation and discussion of treatment options. Orthopedics will sign off at this point. History of Present Illness Reason for Consultation: Left clavicle fracture Attending Physician: Inocencio Panchal MD History of Present Illness History of left clavicle injury is unknown. Patient is intubated and sedated in the intensive care unit and unable to provide any history. 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 Allergies Allergy/AdvReac Type Severity Reaction Status Date / Time No Known Allergies Allergy Verified 03/29/23 21:51 Home Medications Medication Instructions Recorded Confirmed Type ibuprofen 600 mg tablet 600 mg PO TID PRN Pain 05/11/18 03/29/23 History albuterol sulfate 90 mcg/actuation 1 inh inhalation DIRECTED PRN 03/29/23 03/29/23 History aerosol inhaler Shortness Of Breath Or Wheezing citalopram 40 mg tablet 40 mg PO DAILY 03/29/23 03/29/23 History fluticasone fur. 200 mcg-umeclid 1 inh inhalation DAILY 03/29/23 03/29/23 History 62.5 mcg-vilant 25 mcg inhalat.powder (Trelegy Ellipta) Patient History Medical History (Updated 03/30/23 @ 11:44 by Jon Blackburn M.D.) Arthritis Right hand fracture Family History Other No significant family history Social History Smoking Status: Current every day smoker Tobacco Type: Cigarettes Second Hand Exposure: No; Do You Dip or Chew Tobacco: No; Tobacco Cessation Education Requested by Patient: No Hx Alcohol Use: Yes Alcohol type: beer Hx Substance Use: Yes Last Used Substance: Days (ago) Preferred Language: Tajik Communication Ability: Effective 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 Minimally respon sive. Examination of the left shoulder is therefore severely limited. No gross deformity or significant swelling is noted at the left distal clavicle fracture site. No obvious tenderness to palpation, but this is obviously difficult to determine. There is some swelling surrounding a left neck central line more medially, but it does not appear to extend around the distal clavicle fracture site. Results & Data Vital Signs (Past 12 Hours) Vital Signs Temp Pulse Pulse Resp BP BP Pulse Ox 03/30/23 10:00 97/68 L 03/30/23 10:00 34.4 C L 104 H 18 96 03/30/23 09:55 34.4 C L 102 H 18 94/58 L 03/30/23 09:00 34.7 C L 98 H 18 133/99 100 03/30/23 08:30 35.1 C L 110 H 18 03/30/23 07:33 112 H 20 103/80 03/30/23 07:22 113 H 18 96 03/30/23 07:04 135/87 03/30/23 05:30 03/30/23 05:06 93 H 03/30/23 04:40 36.5 C 93 H 18 161/92 H 98 03/30/23 02:33 87 16 148/77 H 95 03/30/23 01:55 87 16 155/93 H 96 03/30/23 01:07 88 16 148/79 H 95 03/30/23 00:14 89 16 139/76 100 03/29/23 23:47 88 20 130/69 99 03/29/23 22:57 95 H 19 144/81 H 99 O2 Del Method FiO2 03/30/23 10:00 03/30/23 10:00 03/30/23 09:55 03/30/23 09:00 03/30/23 08:30 03/30/23 07:33 03/30/23 07:22 100 03/30/23 07:04 03/30/23 05:30 Room Air 03/30/23 05:06 03/30/23 04:40 Room Air 03/30/23 02:33 Room Air 03/30/23 01:55 Room Air 03/30/23 01:07 Room Air 03/30/23 00:14 Room Air 03/29/23 23:47 Room Air 03/29/23 22:57 Room Air Laboratory Results Albumin 1.7 Diagnostic Findings Chest x-ray from 03/30/23 was independently interpreted by me. No claviclespecific x-ray views were obtained. Incidentally noted is a nondisplaced fracture of the left clavicle. This is clearly a chronic nonunion, as there is bone resorption at the nonunion site and sclerosis of the fractured bone ends, consistent with chronic motion through the fracture. Clavicle remains in essentially anatomic alignment. (1) Fracture of left clavicle with nonunion Clavicle location: lateral end Fracture type: closed Fracture alignment: no ndisplaced Qualified Code(s): S42.035K - Nondisplaced fracture of lateral end of left clavicle, subsequent encounter for fracture with nonunion
--- NOTE | 2023-03-30 10:36 | Cardiology Consultation ---
Date of Consultation March 30, 2023 Assessment & Plan (1) Cardiac arrest: (2) Hypokalemia: (3) Hypomagnesemia: (4) Prolonged QT interval: (5) Marijuana use: (6) Closed fracture of left clavicle: Plan 72-year-old female presenting with fall with subsequent cardiac arrest, PEA with spontaneously return of circulation after CPR and epinephrine. Etiology not well-defined, however, baseline ECG demonstrating prolonged QT interval without ST elevation. Significant electrolyte derangement including hypomagnesemia and hypokalemia. Recommend replete electrolytes IV. Repeat lab studies after supplemented. Avoid medications with potential to prolong the QT interval. Agree with IV hydration at this time. Alcohol withdrawal protocol when extubated. Repeat high-sensitivity troponin. I expect will be elevated in the setting of cardiac arrest, and CPR. Resting 2D transthoracic echocardiogram pending. 45 minutes critical care time spent evaluating patient, reviewing data, formulating plan of care and discussion with consulting providers. History of Present Illness Reason for Consultation: Cardiac arrest Requesting Physician: Dr. Sal Hoyt Attending Physician: Inocencio Panchal MD History of Present Illness 72-year-old female presented to hospital after a fall with subsequent clavicular fracture. History of moderate COPD, tobacco abuse, anxiety disorder, and alcohol abuse. Suddenly became unresponsive and lost pulse. A CODE BLUE was activated and CPR initiated. She received 1 dose of epinephrine with spontaneous recovery of circulation. Review of telemetry demonstrates intermittent wide-complex rhythm. No R-on-T phenomenon or torsades. Significant electrolyte derangement noted. Patient currently sedated on ventilator. She is not requiring pressor therapy. Echocardiogram pending. Allergies Allergy/AdvReac Type Severity Reaction Status Date / Time No Known Allergies Allergy Verified 03/29/23 21:51 Home Medications Medication Instructions Recorded Confirmed Type ibuprofen 600 mg tablet 600 mg PO TID PRN Pain 05/11/18 03/29/23 History albuterol sulfate 90 mcg/actuation 1 inh inhalation DIRECTED PRN 03/29/23 03/29/23 History aerosol inhaler Shortness Of Breath Or Wheezing citalopram 40 mg tablet 40 mg PO DAILY 03/29/23 03/29/23 History fluticasone fur. 200 mcg-umeclid 1 inh inhalation DAILY 03/29/23 03/29/23 History 62.5 mcg-vilant 25 mcg inhalat.powder (Trelegy Ellipta) Patient History Medical History (Updated 03/30/23 @ 11:44 by Jon Blackburn M.D.) Arthritis Right hand fracture Family History Other No significant family history Social History Smoking Status: Current every day smoker Tobacco Type: Cigarettes Second Hand Exposure: No; Do You Dip or Chew Tobacco: No; Tobacco Cessation Education Requested by Patient: No Hx Alcohol Use: Yes Alcohol type: beer Hx Substance Use: Yes Last Used Substance: Days (ago) Preferred Language: Polish Communication Ability: Effective Salesman/Owner Required: No Beliefs That Will Affect Care: None marital status: / Current Living Situation: Alone current occupational status: retired Other Information That Helps Us Care for You: No Feels Safe at Home: Yes Safety Concerns: Feels Safe At This Time Assistive Devices: Cane, Glasses and Walker Review of Systems Review of Systems: Unobtainable due to endotracheal tube Physical Exam Constitutional: + ill appearing and + thin Respiratory: no respiratory distress and no labored breathing Auscultation: + rhonchi (Coarse breath sounds bilaterally); no wheezes Cardiovascular: Rate/Rhythm: regular rate, regular rhythm and + tachycardic Heart Sounds: normal S1 and normal S2; no murmur Vessels: no JVD Extremities: no edema Gastrointestinal (Abdomen): Inspection/Auscultation: abdomen normal to inspection; abdomen not distended Percussion/Palpation: abdomen soft; abdomen nontender, no guarding and abdomen not rigid Results & Data Vital Signs (Past 12 Hours) Vital Signs Temp Pulse Pulse Resp BP BP Pulse Ox 03/30/23 10:00 97/68 L 03/30/23 10:00 34.4 C L 104 H 18 96 03/30/23 09:55 34.4 C L 102 H 18 94/58 L 03/30/23 09:00 34.7 C L 98 H 18 133/99 100 03/30/23 08:30 35.1 C L 110 H 18 03/30/23 07:33 112 H 20 103/80 03/30/23 07:22 113 H 18 96 03/30/23 07:04 135/87 03/30/23 05:30 03/30/23 05:06 93 H 03/30/23 04:40 36.5 C 93 H 18 161/92 H 98 03/30/23 02:33 87 16 148/77 H 95 03/30/23 01:55 87 16 155/93 H 96 03/30/23 01:07 88 16 148/79 H 95 03/30/23 00:14 89 16 139/76 100 03/29/23 23:47 88 20 130/69 99 03/29/23 22:57 95 H 19 144/81 H 99 O2 Del Method FiO2 03/30/23 10:00 03/30/23 10:00 03/30/23 09:55 03/30/23 09:00 03/30/23 08:30 03/30/23 07:33 03/30/23 07:22 100 03/30/23 07:04 03/30/23 05:30 Room Air 03/30/23 05:06 03/30/23 04:40 Room Air 03/30/23 02:33 Room Air 03/30/23 01:55 Room Air 03/30/23 01:07 Room Air 03/30/23 00:14 Room Air 03/29/23 23:47 Room Air 03/29/23 22:57 Room Air Laboratory Results Cardiac Enzymes 03/29/23 03/30/23 Range/Units 21:20 08:22 AST 25 47 H (13-39) U/L Troponin I High Sens 7.0 (0-14) pg/ml Coagulation 03/29/23 03/30/23 Range/Units 21:20 08:22 PT 10.9 13.2 H (9.0-12.0) Seconds APTT 27.2 (21.0-31.0) Seconds CBC 03/29/23 03/30/23 Range/Units 21:20 08:22 WBC 8.23 9.63 (4.8-10.8) K/ul RBC 4.04 L 3.34 L (4.20-5.40) M/uL Hgb 12.8 10.6 L (12.0-16.0) g/dl Hct 35.9 L 28.7 L (37.0-47.0) % Plt Count 290 223 (130-400) K/uL Neut # (Auto) 6.05 8.31 H (1.40-6.50) K/uL Lymph # (Auto) 1.54 0.98 L (1.20-3.40) K/uL Mcdonald # (Auto) 0.58 0.27 (0.11-0.59) K/uL Eos # (Auto) 0.01 0.00 (0.00-0.50) K/uL Baso # (Auto) 0.03 0.01 (0.00-0.20) K/uL Comprehensive Metabolic Panel 03/29/23 03/30/23 Range/Units 21:20 08:22 Sodium 131 L 136 (136-145) mmol/L Potassium 3.1 L 2.9 L (3.5-5.1) mmol/L Chloride 97 L 104 (98-107) mmol/L Carbon Dioxide 24 26 (21-32) mmol/L BUN 7 7 (6-23) mg/dl Creatinine 0.64 0.50 L (0.6-1.2) mg/dl Glucose 106 H 161 H (70-99(Fasting)) mg/dl Calcium 8.3 L 6.8 L (8.6-10.3) mg/dl Direct Bilirubin 0.1 (0-0.2) mg/dl AST 25 47 H (13-39) U/L ALT 19 23 (7-52) U/L Alkaline Phosphatase 134 H 92 (34-104) U/L Total Protein 6.4 4.3 L D (6.0-8.3) gm/dl Albumin 2.6 L 1.7 L (3.4-5.0) gm/dl Intake and Output 03/29/23 03/30/23 03/30/23 22:59 06:59 14:59 Intake Total 500 / 752 252 / 752 Output Total 350 / 350 Balance 500 / 752 252 / 752 -350 / -350 Intake: IV 500 / 752 252 / 752 Magnesium Sulfate / D5w 1 gm In 200 / 200 100 ml @ 50 mls/hr IV ONE ONE Rx#:[id number] Sodium Chloride 0.9% 500 ml @ 500 / 500 999 mls/hr IV .Q31M AUGUSTINE Rx#: [id number] Thiamine HCl 200 mg In Sodium 52 / 52 Chloride 0.9% 50 ml @ 210 mls/ hr IV NOW STA Rx#:[id number] Output: Urine Amount (Catheter) 350 / 350 Tee/Indwelling 350 / 350 Other: Weight 46.7 kg 44.3 kg Weight Measurement Method Built in [facility] Built in [facility] (6) Closed fracture of left clavicle Clavicle location: lateral end Encounter type: initial encounter Fracture alignment: displaced Qualified Code(s): S42.032A - Displaced fracture of lateral end of left clavicle, initial encounter for closed fracture
[2023-03-30] MEDS: ENOXAPARIN INJ 30 MG/0.3 ML SYR SQ SCH (11:14)
[2023-03-30] MEDS: LANSOPRAZOLE 15 MG SOLTAB PO SCH (11:14)
[2023-03-30] MEDS: NITROGLYCERIN 2% OINTMENT 30GM TUBE EXT SCH ×2 (11:14→20:32)
[2023-03-30] MEDS ORDERED: ICU Protocol for HYPERglycemia SCH (11:30)
[2023-03-30] MEDS ORDERED: GABAPENTIN 400 MG CAP PO SCH (12:00)
[2023-03-30] MEDS ORDERED: LACTATED RINGER'S 1,000 ML IV ONE (13:02)
[2023-03-30] MEDS: ICU Protocol for HYPERglycemia SCH ×2 (13:33→23:39)
[2023-03-30] MEDS: POTASSIUM CHLORIDE / WTR 20 MEQ/100 ML PLCT IV SCH ×4 (13:33→20:11)
[2023-03-30] MEDS ORDERED: LIDOCAINE 5% 1 PATCH TD STA (13:54)
[2023-03-30] MEDS ORDERED: ALBUMIN 25% 25 GM/100 ML VIAL IV ONE (13:57)
[2023-03-30] MEDS: ACETAMINOPHEN 1,000 MG/100 ML VIAL IV PRN (14:14)
[2023-03-30 14:38] LABS: Calcium 6.3 mg/dl (8.6-10.3); Creatinine Clr Calc Pharmacy 73.2 ml/min; Est GFR (African American) 113.7 ml/min; Est GFR (Non-African American) 98.1 ml/min; Magnesium 1.6 mg/dl (1.7-2.4); Phosphorus 3.2 mg/dl (2.5-4.9); Potassium 3.6 mmol/L (3.5-5.1)
[2023-03-30] MEDS ORDERED: LACTATED RINGER'S 250 ML IV ONE (14:38)
[2023-03-30] MEDS ORDERED: NOREPINEPHRINE/D5W 4 MG/250 ML PLCT IV SCH (14:45)
[2023-03-30] MEDS ORDERED: MAGNESIUM OXIDE 400 MG TAB PO STA (15:10)
[2023-03-30] MEDS ORDERED: PROPOFOL BOLUS FROM BAG IV PRN (15:15)
[2023-03-30] MEDS ORDERED: fentaNYL citrate 2,500 MCG/250 ML BAG IV SCH (15:15)
[2023-03-30] MEDS: propofoL 1,000 MG/100 ML VIAL IV SCH (15:41)
[2023-03-30] MEDS ORDERED: PLASMA-LYTE A 500 ML IV ONE (20:27)
[2023-03-30] MEDS: fentaNYL BOLUS from BAG IV PRN ×2 (20:29→21:15)
[2023-03-30] MEDS ORDERED: ALBUMIN 5% 250 ML IV ONE (21:28)
[2023-03-30] MEDS: PHENYLEPHRINE/NSS 25 MG/250 ML BAG IV SCH (22:12)
[2023-03-30] MEDS: MAGNESIUM SULFATE / D5W 1 GM/100 ML BAG IV SCH (22:18)
[2023-03-30 23:27] LABS: BUN Creatinine Ratio 14.3 (10-20); Calcium 6.7 mg/dl (8.6-10.3); Creatinine Clr Calc Pharmacy 65.4 ml/min; Est GFR (African American) 109.5 ml/min; Est GFR (Non-African American) 94.5 ml/min; Magnesium 1.6 mg/dl (1.7-2.4); Potassium 5.1 mmol/L (3.5-5.1)
[2023-03-30] MEDS ORDERED: CALCIUM CHLORIDE 10% 1,000 MG in DEXTROSE 5% 50 ML IV STA (23:34)
[2023-03-30] MEDS: ICU ELECTROLYTE REPLACEMENT PROTOCOL SCH (23:35)
[2023-03-31] MEDS: MAGNESIUM SULFATE / D5W 1 GM/100 ML BAG IV SCH (00:16)
[2023-03-31] MEDS: ICU Protocol for HYPERglycemia SCH ×4 (00:51→18:21)
[2023-03-31] MEDS: propofoL 1,000 MG/100 ML VIAL IV SCH (03:43)
[2023-03-31 04:57] LABS: BUN Creatinine Ratio 14.8 (10-20); Calcium 7.4 mg/dl (8.6-10.3); Creatinine Clr Calc Pharmacy 69.6 ml/min; Est GFR (African American) 110.8 ml/min; Est GFR (Non-African American) 95.6 ml/min; Magnesium 2.2 mg/dl (1.7-2.4); Phosphorus 2.4 mg/dl (2.5-4.9); Potassium 4.7 mmol/L (3.5-5.1)
[2023-03-31] MEDS: ICU ELECTROLYTE REPLACEMENT PROTOCOL SCH ×2 (05:14→18:43)
[2023-03-31] MEDS ORDERED: SODIUM PHOSPHATE 3 MMOL/1 ML INFUSION IV STA (05:18)
[2023-03-31] MEDS: VASOPRESSIN 20 UNITS in 0.9 % SODIUM CHLORIDE 100 ML IV SCH ×2 (05:21→12:40)
[2023-03-31] MEDS ORDERED: GABAPENTIN 400 MG CAP PO SCH (06:00)
[2023-03-31] MEDS ORDERED: SODIUM PHOSPHATE 15 MMOL in SODIUM CHLORIDE 0.9% 250 ML IV ONE (06:00)
[2023-03-31] MEDS: ALBUT/IPRATROP 3MG/0.5MG NEB 3 ML VIAL NEB SCH ×4 (07:12→19:32)
--- NOTE | 2023-03-31 07:44 | Electrocardiogram Report ---
Test Reason : Blood Pressure : / mmHG Vent. Rate : 106 BPM Atrial Rate : 106 BPM P-R Int : 114 ms QRS Dur : 068 ms QT Int : 408 ms P-R-T Axes : 062 055 050 degrees QTc Int : 541 ms Sinus tachycardia Nonspecific ST abnormality Anterolateral leads Prolonged QT Abnormal ECG When compared with ECG of 30-MAR-2023 07:15, Premature atrial complexes are no longer Present Incomplete right bundle branch block is no longer Present Nonspecific ST abnormality less pronounced Confirmed by Marcus Pinzon ([id number]) on 03/31/2023 7:44:09 AM Referred By: REFERRED SELF Confirmed By:Marcus Pinzon
[2023-03-31] MEDS: FORMOTEROL 20 MCG/2 ML VIAL NEB SCH ×2 (07:50→19:31)
[2023-03-31] MEDS: BUDESONIDE 0.5 MG/2 ML VIAL (PULMICORT) NEB SCH ×2 (07:50→19:31)
--- NOTE | 2023-03-31 07:51 | Electrocardiogram Report ---
Test Reason : Blood Pressure : / mmHG Vent. Rate : 096 BPM Atrial Rate : 096 BPM P-R Int : 120 ms QRS Dur : 056 ms QT Int : 390 ms P-R-T Axes : 049 033 063 degrees QTc Int : 492 ms Normal sinus rhythm Low voltage QRS Nonspecific T wave abnormality Anterior leads Prolonged QT Abnormal ECG When compared with ECG of 30-MAR-2023 13:03, Nonspecific T wave abnormality, worse in Anterior leads Nonspecific ST abnormality Anterolateral leads no longer present Confirmed by Marcus Pinzon ([id number]) on 03/31/2023 7:51:16 AM Referred By: REFERRED SELF Confirmed By:Marcus Pinzon
--- NOTE | 2023-03-31 08:42 | Hospitalist Progress Note ---
Date of Service March 31, 2023 Assessment & Plan (1) Fall: Plan: 72-year-old female with past med significant for COPD moderate, hepatic steatosis, ongoing tobacco abuse, generalized anxiety disorder, ongoing alcohol abuse lives at home alone and ambulates with walker presents with fall. Soon after admission pt became unresponsive - code blue/ cardiac arrest and was transferred to ICU, intubated. Extubated this AM (03/31/23) Acute hypoxic resp. failure remains on suppl. O2 Per pulm - Evidence of interstitial disease and outpatient follow-up may be appropriate with complete PFTs - cont. incentive spirometry flutter valve and out of bed to chair as tolerated - continue nebulized Perforomist and budesonide for now until the patient is able to tolerate MDIs (home inhalers) - has hx of COPD, ongoing tobacco abuse-needs counseling cardiac arrest, etiology unclear, likely secondary to prolonged QT and electrolyte abnormalities Cardiology following closely Echo obtained -LV cavity is normal. LV is hyperdynamic, EF more than 70%. Mild mitral regurg. Moderate tricuspid regurg. Doppler findings do not suggest pulmonary hypertension. Normal inferior vena cava diameter and respiratory variation suggesting normal central venous pressure. There is no pericardial effusion. electrolytes - replete and monitor ECG done today improved Start metoprolol 12.5 bid elevated troponin - likely 2/2 demand ischemia - noninvasive ischemic eval as outpt Fall Ambulatory dysfunction Frequent falling as per patient Ongoing alcoholism Acute distal left clavicle fracture, orthopedics consulted PT OT when stable Hypomagnesia and hypokalemia We will replace Follow repeat labs Alcoholism received Banana bag cont. Thiamine and folic acid initially planned for gabapentin alcohol withdrawal protocol with IV Ativan as needed started on precedex in ICU, care as per ICU Close monitor for withdrawal symptoms Generalized disorder On citalopram DVT prophylaxis SCDs Heparin subcu Disposition ICU Full code Admission and Anticipated Discharge Date Admission Date: March 30, 2023 Subjective Pt admitted for fall, very low electrolytes (hx of alcohol abuse), after being admitted pt was code blue -> required intubation and transfer to ICU Pt was extubated this AM. Currently on NC. She is awake and denies any complaints. Denies any fevers chills chest pain shortness of breath. Denies any abdominal pain. Review of Systems Review of Systems: All systems reviewed & are unremarkable except as noted in Subjective Physical Exam Physical Exam: General- thin elderly F in NAD on suppl. O2 Head- atraumatic Eyes- PERRL. ENT- oropharynx clear Neck- supple, + central line Lungs- + rhonchi Heart- regular rhythm; no murmur, no gallop. Abdomen- normal bowel sounds, soft, nontender, no distension. Extremities- trace LE edema Neuro- awake but drowsy, speech slow but fluent, moves extremities. Skin- warm & dry Results & Data Results & Data Vital Signs (Past 12 Hours) Vital Signs Temp Pulse Resp BP Pulse Ox O2 Del Method FiO2 03/31/23 07:25 30 03/31/23 07:10 96 H 18 95 30 03/31/23 05:00 37.4 C 93 H 18 111/62 97 Mechanical Vent 03/31/23 04:00 37.5 C 94 H 18 123/70 95 Mechanical Vent 03/31/23 03:52 19 30 03/31/23 03:00 37.3 C 92 H 18 108/70 96 Mechanical Vent 03/31/23 02:00 37.2 C 92 H 18 107/44 L 96 Mechanical Vent 03/31/23 01:39 102 H 03/31/23 01:00 37.4 C 94 H 18 117/59 L 97 Mechanical Vent 03/31/23 00:01 37.4 C 101 H 18 121/62 94 Mechanical Vent 03/30/23 23:00 37.3 C 104 H 17 139/80 95 03/30/23 22:39 109 H 18 97 30 03/30/23 22:00 37.1 C 132 H 17 116/52 L 99 03/30/23 21:54 Mechanical Vent 30 03/30/23 21:01 37.5 C 120 H 20 139/85 Laboratory Results 03/31/23 03/30/23 03/30/23 Range/Units 03:54 22:34 16:53 WBC (4.8-10.8) K/ul RBC (4.20-5.40) M/uL Hgb (12.0-16.0) g/dl POC Hgb (12.0-16.0) g/dl Hct (37.0-47.0) % POC Hct (37-47) % MCV (80.0-100.0) fL MCH (25.0-34.0) pg MCHC (32.0-36.0) g/dL RDW Std Deviation (36.4-46.3) fL RDW Coeff of Kartik (11.5-14.5) % Plt Count (130-400) K/uL MPV (9.4-12.4) fL Immature Gran % (Auto) % Neut % (Auto) % Lymph % (Auto) % Mitchell % (Auto) % Eos % (Auto) % Baso % (Auto) % Neut # (Auto) (1.40-6.50) K/uL Lymph # (Auto) (1.20-3.40) K/uL Mitchell # (Auto) (0.11-0.59) K/uL Eos # (Auto) (0.00-0.50) K/uL Baso # (Auto) (0.00-0.20) K/uL Immature Gran # (Auto) (0.01-0.20) K/uL ESR (0-30) mm/hr PT (9.0-12.0) Seconds INR (0.9-1.1) Sample Site POC pH (7.35-7.45) POC pCO2 (35-46) mmHg POC pO2 (80-95) mmHg POC HCO3 (19-24) lewis/L POC Total CO2 (24-31) mmol/L POC Base Excess (-9-1.8) lewis/L ABG pH (Temp Correct) (7.35-7.45) ABG pCO2 (Temp Corrct (35-46) mmHg POC ABG pO2 at Pt Temp POC ABG O2 Sat (90-95) % Boo Test O2 Delivery Device POC O2 Rate Minute Ventilation POC FiO2 % Tidal Volume PEEP POC Sodium (135-144) mmol/L Sodium 137 136 (136-145) mmol/L POC Potassium (3.3-5.0) mmol/L Potassium 4.7 5.1 D (3.5-5.1) mmol/L Chloride 108 H 107 (98-107) mmol/L Carbon Dioxide 23 23 (21-32) mmol/L Anion Gap 6 6 (3-11) BUN 8 8 (6-23) mg/dl Creatinine 0.54 L 0.56 L (0.6-1.2) mg/dl Est Cr Clr Drug Dosing 69.6 65.4 ml/min Est GFR ( Amer) 110.8 109.5 ml/min Est GFR (Non-Af Amer) 95.6 94.5 ml/min BUN/Creatinine Ratio 14.8 14.3 (10-20) Glucose 98 118 H (70-99(Fasting)) mg/dl POC Glucose (70-99) mg/dl Calcium 7.4 L 6.7 L (8.6-10.3) mg/dl Ionized Calcium 0.98 L (1.12-1.32) mmol/L Phosphorus 2.4 L (2.5-4.9) mg/dl Magnesium 2.2 1.6 L (1.7-2.4) mg/dl Total Bilirubin (0.2-1.0) mg/dl Direct Bilirubin (0-0.2) mg/dl AST (13-39) U/L ALT (7-52) U/L Alkaline Phosphatase (34-104) U/L Troponin I High Sens 1159.5 H* (0-14) pg/ml Total Protein (6.0-8.3) gm/dl Albumin (3.4-5.0) gm/dl Vitamin B12 490 (180-914) pg/ml Nasal Screen MRSA (PCR) (Negative) 03/30/23 03/30/23 03/30/23 Range/Units 14:06 13:13 10:41 WBC (4.8-10.8) K/ul RBC (4.20-5.40) M/uL Hgb (12.0-16.0) g/dl POC Hgb (12.0-16.0) g/dl Hct (37.0-47.0) % POC Hct (37-47) % MCV (80.0-100.0) fL MCH (25.0-34.0) pg MCHC (32.0-36.0) g/dL RDW Std Deviation (36.4-46.3) fL RDW Coeff of Kartik (11.5-14.5) % Plt Count (130-400) K/uL MPV (9.4-12.4) fL Immature Gran % (Auto) % Neut % (Auto) % Lymph % (Auto) % Mitchell % (Auto) % Eos % (Auto) % Baso % (Auto) % Neut # (Auto) (1.40-6.50) K/uL Lymph # (Auto) (1.20-3.40) K/uL Mitchell # (Auto) (0.11-0.59) K/uL Eos # (Auto) (0.00-0.50) K/uL Baso # (Auto) (0.00-0.20) K/uL Immature Gran # (Auto) (0.01-0.20) K/uL ESR (0-30) mm/hr PT (9.0-12.0) Seconds INR (0.9-1.1) Sample Site POC pH (7.35-7.45) POC pCO2 (35-46) mmHg POC pO2 (80-95) mmHg POC HCO3 (19-24) lewis/L POC Total CO2 (24-31) mmol/L POC Base Excess (-9-1.8) lewis/L ABG pH (Temp Correct) (7.35-7.45) ABG pCO2 (Temp Corrct (35-46) mmHg POC ABG pO2 at Pt Temp POC ABG O2 Sat (90-95) % Boo Test O2 Delivery Device POC O2 Rate Minute Ventilation POC FiO2 % Tidal Volume PEEP POC Sodium (135-144) mmol/L Sodium 138 (136-145) mmol/L POC Potassium (3.3-5.0) mmol/L Potassium 3.6 D (3.5-5.1) mmol/L Chloride 109 H (98-107) mmol/L Carbon Dioxide 23 (21-32) mmol/L Anion Gap 6 (3-11) BUN 7 (6-23) mg/dl Creatinine 0.50 L (0.6-1.2) mg/dl Est Cr Clr Drug Dosing 73.2 ml/min Est GFR ( Amer) 113.7 ml/min Est GFR (Non-Af Amer) 98.1 ml/min BUN/Creatinine Ratio 14.0 (10-20) Glucose 164 H (70-99(Fasting)) mg/dl POC Glucose 164 H (70-99) mg/dl Calcium 6.3 L (8.6-10.3) mg/dl Ionized Calcium (1.12-1.32) mmol/L Phosphorus 3.2 (2.5-4.9) mg/dl Magnesium 1.6 L (1.7-2.4) mg/dl Total Bilirubin (0.2-1.0) mg/dl Direct Bilirubin (0-0.2) mg/dl AST (13-39) U/L ALT (7-52) U/L Alkaline Phosphatase (34-104) U/L Troponin I High Sens 1420.1 H* D (0-14) pg/ml Total Protein (6.0-8.3) gm/dl Albumin (3.4-5.0) gm/dl Vitamin B12 (180-914) pg/ml Nasal Screen MRSA (PCR) (Negative) 03/30/23 03/30/23 03/30/23 Range/Units 08:53 08:45 08:22 WBC 9.63 (4.8-10.8) K/ul RBC 3.34 L (4.20-5.40) M/uL Hgb 10.6 L (12.0-16.0) g/dl POC Hgb 9.2 L (12.0-16.0) g/dl Hct 28.7 L (37.0-47.0) % POC Hct 27 L (37-47) % MCV 85.9 (80.0-100.0) fL MCH 31.7 (25.0-34.0) pg MCHC 36.9 H (32.0-36.0) g/dL RDW Std Deviation 41.6 (36.4-46.3) fL RDW Coeff of Kartik 13.3 (11.5-14.5) % Plt Count 223 (130-400) K/uL MPV 9.3 L (9.4-12.4) fL Immature Gran % (Auto) 0.6 % Neut % (Auto) 86.3 % Lymph % (Auto) 10.2 % Mitchell % (Auto) 2.8 % Eos % (Auto) 0.0 % Baso % (Auto) 0.1 % Neut # (Auto) 8.31 H (1.40-6.50) K/uL Lymph # (Auto) 0.98 L (1.20-3.40) K/uL Mitchell # (Auto) 0.27 (0.11-0.59) K/uL Eos # (Auto) 0.00 (0.00-0.50) K/uL Baso # (Auto) 0.01 (0.00-0.20) K/uL Immature Gran # (Auto) 0.06 (0.01-0.20) K/uL ESR 9 (0-30) mm/hr PT 13.2 H (9.0-12.0) Seconds INR 1.2 H (0.9-1.1) Sample Site Art Line POC pH 7.41 (7.35-7.45) POC pCO2 39 (35-46) mmHg POC pO2 > 420 H (80-95) mmHg POC HCO3 25 H (19-24) lewis/L POC Total CO2 26 (24-31) mmol/L POC Base Excess 0.0 (-9-1.8) lewis/L ABG pH (Temp Correct) 7.444 (7.35-7.45) ABG pCO2 (Temp Corrct 36 (35-46) mmHg POC ABG pO2 at Pt Temp 617 POC ABG O2 Sat 100.0 H (90-95) % Boo Test NA O2 Delivery Device Ventilator POC O2 Rate 18 Minute Ventilation 5.85 POC FiO2 100 % Tidal Volume 325 PEEP 5 POC Sodium 136 (135-144) mmol/L Sodium 136 (136-145) mmol/L POC Potassium 2.6 L (3.3-5.0) mmol/L Potassium 2.9 L (3.5-5.1) mmol/L Chloride 104 (98-107) mmol/L Carbon Dioxide 26 (21-32) mmol/L Anion Gap 6 (3-11) BUN 7 (6-23) mg/dl Creatinine 0.50 L (0.6-1.2) mg/dl Est Cr Clr Drug Dosing 73.2 ml/min Est GFR ( Amer) 113.7 ml/min Est GFR (Non-Af Amer) 98.1 ml/min BUN/Creatinine Ratio 14.0 (10-20) Glucose 161 H (70-99(Fasting)) mg/dl POC Glucose (70-99) mg/dl Calcium 6.8 L (8.6-10.3) mg/dl Ionized Calcium (1.12-1.32) mmol/L Phosphorus (2.5-4.9) mg/dl Magnesium (1.7-2.4) mg/dl Total Bilirubin 0.5 (0.2-1.0) mg/dl Direct Bilirubin 0.1 (0-0.2) mg/dl AST 47 H (13-39) U/L ALT 23 (7-52) U/L Alkaline Phosphatase 92 (34-104) U/L Troponin I High Sens (0-14) pg/ml Total Protein 4.3 L D (6.0-8.3) gm/dl Albumin 1.7 L (3.4-5.0) gm/dl Vitamin B12 (180-914) pg/ml Nasal Screen MRSA (PCR) (Negative) 03/30/23 Range/Units 07:05 WBC (4.8-10.8) K/ul RBC (4.20-5.40) M/uL Hgb (12.0-16.0) g/dl POC Hgb (12.0-16.0) g/dl Hct (37.0-47.0) % POC Hct (37-47) % MCV (80.0-100.0) fL MCH (25.0-34.0) pg MCHC (32.0-36.0) g/dL RDW Std Deviation (36.4-46.3) fL RDW Coeff of Kartik (11.5-14.5) % Plt Count (130-400) K/uL MPV (9.4-12.4) fL Immature Gran % (Auto) % Neut % (Auto) % Lymph % (Auto) % Mitchell % (Auto) % Eos % (Auto) % Baso % (Auto) % Neut # (Auto) (1.40-6.50) K/uL Lymph # (Auto) (1.20-3.40) K/uL Mitchell # (Auto) (0.11-0.59) K/uL Eos # (Auto) (0.00-0.50) K/uL Baso # (Auto) (0.00-0.20) K/uL Immature Gran # (Auto) (0.01-0.20) K/uL ESR (0-30) mm/hr PT (9.0-12.0) Seconds INR (0.9-1.1) Sample Site POC pH (7.35-7.45) POC pCO2 (35-46) mmHg POC pO2 (80-95) mmHg POC HCO3 (19-24) lewis/L POC Total CO2 (24-31) mmol/L POC Base Excess (-9-1.8) lewis/L ABG pH (Temp Correct) (7.35-7.45) ABG pCO2 (Temp Corrct (35-46) mmHg POC ABG pO2 at Pt Temp POC ABG O2 Sat (90-95) % Boo Test O2 Delivery Device POC O2 Rate Minute Ventilation POC FiO2 % Tidal Volume PEEP POC Sodium (135-144) mmol/L Sodium (136-145) mmol/L POC Potassium (3.3-5.0) mmol/L Potassium (3.5-5.1) mmol/L Chloride (98-107) mmol/L Carbon Dioxide (21-32) mmol/L Anion Gap (3-11) BUN (6-23) mg/dl Creatinine (0.6-1.2) mg/dl Est Cr Clr Drug Dosing ml/min Est GFR ( Amer) ml/min Est GFR (Non-Af Amer) ml/min BUN/Creatinine Ratio (10-20) Glucose (70-99(Fasting)) mg/dl POC Glucose (70-99) mg/dl Calcium (8.6-10.3) mg/dl Ionized Calcium (1.12-1.32) mmol/L Phosphorus (2.5-4.9) mg/dl Magnesium (1.7-2.4) mg/dl Total Bilirubin (0.2-1.0) mg/dl Direct Bilirubin (0-0.2) mg/dl AST (13-39) U/L ALT (7-52) U/L Alkaline Phosphatase (34-104) U/L Troponin I High Sens (0-14) pg/ml Total Protein (6.0-8.3) gm/dl Albumin (3.4-5.0) gm/dl Vitamin B12 (180-914) pg/ml Nasal Screen MRSA (PCR) Negative (Negative) Medications Administered Current Inpatient Medications Albuterol (Albuterol Hfa 8 Gm Inhaler) 1 puffs INH Q6H PRN PRN Reason: Shortness Of Breath Or Wheezin Stop: 04/29/23 05:11 Albuterol (Albut/Ipratrop 3mg/0.5mg Neb 3 Ml Vial) 3 ml NEB QIDR [facility]INE; Protocol Stop: 04/29/23 06:59 Last Admin: 03/31/23 07:12 Dose: 3 ml Budesonide (Budesonide 0.5 Mg/2 Ml Vial (Pulmicort)) 0.5 mg NEB BIDR [facility] Stop: 04/30/23 18:59 Last Admin: 03/31/23 07:50 Dose: 0.5 mg Enoxaparin Sodium (Enoxaparin Inj 30 Mg/0.3 Ml Syr) 30 mg SQ QAM [facility] Stop: 04/29/23 08:59 Last Admin: 03/30/23 11:14 Dose: 30 mg Formoterol Fumarate (Formoterol 20 Mcg/2 Ml Vial) 20 mcg NEB BIDR [facility] Stop: 04/30/23 08:59 Last Admin: 03/31/23 07:50 Dose: 20 mcg Parenteral Electrolytes (Plasma-Lyte A Ph 7.4) 1,000 mls @ 110 mls/hr IV .Q9H6M [facility] Stop: 04/29/23 08:59 Last Admin: 03/30/23 23:53 Dose: 110 mls/hr Acetaminophen (Ofirmev) 1,000 mg in 100 mls @ 400 mls/hr IV Q8H PRN PRN Reason: Pain Stop: 04/02/23 13:52 Last Infusion: 03/30/23 14:44 Dose: Infused Propofol (Diprivan) 1,000 mg in 100 mls @ 0 mls/hr IV .Q0M [facility]; Protocol Stop: 04/02/23 15:14 Last Titration: 03/31/23 07:30 Dose: 0 mcg/kg/min, 0 mls/hr Phenylephrine HCl (Phenylephrine/Nss) 25 mg in 250 mls @ 13.29 mls/hr IV .[id number] [facility]; Protocol Stop: 04/29/23 21:56 Last Titration: 03/31/23 07:35 Dose: 0 mcg/kg/min, 0 mls/hr Sodium Phosphate 15 mmol/ (Sodium Chloride) 255 mls @ 88 mls/hr IV ONE ONE Stop: 03/31/23 08:53 Last Admin: 03/31/23 05:56 Dose: 88 mls/hr Lansoprazole (Lansoprazole 15 Mg Soltab) 15 mg PO QAM [facility] Stop: 04/29/23 08:59 Last Admin: 03/30/23 11:14 Dose: 15 mg Miscellaneous (Icu Electrolyte Replacement Protocol) 1 each N/A BID@06,18 [facility]; Protocol Stop: 04/06/23 17:59 Last Admin: 03/31/23 05:14 Dose: 1 each Miscellaneous (Icu Protocol For Hyperglycemia) 1 each N/A Q6 [facility] Stop: 04/01/23 11:29 Last Admin: 03/31/23 05:23 Dose: Not Given Miscellaneous (Remove Lidoderm Patch) 1 each N/A DAILY@2100 [facility] Stop: 04/29/23 20:59 Last Admin: 03/30/23 20:11 Dose: 1 each Nitroglycerin (Nitroglycerin 2% Ointment 30gm Tube) 1 inch EXT BID [facility] Stop: 04/29/23 10:44 Last Admin: 03/30/23 20:32 Dose: 1 inch Propofol (Propofol Bolus From Bag) 20 mg IV Q5M PRN PRN Reason: Sedation Stop: 04/02/23 15:14 Last Admin: 03/31/23 00:09 Dose: 20 mg (1) Fall Encounter type: initial encounter Qualified Code(s): W19.XXXA - Unspecified fall, initial encounter
--- NOTE | 2023-03-31 08:57 | Critical Care Progress Note ---
Date of Service March 31, 2023 Assessment & Plan (1) Cardiac arrest: (2) Cachexia: (3) COPD (chronic obstructive pulmonary disease): (4) Interstitial lung disease: (5) Prolonged QT interval: (6) Closed fracture of left clavicle: Plan Impression: 72-year-old female with multiple medical issues including alcohol abuse, tobacco abuse, COPD, and failure to thrive admitted with frequent falls and a clavicular fracture suffering cardiac arrest shortly after arrival to the floor. Report was initial rhythm was PEA and she had return of spontaneous circulation with epinephrine. Total downtime not well documented currently. She is hemodynamically stable and sedated on Precedex but was intubated due to ineffectual respirations. Etiology of arrest is unclear currently 24-hour events: The patient was brought to the ICU yesterday morning. Central lines and arterial lines were placed. Reviewed with cardiology. Orthopedics consultation completed. Patient had her electrolytes aggressively repleted. She is now awake and following commands. She was briefly started on norepinephrine however responded more favorably to phenylephrine. Recommendations: 1. Neurologic: At risk for alcohol withdrawal. Continue high-dose thiamine and folate. Patient appears to be responding neurologically. Keep sedatives off in anticipation of vent liberation. Discussed with family at bedside. The patient has no intention of stopping her alcohol or tobacco habit. Could consider providing her some low-dose alcohol to prevent DTs as weaning her off alcohol is unlikely to be successful in the long-term. Will discuss with pharmacy. Alternatively, low-dose benzodiazepines can be provided. Will need physical therapy and Occupational Therapy evaluations once medically appropriate 2. Cardiovascular: Cardiac arrest, reported as PEA of unclear etiology. Appears to be most consistent with electrolyte abnormalities and underlying QT prolongation. Electrolytes replaced and no current cardiovascular issues. Hypotension likely related to sedatives. Wean phenylephrine to off as tolerated. There was some initial concern about the arterial line causing some dusky fingers however these have pinked up nicely with application of topical nitroglycerin ointment. Continue to follow. Will discontinue arterial line if the patient remains off the ventilator 3. Respiratory: Intubated due to ineffectual respirations and inability to protect airway. Gas exchange looks good. Evidence of interstitial disease and outpatient follow-up may be appropriate with complete PFTs. Will pursue trial of extubation. Aggressive pulmonary toilet with incentive spirometry flutter valve and out of bed to chair as tolerated. Will continue nebulized Perforomist and budesonide for now until the patient is able to tolerate MDIs 4. GI: PPI in place. Will have nursing assess bedside swallow and determine whether or not speech evaluation is required. If she does well, can advance diet. 5. Renal: Multiple electrolyte abnormalities including hypocalcemia, hypokalemia, and hypomagnesemia. Continue ICU electrolyte replacement protocol. 6. Endocrine: Glycemic control per protocol. TSH normal on presentation. 7. Heme-onc: Mild anemia. No evidence of acute blood loss but will follow at this point in time. DVT prophylaxis will be initiated with Lovenox. 8. ID: No current issues 9. Musculoskeletal: Clavicular fracture, Ortho consult reviewed. No intervention required. Can follow-up as outpatient. Patient was discussed on multidisciplinary rounds and with the bedside critical care nurse. Family updated at bedside. A total of 54 minutes in critical care time exclusive of procedures was spent in evaluation management and stabilization of this patient Admission and Anticipated Discharge Date Admission Date: March 30, 2023 Subjective Patient is intubated and coming off sedation. She is able to follow some commands this morning. She is been on a pressure support trial. Secretions are manageable. Review of Systems Review of Systems: Unobtainable due to endotracheal tube Physical Exam Constitutional: + cachectic and + mechanically ventilate d Neck: trachea midline, no thyromegaly Respiratory: normal respiratory effort, lungs clear to auscultation Cardiovascular: RRR, no murmur, no edema Gastrointestinal (Abdomen): normal bowel sounds, soft, nontender, no hepatosplenomegaly Musculoskeletal: Extremities: extremities normal to inspection Skin: no rashes, warm and dry Neurologic: Nonfocal exam Lymphatic: no cervical lymphadenopathy Results & Data Results & Data Vital Signs (Past 12 Hours) Vital Signs Temp Pulse Resp BP Pulse Ox O2 Del Method FiO2 03/31/23 05:00 37.4 C 93 H 18 111/62 97 Mechanical Vent 03/31/23 04:00 37.5 C 94 H 18 123/70 95 Mechanical Vent 03/31/23 03:52 19 30 03/31/23 03:00 37.3 C 92 H 18 108/70 96 Mechanical Vent 03/31/23 02:00 37.2 C 92 H 18 107/44 L 96 Mechanical Vent 03/31/23 01:39 102 H 03/31/23 01:00 37.4 C 94 H 18 117/59 L 97 Mechanical Vent 03/31/23 00:01 37.4 C 101 H 18 121/62 94 Mechanical Vent 03/30/23 23:00 37.3 C 104 H 17 139/80 95 03/30/23 22:39 109 H 18 97 30 03/30/23 22:00 37.1 C 132 H 17 116/52 L 99 03/30/23 21:54 Mechanical Vent 30 03/30/23 21:01 37.5 C 120 H 20 139/85 03/30/23 20:29 23 30 03/30/23 20:00 37.4 C 110 H 24 114/51 L 96 Critical Care Results & Data Vital Signs (Past 12 Hours) Vital Signs Temp Pulse Resp BP Pulse Ox O2 Del Method FiO2 03/31/23 07:25 30 03/31/23 07:10 96 H 18 95 30 03/31/23 05:00 37.4 C 93 H 18 111/62 97 Mechanical Vent 03/31/23 04:00 37.5 C 94 H 18 123/70 95 Mechanical Vent 03/31/23 03:52 19 30 03/31/23 03:00 37.3 C 92 H 18 108/70 96 Mechanical Vent 03/31/23 02:00 37.2 C 92 H 18 107/44 L 96 Mechanical Vent 03/31/23 01:39 102 H 03/31/23 01:00 37.4 C 94 H 18 117/59 L 97 Mechanical Vent 03/31/23 00:01 37.4 C 101 H 18 121/62 94 Mechanical Vent 03/30/23 23:00 37.3 C 104 H 17 139/80 95 03/30/23 22:39 109 H 18 97 30 03/30/23 22:00 37.1 C 132 H 17 116/52 L 99 03/30/23 21:54 Mechanical Vent 30 03/30/23 21:01 37.5 C 120 H 20 139/85 Lab & Micro Results (Past 24 Hours) No Data to Display Na 137 mmol/L (136-145) 03/31/23 K 4.7 mmol/L (3.5-5.1) 03/31/23 Cl 108 mmol/L (98-107) H 03/31/23 CO2 23 mmol/L (21-32) 03/31/23 Anion Gap 6 (3-11) 03/31/23 BUN 8 mg/dl (6-23) 03/31/23 Creatinine 0.54 mg/dl (0.6-1.2) L 03/31/23 Estimated GFR ( Amer) 110.8 ml/min 03/31/23 Estimated GFR (Non-Af Amer) 95.6 ml/min 03/31/23 BUN/Creatinine Ratio 14.8 (10-20) 03/31/23 Glu 98 mg/dl (70-99(Fasting)) 03/31/23 Ca 7.4 mg/dl (8.6-10.3) L 03/31/23 Phosphorus Level 2.4 mg/dl (2.5-4.9) L 03/31/23 Mg 2.2 mg/dl (1.7-2.4) 03/31/23 03:54 Calcium Level 7.4 mg/dl (8.6-10.3) L 03/31/23 03:54 Ionized Calcium 0.98 mmol/L (1.12-1.32) L 03/30/23 22:34 Diagnostic Findings (Past 24 Hours) Chest X-Ray 03/30/23 08:29 XR chest 1V portable HISTORY: Nasogastric tube repositioning. line placement COMPARISON: Chest 03/30/2023. FINDINGS: The nasogastric tube has been repositioned. The tip now terminates below the diaphragm. The tip is not included on this study. No pneumothorax. Chronic interstitial thickening persists. A left jugular central venous catheter terminates in the SVC. Endotracheal tube terminates approximately 1.5 cm from the mae. IMPRESSION: 1. Satisfactory support line placement. 2. No pneumothorax. ACT 112: Negative or not required by law. Electronically signed by: Martin Hall M.D. 03/30/2023 9:38 AM I & O Totals 24 Hours 03/30/23 03/31/23 04/01/23 06:59 06:59 06:59 Intake Total 752 / 752 5347.930 / 5347.930 90.147 / 90.147 Output Total 1325 / 1325 Balance 752 / 752 4022.930 / 4022.930 90.147 / 90.147 Cumulative 03/29/23 20:35 thru 03/31/23 07:35 Intake Total 6190.077 Output Total 1325 Balance 4865.077 RT Ventilator Mngmt (Last Documented) Ventilator Ordered Settings Ventilator Support Mode CPAP 03/31/23 07:25 Respiratory Rate 18 03/31/23 07:10 Ventilator Tidal Volume 325 03/31/23 07:10 Setting Minute Ventilation 6.3 03/31/23 07:10 Ventilator Positive Pressure 8 03/31/23 07:25 Support Setting Positive End Expiratory 5 03/31/23 07:25 Pressure Fraction of Inspired Oxygen 30 03/31/23 07:25 Ventilator - PT Measurements Respiratory Rate 18 Exhaled Tidal Volume 390 Minute Ventilation 6.3 Peak Inspiratory Airway 14 Pressure Plateau Pressure 12 Respiratory Cycle Inspiratory: 1:3.7 Expiratory Ratio Inspiratory Phase Time 0.7 End-Tidal CO2 31 Static Lung Compliance 55.71 Dynamic Lung Compliance 43.33 Normal Static Lung Compliance 48.00 Coding Level of Care Code 54005 SUB INP/OBS CARE 3/50MIN Diagnoses Cardiac arrest I46.9 Cachexia R64 COPD (chronic obstructive pulmonary disease) J44.9 Interstitial lung disease J84.9 Prolonged QT interval R94.31 Closed fracture of left clavicle S42.032A Clavicle location: lateral end Encounter type: initial encounter Fracture alignment: displaced (6) Closed fracture of left clavicle Clavicle location: lateral end Encounter type: initial encounter Fracture alignment: displaced Qualified Code(s): S42.032A - Displaced fracture of lateral end of left clavicle, initial encounter for closed fracture
--- NOTE | 2023-03-31 10:33 | Cardiology Progress Note ---
Date of Service March 31, 2023 Assessment & Plan (1) Cardiac arrest: (2) Hypokalemia: (3) Hypomagnesemia: (4) Prolonged QT interval: (5) Marijuana use: Plan 72-year-old female presenting with fall with subsequent cardiac arrest, PEA with spontaneously return of circulation after CPR and epinephrine. Etiology not well-defined, however, significant electrolyte derangement including hypomagnesemia and hypokalemia. QT interval prolonged, however, improved per repeat ECG this a.m. Continue to monitor electrolytes closely. Replete as needed. Repeat ECG in a.m. Add low-dose beta-abner, metoprolol tartrate 12.5 mg twice daily. Elevated high-sensitivity troponin likely due to demand ischemia in the setting of cardiac arrest and hypoxia. Will pursue further noninvasive ischemic evaluation as outpatient. Clearly, alcohol abuse/dependence is a significant issue. Discussed with family at bedside. Family reports poor nutrition with continued weight loss at home. 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 Admission and Anticipated Discharge Date Admission Date: March 30, 2023 Subjective Patient seen examined the bedside. Answering some questions appropriately. Denies chest pain or shortness of breath. Telemetry reveals sinus rhythm and sinus tachycardia. No dysrhythmias. Blood pressure improved. Vasopressor therapy discontinued. High-sensitivity troponin trending downward. Bedside echocardiogram demonstrating hyperdynamic LV function, underfilled LV. Electrolyte improved post supplementation yesterday. QT interval declining per repeat ECG this a.m. Review of Systems Review of Systems: All systems reviewed & are unremarkable except as noted in Subjective Physical Exam Constitutional: + ill appearing and + thin Respiratory: no respiratory distress and no labored breathing Auscultation: + rhonchi (Coarse breath sounds bilaterally); no wheezes Cardiovascular: Rate/Rhythm: regular rate, regular rhythm and + tachycardic Heart Sounds: normal S1 and normal S2; no murmur Vessels: no JVD Extremities: no edema Gastrointestinal (Abdomen): Inspection/Auscultation: abdomen normal to inspection; abdomen not distended Percussion/Palpation: abdomen soft; abdomen nontender, no guarding and abdomen not rigid Neurologic: moves all extremities Results & Data Vital Signs (Past 12 Hours) Vital Signs Temp Pulse Resp BP Pulse Ox O2 Del Method FiO2 03/31/23 07:25 30 03/31/23 07:10 96 H 18 95 30 03/31/23 05:00 37.4 C 93 H 18 111/62 97 Mechanical Vent 03/31/23 04:00 37.5 C 94 H 18 123/70 95 Mechanical Vent 03/31/23 03:52 19 30 03/31/23 03:00 37.3 C 92 H 18 108/70 96 Mechanical Vent 03/31/23 02:00 37.2 C 92 H 18 107/44 L 96 Mechanical Vent 03/31/23 01:39 102 H 03/31/23 01:00 37.4 C 94 H 18 117/59 L 97 Mechanical Vent 03/31/23 00:01 37.4 C 101 H 18 121/62 94 Mechanical Vent 03/30/23 23:00 37.3 C 104 H 17 139/80 95 03/30/23 22:39 109 H 18 97 30 Laboratory Results Cardiac Enzymes 03/30/23 03/30/23 Range/Units 10:41 16:53 Troponin I High Sens 1420.1 H* D 1159.5 H* (0-14) pg/ml Comprehensive Metabolic Panel 03/30/23 03/30/23 03/31/23 Range/Units 14:06 22:34 03:54 Sodium 138 136 137 (136-145) mmol/L Potassium 3.6 D 5.1 D 4.7 (3.5-5.1) mmol/L Chloride 109 H 107 108 H (98-107) mmol/L Carbon Dioxide 23 23 23 (21-32) mmol/L BUN 7 8 8 (6-23) mg/dl Creatinine 0.50 L 0.56 L 0.54 L (0.6-1.2) mg/dl Glucose 164 H 118 H 98 (70-99(Fasting)) mg/dl Calcium 6.3 L 6.7 L 7.4 L (8.6-10.3) mg/dl Intake and Output 03/30/23 03/31/23 03/31/23 22:59 06:59 14:59 Intake Total 2170.490 / 5347.930 1026.116 / 5347.930 90.147 / 90.147 Output Total 725 / 1325 250 / 1325 Balance 1445.490 / 4022.930 776.116 / 4022.930 90.147 / 90.147 Intake: IV 2170.490 / 5347.930 1026.116 / 5347.930 90.147 / 90.147 Albumin 25% 25 gm In 100 ml @ 95.833 / 95.833 50 mls/hr IV ONE ONE Rx#: [id number] Albumin 5% 250 ml @ 500 mls/hr 250 / 250 IV ONE ONE Rx#:[id number] Calcium Chloride 10% 1,000 mg 60 / 60 In Dextrose 5% 50 ml @ 240 mls/ hr IV NOW STA Rx#:[id number] Lactated Ringer's 250 ml @ 999 250 / 250 mls/hr IV .Q16M ONE Rx#: [id number] Magnesium Sulfate / D5w 1 gm In 198.333 / 198.333 100 ml @ 50 mls/hr IV Q2H [facility] Rx#:[id number] Norepinephrine/D5w 4 mg In 250 108.622 / 108.622 0 / 108.622 ml @ 0.1 MCG/KG/MIN 16.613 mls/ hr IV .Q15H3M [facility] Rx#:[id number] Phenylephrine/Nss 25 mg In 250 13.515 / 198.131 184.616 / 198.131 7.867 / 7.867 ml @ 0.5 MCG/KG/MIN 13.29 mls/ hr IV .[id number] [facility] Rx#:[id number] Plasma-Lyte A 1,000 ml @ 110 994.167 / 1500.000 505.833 / 1500.000 mls/hr IV .Q9H6M [facility] Rx#: [id number] Potassium Chloride / Wtr 20 meq 400 / 400 In 100 ml @ 50 mls/hr IV Q2H [facility] Rx#:[id number] dexMEDEtomidine 200 mcg In 50 12.413 / 52.537 ml @ 0 MCG/KG/HR IV .Q0M [facility] Rx #:[id number] fentaNYL citrate 2,500 mcg In 20.5 / 20.5 75.125 / 75.125 250 ml @ 75 MCG/HR 7.5 mls/hr IV .[id number] [facility] Rx#:[id number] propofoL 1,000 mg In 100 ml @ 25.44 / 102.774 77.334 / 102.774 7.155 / 7.155 30 MCG/KG/MIN 7.974 mls/hr IV . [id number] [facility] Rx#:[id number] Output: Urine Amount (Catheter) 725 / 1325 250 / 1325 Tee/Indwelling 725 / 1325 250 / 1325 Other: Other Intake Source npo npo Weight 47.1 kg Weight Measurement Method Built in [facility]
[2023-03-31] MEDS: ACETAMINOPHEN 1,000 MG/100 ML VIAL IV PRN ×2 (11:35→18:20)
[2023-03-31] MEDS: METOPROLOL TARTRATE 25 MG TAB PO SCH ×2 (12:39→21:02)
[2023-03-31] MEDS: NITROGLYCERIN 2% OINTMENT 30GM TUBE EXT SCH ×2 (12:39→21:04)
--- NOTE | 2023-03-31 13:45 | XRay Report ---
XR chest 1V portable CLINICAL HISTORY: resp failure TECHNIQUE: Single frontal radiograph of the chest was obtained. Comparison: Comparison is made to chest radiograph 03/30/2023 FINDINGS: Lines and tubes are stable. The cardiomediastinal silhouette is normal. Reticular interstitial opacit ies are seen. Small bilateral pleural effusions are seen. IMPRESSION: Small bilateral pleural effusions. No airspace opacities. ACT 112: Negative or not required by law. Electronically signed by: Francisco Javier Painting M.D. 03/31/2023 1:44 PM
[2023-03-31] MEDS: LANSOPRAZOLE 15 MG SOLTAB PO SCH (13:47)
[2023-03-31] MEDS: PLASMA-LYTE A 1,000 ML IV SCH ×2 (13:47→21:03)
[2023-03-31] MEDS: ENOXAPARIN INJ 30 MG/0.3 ML SYR SQ SCH (13:47)
[2023-03-31] MEDS: PHENYLEPHRINE/NSS 25 MG/250 ML BAG IV SCH (16:50)
[2023-03-31] MEDS: METOPROLOL TARTRATE 1 MG/ML VIAL IV SCH (18:20)
[2023-03-31] MEDS ORDERED: DEXTROSE 50% 50 ML SYRINGE IV ONE (18:27)
[2023-03-31] MEDS ORDERED: GLUCOSE 40% GEL 15 GM TUBE PO PRN (18:30)
[2023-03-31] MEDS ORDERED: CARBOHYDRATES FOR HYPOGLYCEMIA PO PRN (18:30)
[2023-03-31] MEDS ORDERED: GLUCOSE 10 TAB/TUBE PO PRN (18:30)
[2023-03-31] MEDS ORDERED: GLUCAGON FOR INJ 1 MG VIAL SQ PRN (18:30)
[2023-03-31] MEDS: DEXTROSE 50% 50 ML SYRINGE IV PRN (18:43)
[2023-04-01] MEDS: ICU Protocol for HYPERglycemia SCH ×2 (00:19→06:20)
[2023-04-01] MEDS: METOPROLOL TARTRATE 1 MG/ML VIAL IV SCH ×4 (00:19→17:40)
[2023-04-01 02:52] LABS: Marijuana Quant, GCMS Urine 16 ng/mL (<5)
[2023-04-01] MEDS: PLASMA-LYTE A 1,000 ML IV SCH ×3 (03:49→23:34)
[2023-04-01 06:03] LABS: BUN Creatinine Ratio 12.1 (10-20); Calcium 7.2 mg/dl (8.6-10.3); Est GFR (African American) 103.7 ml/min; Est GFR (Non-African American) 89.5 ml/min; Magnesium 1.9 mg/dl (1.7-2.4); Phosphorus 3.5 mg/dl (2.5-4.9); Potassium 4.4 mmol/L (3.5-5.1)
[2023-04-01] MEDS: ICU ELECTROLYTE REPLACEMENT PROTOCOL SCH ×2 (06:13→18:39)
[2023-04-01] MEDS: MAGNESIUM SULFATE / D5W 1 GM/100 ML BAG IV SCH ×2 (06:34→08:23)
--- NOTE | 2023-04-01 07:23 | XRay Report ---
XR chest 1V portable HISTORY: 72 years-old Female resp failure acute respiratory failure COMPARISON: 03/31/2023 TECHNIQUE: AP view of the chest FINDINGS: Cardiac silhouette is enlarged. Left IJ central venous catheter is unchanged. Status post extubation with removal of the enteric tube. No pneumothorax. Pulmonary vascular congestion with interstitial co arsening. Layering pleural effusions with bibasilar consolidation and mildly progressed midlung airsp manny opacities. Bones appear grossly intact. IMPRESSION: 1. Status post extubation with removal of the enteric tube. 2. Cardiomegaly with pulmonary edema, layering pleural effusions with persistent bibasilar consolidat ion. 3. Progressed ill-defined midlung airspace opacities. ACT 112: Negative or not required by law. The above report was generated using voice recognition software. It may contain grammatical, syntax o r spelling errors. Electronically signed by: Francisco Javier Chaparro M.D. 04/01/2023 7:22 AM
[2023-04-01] MEDS: ALBUT/IPRATROP 3MG/0.5MG NEB 3 ML VIAL NEB SCH ×4 (07:25→19:28)
[2023-04-01] MEDS: BUDESONIDE 0.5 MG/2 ML VIAL (PULMICORT) NEB SCH ×2 (07:27→19:28)
[2023-04-01] MEDS: FORMOTEROL 20 MCG/2 ML VIAL NEB SCH ×2 (07:27→19:28)
[2023-04-01] MEDS ORDERED: FUROSEMIDE 40 MG/4 ML VIAL IV ONE (08:03)
--- NOTE | 2023-04-01 08:27 | Critical Care Progress Note ---
Date of Service April 01, 2023 Assessment & Plan (1) Cardiac arrest: (2) Cachexia: (3) COPD (chronic obstructive pulmonary disease): (4) Interstitial lung disease: (5) Prolonged QT interval: (6) Closed fracture of left clavicle: Plan Impression: 72-year-old female with multiple medical issues including alcohol abuse, tobacco abuse, COPD, and failure to thrive admitted with frequent falls and a clavicular fracture suffering cardiac arrest shortly after arrival to the floor. Report was initial rhythm was PEA and she had return of spontaneous circulation with epinephrine. Total downtime not well documented currently. She is hemodynamically stable and sedated on Precedex but was intubated due to ineffectual respirations. Etiology of arrest is unclear currently Recommendations: Neurologic: -- Metabolic encephalopathy Multifactorial, patient does have underlying history of dementia as well as heavy alcohol use At risk for alcohol withdrawal Continue high-dose thiamine and folate. Continue with CIWA protocol Cardiovascular: -- Cardiac arrest Reported as PEA of unclear etiology. Appears to be most consistent with electrolyte abnormalities and underlying QT prolongation. Phenylephrine has been weaned off. Respiratory: --COPD with emphysema Continue with inhaled bronchodilator therapy Outpatient PFT Extubated 03/31/2023 GI: Patient does have difficulty swallowing, will get bedside swallow eval Renal: Monitor BUNs/creatinine Endocrine: Continue with ICU hypoglycemia protocol TSH normal on presentation. Heme-onc: -- Mild anemia Monitor H&H ID: No current issues Musculoskeletal: -- Clavicular fracture Ortho consult reviewed. No intervention required. Can follow-up as outpatient. --Prophylaxis VTE: Lovenox GI: None Lines: Left IJ, peripheral Diet: N.p.o. Plan: In/out: +1.9 L, urine output 820 mL, +6.8 L since coming to the hospital Chest x-ray shows right-sided pleural effusion. Will give 40 mg of Lasix today. Magnesium being replaced. Continue with high-dose thiamine as well as folic acid, CIWA protocol for alcohol withdrawal Patient is actively wheezing as well as rhonchi. Will add flutter valve. If the patient still has thick secretions and Mucomyst/hypertonic saline nebulized can be added. Case was discussed with patient's son as well as daughter at bedside. Patient is DNR/DNI as per her wishes from before. They would like to speak with the case management to see what will be the goals of care going forward. If there is any deterioration they would not like any escalation of care. Swallow eval to see if the patient is able to swallow. Patient hemodynamically stable to be downgrade to medical floor Please note the above document was generated using voice recognition software. It may contain grammatical, syntax or spelling errors.Any formal questions or concerns about the content, text or information contained within the body of this dictation should be directly addressed to the provider for clarification. Admission and Anticipated Discharge Date Admission Date: March 30, 2023 Subjective Patient seen and examined at bedside. No acute distress, no adverse events overnight. Patient's son and daughter were in the room at the time of examination She was answering few questions. She was oriented to self. Denied any headache, no nausea, no vomiting No dizziness. Denies any shortness of breath Review of Systems 2 Review of Systems: All systems reviewed & are unremarkable except as noted in Subjective Physical Exam 2 Physical Exam: Constitutional: No acute distress HEENT: EOMI, PERRLA Respiratory system: Decreased air entry bilaterally, mild crackles bilaterally, positive expiratory wheeze, positive rhonchi CVS: S1-S2 positive, no murmurs or gallops Abdomen: Soft, nontender, nondistended, positive bowel sounds x4 Extremities: +2 pulses bilaterally radialis/ dorsalis pedis, no cyanosis, no edema Neuro: Awake alert oriented to self Psych: Normal mood and affect G/U: Positive Tee Skin: no rashes, warm and dry Lymphatic: no cervical or axillary lymphadenopathy Results & Data Results & Data Vital Signs (Past 12 Hours) Vital Signs Temp Pulse Pulse Resp BP Pulse Ox O2 Del Method 04/01/23 07:30 100 H 30 H 95 Oxymask 04/01/23 06:28 103 H 147/71 H 04/01/23 05:10 37.4 C 101 H 33 H 100 04/01/23 05:01 124/73 04/01/23 05:01 37.4 C 101 H 32 H 95 Oxymask 04/01/23 05:00 37.4 C 101 H 31 H 97 04/01/23 04:50 37.4 C 103 H 32 H 98 04/01/23 04:40 37.4 C 105 H 42 H 97 04/01/23 04:30 37.4 C 113 H 42 H 94 04/01/23 04:20 37.4 C 103 H 34 H 98 04/01/23 04:10 37.4 C 108 H 38 H 95 Oxymask 04/01/23 04:00 126/83 04/01/23 04:00 37.4 C 103 H 30 H 97 04/01/23 03:00 132/76 04/01/23 03:00 37.4 C 103 H 31 H 94 04/01/23 02:01 37.6 C H 102 H 28 H 96 04/01/23 02:01 84/48 L 04/01/23 02:00 37.6 C H 102 H 27 H 97 04/01/23 01:38 102 H 04/01/23 01:30 37.6 C H 103 H 21 92 04/01/23 01:15 37.6 C H 107 H 26 H 79 L 04/01/23 01:01 37.6 C H 102 H 25 H 97 04/01/23 01:01 97/57 L 04/01/23 01:00 37.6 C H 102 H 27 H 96 04/01/23 00:45 37.6 C H 105 H 27 H 95 04/01/23 00:30 37.6 C H 106 H 26 H 97 04/01/23 00:19 104 H 103/60 04/01/23 00:00 37.5 C 100 H 29 H 97 04/01/23 00:00 103/60 03/31/23 23:30 37.5 C 101 H 25 H 98 03/31/23 23:00 37.7 C H 100 H 22 91 03/31/23 23:00 22 122/54 L 98 03/31/23 22:59 37.8 C H 101 H 27 H 92 03/31/23 22:59 114/80 03/31/23 22:30 37.8 C H 101 H 22 92 Oxymask 03/31/23 22:00 104/56 L 03/31/23 22:00 37.7 C H 100 H 25 H 91 03/31/23 21:30 37.6 C H 104 H 25 H 91 03/31/23 21:00 37.6 C H 103 H 22 93 03/31/23 21:00 99/61 L O2 Flow Rate 04/01/23 07:30 8 04/01/23 06:28 04/01/23 05:10 04/01/23 05:01 04/01/23 05:01 8 04/01/23 05:00 04/01/23 04:50 04/01/23 04:40 04/01/23 04:30 04/01/23 04:20 04/01/23 04:10 8 04/01/23 04:00 04/01/23 04:00 04/01/23 03:00 04/01/23 03:00 04/01/23 02:01 04/01/23 02:01 04/01/23 02:00 04/01/23 01:38 04/01/23 01:30 04/01/23 01:15 04/01/23 01:01 04/01/23 01:01 04/01/23 01:00 04/01/23 00:45 04/01/23 00:30 04/01/23 00:19 04/01/23 00:00 04/01/23 00:00 03/31/23 23:30 03/31/23 23:00 03/31/23 23:00 03/31/23 22:59 03/31/23 22:59 03/31/23 22:30 8 03/31/23 22:00 03/31/23 22:00 03/31/23 21:30 03/31/23 21:00 03/31/23 21:00 Laboratory Results 04/01/23 05:01 Coding Level of Care Code 82143 SUB INP/OBS CARE 3/50MIN Diagnoses Cardiac arrest I46.9 Cachexia R64 COPD (chronic obstructive pulmonary disease) J44.9 Interstitial lung disease J84.9 Prolonged QT interval R94.31 Closed fracture of left clavicle S42.032A Clavicle location: lateral end Encounter type: initial encounter Fracture alignment: displaced (6) Closed fracture of left clavicle Clavicle location: lateral end Encounter type: initial encounter Fracture alignment: displaced Qualified Code(s): S42.032A - Displaced fracture of lateral end of left clavicle, initial encounter for closed fracture
[2023-04-01 08:54] LABS: Hematocrit (blood only) 24.3 % (37.0-47.0); Hemoglobin 8.1 g/dl (12.0-16.0); Mean Corpuscular Hemoglobin 30.7 pg (25.0-34.0); Mean Corpuscular Hgb Conc 33.3 g/dL (32.0-36.0); Mean Platelet Volume 10.2 fL (9.4-12.4); Platelet Count 127 K/uL (130-400); RDW Coefficient of Variation 14.6 % (11.5-14.5); RDW Standard Deviation 48.9 fL (36.4-46.3); Red Blood Count 2.64 M/uL (4.20-5.40); White Blood Count 8.89 K/ul (4.8-10.8)
[2023-04-01 08:59] LABS: Basophils # (auto) 0.02 K/uL (0.00-0.20); Basophils % (auto) 0.2 %; Immature Granulocytes # (auto) 0.05 K/uL (0.01-0.20); Immature Granulocytes % (auto) 0.6 %; Lymphocytes # (auto) 0.64 K/uL (1.20-3.40); Lymphocytes % (auto) 7.2 %; Monocytes # (auto) 0.33 K/uL (0.11-0.59); Monocytes % (auto) 3.7 %; Neutrophils # (auto) 7.85 K/uL (1.40-6.50); Neutrophils % (auto) 88.3 %
[2023-04-01] MEDS ORDERED: GABAPENTIN 400 MG CAP PO SCH (10:00)
[2023-04-01] MEDS ORDERED: LORazepam 1 MG in SYRINGE 0.5 ML IV PRN (10:23)
[2023-04-01] MEDS ORDERED: Ativan IV Alcohol Withdrawal--Active Protocol IV PRN (10:23)
[2023-04-01] MEDS ORDERED: LORazepam 3 MG in SYRINGE 1.5 ML IV PRN (10:23)
[2023-04-01] MEDS ORDERED: LORazepam 2 MG in SYRINGE 1 ML IV PRN (10:23)
--- NOTE | 2023-04-01 10:23 | Hospitalist Progress Note ---
Date of Service April 01, 2023 Assessment & Plan (1) Fall: Plan: 72 yo F with past med significant for COPD moderate, hepatic steatosis, ongoing tobacco abuse, generalized anxiety disorder, ongoing alcohol abuse lives at home alone and ambulates with walker presents with fall. Soon after admission pt became unresponsive - code blue/ cardiac arrest and was transferred to ICU, intubated. Extubated AM (03/31/23) Acute hypoxic resp. failure remains on suppl. O2 Per pulm - Evidence of interstitial disease and outpatient follow-up may be appropriate with complete PFTs - cont. incentive spirometry flutter valve and out of bed to chair as tolerated - continue nebulized Perforomist and budesonide for now until the patient is able to tolerate MDIs (home inhalers) - has hx of COPD, ongoing tobacco abuse-needs counseling 04/01 on 8L this AM, CXR w/ pulm. vasc. congestion, received 40 IV lasix -> now on 3L suppl. o2 cardiac arrest, etiology unclear, likely secondary to prolonged QT and electrolyte abnormalities Cardiology following closely Echo obtained -LV cavity is normal. LV is hyperdynamic, EF more than 70%. Mild mitral regurg. Moderate tricuspid regurg. Doppler findings do not suggest pulmonary hypertension. Normal inferior vena cava diameter and respiratory variation suggesting normal central venous pressure. There is no pericardial effusion. electrolytes - replete and monitor Start metoprolol 12.5 bid - pt not able to take PO at this time, cont. with 2.5 IV q6 hrs elevated troponin - likely 2/2 demand ischemia - noninvasive ischemic eval as outpt Fall Ambulatory dysfunction Frequent falling as per patient Ongoing alcoholism Acute distal left clavicle fracture, orthopedics consulted PT OT when stable Hypomagnesia and hypokalemia We will replace Follow repeat labs Alcoholism received Banana bag cont. Thiamine and folic acid initially planned for gabapentin alcohol withdrawal protocol with IV Ativan as needed started on precedex in ICU, care as per ICU, cont. w/ prn ativan Closely monitor for withdrawal symptoms Generalized disorder On citalopram DVT prophylaxis SCDs Heparin subcu Disposition ICU -> PCU Full code Admission and Anticipated Discharge Date Admission Date: March 30, 2023 Subjective Pt admitted for fall, very low electrolytes (hx of alcohol abuse), after being admitted pt was code blue -> required intubation and transfer to ICU Pt was extubated yesterday AM. Currently on NC. She is awake but drowsy. Reports whole body ache. Denies any fevers chills chest pain shortness of breath. Denies any abdominal pain. Requires suctioning, not controlling secretions well. Not able to cough well either. This AM was on 8L suppl. O2 - received 40 IV lasix for pulm. congestion. Now down to 3L Review of Systems Review of Systems: All systems reviewed & are unremarkable except as noted in Subjective Physical Exam Physical Exam: General- thin elderly F in NAD on suppl. O2 Head- atraumatic Eyes- PERRL. ENT- oropharynx clear Neck- supple, + L IJ central line Lungs- + rhonchi Heart- regular rhythm; no murmur, no gallop. Abdomen- normal bowel sounds, soft, nontender, no distension. Extremities- trace LE edema Neuro- awake but drowsy, speech slow but fluent, moves extremities. Skin- warm & dry Results & Data Results & Data Vital Signs (Past 12 Hours) Vital Signs Temp Pulse Pulse Resp BP Pulse Ox O2 Del Method 04/01/23 07:30 100 H 30 H 95 Oxymask 04/01/23 06:28 103 H 147/71 H 04/01/23 05:10 37.4 C 101 H 33 H 100 04/01/23 05:01 124/73 04/01/23 05:01 37.4 C 101 H 32 H 95 Oxymask 04/01/23 05:00 37.4 C 101 H 31 H 97 04/01/23 04:50 37.4 C 103 H 32 H 98 04/01/23 04:40 37.4 C 105 H 42 H 97 04/01/23 04:30 37.4 C 113 H 42 H 94 04/01/23 04:20 37.4 C 103 H 34 H 98 04/01/23 04:10 37.4 C 108 H 38 H 95 Oxymask 04/01/23 04:00 126/83 04/01/23 04:00 37.4 C 103 H 30 H 97 04/01/23 03:00 132/76 04/01/23 03:00 37.4 C 103 H 31 H 94 04/01/23 02:01 37.6 C H 102 H 28 H 96 04/01/23 02:01 84/48 L 04/01/23 02:00 37.6 C H 102 H 27 H 97 04/01/23 01:38 102 H 04/01/23 01:30 37.6 C H 103 H 21 92 04/01/23 01:15 37.6 C H 107 H 26 H 79 L 04/01/23 01:01 37.6 C H 102 H 25 H 97 04/01/23 01:01 97/57 L 04/01/23 01:00 37.6 C H 102 H 27 H 96 04/01/23 00:45 37.6 C H 105 H 27 H 95 04/01/23 00:30 37.6 C H 106 H 26 H 97 04/01/23 00:19 104 H 103/60 04/01/23 00:00 37.5 C 100 H 29 H 97 04/01/23 00:00 103/60 03/31/23 23:30 37.5 C 101 H 25 H 98 03/31/23 23:00 37.7 C H 100 H 22 91 03/31/23 23:00 22 122/54 L 98 03/31/23 22:59 37.8 C H 101 H 27 H 92 03/31/23 22:59 114/80 03/31/23 22:30 37.8 C H 101 H 22 92 Oxymask O2 Flow Rate 04/01/23 07:30 8 04/01/23 06:28 04/01/23 05:10 04/01/23 05:01 04/01/23 05:01 8 04/01/23 05:00 04/01/23 04:50 04/01/23 04:40 04/01/23 04:30 04/01/23 04:20 04/01/23 04:10 8 04/01/23 04:00 04/01/23 04:00 04/01/23 03:00 04/01/23 03:00 04/01/23 02:01 04/01/23 02:01 04/01/23 02:00 04/01/23 01:38 04/01/23 01:30 04/01/23 01:15 04/01/23 01:01 04/01/23 01:01 04/01/23 01:00 04/01/23 00:45 04/01/23 00:30 04/01/23 00:19 04/01/23 00:00 04/01/23 00:00 03/31/23 23:30 03/31/23 23:00 03/31/23 23:00 03/31/23 22:59 03/31/23 22:59 03/31/23 22:30 8 Laboratory Results 04/01/23 04/01/23 03/31/23 Range/Units 05:01 00:18 21:00 WBC 8.89 (4.8-10.8) K/ul RBC 2.64 L (4.20-5.40) M/uL Hgb 8.1 L (12.0-16.0) g/dl Hct 24.3 L (37.0-47.0) % MCV 92.0 D (80.0-100.0) fL MCH 30.7 (25.0-34.0) pg MCHC 33.3 (32.0-36.0) g/dL RDW Std Deviation 48.9 H (36.4-46.3) fL RDW Coeff of Kartik 14.6 H (11.5-14.5) % Plt Count 127 L (130-400) K/uL MPV 10.2 (9.4-12.4) fL Immature Gran % (Auto) 0.6 % Neut % (Auto) 88.3 % Lymph % (Auto) 7.2 % Schuyler % (Auto) 3.7 % Eos % (Auto) 0.0 % Baso % (Auto) 0.2 % Neut # (Auto) 7.85 H (1.40-6.50) K/uL Lymph # (Auto) 0.64 L (1.20-3.40) K/uL Schuyler # (Auto) 0.33 (0.11-0.59) K/uL Eos # (Auto) 0.00 (0.00-0.50) K/uL Baso # (Auto) 0.02 (0.00-0.20) K/uL Immature Gran # (Auto) 0.05 (0.01-0.20) K/uL Sodium 140 (136-145) mmol/L Potassium 4.4 (3.5-5.1) mmol/L Chloride 109 H (98-107) mmol/L Carbon Dioxide 25 (21-32) mmol/L Anion Gap 6 (3-11) BUN 8 (6-23) mg/dl Creatinine 0.66 (0.6-1.2) mg/dl Est Cr Clr Drug Dosing 57.0 ml/min Est GFR ( Amer) 103.7 ml/min Est GFR (Non-Af Amer) 89.5 ml/min BUN/Creatinine Ratio 12.1 (10-20) Glucose 90 (70-99(Fasting)) mg/dl POC Glucose 70 119 H (70-99) mg/dl Calcium 7.2 L (8.6-10.3) mg/dl Phosphorus 3.5 D (2.5-4.9) mg/dl Magnesium 1.9 (1.7-2.4) mg/dl U Marijuana THC Carboxy (<5) ng/mL Drug Screen Comment 03/31/23 03/31/23 03/31/23 Range/Units 18:47 18:41 18:25 WBC (4.8-10.8) K/ul RBC (4.20-5.40) M/uL Hgb (12.0-16.0) g/dl Hct (37.0-47.0) % MCV (80.0-100.0) fL MCH (25.0-34.0) pg MCHC (32.0-36.0) g/dL RDW Std Deviation (36.4-46.3) fL RDW Coeff of Kartik (11.5-14.5) % Plt Count (130-400) K/uL MPV (9.4-12.4) fL Immature Gran % (Auto) % Neut % (Auto) % Lymph % (Auto) % Schuyler % (Auto) % Eos % (Auto) % Baso % (Auto) % Neut # (Auto) (1.40-6.50) K/uL Lymph # (Auto) (1.20-3.40) K/uL Schuyler # (Auto) (0.11-0.59) K/uL Eos # (Auto) (0.00-0.50) K/uL Baso # (Auto) (0.00-0.20) K/uL Immature Gran # (Auto) (0.01-0.20) K/uL Sodium (136-145) mmol/L Potassium (3.5-5.1) mmol/L Chloride (98-107) mmol/L Carbon Dioxide (21-32) mmol/L Anion Gap (3-11) BUN (6-23) mg/dl Creatinine (0.6-1.2) mg/dl Est Cr Clr Drug Dosing ml/min Est GFR ( Amer) ml/min Est GFR (Non-Af Amer) ml/min BUN/Creatinine Ratio (10-20) Glucose (70-99(Fasting)) mg/dl POC Glucose 66 L* 55 L* 30 L* (70-99) mg/dl Calcium (8.6-10.3) mg/dl Phosphorus (2.5-4.9) mg/dl Magnesium (1.7-2.4) mg/dl U Marijuana THC Carboxy (<5) ng/mL Drug Screen Comment 03/31/23 03/31/23 03/29/23 Range/Units 18:24 13:51 21:20 WBC (4.8-10.8) K/ul RBC (4.20-5.40) M/uL Hgb (12.0-16.0) g/dl Hct (37.0-47.0) % MCV (80.0-100.0) fL MCH (25.0-34.0) pg MCHC (32.0-36.0) g/dL RDW Std Deviation (36.4-46.3) fL RDW Coeff of Kartik (11.5-14.5) % Plt Count (130-400) K/uL MPV (9.4-12.4) fL Immature Gran % (Auto) % Neut % (Auto) % Lymph % (Auto) % Sch[place]yler % (Auto) % Eos % (Auto) % Baso % (Auto) % Neut # (Auto) (1.40-6.50) K/uL Lymph # (Auto) (1.20-3.40) K/uL [place]yler # (Auto) (0.11-0.59) K/uL Eos # (Auto) (0.00-0.50) K/uL Baso # (Auto) (0.00-0.20) K/uL Immature Gran # (Auto) (0.01-0.20) K/uL Sodium (136-145) mmol/L Potassium (3.5-5.1) mmol/L Chloride (98-107) mmol/L Carbon Dioxide (21-32) mmol/L Anion Gap (3-11) BUN (6-23) mg/dl Creatinine (0.6-1.2) mg/dl Est Cr Clr Drug Dosing ml/min Est GFR ( Amer) ml/min Est GFR (Non-Af Amer) ml/min BUN/Creatinine Ratio (10-20) Glucose (70-99(Fasting)) mg/dl POC Glucose 35 L* 93 (70-99) mg/dl Calcium (8.6-10.3) mg/dl Phosphorus (2.5-4.9) mg/dl Magnesium (1.7-2.4) mg/dl U Marijuana THC Carboxy 16 H (<5) ng/mL Drug Screen Comment SEE NOTE Medications Administered Current Inpatient Medications Albuterol (Albuterol Hfa 8 Gm Inhaler) 1 puffs INH Q6H PRN PRN Reason: Shortness Of Breath Or Wheezin Stop: 04/29/23 05:11 Albuterol (Albut/Ipratrop 3mg/0.5mg Neb 3 Ml Vial) 3 ml NEB QIDR [facility]; Protocol Stop: 04/29/23 06:59 Last Admin: 04/01/23 07:25 Dose: Not Given Budesonide (Budesonide 0.5 Mg/2 Ml Vial (Pulmicort)) 0.5 mg NEB BIDR [facility] Stop: 04/30/23 18:59 Last Admin: 04/01/23 07:27 Dose: 0.5 mg Dextrose (Dextrose 50% 50 Ml Syringe) 25 - 50 ml IV UD PRN; Protocol PRN Reason: Hypoglycemia Protocol Stop: 04/30/23 18:29 Last Admin: 03/31/23 18:43 Dose: 50 ml Enoxaparin Sodium (Enoxaparin Inj 30 Mg/0.3 Ml Syr) 30 mg SQ QAM [facility] Stop: 04/29/23 08:59 Last Admin: 03/31/23 13:47 Dose: 30 mg Formoterol Fumarate (Formoterol 20 Mcg/2 Ml Vial) 20 mcg NEB BIDR [facility] Stop: 04/30/23 08:59 Last Admin: 04/01/23 07:27 Dose: 20 mcg Glucagon (Glucagon For Inj 1 Mg Vial) 1 mg SQ UD PRN; Protocol PRN Reason: Hypoglycemia Protocol Stop: 04/30/23 18:29 Glucose (Glucose 10 Tab/Tube) 4 - 8 tab PO UD PRN; Protocol PRN Reason: Hypoglycemia Treatment Stop: 04/30/23 18:29 Glucose (Glucose 40% Gel 15 Gm Tube) 15 - 30 gm PO UD PRN; Protocol PRN Reason: Hypoglycemia Protocol Stop: 04/30/23 18:29 Parenteral Electrolytes (Plasma-Lyte A Ph 7.4) 1,000 mls @ 110 mls/hr IV .Q9H6M [facility] Stop: 04/29/23 08:59 Last Admin: 04/01/23 03:49 Dose: 110 mls/hr Acetaminophen (Ofirmev) 1,000 mg in 100 mls @ 400 mls/hr IV Q8H PRN PRN Reason: Pain Stop: 04/02/23 13:52 Last Infusion: 03/31/23 18:45 Dose: Infused Phenylephrine HCl (Phenylephrine/Nss) 25 mg in 250 mls @ 13.29 mls/hr IV .Q 18H49M [facility]; Protocol Stop: 04/29/23 21:56 Last Admin: 03/31/23 16:50 Dose: Not Given Magnesium Sulfate/Dextrose (Magnesium Sulfate / D5w) 1 gm in 100 mls @ 50 mls/hr IV Q2H [facility] Stop: 04/01/23 10:29 Last Admin: 04/01/23 08:23 Dose: 50 mls/hr Thiamine HCl 500 mg/ Sodium (Chloride) 55 mls @ 210 mls/hr IV Q8H [facility] Stop: 04/03/23 02:46 Lansoprazole (Lansoprazole 15 Mg Soltab) 15 mg PO QAM [facility] Stop: 04/29/23 08:59 Last Admin: 03/31/23 13:47 Dose: 15 mg Metoprolol Tartrate (Metoprolol Tartrate 25 Mg Tab) 12.5 mg PO BID [facility] Stop: 04/30/23 10:29 Last Admin: 03/31/23 21:02 Dose: 12.5 mg Metoprolol Tartrate (Metoprolol Tartrate 1 Mg/Ml Vial) 2.5 mg IV Q6 [facility] Stop: 04/30/23 17:59 Last Admin: 04/01/23 06:28 Dose: 2.5 mg Miscellaneous (Icu Electrolyte Replacement Protocol) 1 each N/A BID@18 [facility]; Protocol Stop: 04/06/23 17:59 Last Admin: 04/01/23 06:13 Dose: 1 each Miscellaneous (Icu Protocol For Hyperglycemia) 1 each N/A Q6 [facility] Stop: 04/01/23 11:29 Last Admin: 04/01/23 06:20 Dose: Not Given Miscellaneous (Remove Lidoderm Patch) 1 each N/A DAILY@2100 [facility] Stop: 04/29/23 20:59 Last Admin: 03/31/23 21:04 Dose: 1 each Miscellaneous (Carbohydrates For Hypoglycemia ) 15 - 30 gm PO UD PRN PRN Reason: Hypoglycemia Protocol Stop: 04/30/23 18:29 Nitroglycerin (Nitroglycerin 2% Ointment 30gm Tube) 1 inch EXT BID [facility] Stop: 04/29/23 10:44 Last Admin: 03/31/23 21:04 Dose: Not Given Propofol (Propofol Bolus From Bag) 20 mg IV Q5M PRN PRN Reason: Sedation Stop: 04/02/23 15:14 Last Admin: 03/31/23 00:09 Dose: 20 mg (1) Fall Encounter type: initial encounter Qualified Code(s): W19.XXXA - Unspecified fall, initial encounter
[2023-04-01] MEDS ORDERED: FOLIC ACID 1 MG in SYRINGE 9.8 ML IV SCH (10:30)
[2023-04-01] MEDS: METOPROLOL TARTRATE 25 MG TAB PO SCH (10:46)
[2023-04-01] MEDS: NITROGLYCERIN 2% OINTMENT 30GM TUBE EXT SCH ×2 (10:47→20:57)
[2023-04-01] MEDS: LANSOPRAZOLE 15 MG SOLTAB PO SCH (10:48)
[2023-04-01] MEDS: ENOXAPARIN INJ 30 MG/0.3 ML SYR SQ SCH (10:48)
--- NOTE | 2023-04-01 11:54 | Cardiology Progress Note ---
Date of Service April 01, 2023 Assessment & Plan (1) Cardiac arrest: (2) Acute heart failure with preserved ejection fraction: (3) Hypokalemia: (4) Hypomagnesemia: (5) Prolonged QT interval: Plan 72-year-old female presenting with fall with subsequent cardiac arrest, PEA with spontaneously return of circulation after CPR and epinephrine. Etiology of arrest likely due to electrolyte derangement and prolonged QT interval. No recurrent dysrhythmia with electrolyte supplementation. Mild hypomagnesemia. Labs today. Replace IV as ordered. Fluid balance +6.8 L since admission. Mild volume overload per x-ray. Agree with gentle diuresis with close attention to electrolyte replacement. Repeat ECG in a.m. Continue IV Lopressor. Transition to p.o. when patient able to tolerate oral medication. Elevated high-sensitivity troponin likely due to demand ischemia in the setting of cardiac arrest and hypoxia. Further noninvasive ischemic evaluation as outpatient. Admission and Anticipated Discharge Date Admission Date: March 30, 2023 Subjective Patient seen and examined at the bedside. Remains in sinus rhythm on telemetry. Unable to swallow medications since extubation. Mild hypomagnesemia noted this a.m. Overall fluid balance +6.8 L since admission. X-ray demonstrating pulmonary edema with bilateral effusions. Echocardiogram with preserved LV systolic function. QTc 522 ms per a.m. ECG. Review of Systems Review of Systems: All systems reviewed & are unremarkable except as noted in Subjective Physical Exam Constitutional: + ill appearing and + thin Respiratory: no respiratory distress and no labored breathing Auscultation: + diminished lung sounds (Bases bilateral) and + rhonchi (Coarse breath sounds bilaterally); no wheezes Cardiovascular: Rate/Rhythm: regular rate, regular rhythm and + tachycardic Heart Sounds: normal S1 and normal S2; no murmur Vessels: no JVD Extremities: no edema Gastrointestinal (Abdomen): Inspection/Auscultation: abdomen normal to inspection; abdomen not distended Percussion/Palpation: abdomen soft; abdomen nontender, no guarding and abdomen not rigid Neurologic: moves all extremities Results & Data Vital Signs (Past 12 Hours) Vital Signs Temp Pulse Pulse Resp BP Pulse Ox O2 Del Method 04/01/23 10:39 100 H 26 H 97 Oxymask 04/01/23 10:00 37.2 C 94 H 27 H 93/72 L 96 Nasal Cannula 04/01/23 09:14 37.1 C 95 H 28 H 108/76 92 Nasal Cannula 04/01/23 09:02 37.1 C 92 H 26 H 99/54 L 100 04/01/23 09:00 37.1 C 93 H 26 H 80/52 L 99 04/01/23 08:01 37.1 C 94 H 33 H 134/74 97 04/01/23 07:30 100 H 30 H 95 Oxymask 04/01/23 07:20 37.5 C 102 H 43 H 153/81 H 100 04/01/23 06:28 103 H 147/71 H 04/01/23 05:10 37.4 C 101 H 33 H 100 04/01/23 05:01 124/73 04/01/23 05:01 37.4 C 101 H 32 H 95 Oxymask 04/01/23 05:00 37.4 C 101 H 31 H 97 04/01/23 04:50 37.4 C 103 H 32 H 98 04/01/23 04:40 37.4 C 105 H 42 H 97 04/01/23 04:30 37.4 C 113 H 42 H 94 04/01/23 04:20 37.4 C 103 H 34 H 98 04/01/23 04:10 37.4 C 108 H 38 H 95 Oxymask 04/01/23 04:00 126/83 04/01/23 04:00 37.4 C 103 H 30 H 97 04/01/23 03:00 132/76 04/01/23 03:00 37.4 C 103 H 31 H 94 04/01/23 02:01 37.6 C H 102 H 28 H 96 04/01/23 02:01 84/48 L 04/01/23 02:00 37.6 C H 102 H 27 H 97 04/01/23 01:38 102 H 04/01/23 01:30 37.6 C H 103 H 21 92 04/01/23 01:15 37.6 C H 107 H 26 H 79 L 04/01/23 01:01 37.6 C H 102 H 25 H 97 04/01/23 01:01 97/57 L 04/01/23 01:00 37.6 C H 102 H 27 H 96 04/01/23 00:45 37.6 C H 105 H 27 H 95 04/01/23 00:30 37.6 C H 106 H 26 H 97 04/01/23 00:19 104 H 103/60 04/01/23 00:00 37.5 C 100 H 29 H 97 04/01/23 00:00 103/60 O2 Flow Rate 04/01/23 10:39 3 04/01/23 10:00 3 04/01/23 09:14 3 04/01/23 09:02 04/01/23 09:00 04/01/23 08:01 04/01/23 07:30 8 04/01/23 07:20 04/01/23 06:28 04/01/23 05:10 04/01/23 05:01 04/01/23 05:01 8 04/01/23 05:00 04/01/23 04:50 04/01/23 04:40 04/01/23 04:30 04/01/23 04:20 04/01/23 04:10 8 04/01/23 04:00 04/01/23 04:00 04/01/23 03:00 04/01/23 03:00 04/01/23 02:01 04/01/23 02:01 04/01/23 02:00 04/01/23 01:38 04/01/23 01:30 04/01/23 01:15 04/01/23 01:01 04/01/23 01:01 04/01/23 01:00 04/01/23 00:45 04/01/23 00:30 04/01/23 00:19 04/01/23 00:00 04/01/23 00:00 Laboratory Results CBC 04/01/23 Range/Units 05:01 WBC 8.89 (4.8-10.8) K/ul RBC 2.64 L (4.20-5.40) M/uL Hgb 8.1 L (12.0-16.0) g/dl Hct 24.3 L (37.0-47.0) % Plt Count 127 L (130-400) K/uL Neut # (Auto) 7.85 H (1.40-6.50) K/uL Lymph # (Auto) 0.64 L (1.20-3.40) K/uL [place] # (Auto) 0.33 (0.11-0.59) K/uL Eos # (Auto) 0.00 (0.00-0.50) K/uL Baso # (Auto) 0.02 (0.00-0.20) K/uL Comprehensive Metabolic Panel 04/01/23 Range/Units 05:01 Sodium 140 (136-145) mmol/L Potassium 4.4 (3.5-5.1) mmol/L Chloride 109 H (98-107) mmol/L Carbon Dioxide 25 (21-32) mmol/L BUN 8 (6-23) mg/dl Creatinine 0.66 (0.6-1.2) mg/dl Glucose 90 (70-99(Fasting)) mg/dl Calcium 7.2 L (8.6-10.3) mg/dl Intake and Output 03/31/23 04/01/23 04/01/23 22:59 06:59 14:59 Intake Total 899.333 / 2846.313 501.833 / 2846.313 90.833 / 90.833 Output Total 300 / 820 170 / 820 50 / 50 Balance 599.333 / 2026.313 331.833 / 2026.313 40.833 / 40.833 Intake: IV 899.333 / 2846.313 501.833 / 2846.313 90.833 / 90.833 Acetaminophen 1,000 mg In 100 100 / 200 ml @ 400 mls/hr IV Q8H PRN Rx#: [id number] Magnesium Sulfate / D5w 1 gm In 90.833 / 90.833 100 ml @ 50 mls/hr IV Q2H [facility] Rx#:[id number] Plasma-Lyte A 1,000 ml @ 110 799.333 / 2301.166 501.833 / 2301.166 mls/hr IV .Q9H6M [facility] Rx#: [id number] Oral 0 / 0 0 / 0 Output: Urine Amount (Catheter) 300 / 770 170 / 770 50 / 50 Tee/Indwelling 300 / 770 170 / 770 50 / 50 Diagnostic Findings Chest x-ray with pulmonary edema and bilateral pleural effusions. ECG Additional Comments: ECG as noted above with prolonged QT interval.
[2023-04-01] MEDS: ACETAMINOPHEN 1,000 MG/100 ML VIAL IV PRN ×2 (12:26→21:30)
[2023-04-01] MEDS: THIAMINE HCL 500 MG in SODIUM CHLORIDE 0.9% 50 ML IV SCH ×2 (12:26→21:25)
[2023-04-01] MEDS: PHENYLEPHRINE/NSS 25 MG/250 ML BAG IV SCH (12:26)
[2023-04-01] MEDS: DEXTROSE 50% 50 ML SYRINGE IV PRN (12:36)
[2023-04-01 15:14] LABS: Hemoglobin 7.5 g/dl (12.0-16.0)
--- NOTE | 2023-04-01 19:35 | Electrocardiogram Report ---
Test Reason : Blood Pressure : / mmHG Vent. Rate : 095 BPM Atrial Rate : 095 BPM P-R Int : 106 ms QRS Dur : 060 ms QT Int : 416 ms P-R-T Axes : 030 039 040 degrees QTc Int : 522 ms Sinus rhythm Low voltage QRS Prolonged QT Abnormal ECG When compared with ECG of 31-MAR-2023 06:00, Nonspecific T wave abnormality, worse in Inferior leads Confirmed by Herberth Gutierrez ([id number]) on 04/01/2023 7:35:11 PM Referred By: REFERRED SELF Confirmed By:Shalom Gutierrez
[2023-04-02] MEDS ORDERED: SODIUM CHLORIDE 0.9% 10ML FLUSH IV ONE (03:59)
[2023-04-02] MEDS ORDERED: ROCURONIUM BROMIDE 10 MG/ML 5 ML VIAL IV ONE (03:59)
[2023-04-02] MEDS ORDERED: SODIUM BICARB 8.4% INJ 50 MEQ/50 ML SYR IV ONE (03:59)
[2023-04-02] MEDS ORDERED: MIDAZOLAM HCL 5 MG/ML 2ML VIAL IV ONE (03:59)
[2023-04-02] MEDS ORDERED: ETOMIDATE 2 MG/ML 20 ML VIAL IV ONE (03:59)
--- NOTE | 2023-04-02 07:55 | Communication Note ---
Date of Service: April 02, 2023 I was called Patient was not doing well. Went to see the patient. By the time I reached patient already .Possible from Acute CHF, Qt prolongation. Daughter notified.
--- NOTE | 2023-04-02 07:56 | Death Pronouncement Note ---
Date of Service April 02, 2023 Pronouncement Note Admission Date March 30, 2023 Date and Time of Date of : 04/02/23 Time of : 01:54 Additional Data Confirmation of : no pulse, no respirations, no heart sounds and pupils fixed and dilated Family: contacted Attending physician: Inocencio Panchal MD
--- NOTE | 2023-04-02 08:51 | Discharge Summary ---
Date of Service April 02, 2023 Admission HPI Per Admitting Provider 72-year-old female with past med significant for COPD moderate, hepatic steatosis, ongoing tobacco abuse, generalized anxiety disorder, ongoing alcohol abuse lives at home alone and ambulates with walker presents with fall. Patient states she is falling frequently. She states she hit her head on the left side but no loss of consciousness. She was not able to get up and EMS was called. She says daughter lives close by. Currently denies any headache. No blurred visions. No earache. No sore throat. Has chronic cough. Denies any fevers. Denies chest pain or shortness of breath. No nausea. No abdominal pain. Appetite is okay. Normal bowel and bladder movements. No swelling in the legs. States she is smoking 1 pack of cigarettes daily for many years. Says drinks alcohol 6 beers daily.Marijuana screen was positive and daughter says she didn't smoked marijuana in the past ,this is something new. Past medical history. As mentioned above Past surgical history. Colonoscopy. D and E. Tonsillectomy adenoidectomy. Social history. Smoking 1 pack a day for last 53 years. Drinks alcohol 6 beers daily. No drug use as per [employer]. Family history. Mother had arthritis. Father had cataracts. Alzheimer's. Prostate cancer. Admission Exam Per Admitting Provider General- Not in distress Head- atraumatic Eyes- PERRL. ENT- oropharynx clear Neck- supple, no JVD. Lungs- clear to auscultation , mild b/l wheezing present. no crackles. Heart- regular rhythm; no murmur, no gallop. Abdomen- normal bowel sounds, soft, nontender, no distension. Extremities- no pretibial edema, no erythema seen. Neuro- alert, oriented x 3; PERRL, no facial palsy; no dysarthria; moves extremities. Skin- warm & dry Principal Diagnosis Acute CHF, Prolonged QT, Electrolyte derangement Discharge Exam Confirmation of : no pulse, no respirations, no heart sounds and pupils fixed and dilated Date of : 04/02/23 Time of : 01:54 Discharge Data Allergies Allergy/AdvReac Type Severity Reaction Status Date / Time No Known Allergies Allergy Verified 03/29/23 21:51 Consultations 03/30/23 01:03 ED Decision to Admit Stat 03/30/23 07:29 Consult Assembler Flexible Leads Routine 03/30/23 08:00 Consult Orthopedic Surgery Routine 03/30/23 08:41 Consult Cardiology Routine Ordered Studies 03/29/23 20:57 CT cervical spine wo con Stat FINDINGS: Vertebrae: Advanced multilevel degenerative arthropathy of the facet joints. Minimal anterior spondylolisthesis of C4 on C5 and C5 on C6. No acute fracture. Discs/spinal canal/neural foramina: Degenerative disc disease, most pronounced at C6/C7. No spinal canal stenosis. Soft tissues: Unremarkable. IMPRESSION: No acute findings in the cervical spine. CT head/brain wo con Stat FINDINGS: Brain: Generalized cerebral volume loss and chronic small vessel ischemic changes in the white matter. No acute edema, hemorrhage or abnormal mass-effect. No extra-axial collection. Ventricles: Unremarkable. No ventriculomegaly. Bones/joints: Unremarkable. No acute fracture. Soft tissues: Unremarkable. Sinuses: Unremarkable as visualized. No acute sinusitis. Mastoid air cells: Unremarkable as visualized. No mastoid effusion. IMPRESSION: No acute findings in the head/brain. 03/30/23 06:28 CT head/brain wo con Stat Findings: There is a small fluid level within the left sphenoid sinus. Endotracheal tube is partially visualized. The mastoid air cells are clear. The calvarium and skull base are intact. There is no mass, hematoma, midline shift, acute infarct. White matter hypodensity is nonspecific but suggestive of microvascular ischemic change. The ventricles and sulci demonstrate mild age- related involutional changes. Impression: 1. No acute intracranial hemorrhage or acute infarct. 2. Small fluid level within the left sphenoid sinus. 03/30/23 06:40 CT angio chest PE protocol Stat FINDINGS: Pulmonary arteries: Unremarkable. No pulmonary embolism. Aorta: No acute findings. No thoracic aortic aneurysm or dissection. Lungs: Emphysematous changes. Peripheral fibrotic changes. No acute infiltration or mass. Pleural space: Unremarkable. No significant effusion. No pneumothorax. Heart: Unremarkable. No cardiomegaly. No significant pericardial effusion. No evidence of RV dysfunction. Bones/joints: No acute fracture. No dislocation. Soft tissues: Unremarkable. Lymph nodes: Unremarkable. No enlarged lymph nodes. Tubes, lines and devices: The endotracheal tube appears to be just above the mae. IMPRESSION: No evidence of pulmonary emboli or acute cardiopulmonary process. Hospital Course (1) Fall: 72 yo F with past med significant for COPD moderate, hepatic steatosis, ongoing tobacco abuse, generalized anxiety disorder, ongoing alcohol abuse lives at home alone and ambulates with walker presents with fall. Soon after admission pt became unresponsive - code blue/ cardiac arrest and was transferred to ICU, intubated. Extubated AM (03/31/23) Acute hypoxic resp. failure remains on suppl. O2 Per pulm - Evidence of interstitial disease and outpatient follow-up may be appropriate with complete PFTs - cont. incentive spirometry flutter valve and out of bed to chair as tolerated - continue nebulized Perforomist and budesonide for now until the patient is able to tolerate MDIs (home inhalers) - has hx of COPD, ongoing tobacco abuse-needs counseling 04/01 on 8L this AM, CXR w/ pulm. vasc. congestion, received 40 IV lasix -> now on 3L suppl. o2 cardiac arrest, etiology unclear, likely secondary to prolonged QT and electrolyte abnormalities Cardiology following closely Echo obtained -LV cavity is normal. LV is hyperdynamic, EF more than 70%. Mild mitral regurg. Moderate tricuspid regurg. Doppler findings do not suggest pulmonary hypertension. Normal inferior vena cava diameter and respiratory variation suggesting normal central venous pressure. There is no pericardial effusion. electrolytes - replete and monitor Start metoprolol 12.5 bid - pt not able to take PO at this time, cont. with 2.5 IV q6 hrs elevated troponin - likely 2/2 demand ischemia - noninvasive ischemic eval as outpt Acute CHF - lasix given as above 04/02 - Clinical Psychiatrist was called patient was not doing well and went to see the patient. By the time he reached patient already . Possible from Acute CHF, Qt prolongation. Daughter notified. Date of : 04/02/23 Time of : 01:54 Fall Ambulatory dysfunction Frequent falling as per patient Ongoing alcoholism Acute distal left clavicle fracture, orthopedics consulted PT OT when stable Hypomagnesia and hypokalemia replace and monitor Follow repeat labs Alcoholism received Banana bag cont. Thiamine and folic acid initially planned for gabapentin alcohol withdrawal protocol with IV Ativan as needed started on precedex in ICU, care as per ICU, cont. w/ prn ativan Closely monitor for withdrawal symptoms Generalized anxiety disorder On citalopram Pt was made DNR/DNI when jig fitter discussed with the family Total Time Total Time Spent Total Time Spent (In Minutes): 0 Discharge Plan Discharge Items Patient Disposition: Other Date/Time: 04/02/23 01:54
[2023-04-02] MEDS ORDERED: GABAPENTIN 400 MG CAP PO SCH (22:00)
== END 2023-04-02 04:00 | disposition expired | DRG 640 ==
LOC: ED 20:49 → 2S 03-30 03:25 → 1E 03-30 07:03